=== PATIENT | female | born 1945 | race Caucasian/White ===

== ENCOUNTER → 2020-07-13 | Outpatient (CLI) | payer MEDICARE, SELFPAY | END | disposition home or self-care (01) | PROVIDERS: PCP Family Medicine; Referring Provider Physician Assistant; Visit Provider Physician Assistant | DX: U07.1 COVID-19 (principal) | CPT/HCPCS: 87635; C9803; U0003 ==

== ENCOUNTER 2022-10-17 13:58 | Inpatient (IN) | payer MEDICARE, SELFPAY ==
[2022-10-17] VITALS (10 sets, daily range): BP systolic 116–160; BP diastolic 60–87; PULSE 67–79; RESP 14–18; TEMP 36.6–36.8; O2SAT 95–100; BMI 35.4; BMI 35.9
--- NOTE | 2022-10-17 14:49 | EKG12_ITS ---
Test Reason : SYNCOPE Blood Pressure : / mmHG Vent. Rate : 066 BPM Atrial Rate : 066 BPM P-R Int : 200 ms QRS Dur : 106 ms QT Int : 414 ms P-R-T Axes : 022 -07 015 degrees QTc Int : 434 ms Normal sinus rhythm Nonspecific ST abnormality Abnormal ECG Confirmed by MAKI HESS, KARINA ([id number]), managing editor CAPRICE BARR ([id number]) on 10/20/2022 10:59:35 AM Referred By: CASSANDRA/MAGALY Confirmed By:SAVANNAH GAMBINO MD
--- NOTE | 2022-10-17 14:51 | EX.ED.DYSGE1 ---
HPI History of Present Illness Chief Complaint: Syncope Informant: patient and spouse/S.O. Narrative Narrative: This patient presents after an episode of chest pain posterior shoulder pain and syncope. She does have significant history of of high blood pressure, diabetes and high cholesterol. She has never had any known heart disease or had a stress test or heart cath that she knows of. Her father did have bypass surgery in his mid 50s. She is not a smoker. Patient was feeling in her normal state of health. She was at a restaurant. She started complaining of an achy sensation across her shoulders on both sides. It was not sharp. It did not migrate. She does describe a little discomfort in the sternum at that time also. That was also an ache. It was not tearing ripping or severe but it felt different than pains that she has had before. She does not recall being short of breath or any palpitations. Her noted that she just looked differently. She was awake and alert but she just looked like she was uncomfortable. He got up to have the staff in the restaurant called EMS. When he got back his was leaning forward but had not fallen. Her eyes were open but she was not at all responding to him. This lasted for probably 3 or so minutes. There was some paramedics who happened to be eating at the restaurant who came over and EMS was called. When EMS checked her pulse it evidently was normal but at that point she was awake and alert. She states when she woke up she felt like she just woke up from a nap. She had none of that discomfort in her shoulder or chest. And she feels good now. When she got up to go home, she noticed she had urinated on herself. She went home. She had a normal bowel movement without blood. No abdominal pain. No back pain. But she did have 1 episode of vomiting. This was not associated with further neck pain but did have a little bit of anterior sternal pain. She was not diaphoretic at any time. Her states that her color was a little bit off but she was not pale robles or blue. New Past medical history: High blood pressure, high cholesterol, arthritis, diabetes Medications are lisinopril hydrochlorothiazide, metformin, statin, Tylenol none of these meds are new. No known drug allergies No recent surgeries. No stress test or heart catheterization Lives with non-smoker Review of systems is negative other than in history of present illness. She has no recent fevers chills cough myalgias headaches. No chest pain or palpitations other than as in history of present illness. No shortness of breath or coughing. No abdominal symptoms. No urinary symptoms. No myalgias. No numbness tingling weakness. No headaches. I did review prior records to see if there were any prior labs, EKGs, x-rays CTs available. These were not found. I was able to find a positive COVID test but this was back in July 2020 and I do not think this affects our evaluation today. PFSH PFSH Home Medications acetaminophen 500 mg tablet 1,000 mg PO Q8H ARTHRITIS PAIN 10/17/22 [History Last Taken 10/17/22 05:00] atorvastatin 20 mg tablet 20 mg PO FR CHOLESTEROL 10/17/22 [History Last Taken 10/10/22] diphenhydramine HCl 25 mg tablet (Benadryl Allergy) 25 mg PO QHS PRN ALLERGIES 10/17/22 [History Last Taken 10/15/22] lisinopril 10 mg-hydrochlorothiazide 12.5 mg tablet 1 tab PO QHS BLOOD PRESSURE 10/17/22 [History Last Taken 10/16/22] metformin 500 mg tablet,extended release 24 hr 1,000 mg PO BID BLOOD SUGARS 10/17/22 [History Last Taken 10/16/22] multivit with jkrpzpmx-kikc-QD-lutein 8 mg iron-400 mcg-300 mcg tablet (Centrum Silver Women) 1 tab PO DAILY HEALTH MAINTENANCE 10/17/22 [History Last Taken 10/15/22] omeprazole 20 mg capsule,delayed release 20 mg PO QHS ACID REFLUX 10/17/22 [History Last Taken 10/16/22] Allergy/AdvReac Type Severity Reaction Status Date / Time No Known Allergies Allergy Verified 10/17/22 13:58 Social History Smoking Status: Never smoker EXAM Physical Exam Narrative Exam Narrative: Patient is awake and alert. She is not toxic appearing. She is not pale or diaphoretic. I see no pallor of her conjunctive a. Mucous membranes are moist. Neck is nontender. No stridor is heard. She has no back tenderness or shoulder tenderness. She has some crepitus with motion of her shoulder joints but this is evidently chronic. Peripheral pulses in upper and lower extremities are normal. Her heart is regular with a rate of about 70. I hear no murmur gallop rub or muffled heart tones. Lungs are clear. There is no pain with a deep breath. Her abdomen shows normal bowel sounds soft and nondistended. She had minimal epigastric tenderness but no rebound or guarding. I feel no mass. I hear no bruit. Again lower extremity pulses are normal and there is no mottling. There is no CVA tenderness. No swelling, edema, distended veins or asymmetry of extremities. No mottling. Sensation is intact. Const Vital Signs: 10/17/22 13:59 10/17/22 14:29 10/17/22 14:33 Temperature 97.8 F Temperature Source Temporal Pulse Rate 72 67 Respiratory Rate 18 16 Respiratory Effort Normal Non-Labored Respiratory Pattern Normal Blood Pressure 136/60 H 160/77 H Blood Pressure Mean 85 104 Pulse Ox 100 99 Oxygen Delivery Method Room Air Room Air 10/17/22 14:49 10/17/22 15:00 Temperature Temperature Source Pulse Rate 67 Respiratory Rate 18 Respiratory Effort Respiratory Pattern Blood Pressure Blood Pressure Mean Pulse Ox 98 Oxygen Delivery Method Room Air Room Air MDM MDM MDM Narrative Medical decision making narrative: My Independent interpretation of her single view chest x-ray shows no acute process. I do not see any cardiomegaly infiltrate or pneumothorax. Radiology review and reading is also negative. Blood work showed elevation of her white count which is nonspecific and could be a stress reaction or demargination. She has no fever or symptoms of infections. Hemoglobin is normal. Platelets are normal. Electrolytes did show elevation in the BUN and creatinine but BUN to creatinine ratio is within normal limits. I was able to access the patient's external my chart system to review prior labs. Her creatinine was 0.8 back in May 2021 showing that this may be an acute kidney injury. At this point it is a creatinine elevation as we only have a single prior creatinine level to compare to. Patient's glucose is also elevated 294 today. However she did just finished eating. Her troponin at this time is negative. Patient has a little bit of indigestion feeling in the chest but not having pain now. My concern is that this is a patient with multiple medical problems, blood pressure cholesterol and diabetes who had some chest discomfort posterior neck discomfort and then a syncopal episode. She has never had a stress test. I think bring her in the hospital for further evaluation and testing would be appropriate. When I talk more with the patient, we talked about any difficulties with urination. She states she has none now but about a week ago she had a little bit of pressure and went away with cranberry juice. I will check a urinalysis but this is pending. I have also sent viral studies often and pending. Hospitalist is paged. Lab Data Attestation: I reviewed the patient's lab results. Labs: Laboratory Results - last 24 hr 10/17/22 10/17/22 14:26 14:26 WBC 14.0 H RBC 4.31 Hgb 13.1 Hct 40.0 MCV 92.8 MCH 30.4 MCHC 32.8 RDW Std Deviation 49.1 H RDW Coeff of Carl 14.3 Plt Count 429 MPV 11.3 Immature Gran % (Auto) 0.400 Neut % (Auto) 81.4 H Lymph % (Auto) 11.7 L [place] % (Auto) 5.3 Eos % (Auto) 0.8 Baso % (Auto) 0.4 Absolute Neuts (auto) 11.4 H Absolute Lymphs (auto) 1.63 Nucleated RBC % 0 Sodium 136 Potassium 3.8 Chloride 105 Carbon Dioxide 25.0 Anion Gap 6 BUN 41 H Creatinine 2.12 H Estim Creat Clear Calc 19.68 Est GFR (MDRD) Af Amer 29 L Est GFR (MDRD) Non-Af 24 L BUN/Creatinine Ratio 19.3 Glucose 294 H Calcium 9.9 Troponin I High Sens 19 Radiography Diagnostic Testing: Clinical Impression(s) from Imaging Studies Chest X-Ray 10/17/22 15:06 IMPRESSION: No acute abnormality is seen. Electronically Signed: Enzo Silva MD at 15:20 EST , EKG Initial EKG: Comments: My independent interpretation of EKG done for chest pain and syncope. EKG shows normal sinus rhythm with borderline first-degree AV block. Overall ventricular rate is 66. There is no ventricular ectopy. There is no acute ST elevation or depression consistent with infarct or ischemia. NE interval is borderline at 200 ms. QRS duration and QTc are normal. I looked for and could not find a prior EKG on our medical system. Discharge Plan Dx/Rx/DC Orders Clinical Impression: Chest pain, Syncope, Creatinine elevation Disposition Disposition: Acute Care Hospital [facility]
--- NOTE | 2022-10-17 15:06 | RAD_ITS ---
STUDY: X-RAY CHEST REASON FOR EXAM: Female, 76 years old. Chest pain TECHNIQUE: Single AP portable view of the chest. COMPARISON: None. FINDINGS: EKG electrodes are seen. The lungs are clear and expanded. There is no demonstrated pleural abnormality. Normal size heart. Normal mediastinum and dora. Normal visualized pulmonary arteries. There is atherosclerotic tortuosity of the aortic arch and descending thoracic aorta. There are diffuse degenerative changes of the visualized thoracic spine. There is degenerative osteoarthritis of the bilateral shoulders. There is no demonstrated abnormality of the visualized soft tissue structures of the upper abdomen. RAD/Chest 1 View (Portable) IMPRESSION: No acute abnormality is seen. Electronically Signed: Enzo Silva MD at 15:20 EST ,
[2022-10-17 15:07] LABS: Absolute Lymphocyte Count 1.63 X10^3/uL (0.83-4.51); Absolute Neutrophil Count 11.4 X10^3/uL (2.0-7.7); Basophil# 0.06 X10^3/uL; Basophil% 0.4 % (0-1); Eosinophil# 0.11 X10^3/uL; Eosinophils% 0.8 % (0-5); Hemoglobin 13.1 g/dL (12.0-15.0); Lymphocyte # 1.63 X10^3/ul (0.83-4.51); Lymphocyte % 11.7 % (19-41); Mean Corp Hgb Conc 32.8 g/dL (32-36); Mean Corpuscular Hgb 30.4 pg (27.0-32.0); Mean Corpuscular Volume 92.8 fL (81-99); Mean Platelet Vol. 11.3 fl (6.2-12.0); Monocyte# 0.74 X10^3/uL; Monocyte% 5.3 % (0-10); NRBC Flagged by Analyzer 0 % (0-5); Neutrophil # 11.37 X10^3/uL (2.7-7.7); Neutrophil % 81.4 % (47-70); Platelet Count 429 K/mm3 (150-450); RBC Distribution Width CV 14.3 % (11.6-14.6); RBC Distribution Width SD 49.1 fl (35.1-43.9); Red Blood Count 4.31 M/mm3 (4.2-5.4)
[2022-10-17 15:13] LABS: Anion Gap 6 (5-15); BUN 41 mg/dL (7-18); BUN/Creat Ratio 19.3 RATIO (10-20); Calcium,Total 9.9 mg/dL (8.5-10.1); Chloride 105 mmol/L (98-107); Creatinine, Serum 2.12 mg/dL (0.55-1.02); EST Glomerular Filtration Rate 24 mL/min (>60); Est Glom Filt Rate - Afr Amer 29 mL/min (>60); Estimated Creatinine Clearance 19.68 ml/min; Glucose 294 mg/dL (74-106); Potassium 3.8 mmol/L (3.5-5.1); Sodium Level 136 mmol/L (136-145); Troponin-I HS (w/2H Reflex) 19 pg/mL (3.0-54.0)
[2022-10-17] MEDS: Aspirin 81 MG TAB.CHEW 324 MG PO (15:20)
[2022-10-17] MEDS: 0.9% Normal Saline 1,000 ML 999 ML IV (16:16)
[2022-10-17 16:55] LABS: Reflex Troponin-HS? (from REC) Y
--- NOTE | 2022-10-17 17:20 | HP.PCM.HOS_ITS ---
HPI - General General Date of Admission: 10/17/22 Date of Service: 10/17/22 Chief Complaint: Syncope HPI Narrative VALENTE BOSCH, is a 76 F who presented to the emergency department was prehospital on 10/17/2022 after experiencing a syncopal episode while she was out at lunch. The patient indicated she noticed some deep aching pain across her upper back from shoulder to shoulder and the next thing she remembers is waking up with a bunch of people around her. Her indicated that she went all glassy eyed and did not fall over. She did have a episode of urinary incontinence while she was at the restaurant. The whole event lasted 2 to 3 minutes per her . The patient states when she woke up she felt okay however when she went back home to change close she did have a bowel movement and then episode of nausea afterwards which resulted in vomiting. She indicated she was feeling fine up until the point where she sat down and had the pain across her shoulders at lunch. At the time of my evaluation she indicated she felt almost back to baseline however she reported she was hungry and also felt a bit fatigued. She is never had an event like this previously. She does have a family history of coronary disease in her father and peripheral vascular disease in 1 of 2 sisters. She states her father had his first CABG when he was in his 50s. Vital signs on presentation demonstrated temperature of 97.8, heart rate was 72, blood pressure 136/60, respiratory rate 18 and pulse ox was 100% on room air. Her CBC showed a leukocytosis with a white count of 14 and there was a left shift present with an 81.4% neutrophilia. Patient had no signs of infection. Her chemistry panel showed normal electrolytes however BUN and creatinine were markedly elevated. BUN was 41 and serum creatinine was 2.12. We have no baseline data in our computer system however she was able to show us a creatinine from approximately 18 months ago that was 0.8. She is not had any blood work from that point time until now. Serum glucose was 294 and her initial troponin was 19. Her EKG was unremarkable with normal sinus rhythm and normal intervals without any ST-T wave changes consistent with acute ischemia. Her chest x-ray showed no acute abnormalities. [facility] Medical History (Updated 10/17/22 @ 17:[address] Tomeka Williamson DO) Arthritis Diabetes GERD (gastroesophageal reflux disease) Hyperlipidemia Hypertension Seasonal allergies Home Medications acetaminophen 500 mg tablet 1,000 mg PO Q8H ARTHRITIS PAIN 10/17/22 [History Last Taken 10/17/22 05:00] atorvastatin 20 mg tablet 20 mg PO FR CHOLESTEROL 10/17/22 [History Last Taken 10/10/22] diphenhydramine HCl 25 mg tablet (Benadryl Allergy) 25 mg PO QHS PRN ALLERGIES 10/17/22 [History Last Taken 10/15/22] lisinopril 10 mg-hydrochlorothiazide 12.5 mg tablet 1 tab PO QHS BLOOD PRESSURE 10/17/22 [History Last Taken 10/16/22] metformin 500 mg tablet,extended release 24 hr 1,000 mg PO BID BLOOD SUGARS 10/17/22 [History Last Taken 10/16/22] multivit with czdbhseb-gvmr-WE-lutein 8 mg iron-400 mcg-300 mcg tablet (Centrum Silver Women) 1 tab PO DAILY HEALTH MAINTENANCE 10/17/22 [History Last Taken 10/15/22] omeprazole 20 mg capsule,delayed release 20 mg PO QHS ACID REFLUX 10/17/22 [History Last Taken 10/16/22] Allergy/AdvReac Type Severity Reaction Status Date / Time No Known Allergies Allergy Verified 10/17/22 13:58 Family History (Updated 10/17/22 @ 17:[address] Tomeka Williamson DO) Father Diabetes CAD (coronary artery disease) Sister Diabetes CVA (cerebral vascular accident) Mother Melanoma Other Hypertension Surgical History History of appendectomy Social History (Updated 10/17/22 @ 17:[address] Tomeka Williamson DO) household members: spouse housing: house Smoking Status: Former smoker alcohol intake: current alcohol intake frequency: a few times a week details: Drinks of couple drinks couple times a week substance use type: does not use ROS Constitutional Constitutional: Denies anorexia, change in weight, chills, fatigue, fever(s), malaise, night sweats, weakness or other Eyes Eyes: Denies blurry vision, change in eye color, change in vision, discharge from eye(s), double vision, erythema, eye pain, loss of vision or other ENT HEENT: Denies abnormal hearing, dysphagia, ear pain, epistaxis, headache(s), hearing loss, nasal congestion, nasal discharge, post nasal drip, sinus pressure, sore throat or other Cardiovascular Cardiovascular: Reports syncope and other Details: Upper back pain across from shoulder to shoulder Gastrointestinal Gastrointestinal: Reports dyspepsia, nausea and vomiting; Denies abdominal pain, coffee ground emesis, constipation, diarrhea, hematemesis, hematochezia, loose stools, melena or other Genitourinary Genitourinary: Reports urinary frequency and urinary incontinence; Denies burni ng urination, difficulty urinating, dysuria, hematuria, nocturia, urinary hesitancy, urinary urgency or other Musculoskeletal Musculoskeletal: Reports joint pain and joint stiffness; Denies arthralgias, back pain, joint swelling, myalgias, neck pain or other Neurologic Neurologic: Reports abnormal gait and syncope; Denies abnormal speech, confusion, disequilibrium, dizziness, focal weakness, headache(s), numbness, paresthesias, seizure-like activity, seizures, tingling, tremor(s) or other Psychiatric Psychiatric: Denies anxiety, depression, homicidal ideation, suicidal ideation or other Endocrine Endocrinology: Denies change in body appearance, cold intolerance, excessive sweating, heat intolerance, polydipsia, polyuria or other Hematologic/Lymphatic Hematologic/Lymphatic: Denies anemia, easy bleeding, easy bruising, lymphadenopathy or other Allergic/Immunologic Allergic/Immunologic: Denies rhinitis, hives, eczemia, asthma or other Vital Signs Vital Signs Vital Signs: 10/17/22 13:59 10/17/22 14:29 10/17/22 14:33 Temperature 97.8 F Temperature Source Temporal Pulse Rate 72 67 Respiratory Rate 18 16 Respiratory Effort Normal Non-Labored Respiratory Pattern Normal Blood Pressure 136/60 H 160/77 H Blood Pressure Mean 85 104 Pulse Ox 100 99 Oxygen Delivery Method Room Air Room Air 10/17/22 14:49 10/17/22 15:00 10/17/22 16:02 Temperature 98.3 F Temperature Source Temporal Pulse Rate 67 69 Respiratory Rate 18 14 Respiratory Effort Respiratory Pattern Blood Pressure 116/87 H Blood Pressure Mean 96 Pulse Ox 98 98 Oxygen Delivery Method Room Air Room Air Room Air 10/17/22 17:13 Temperature Temperature Source Pulse Rate 67 Respiratory Rate 16 Respiratory Effort Respiratory Pattern Blood Pressure 116/87 H Blood Pressure Mean 96 Pulse Ox 95 Oxygen Delivery Method Room Air Weight Weight: 96.615 kg Body Mass Index (BMI) 35.4 Physical Exam Const alert, oriented x3, no apparent distress, healthy appearing and well nourished Constitutional Narrative: Obese, older white female, sitting up in bed, and daughter at bedside, patient appears comfortable and nontoxic General Appearance: cooperative HEENT normocephalic, head/scalp atraumatic, hearing grossly normal bilaterally and moist oral mucous membranes HEENT Narrative: Dentition is fair, Mallampati is 2-3, no thrush Eyes PERRL, EOMs intact bilaterally and conjunctivae normal Eyes Narrative: No scleral icterus Neck no lymphadenopathy, supple, no JVD and no carotid bruits Neck Narrative: Trachea midline, no thyroid enlargement Resp normal respiratory effort, no retractions, no use of accessory muscles and clear to auscultation bilaterally Auscultation: Negative for crackles, rhonchi or wheezes Cardio regular rate, regular rhythm, S1 normal heart sound, S2 normal heart sound, no rub, no gallops, no clicks and no JVD; Negative for no murmurs Cardio Narrative: 3 out of 6 systolic murmur loudest at right upper sternal border GI normal to inspection, nondistended, normoactive bowel sounds, soft to palpation and non-tender Extremity no clubbing, cyanosis or edema Extremity Narrative: 2+ pedal pulses Skin no wounds, skin turgor normal, no jaundice, no petechiae and no mottling Skin Narrative: Significant seborrheic keratoses on back Neuro oriented x3, CN's II-XII intact bilaterally, moves all extremities and no focal motor deficits Sensorium / Orientation: awake, alert, oriented to person, oriented to place and oriented to time Speech: speech normal Psych affect normal Psych Narrative: Good eye contact, very pleasant Results Lab / Micro Data Result Diagrams: 10/17/22 14:26 10/17/22 14:26 Labs: Laboratory Results - last 24 hr 10/17/22 14:26: WBC 14.0 H, RBC 4.31, Hgb 13.1, Hct 40.0, MCV 92.8, MCH 30.4, MCHC 32.8, RDW Std Deviation 49.1 H, RDW Coeff of Carl 14.3, Plt Count 429, MPV 11.3, Immature Gran % (Auto) 0.400, Neut % (Auto) 81.4 H, Lymph % (Auto) 11.7 L, [place] % (Auto) 5.3, Eos % (Auto) 0.8, Baso % (Auto) 0.4, Absolute Neuts (auto) 11.4 H, Absolute Lymphs (auto) 1.63, Nucleated RBC % 0 10/17/22 14:26: Sodium 136, Potassium 3.8, Chloride 105, Carbon Dioxide 25.0, Anion Gap 6, BUN 41 H, Creatinine 2.12 H, Estim Creat Clear Calc 19.68, Est GFR (MDRD) Af Amer 29 L, Est GFR (MDRD) Non-Af 24 L, BUN/Creatinine Ratio 19.3, Glucose 294 H, Calcium 9.9, Troponin I High Sens 19 Micro: Microbiology 10/17/22 15:29 Nasal Secretion SARS-CoV-2 & FLU Antigen (Rapid) - Final Radiology Impression Chest X-Ray 10/17/22 15:06 IMPRESSION: No acute abnormality is seen. Electronically Signed: Enzo Silva MD at 15:20 EST , Assessment & Plan Assessment/Plan (1) Chest pain: (2) Syncope: (3) Creatinine elevation: PLAN: Plan Syncopal event -Followed intense pain from shoulder to shoulder and her upper back without chest pain -Check echocardiogram-patient has known baseline cardiac murmur -Check stress test -Cycle cardiac enzymes -Start aspirin -Continue home atorvastatin -Heart rates have been in the 60s therefore will defer metoprolol for now -Check hemoglobin A1c -Check lipid panel -Check EEG is based on history I am unable to definitively rule out the fact that she had a seizure that was nonfocal -N.p.o. after midnight -Carb control/cardiac diet Serum creatinine elevation -Baseline is unknown -Most recent lab demonstrated a serum creatinine of 0.8 however this was 18 months ago -Hold lisinopril/hydrochlorothiazide -We will hydrate -Repeat lab in a.m. and if not improved would encourage further work-up DM-2 -Hold home metformin -Serum glucose on admission was 294 -May be reactive secondary to above event -Check hemoglobin A1c -SSI -Accu-Cheks before meals and at bedtime Hyperlipidemia -Continue home atorvastatin -Lipid panel pending Hypertension -HCTZ/lisinopril on hold at -As needed hydralazine available GERD -Continue PPI Obesity -Recommend weight loss -Complicates treatment, prognosis, outcomes DVT prophylaxis -Heparin 3 times daily CODE STATUS -Full code Charges/Coding Visit Charges Inpatient E&M: 90619 Init Hosp L3
--- NOTE | 2022-10-17 17:42 | ECHOD_ITS ---
Version 2 Reason For Study: Syncope Procedure This was a 2D Doppler, Color Flow transthoracic echocardiogram. Exam performed portable in patient room. Left Ventricle Normal LV size. The estimated ejection fraction is 50-55 %. Normal diastology for age. [place] : Hypokinetic. Right Ventricle Normal RV size. Normal systolic function. Atria Normal left atrium. Normal right atrium. No doppler evidence for ASD. Mitral Valve There is no mitral valve stenosis. Trivial mitral valve insufficiency. Tricuspid Valve There is no tricuspid stenosis. Trivial tricuspid valve insufficiency. Pulmonary artery systolic pressure is 30-35 mmHg. Aortic Valve Trisinus/trileaflet aortic valve. There is no aortic stenosis. No aortic valve insufficiency. Pulmonic Valve There is no pulmonic valvular stenosis. Trivial pulmonic valve insufficiency. Great Vessels Normal aortic root. Pericardium/Pleural No pericardial effusion. MMode/2D Measurements & Calculations LVIDd: 3.5 cm IVSd: 1.2 cm LVOT diam: 2.0 cm LVIDs: 1.8 cm LVPWd: 0.92 cm LVOT area: 3.2 cm2 RVDd: 3.7 cm FS: 50.0 % Ao root diam: 3.4 cm LAV(MOD-bp): 51.4 ml LVAd ap4: 24.3 cm2 LAV(MOD-bp) Indexed: 25.3 ml/m2 LVLd ap4: 7.6 cm LAV(MOD-sp2): 60.1 ml EDV(MOD-sp4): 63.2 ml LAV(MOD-sp4): 39.8 ml EDV(sp4-el): 65.8 ml LVAs ap4: 13.8 cm2 LVLs ap4: 6.5 cm ESV(MOD-sp4): 25.2 ml ESV(sp4-el): 24.6 ml EF(MOD-sp4): 60.1 % EF(sp4-el): 62.7 % LVAd ap2: 23.1 cm2 SV(MOD-sp4): 38.0 ml SV(MOD-sp2): 39.0 ml LVLd ap2: 7.5 cm EDV(MOD-sp2): 59.5 ml EDV(sp2-el): 60.5 ml LVAs ap2: 12.8 cm2 LVLs ap2: 6.4 cm ESV(MOD-sp2): 20.5 ml ESV(sp2-el): 21.7 ml EF(MOD-sp2): 65.5 % SV(sp4-el): 41.3 ml LA dimension(2D): 3.6 cm LA A4 area: 15.9 cm2 RA A4 area: 17.9 cm2 Time Measurements MV dec time: 0.22 sec Doppler Measurements & Calculations MV E max micah: 84.1 cm/sec Lat Peak E' Micah: 8.2 cm/sec Med Peak E' Micah: 6.9 cm/sec MV A max micah: 107.2 cm/sec E/E' lat: 10.3 E/E' med: 12.1 MV E/A: 0.78 Ao V2 max: 199.1 cm/sec LV V1 max: 121.0 cm/sec MV dec slope: 379.9 cm/sec2 Ao max P.9 mmHg LV V1 max P.9 mmHg Ao V2 mean: 136.2 cm/sec LV V1 mean P.9 mmHg Ao mean P.2 mmHg LV V1 mean: 79.8 cm/sec Ao V2 VTI: 44.8 cm LV V1 VTI: 29.9 cm AV (velocity ratio): 0.67 RENÉ(I,D): 2.1 cm2 RENÉ(V,D): 1.9 cm2 SV(LVOT): 95.3 ml PA V2 max: 89.9 cm/sec TR max micah: 256.3 cm/sec TR max P.3 mmHg ECHO/Echo Complete Interpretation Summary The estimated ejection fraction is 50-55 %. Trivial mitral valve insufficiency. [place] : Hypokinetic. Ordering Physician: Tomeka Williamson Referring Physician: Anna Lees Performed By: Elzbieta King RDCS
--- NOTE | 2022-10-17 17:42 | EKG12_ITS ---
Test Reason : AM EKG Blood Pressure : / mmHG Vent. Rate : 059 BPM Atrial Rate : 059 BPM P-R Int : 206 ms QRS Dur : 094 ms QT Int : 410 ms P-R-T Axes : 024 -10 003 degrees QTc Int : 405 ms Sinus bradycardia Inferior infarct , age undetermined Abnormal ECG When compared with ECG of 17-OCT-2022 17:51, MANUAL COMPARISON REQUIRED, DATA IS UNCONFIRMED Confirmed by STEVNESON HESS, SALVADOR ([id number]), newspaper or periodical editor CAPRICE BARR ([id number]) on 10/21/2022 8:40:34 AM Referred By: Confirmed By:SALVADOR GAMINO MD
[2022-10-17] MEDS: Lactated Ringers 1,000 ML 100 ML IV (18:30)
[2022-10-17] MEDS: Acetaminophen 500 MG Tablet 1000 MG PO ×2 (18:32→21:16)
[2022-10-17 18:37] LABS: Mucous, Urine 0 SEEN /hpf (<or=2+); Red Blood Cells-Urine 0 SEEN /hpf (0-5)
[2022-10-17 18:41] LABS: Color, Urine Yellow (Yellow); Glucose, Dipstick 1000 mg/dl (Normal); Ketone-Dipstick Negative (Negative); Leukocyte Esterase-Dipstick 25 /ul (Negative); Nitrite-Dipstick Negative (Negative); Occult Blood-Urine 50 /ul (Negative); Protein-Dipstick 100 mg/dl (Negative); Specific Gravity, Urine 1.015 (1.002-1.030); Urine Bilirubin Dipstick Negative (Negative); Urine Clarity Sl. Cloudy (Clear); Urine Urobilinogen Normal (Normal); Urine pH 6.5 (5.0 - 8.0)
[2022-10-17 18:48] LABS: Bacteria 2+ /hpf (None Seen); Squamous Epithelial Cells - UA 0-5 SEEN /hpf (5-10)
[2022-10-17 18:49] LABS: White Blood Cells 0-5 SEEN /hpf (0-5)
[2022-10-17 18:52] LABS: Troponin-I HS 246 pg/mL (3.0-54.0)
--- NOTE | 2022-10-17 19:01 | PCM.HOSP.N ---
Hospitalist Note Initial troponin was 19 however repeat troponin at 1804 was 246. I will discontinue the stress test and EEG. Okay to get echocardiogram. Start heparin drip and discontinue subcu prophylactic heparin. Increase statin to 80 mg daily and start beta-isiah 25 mg p.o. twice daily. I discussed the case with cardiology and they agreed with the plan and will see the patient in consult tomorrow. As long as she remains stable the probably plan for cath on Thursday which will give us time to improve her renal function if this is acute kidney injury. I did discuss the results with the patient.
[2022-10-17 20:58] LABS: Partial Thromboplast Time 29.9 Seconds (24.1-36.2)
[2022-10-17 21:07] LABS: Troponin-I HS 813 pg/mL (3.0-54.0)
[2022-10-17] MEDS: HEPARIN/D5w 25,000 UNITS 25,000 UNITS/250 ML IV.SOLN. 10 UNITS CONT INF (21:16)
[2022-10-17] MEDS: Pantoprazole Sodium 20 MG Tablet PO (21:16)
[2022-10-17] MEDS: Metoprolol Tartrate 25 MG Tablet PO (21:16)
[2022-10-17] MEDS: Atorvastatin Calcium 80 MG Tablet PO (21:16)
[2022-10-17] MEDS: Heparin Injection (Vial) 5,000 UNIT/ML VIAL 4000 UNIT IV (21:18)
[2022-10-17] MEDS: 0.9% Saline Lock 10 ML Syringe IV (21:25)
[2022-10-17 22:30] LABS: Bedside Glucose 226 mg/dL (74-106)
[2022-10-18] VITALS (9 sets, daily range): BP systolic 124–154; BP diastolic 70–85; PULSE 56–72; RESP 16–18; TEMP 36.2–36.8; O2SAT 94–98
[2022-10-18 03:46] LABS: Partial Thromboplast Time 88.9 Seconds (24.1-36.2)
[2022-10-18] MEDS: Lactated Ringers 1,000 ML 100 ML IV ×2 (04:23→14:44)
[2022-10-18] MEDS: Acetaminophen 500 MG Tablet 1000 MG PO ×3 (04:54→22:14)
[2022-10-18] MEDS: Insulin Lispro 100 UNIT/ML INSULN.PEN SC ×2 (06:24→11:27)
[2022-10-18 06:40] LABS: Bedside Glucose 171 mg/dL (74-106)
[2022-10-18 07:40] LABS: Absolute Lymphocyte Count 2.12 X10^3/uL (0.83-4.51); Absolute Neutrophil Count 5.8 X10^3/uL (2.0-7.7); Basophil# 0.06 X10^3/uL; Basophil% 0.7 % (0-1); Eosinophil# 0.16 X10^3/uL; Eosinophils% 1.8 % (0-5); Hematocrit 36.8 % (37-47); Hemoglobin 12.1 g/dL (12.0-15.0); Lymphocyte # 2.12 X10^3/ul (0.83-4.51); Mean Corp Hgb Conc 32.9 g/dL (32-36); Mean Corpuscular Hgb 30.5 pg (27.0-32.0); Mean Corpuscular Volume 92.7 fL (81-99); Mean Platelet Vol. 11.1 fl (6.2-12.0); Monocyte# 0.65 X10^3/uL; Monocyte% 7.3 % (0-10); NRBC Flagged by Analyzer 0 % (0-5); Neutrophil # 5.83 X10^3/uL (2.7-7.7); Neutrophil % 65.9 % (47-70); Platelet Count 394 K/mm3 (150-450); RBC Distribution Width CV 14.4 % (11.6-14.6); RBC Distribution Width SD 49.1 fl (35.1-43.9); Red Blood Count 3.97 M/mm3 (4.2-5.4); White Blood Count 8.9 K/mm3 (4.4-11.0)
[2022-10-18 07:57] LABS: ALB/GLOB Ratio 0.8 RATIO (0.9-2.4); AST(SGOT) 35 U/L (15-37); Alanine Aminotransfer ALT/SGPT 26 U/L (13-56); Albumin, Serum 2.9 g/dL (3.2-5.0); Alkaline Phosphatase 50 U/L (45-117); Anion Gap 9 (5-15); BUN 34 mg/dL (7-18); BUN/Creat Ratio 21.2 RATIO (10-20); Calcium,Total 9.3 mg/dL (8.5-10.1); Chloride 107 mmol/L (98-107); Cholesterol 174 mg/dL (200); EST Glomerular Filtration Rate 33 mL/min (>60); Est Glom Filt Rate - Afr Amer 40 mL/min (>60); Estimated Creatinine Clearance 26.08 ml/min; Globulin 3.6 g/dL (2.2-4.2); Glucose 151 mg/dL (74-106); High Density Lipoprotein 39 mg/dL; Magnesium 2.2 mg/dL (1.6-2.6); Phosphorus 2.9 mg/dL (2.5-4.9); Potassium 3.8 mmol/L (3.5-5.1); Protein, Total 6.5 g/dL (6.4-8.2); Sodium Level 137 mmol/L (136-145); Thyroid Stim Hormone (TSH) 1.32 uIU/mL (0.358-3.74); Triglycerides 147 mg/dL; Very Low Density Lipoprotein 29 mg/dL (5-40)
--- NOTE | 2022-10-18 08:10 | CPS ---
Spoke with Jesse,charge nurse in regards to EEG. I informed her that the EEG order had been stopped per DR Williamson. Jesse stated she saw that too although it did not seem to get canceled.No EEG was needed, per stop order request and Dr Williamson'S noted that she was cancelling EEG.
[2022-10-18 08:28] LABS: Hemoglobin A1c 7.1 % (3.8-5.6)
--- NOTE | 2022-10-18 08:59 | PCM.PN.HOSP ---
Subjective Subjective No further pain between her shoulders. Objective Data Objective Data Vital Signs: Vital Signs Temp Pulse Resp BP Pulse Ox O2 Del Method 36.2 C L 63 16 154/84 H 94 Room Air 10/18/22 03:02 10/18/22 03:02 10/18/22 03:02 10/18/22 03:02 10/18/22 07:45 10/18/22 08:16 Oxygen Delivery Method Room Air Weight: 97.84 kg Body Mass Index (BMI) 35.9 Intake & Output: Intake and Output for Last 24 Hours 10/16/22 10/17/22 10/18/22 23:59 23:59 23:59 Intake Total 1480 / 1720 1298.83 / 1298.83 Balance 1480 / 1720 1298.83 / 1298.83 Lab / Micro Data Result Diagrams: 10/18/22 05:43 10/18/22 05:43 Labs: Laboratory Results - last 24 hr 10/17/22 14:26: WBC 14.0 H, RBC 4.31, Hgb 13.1, Hct 40.0, MCV 92.8, MCH 30.4, MCHC 32.8, RDW Std Deviation 49.1 H, RDW Coeff of Carl 14.3, Plt Count 429, MPV 11.3, Immature Gran % (Auto) 0.400, Neut % (Auto) 81.4 H, Lymph % (Auto) 11.7 L, [place] % (Auto) 5.3, Eos % (Auto) 0.8, Baso % (Auto) 0.4, Absolute Neuts (auto) 11.4 H, Absolute Lymphs (auto) 1.63, Nucleated RBC % 0 10/17/22 14:26: Sodium 136, Potassium 3.8, Chloride 105, Carbon Dioxide 25.0, Anion Gap 6, BUN 41 H, Creatinine 2.12 H, Estim Creat Clear Calc 19.68, Est GFR (MDRD) Af Amer 29 L, Est GFR (MDRD) Non-Af 24 L, BUN/Creatinine Ratio 19.3, Glucose 294 H, Calcium 9.9, Troponin I High Sens 19 10/17/22 18:04: Troponin I High Sens 246 H* 10/17/22 18:30: Urine Color Yellow, Urine Clarity Sl. Cloudy, Urine pH 6.5, Ur Specific [place] 1.015, Urine Protein 100 H, Urine Glucose (UA) 1000 H, Urine Ketones Negative, Urine Occult Blood 50 H, Urine Nitrite Negative, Urine Bilirubin Negative, Urine Urobilinogen Normal, Ur Leukocyte Esterase 25 H, Urine RBC 0 SEEN, Urine WBC 0-5 SEEN, Ur Squamous Epith Cells 0-5 SEEN, Urine Bacteria 2+, Urine Mucus 0 SEEN 10/17/22 20:09: Troponin I High Sens 813 H* 10/17/22 20:40: APTT 29.9 10/17/22 21:31: POC Glucose 226 H 10/18/22 03:19: APTT 88.9 H 10/18/22 05:43: Hemoglobin A1c 7.1 H 10/18/22 05:43: WBC 8.9, RBC 3.97 L, Hgb 12.1, Hct 36.8 L, MCV 92.7, MCH 30.5, MCHC 32.9, RDW Std Deviation 49.1 H, RDW Coeff of Carl 14.4, Plt Count 394, MPV 11.1, Immature Gran % (Auto) 0.300, Neut % (Auto) 65.9, Lymph % (Auto) 24.0, [place] % (Auto) 7.3, Eos % (Auto) 1.8, Baso % (Auto) 0.7, Absolute Neuts (auto) 5.8, Absolute Lymphs (auto) 2.12, Nucleated RBC % 0 10/18/22 05:43: Sodium 137, Potassium 3.8, Chloride 107, Carbon Dioxide 21.0, Anion Gap 9, BUN 34 H, Creatinine 1.60 H, Estim Creat Clear Calc 26.08, Est GFR (MDRD) Af Amer 40 L, Est GFR (MDRD) Non-Af 33 L, BUN/Creatinine Ratio 21.2 H, Glucose 151 H, Calcium 9.3, Phosphorus 2.9, Magnesium 2.2, Total Bilirubin 0.20, AST 35, ALT 26, Alkaline Phosphatase 50, Total Protein 6.5, Albumin 2.9 L, Globulin 3.6, Albumin/Globulin Ratio 0.8 L, Triglycerides 147, Cholesterol 174, LDL Cholesterol 106, VLDL Cholesterol 29, HDL Cholesterol 39 L, TSH 1.32 10/18/22 06:19: POC Glucose 171 H Micro: Microbiology 10/17/22 15:29 Nasal Secretion SARS-CoV-2 & FLU Antigen (Rapid) - Final Radiography Diagnostic Testing: Radiology Impression Chest X-Ray 10/17/22 15:06 IMPRESSION: No acute abnormality is seen. Electronically Signed: Enzo Silva MD at 15:20 EST , Physical Exam Const alert and no apparent distress Resp normal respiratory effort, no retractions, no use of accessory muscles and clear to auscultation bilaterally Cardio regular rate, regular rhythm, S1 normal heart sound and S2 normal heart sound GI normal to inspection, nondistended, normoactive bowel sounds, soft to palpation and non-tender Extremity normal to inspection Assessment & Plan Assessment/Plan (1) NSTEMI, initial episode of care: PLAN: Troponins went up to 813 On heparin drip Aspirin Metoprolol Atorvastatin Cardiology on consult, tentative plan for left heart catheterization on the th. (2) Syncope: PLAN: Suspect vasovagal Perhaps due to #1 Monitor on telemetry (3) Creatinine elevation: PLAN: No baseline to compare to Creatinine improved with IV fluids Continue to monitor Avoid nephrotoxic agents at this time. PLAN: Plan VTE prophylaxis: Not indicated as patient is already on anticoagulation. Charges/Coding Visit Charges Inpatient E&M: 39197 Subs Hosp L2
[2022-10-18] MEDS: Multivitamins,Ther W-Minerals Tablet 1 TABLET PO (10:05)
[2022-10-18] MEDS: Aspirin E.C. 81 MG Tablet PO (10:05)
[2022-10-18] MEDS: Metoprolol Tartrate 25 MG Tablet PO ×2 (10:05→22:13)
[2022-10-18] MEDS: 0.9% Saline Lock 10 ML Syringe IV ×2 (10:06→22:12)
[2022-10-18 10:57] LABS: Partial Thromboplast Time 56.9 Seconds (24.1-36.2)
[2022-10-18 11:51] LABS: Bedside Glucose 246 mg/dL (74-106)
--- NOTE | 2022-10-18 12:28 | PCM.CONS.C ---
Assessment & Plan Assessment/Plan (1) NSTEMI, initial episode of care: PLAN: Continue aspirin, statin, heparin. Check 2D echo. Possible coronary angiography on Thursday. Patient's creatinine on presentation was 2.1 and has now come down to 1.6. (2) Syncope: PLAN: Continue telemetry. We will check 2D echo. Patient will also likely be getting coronary angiography on Thursday depending on her creatinine trend. If angiography is unremarkable, no arrhythmias detected on telemetry and 2D echo is unremarkable then volume depletion could be considered in the differential diagnosis as well. HPI Consult Data Date of Consult: 10/18/22 HPI Narrative Reason for Consultation: Chest pain, abnormal troponin HPI Narrative: VALENTE BOSCH, is a 76 F who presents with a syncopal episode that was preceded by bilateral shoulder pain. Patient's troponin has trended up and cardiology consult was requested. [facility] Medical History (Updated 10/18/22 @ 09:[address] Santy Amaya, DO) Arthritis Diabetes GERD (gastroesophageal reflux disease) Hyperlipidemia Hypertension Seasonal allergies Home Medications acetaminophen 500 mg tablet 1,000 mg PO Q8H ARTHRITIS PAIN 10/17/22 [History Last Taken 10/17/22 05:00] atorvastatin 20 mg tablet 20 mg PO FR CHOLESTEROL 10/17/22 [History Last Taken 10/10/22] diphenhydramine HCl 25 mg tablet (Benadryl Allergy) 25 mg PO QHS PRN ALLERGIES 10/17/22 [History Last Taken 10/15/22] lisinopril 10 mg-hydrochlorothiazide 12.5 mg tablet 1 tab PO QHS BLOOD PRESSURE 10/17/22 [History Last Taken 10/16/22] metformin 500 mg tablet,extended release 24 hr 1,000 mg PO BID BLOOD SUGARS 10/17/22 [History Last Taken 10/16/22] multivit with mgzqjeqh-weyn-QX-lutein 8 mg iron-400 mcg-300 mcg tablet (Centrum Silver Women) 1 tab PO DAILY HEALTH MAINTENANCE 10/17/22 [History Last Taken 10/15/22] omeprazole 20 mg capsule,delayed release 20 mg PO QHS ACID REFLUX 10/17/22 [History Last Taken 10/16/22] Allergy/AdvReac Type Severity Reaction Status Date / Time No Known Allergies Allergy Verified 10/17/22 13:58 Family History (Updated 10/17/22 @ 17:[address] Tomeka Williamson DO) Father Diabetes CAD (coronary artery disease) Sister Diabetes CVA (cerebral vascular accident) Mother Melanoma Other Hypertension Surgical History History of appendectomy Social History (Updated 10/17/22 @ 17:[address] Tomeka Williamson DO) household members: spouse housing: house Smoking Status: Former smoker alcohol intake: current alcohol intake frequency: a few times a week details: Drinks of couple drinks couple times a week substance use type: does not use Physical Exam Const alert and oriented x3 HEENT normocephalic Eyes no scleral icterus Resp normal respiratory effort Cardio regular rate Extremity no pedal edema Risk Stratification Risk Stratification Applicable: No Charges/Coding Visit Charges Inpatient E&M: 48649 Init Hosp L2 Objective Data Vital Signs: Vital Signs Temp Pulse Resp BP Pulse Ox O2 Del Method 97.6 F L 72 18 135/74 H 96 Room Air 10/18/22 09:00 10/18/22 10:05 10/18/22 09:00 10/18/22 10:05 10/18/22 09:00 10/18/22 09:00 Oxygen Delivery Method Room Air Weight: 215 lb 11.2 oz Body Mass Index (BMI) 35.9 Intake & Output: Intake and Output for Last 24 Hours 10/16/22 10/17/22 10/18/22 23:59 23:59 23:59 Intake Total 1480 / 1720 1538.83 / 1538.83 Balance 1480 / 1720 1538.83 / 1538.83 Lab / Micro Data Result Diagrams: 10/18/22 05:43 10/18/22 05:43 Labs: Laboratory Results - last 24 hr 10/17/22 14:26: WBC 14.0 H, RBC 4.31, Hgb 13.1, Hct 40.0, MCV 92.8, MCH 30.4, MCHC 32.8, RDW Std Deviation 49.1 H, RDW Coeff of Carl 14.3, Plt Count 429, MPV 11.3, Immature Gran % (Auto) 0.400, Neut % (Auto) 81.4 H, Lymph % (Auto) 11.7 L, [place] % (Auto) 5.3, Eos % (Auto) 0.8, Baso % (Auto) 0.4, Absolute Neuts (auto) 11.4 H, Absolute Lymphs (auto) 1.63, Nucleated RBC % 0 10/17/22 14:26: Sodium 136, Potassium 3.8, Chloride 105, Carbon Dioxide 25.0, Anion Gap 6, BUN 41 H, Creatinine 2.12 H, Estim Creat Clear Calc 19.68, Est GFR (MDRD) Af Amer 29 L, Est GFR (MDRD) Non-Af 24 L, BUN/Creatinine Ratio 19.3, Glucose 294 H, Calcium 9.9, Troponin I High Sens 19 10/17/22 18:04: Troponin I High Sens 246 H* 10/17/22 18:30: Urine Color Yellow, Urine Clarity Sl. Cloudy, Urine pH 6.5, Ur Specific [place] 1.015, Urine Protein 100 H, Urine Glucose (UA) 1000 H, Urine Ketones Negative, Urine Occult Blood 50 H, Urine Nitrite Negative, Urine Bilirubin Negative, Urine Urobilinogen Normal, Ur Leukocyte Esterase 25 H, Urine RBC 0 SEEN, Urine WBC 0-5 SEEN, Ur Squamous Epith Cells 0-5 SEEN, Urine Bacteria 2+, Urine Mucus 0 SEEN 10/17/22 20:09: Troponin I High Sens 813 H* 10/17/22 20:40: APTT 29.9 10/17/22 21:31: POC Glucose 226 H 10/18/22 03:19: APTT 88.9 H 10/18/22 05:43: Hemoglobin A1c 7.1 H 10/18/22 05:43: WBC 8.9, RBC 3.97 L, Hgb 12.1, Hct 36.8 L, MCV 92.7, MCH 30.5, MCHC 32.9, RDW Std Deviation 49.1 H, RDW Coeff of Carl 14.4, Plt Count 394, MPV 11.1, Immature Gran % (Auto) 0.300, Neut % (Auto) 65.9, Lymph % (Auto) 24.0, [place] % (Auto) 7.3, Eos % (Auto) 1.8, Baso % (Auto) 0.7, Absolute Neuts (auto) 5.8, Absolute Lymphs (auto) 2.12, Nucleated RBC % 0 10/18/22 05:43: Sodium 137, Potassium 3.8, Chloride 107, Carbon Dioxide 21.0, Anion Gap 9, BUN 34 H, Creatinine 1.60 H, Estim Creat Clear Calc 26.08, Est GFR (MDRD) Af Amer 40 L, Est GFR (MDRD) Non-Af 33 L, BUN/Creatinine Ratio 21.2 H, Glucose 151 H, Calcium 9.3, Phosphorus 2.9, Magnesium 2.2, Total Bilirubin 0.20, AST 35, ALT 26, Alkaline Phosphatase 50, Total Protein 6.5, Albumin 2.9 L, Globulin 3.6, Albumin/Globulin Ratio 0.8 L, Triglycerides 147, Cholesterol 174, LDL Cholesterol 106, VLDL Cholesterol 29, HDL Cholesterol 39 L, TSH 1.32 10/18/22 06:19: POC Glucose 171 H 10/18/22 10:30: APTT 56.9 H 10/18/22 11:26: POC Glucose 246 H Micro: Microbiology 10/17/22 15:29 Nasal Secretion SARS-CoV-2 & FLU Antigen (Rapid) - Final Cardiology Labs/Tests 10/17/22 14:26: WBC 14.0 H, RBC 4.31, Hgb 13.1, Hct 40.0, MCV 92.8, MCH 30.4, MCHC 32.8, Plt Count 429, MPV 11.3, Immature Gran % (Auto) 0.400, Neut % (Auto) 81.4 H, Lymph % (Auto) 11.7 L, [place] % (Auto) 5.3, Eos % (Auto) 0.8, Baso % (Auto) 0.4, Absolute Neuts (auto) 11.4 H, Nucleated RBC % 0 10/17/22 14:26: Sodium 136, Potassium 3.8, Chloride 105, Carbon Dioxide 25.0, Anion Gap 6, BUN 41 H, Creatinine 2.12 H, Est GFR (MDRD) Af Amer 29 L, Est GFR (MDRD) Non-Af 24 L, BUN/Creatinine Ratio 19.3, Glucose 294 H, Calcium 9.9 10/17/22 18:30: Urine Color Yellow, Urine Clarity Sl. Cloudy, Urine pH 6.5, Ur Specific [place] 1.015, Urine Protein 100 H, Urine Glucose (UA) 1000 H, Urine Ketones Negative, Urine Occult Blood 50 H, Urine Nitrite Negative, Urine Bilirubin Negative, Urine Urobilinogen Normal, Ur Leukocyte Esterase 25 H, Urine RBC 0 SEEN, Urine WBC 0-5 SEEN 10/17/22 20:40: APTT 29.9 10/18/22 03:19: APTT 88.9 H 10/18/22 05:43: Hemoglobin A1c 7.1 H 10/18/22 05:43: WBC 8.9, RBC 3.97 L, Hgb 12.1, Hct 36.8 L, MCV 92.7, MCH 30.5, MCHC 32.9, Plt Count 394, MPV 11.1, Immature Gran % (Auto) 0.300, Neut % (Auto) 65.9, Lymph % (Auto) 24.0, [place] % (Auto) 7.3, Eos % (Auto) 1.8, Baso % (Auto) 0.7, Absolute Neuts (auto) 5.8, Nucleated RBC % 0 10/18/22 05:43: Sodium 137, Potassium 3.8, Chloride 107, Carbon Dioxide 21.0, Anion Gap 9, BUN 34 H, Creatinine 1.60 H, Est GFR (MDRD) Af Amer 40 L, Est GFR (MDRD) Non-Af 33 L, BUN/Creatinine Ratio 21.2 H, Glucose 151 H, Calcium 9.3, Phosphorus 2.9, Magnesium 2.2, Total Bilirubin 0.20, Triglycerides 147, Cholesterol 174, LDL Cholesterol 106, VLDL Cholesterol 29, HDL Cholesterol 39 L 10/18/22 10:30: APTT 56.9 H Rhythm: EKG: ECHO: Stress Test: Cardiac Cath: PCI: CT Surgery: Holter monitor: EPS: PPM: CXR: Chest CT Scan: Radiography Diagnostic Testing: Radiology Impression Chest X-Ray 10/17/22 15:06 IMPRESSION: No acute abnormality is seen. Electronically Signed: Enzo Silva MD at 15:20 EST ,
[2022-10-18 17:31] LABS: Bedside Glucose 139 mg/dL (74-106)
[2022-10-18 17:45] LABS: Partial Thromboplast Time 52.7 Seconds (24.1-36.2)
[2022-10-18 21:55] LABS: Bedside Glucose 218 mg/dL (74-106)
[2022-10-18] MEDS: Pantoprazole Sodium 20 MG Tablet PO (22:13)
[2022-10-18] MEDS: HEPARIN/D5w 25,000 UNITS 25,000 UNITS/250 ML IV.SOLN. 10 UNITS CONT INF (22:14)
[2022-10-19] VITALS (10 sets, daily range): BP systolic 127–140; BP diastolic 60–82; PULSE 57–66; RESP 14–18; TEMP 36.5–36.8; O2SAT 96–98
[2022-10-19 00:35] LABS: Partial Thromboplast Time 63.6 Seconds (24.1-36.2)
[2022-10-19] MEDS: Lactated Ringers 1,000 ML 100 ML IV ×3 (00:46→22:36)
[2022-10-19] MEDS: Insulin Lispro 100 UNIT/ML INSULN.PEN SC ×3 (06:28→16:25)
[2022-10-19] MEDS: Acetaminophen 500 MG Tablet 1000 MG PO ×3 (06:29→21:47)
[2022-10-19 06:54] LABS: Absolute Lymphocyte Count 1.97 X10^3/uL (0.83-4.51); Absolute Neutrophil Count 5.5 X10^3/uL (2.0-7.7); Basophil# 0.06 X10^3/uL; Basophil% 0.7 % (0-1); Eosinophil# 0.21 X10^3/uL; Eosinophils% 2.5 % (0-5); Hematocrit 39.7 % (37-47); Hemoglobin 12.5 g/dL (12.0-15.0); Lymphocyte # 1.97 X10^3/ul (0.83-4.51); Lymphocyte % 23.5 % (19-41); Mean Corp Hgb Conc 31.5 g/dL (32-36); Mean Corpuscular Hgb 29.1 pg (27.0-32.0); Mean Corpuscular Volume 92.5 fL (81-99); Mean Platelet Vol. 11.1 fl (6.2-12.0); Monocyte# 0.58 X10^3/uL; Monocyte% 6.9 % (0-10); NRBC Flagged by Analyzer 0 % (0-5); Neutrophil # 5.51 X10^3/uL (2.7-7.7); Neutrophil % 65.9 % (47-70); Platelet Count 392 K/mm3 (150-450); RBC Distribution Width CV 14.3 % (11.6-14.6); RBC Distribution Width SD 48.1 fl (35.1-43.9); Red Blood Count 4.29 M/mm3 (4.2-5.4); White Blood Count 8.4 K/mm3 (4.4-11.0)
[2022-10-19 07:05] LABS: Bedside Glucose 164 mg/dL (74-106)
[2022-10-19 07:08] LABS: Partial Thromboplast Time 70.5 Seconds (24.1-36.2)
[2022-10-19 07:29] LABS: Anion Gap 5 (5-15); BUN 23 mg/dL (7-18); BUN/Creat Ratio 17.2 RATIO (10-20); Calcium,Total 9.7 mg/dL (8.5-10.1); Chloride 108 mmol/L (98-107); Creatinine, Serum 1.34 mg/dL (0.55-1.02); EST Glomerular Filtration Rate 41 mL/min (>60); Est Glom Filt Rate - Afr Amer 49 mL/min (>60); Estimated Creatinine Clearance 31.13 ml/min; Glucose 155 mg/dL (74-106); Potassium 4.1 mmol/L (3.5-5.1); Sodium Level 138 mmol/L (136-145)
[2022-10-19] MEDS: Multivitamins,Ther W-Minerals Tablet 1 TABLET PO (08:29)
[2022-10-19] MEDS: Aspirin E.C. 81 MG Tablet PO (08:29)
--- NOTE | 2022-10-19 09:18 | PCM.PN.HOSP ---
Subjective Subjective Feels well. No chest pain or palpitations. No shoulder pain either Objective Data Objective Data Vital Signs: Vital Signs Temp Pulse Resp BP Pulse Ox O2 Del Method 36.5 C L 59 L 14 127/82 H 98 Room Air 10/19/22 03:29 10/19/22 03:29 10/19/22 03:29 10/19/22 03:29 10/19/22 06:53 10/19/22 06:53 Oxygen Delivery Method Room Air Weight: 97.84 kg Body Mass Index (BMI) 35.9 Intake & Output: Intake and Output for Last 24 Hours 10/17/22 10/18/22 10/19/22 23:59 23:59 23:59 Intake Total 1480 / 1720 3179.20 / 3179.20 1091.5 / 1091.5 Output Total Balance 1480 / 1720 3178.20 / 3178.20 1091.5 / 1091.5 Lab / Micro Data Result Diagrams: 10/19/22 06:24 10/19/22 06:24 Labs: Laboratory Results - last 24 hr 10/18/22 10:30: APTT 56.9 H 10/18/22 11:26: POC Glucose 246 H 10/18/22 17:00: APTT 52.7 H 10/18/22 17:04: POC Glucose 139 H 10/18/22 21:20: POC Glucose 218 H 10/19/22 00:11: APTT 63.6 H 10/19/22 06:24: WBC 8.4, RBC 4.29, Hgb 12.5, Hct 39.7, MCV 92.5, MCH 29.1, MCHC 31.5 L, RDW Std Deviation 48.1 H, RDW Coeff of Carl 14.3, Plt Count 392, MPV 11.1, Immature Gran % (Auto) 0.500, Neut % (Auto) 65.9, Lymph % (Auto) 23.5, [place] % (Auto) 6.9, Eos % (Auto) 2.5, Baso % (Auto) 0.7, Absolute Neuts (auto) 5.5, Absolute Lymphs (auto) 1.97, Nucleated RBC % 0 10/19/22 06:24: Sodium 138, Potassium 4.1, Chloride 108 H, Carbon Dioxide 25.0, Anion Gap 5, BUN 23 H, Creatinine 1.34 H, Estim Creat Clear Calc 31.13, Est GFR (MDRD) Af Amer 49 L, Est GFR (MDRD) Non-Af 41 L, BUN/Creatinine Ratio 17.2, Glucose 155 H, Calcium 9.7 10/19/22 06:24: APTT 70.5 H 10/19/22 06:25: POC Glucose 164 H Micro: Microbiology 10/17/22 15:29 Nasal Secretion SARS-CoV-2 & FLU Antigen (Rapid) - Final Radiography Diagnostic Testing: Radiology Impression Echocardiogram 10/17/22 17:42 Interpretation Summary The estimated ejection fraction is 50-55 %. Trivial mitral valve insufficiency. [place] : Hypokinetic. Ordering Physician: Tomeka Williamson Referring Physician: Anna Lees Performed By: Elzbieta King ALFREDO Physical Exam Const alert and no apparent distress HEENT head/scalp atraumatic and moist oral mucous membranes Resp normal respiratory effort, no retractions and no use of accessory muscles Cardio regular rate, regular rhythm, S1 normal heart sound and S2 normal heart sound GI normal to inspection, nondistended, normoactive bowel sounds Extremity normal to inspection Assessment & Plan Assessment/Plan (1) NSTEMI, initial episode of care: PLAN: Troponins went up to 813 On heparin drip Aspirin Metoprolol Atorvastatin Cardiology on consult, tentative plan for left heart catheterization on the . (2) Syncope: PLAN: Suspect vasovagal Perhaps due to #1 Monitor on telemetry (3) Creatinine elevation: PLAN: No baseline to compare to Creatinine improved with IV fluids Continue to monitor Avoid nephrotoxic agents at this time. PLAN: Plan VTE prophylaxis: Not indicated as patient is already on anticoagulation. Charges/Coding Visit Charges Inpatient E&M: 10286 Subs Hosp L2
[2022-10-19] MEDS: Metoprolol Tartrate 25 MG Tablet PO ×2 (09:48→21:47)
[2022-10-19 11:45] LABS: Bedside Glucose 177 mg/dL (74-106)
[2022-10-19 13:59] LABS: Partial Thromboplast Time 53.1 Seconds (24.1-36.2)
--- NOTE | 2022-10-19 16:46 | PN.CARD_ITS ---
Subjective Subjective No further shoulder pain or syncope. Objective Data Vital Signs: Vital Signs Temp Pulse Resp BP Pulse Ox O2 Del Method 97.8 F 60 18 140/72 H 97 Room Air 10/19/22 13:53 10/19/22 13:53 10/19/22 13:53 10/19/22 13:53 10/19/22 13:53 10/19/22 13:53 Oxygen Delivery Method Room Air Weight: 215 lb 11.2 oz Body Mass Index (BMI) 35.9 Intake & Output: Intake and Output for Last 24 Hours 10/17/22 10/18/22 10/19/22 23:59 23:59 23:59 Intake Total 1480 / 1720 3179.20 / 3179.20 3218.17 / 3218.17 Output Total Balance 1480 / 1720 3178.20 / 3178.20 3218.17 / 3218.17 Lab / Micro Data Result Diagrams: 10/19/22 06:24 10/19/22 06:24 Labs: Laboratory Results - last 24 hr 10/18/22 17:00: APTT 52.7 H 10/18/22 17:04: POC Glucose 139 H 10/18/22 21:20: POC Glucose 218 H 10/19/22 00:11: APTT 63.6 H 10/19/22 06:24: WBC 8.4, RBC 4.29, Hgb 12.5, Hct 39.7, MCV 92.5, MCH 29.1, MCHC 31.5 L, RDW Std Deviation 48.1 H, RDW Coeff of Carl 14.3, Plt Count 392, MPV 11.1, Immature Gran % (Auto) 0.500, Neut % (Auto) 65.9, Lymph % (Auto) 23.5, [place] % (Auto) 6.9, Eos % (Auto) 2.5, Baso % (Auto) 0.7, Absolute Neuts (auto) 5.5, Absolute Lymphs (auto) 1.97, Nucleated RBC % 0 10/19/22 06:24: Sodium 138, Potassium 4.1, Chloride 108 H, Carbon Dioxide 25.0, Anion Gap 5, BUN 23 H, Creatinine 1.34 H, Estim Creat Clear Calc 31.13, Est GFR (MDRD) Af Amer 49 L, Est GFR (MDRD) Non-Af 41 L, BUN/Creatinine Ratio 17.2, Glucose 155 H, Calcium 9.7 10/19/22 06:24: APTT 70.5 H 10/19/22 06:25: POC Glucose 164 H 10/19/22 11:26: POC Glucose 177 H 10/19/22 13:25: APTT 53.1 H Cardiology Labs/Tests 10/18/22 17:00: APTT 52.7 H 10/19/22 00:11: APTT 63.6 H 10/19/22 06:24: WBC 8.4, RBC 4.29, Hgb 12.5, Hct 39.7, MCV 92.5, MCH 29.1, MCHC 31.5 L, Plt Count 392, MPV 11.1, Immature Gran % (Auto) 0.500, Neut % (Auto) 65.9, Lymph % (Auto) 23.5, [place] % (Auto) 6.9, Eos % (Auto) 2.5, Baso % (Auto) 0.7, Absolute Neuts (auto) 5.5, Nucleated RBC % 0 10/19/22 06:24: Sodium 138, Potassium 4.1, Chloride 108 H, Carbon Dioxide 25.0, Anion Gap 5, BUN 23 H, Creatinine 1.34 H, Est GFR (MDRD) Af Amer 49 L, Est GFR (MDRD) Non-Af 41 L, BUN/Creatinine Ratio 17.2, Glucose 155 H, Calcium 9.7 10/19/22 06:24: APTT 70.5 H 10/19/22 13:25: APTT 53.1 H Rhythm: EKG: ECHO: Stress Test: Cardiac Cath: PCI: CT Surgery: Holter monitor: EPS: PPM: CXR: Chest CT Scan: Physical Exam Const alert and oriented x3 HEENT normocephalic Eyes no scleral icterus Resp normal respiratory effort Assessment & Plan Assessment/Plan (1) NSTEMI, initial episode of care: PLAN: Continue present management. Cath tomorrow. (2) Syncope: PLAN: Continue telemetry. We will check 2D echo. Patient will also likely be getting coronary angiography tomorrow depending on her creatinine trend. If angiography is unremarkable, no arrhythmias detected on telemetry and 2D echo is unremarkable then volume depletion could be considered in the differential diagnosis as well. Charges/Coding Visit Charges Inpatient E&M: 83762 Subs Hosp L2
[2022-10-19 20:06] LABS: Bedside Glucose 161 mg/dL (74-106)
[2022-10-19 20:54] LABS: Partial Thromboplast Time 61.8 Seconds (24.1-36.2)
[2022-10-19] MEDS: Pantoprazole Sodium 20 MG Tablet PO (21:47)
[2022-10-19] MEDS: 0.9% Saline Lock 10 ML Syringe IV (21:48)
[2022-10-19] MEDS: HEPARIN/D5w 25,000 UNITS 25,000 UNITS/250 ML IV.SOLN. 10 UNITS CONT INF (22:45)
--- NOTE | 2022-10-19 22:49 | NURSING ---
hep gtt was already running at 10ml/hr, adjusted per dayshift. aptt at goal at this rate, continue hep gtt rate at this time. Keypad pump locked.
[2022-10-20] VITALS (16 sets, daily range): BP systolic 104–159; BP diastolic 60–84; PULSE 46–65; RESP 16–20; TEMP 36.3–36.8; O2SAT 93–100
[2022-10-20 00:35] LABS: Bedside Glucose 192 mg/dL (74-106)
[2022-10-20 02:51] LABS: Hematocrit 41.4 % (37-47); Hemoglobin 12.7 g/dL (12.0-15.0); Mean Corp Hgb Conc 30.7 g/dL (32-36); Mean Corpuscular Hgb 29.5 pg (27.0-32.0); Mean Corpuscular Volume 96.1 fL (81-99); Platelet Count 310 K/mm3 (150-450); RBC Distribution Width CV 14.2 % (11.6-14.6); RBC Distribution Width SD 50.2 fl (35.1-43.9); Red Blood Count 4.31 M/mm3 (4.2-5.4); White Blood Count 8.7 K/mm3 (4.4-11.0)
[2022-10-20 02:58] LABS: Partial Thromboplast Time 69.4 Seconds (24.1-36.2)
[2022-10-20 03:34] LABS: Anion Gap 7 (5-15); BUN 27 mg/dL (7-18); BUN/Creat Ratio 16.9 RATIO (10-20); Calcium,Total 9.3 mg/dL (8.5-10.1); Chloride 107 mmol/L (98-107); EST Glomerular Filtration Rate 33 mL/min (>60); Est Glom Filt Rate - Afr Amer 40 mL/min (>60); Estimated Creatinine Clearance 26.08 ml/min; Glucose 158 mg/dL (74-106); Potassium 4.3 mmol/L (3.5-5.1); Sodium Level 136 mmol/L (136-145)
--- NOTE | 2022-10-20 05:55 | EKG12_ITS ---
Test Reason : POST PCI Blood Pressure : / mmHG Vent. Rate : 057 BPM Atrial Rate : 057 BPM P-R Int : 196 ms QRS Dur : 096 ms QT Int : 440 ms P-R-T Axes : 039 -10 015 degrees QTc Int : 428 ms Sinus bradycardia Inferior-posterior infarct , age undetermined Abnormal ECG When compared with ECG of 20-OCT-2022 05:56, MANUAL COMPARISON REQUIRED, DATA IS UNCONFIRMED Confirmed by STEVENSON HESS, SALVADOR ([id number]), electronic news gathering editor CAPRICE BARR ([id number]) on 10/21/2022 8:40:17 AM Referred By: BAILEY Confirmed By:SALVADOR GAMINO MD
[2022-10-20] MEDS: Acetaminophen 500 MG Tablet 1000 MG PO ×2 (06:36→15:00)
[2022-10-20] MEDS: Aspirin E.C. 81 MG Tablet PO (06:37)
[2022-10-20] MEDS: Metoprolol Tartrate 25 MG Tablet PO ×2 (06:37→21:26)
[2022-10-20 07:15] LABS: Bedside Glucose 186 mg/dL (74-106)
--- NOTE | 2022-10-20 08:05 | PN.CARD_ITS ---
Subjective Subjective The patient was seen and evaluated. Appears to be doing well this morning. Underwent cardiac catheterization. Objective Data Vital Signs: Vital Signs Temp Pulse Resp BP Pulse Ox O2 Del Method 97.8 F 62 18 159/84 H 97 Room Air 10/20/22 06:35 10/20/22 06:37 10/20/22 06:35 10/20/22 06:35 10/20/22 06:35 10/20/22 06:35 Oxygen Delivery Method Room Air Weight: 215 lb 11.2 oz Body Mass Index (BMI) 35.9 Intake & Output: Intake and Output for Last 24 Hours 10/18/22 10/19/22 10/20/22 23:59 23:59 23:59 Intake Total 3179.20 / 3179.20 4356.47 / 4356.47 885.16 / 885.16 Output Total Balance 3178.20 / 3178.20 4356.47 / 4356.47 885.16 / 885.16 Lab / Micro Data Result Diagrams: 10/20/22 02:25 10/20/22 02:25 Labs: Laboratory Results - last 24 hr 10/19/22 11:26: POC Glucose 177 H 10/19/22 13:25: APTT 53.1 H 10/19/22 16:22: POC Glucose 161 H 10/19/22 20:20: APTT 61.8 H 10/19/22 21:53: POC Glucose 192 H 10/20/22 02:25: WBC 8.7, RBC 4.31, Hgb 12.7, Hct 41.4, MCV 96.1, MCH 29.5, MCHC 30.7 L, RDW Std Deviation 50.2 H, RDW Coeff of Carl 14.2, Plt Count 310, MPV 11.0 10/20/22 02:25: Sodium 136, Potassium 4.3, Chloride 107, Carbon Dioxide 22.0, A nion Gap 7, BUN 27 H, Creatinine 1.60 H, Estim Creat Clear Calc 26.08, Est GFR (MDRD) Af Amer 40 L, Est GFR (MDRD) Non-Af 33 L, BUN/Creatinine Ratio 16.9, Glucose 158 H, Calcium 9.3 10/20/22 02:25: APTT 69.4 H 10/20/22 06:31: POC Glucose 186 H Cardiology Labs/Tests 10/19/22 13:25: APTT 53.1 H 10/19/22 20:20: APTT 61.8 H 10/20/22 02:25: WBC 8.7, RBC 4.31, Hgb 12.7, Hct 41.4, MCV 96.1, MCH 29.5, MCHC 30.7 L, Plt Count 310, MPV 11.0 10/20/22 02:25: Sodium 136, Potassium 4.3, Chloride 107, Carbon Dioxide 22.0, Anion Gap 7, BUN 27 H, Creatinine 1.60 H, Est GFR (MDRD) Af Amer 40 L, Est GFR (MDRD) Non-Af 33 L, BUN/Creatinine Ratio 16.9, Glucose 158 H, Calcium 9.3 10/20/22 02:25: APTT 69.4 H Rhythm: EKG: ECHO: Stress Test: Cardiac Cath: PCI: CT Surgery: Holter monitor: EPS: PPM: CXR: Chest CT Scan: Physical Exam Const alert, oriented x3 and no apparent distress General Appearance: cooperative HEENT hearing grossly normal bilaterally Head and Scalp: atraumatic Eyes EOMs intact bilaterally Neck General: normal visual inspection Chest inspection of chest normal and palpation of chest normal Resp normal respiratory effort Auscultation: clear to auscultation bilaterally Cardio regular rate, regular rhythm, S1 normal heart sound and S2 normal heart sound Jugular Venous Distention: JVD GI normal to inspection, nondistended, normoactive bowel sounds Extremity normal capillary refill and no pedal edema Peripheral Pulses: Yes pulses 2+ throughout and femoral pulses present Skin no rashes or lesions noted Neuro oriented x3 and CN's II-XII intact bilaterally Psych Appearance: grossly normal and appropriate Assessment & Plan Assessment/Plan (1) NSTEMI, initial episode of care: PLAN: The patient presented with a syncopal episode and was noted to have an elevated troponin. This resulted in a cardiac catheterization today which demonstrated the following: Normal left main coronary artery. Left anterior descending artery with mild calcification but no high-grade stenosis. Nondominant left circumflex artery with first obtuse marginal branch with 90% stenosis and main circumflex artery with 90% stenosis. Dominant right coronary artery with calcified 70% mid segment stenosis and moderate distal disease. Preserved ejection fraction by echocardiogram. Based on the above angiographic findings would consider PCI. We will discuss with interventional's. (2) Syncope: PLAN: Patient had a syncopal episode which was likely not an arrhythmic. Patient was dehydrated at that time as well. However the coronary lesions would need to be corrected and then patient would be monitored. Would recommend an outpatient 48-hour oral event monitor when discharged. Thank you for allowing me to participate in the care of your patient. Please don't hesitate to call if any issues arise.
--- NOTE | 2022-10-20 08:12 | CL.D_ITS ---
Patient Name: VALENTE BOSCH Study Date: 10/20/2022 Performing: Lico Osuna MD Ht: 65 inches 165.1 cm : 1945 Wt: 215.7 lbs 97.84 kg Age: 76 Gender: female BSA: 2.04 PROCEDURE(S) PERFORMED DC02-([id number])[facility] CLINICAL PROFILE AND INDICATIONS Indications: Suspected CAD Heart Failure: None Stress/Imaging Stress/Image Study Performed: No CAD Presentations: Non-STEMI. Symptom onset Date/Time: 10/18/22 Time Not Available CONCLUSIONS Severe two-vessel disease involving calcified right coronary artery with 70% stenosis in the midsegment and a small circumflex artery system with to 90% stenotic lesions noted. LAD has mild disease and preserved ejection fraction. RECOMMENDATIONS Referred for immediate PCI DESCRIPTION OF PROCEDURE The patient arrived to the procedure lab. The risks and benefits of the procedure as well as a full description of our services here and current unavailability of surgical backup were fully explained to the patient and/or their significant other prior to the catheterization. The Timeout was completed, verifying the correct patient and procedure. The patient's procedural site was prepped and draped in the usual fashion. Local anesthetic was given subcutaneously to right radial region with Lidocaine 2%. Using a modified Seldinger technique, arterial access was obtained via the right radial artery, a 6Fr sheath was inserted. Right Coronary Artery selective angiography was then performed in multiple views using a 5 Fr. 4.0 [place] catheter. Left Coronary Artery selective angiography was performed in multiple views using a 5 Fr. 4.0 [place] catheter. CORONARY ANGIOGRAPHY DOMINANCE: Right Dominant LEFT HEART ASSESSMENT Left Ventricular Ejection Fraction: by Echo 55 % Normal LV wall motion Normal Left Ventricular systolic function LEFT MAIN: Mild calcification, No significant disease noted LEFT ANTERIOR DESCENDING ARTERY: Mild calcification, Mild luminal irregularities less than 30% CIRCUMFLEX ARTERY: Mild calcification PROX CIRC: 90 in a small vessel % Stenosis OM 1: Proximal - 90 % Stenosis RIGHT CORONARY ARTERY: This is a dominant vessel which is calcified with proximal 30% stenosis, mid 70% stenosis and distal 50% stenosis at the takeoff of the posterior descending artery. COMPLICATIONS PROCEDURE MEDICATIONS Fentanyl 50 mcg IV Versed 1 mg IV Versed 1 mg IV Oxygen: 2 L/min via nasal cannula Oxygen: 4 L/min via nasal cannula Brilinta 180 mg PO @ 10/20/2022 08:07:59 Heparin given IA 10/20/2022 07:53:13 Verapamil 2.5mg, Ntg 100mcgs, 3000 units of Heparin given IA 10/20/2022 07:53:13 SUMMARY OF HEMODYNAMIC DATA Time AIR REST ECG 07:28:47 Art 183/79 (118) 07:40:36 AO 148/78 (106) SA 07:54:24 Signed By Lico Osuna MD On 10/20/2022 08:12:32 Lico Osuna MD
--- NOTE | 2022-10-20 09:08 | CL.I_ITS ---
Patient Name: VALENTE BOSCH Study Date: 10/20/2022 Performing: John Machado MD Ht: 65 inches 165.1 cm : 1945 Wt: 215.7 lbs 97.84 kg Age: 76 Gender: female BSA: 2.04 PROCEDURE(S) PERFORMED IC12-([id number])[place] W/WO PTCA, SINGLE CORONARY ARTERY CLINICAL PROFILE AND CO-MORBIDITIES Indications: Suspected CAD Heart Failure: None Stress/Imaging Stress/Image Study Performed: No CAD Presentations: Non-STEMI. Symptom onset Date/Time: 10/18/22 Time Not Available CONCLUSIONS Successful [place] Mid OM1 using Resolute [place] 2.5x18 mm, post-dilated using 2.75 mm balloon RECOMMENDATIONS ASA Indefinitley Plavix for at least 12 months DESCRIPTION OF PROCEDURE The patient arrived to the procedure lab. The risks and benefits of the procedure as well as a full description of our services here and current unavailability of surgical backup were fully explained to the patient and/or their significant other prior to the catheterization. The Timeout was completed, verifying the correct patient and procedure. The patient's procedural site was prepped and draped in the usual fashion. Local anesthetic was given subcutaneously to right radial region with Lidocaine 2% Using a modified Seldinger technique,arterial access was obtained via the right radial artery, a 6Fr sheath was inserted. Right Coronary Artery selective angiography was then performed in multiple views using a 5 Fr. 4.0 [place] catheter. Left Coronary Artery selective angiography was performed in multiple views using a 5 Fr. 4.0 [place] catheter.The images were reviewed and options discussed. A decision was then made to proceed with an Intervention, IVUS or other adjunct procedure. XB 3 Guide catheter was inserted and engaged into the LCA. Runthrough Guide wire was advanced to the 1st OM. Emerge 2.5 x 15 Balloon catheter was inserted. Balloon catheter was advanced across lesion in the first obtuse marginal, mid. Angiogram performed pre balloon dilatation. PTCA balloon inflated at 6 atms for 10 secs. PTCA balloon inflated at 6 atms for 12 secs. PTCA balloon inflated at 8 atms for 15 secs. Angiogram performed post balloon dilatation. Resolute [place] 2.5 x 18 Drug Eluting stent was inserted. Drug Eluting stent was advanced across the lesion in the first obtuse marginal, mid. NC 2.75 x 15 Balloon catheter was inserted. Balloon catheter was advanced across lesion in the first obtuse marginal, mid. Angiogram performed post stent deployment. Angiogram performed post balloon dilatation. The arterial sheath was pulled and a TR Band was applied for hemostasis INTERVENTION INFORMATION LESION SITE: 1st OM (Mid) Lesion Complexity: Non-High/Non-C, culprit lesion: Yes Pre Stenosis: 90 % Pre intervention SUZANNE flow: 3 PROCEDURE: Drug Eluting Stent with pre and post dilatation Post Stenosis: 0 % Post intervention SUZANNE flow: 3 Lesion Devices: Terumo .014 180cm Runthrough Extra Floppy straight Cordis 6 Fr XB3.0 100cm Guide Catheter Gage Sci EMERGE MR 2.50x15 BALLOON Medtronic Resolute [place] RX [place] 2.5x18 Gage Sci NC EMERGE MR 2.75x15 BALLOON COMPLICATIONS No Complications PROCEDURE MEDICATIONS Fentanyl 50 mcg IV Versed 1 mg IV Versed 1 mg IV Fentanyl 50 mcg IV Oxygen: 2 L/min via nasal cannula Oxygen: 4 L/min via nasal cannula Brilinta 180 mg PO @ 10/20/2022 08:07:59 Heparin given IA 10/20/2022 07:53:13 Heparin 7000 unit(s) IV 10/20/2022 08:21:57 Nitro 150 mcg IC 10/20/2022 08:35:57 Verapamil 2.5mg, Ntg 100mcgs, 3000 units of Heparin given IA 10/20/2022 07:53:13 SUMMARY OF HEMODYNAMIC DATA Time AIR REST ECG 07:28:47 Art 183/79 (118) 07:40:36 AO 148/78 (106) SA 07:54:24 09:04:45 Signed By John Machado MD On 10/20/2022 09:08:11 John Machado MD
[2022-10-20] MEDS: 0.9% Normal Saline 1,000 ML 150 ML IV (09:18)
[2022-10-20] MEDS: 0.9% Normal Saline 500 ML IV.SOLN. IV (09:42)
[2022-10-20] MEDS: Ondansetron 4 MG/2 ML Vial IV (09:47)
[2022-10-20] MEDS: Atropine Sulfate 1 MG/10 ML Syringe 0.5 MG IV (09:47)
--- NOTE | 2022-10-20 09:54 | CASEMGMT ---
Tertiary facilities in-network with patient's insurance: [facility], [facility], [facility], [facility], , [facility]
--- NOTE | 2022-10-20 10:00 | EKG12_ITS ---
Test Reason : Blood Pressure : / mmHG Vent. Rate : 071 BPM Atrial Rate : 071 BPM P-R Int : 202 ms QRS Dur : 106 ms QT Int : 408 ms P-R-T Axes : 032 000 025 degrees QTc Int : 443 ms Sinus rhythm with occasional Premature ventricular complexes Inferior-posterior infarct , age undetermined Abnormal ECG When compared with ECG of 17-OCT-2022 14:32, MANUAL COMPARISON REQUIRED, DATA IS UNCONFIRMED Confirmed by STEVENSON HESS, SALVADOR ([id number]), editor department CAPRICE BARR ([id number]) on 10/21/2022 8:42:28 AM Referred By: BHAVESH Confirmed By:SALVADOR GAMINO MD
[2022-10-20] MEDS: Multivitamins,Ther W-Minerals Tablet 1 TABLET PO (10:19)
[2022-10-20 10:55] LABS: Partial Thromboplast Time 247.8 Seconds (24.1-36.2)
--- NOTE | 2022-10-20 11:55 | CASEMGMT ---
RN CM Face to Face with patient for initial transition planning/care coordination assessment. RN CM introduced self and role at [facility]. Patient lying in bed, alert and oriented. Patient willing to participate in assessment and is able to answer all questions appropriately. Care providers, pharmacy, and demographics verified. Patient wishes to discharge home, denies need for home health at this time. Patient states she has no further needs or concerns at this time. CM to follow for discharge planning needs that may arise. PCP: Yoana Specialists: елена Blanc Pharmacy: [facility] Insurance: [employer] [facility] Prescription Benefit: yes Living Will/HPOA: none LNOK: daugther, grandson Living Arrangements: Patient lives with daughter and grandson in a 2 story home. Patient states she is independent and able to ambulate the stairs. Transportation: self, family DME/HHC: Patient states she has raised toilet, cane, rollator, and grab bars at home. No previous HHC or SNF. Disposition Plan: Patient to discharge home with family support and follow-up plans in place. Yeni GRAYSON, RN, CM
[2022-10-20] MEDS: Insulin Lispro 100 UNIT/ML INSULN.PEN SC ×2 (12:19→16:38)
[2022-10-20 12:50] LABS: Bedside Glucose 191 mg/dL (74-106)
--- NOTE | 2022-10-20 13:34 | CRPHASE1 ---
Patient Communication Former Patient:: Phase I Guide to Cardiac Rehab Given to Patient:: Yes Cardiac Rehab Facility Choice List Given to Patient:: Yes Supervisor Offset Plate Preparation:: Dr. Machado Cardiac Rehabilitation Info Cardiac Rehabilitation Program Information: Cardiac Rehab The cardiac rehab team at [facility] consists of highly skilled exercise physiologists, nurses, respiratory therapists and physicians working together with you. Our purpose is to help you have a full recovery and achieve the goals you set for yourself. Over the years many of our patients have returned to activities they assumed they would never do again! We can help restore your confidence and motivation to make lifestyle changes that can have a significant impact on your health and quality of life! We can help answer questions and concerns you may have about exercise, lifestyle, medications, diet, stress and anxiety which are common following a hospitalization. WE monitor ECG and vital signs during exercise and discuss your progress with you and report to your physician(s). Cardiac Rehab is proven to help reduce readmissions, improve functional capacity and lower recurrence of problems with your heart. Our Cardiac Rehab program is Certified by the [place] [employer]-Vascular [employer] Pulmonary [employer] (AACVPR) and Accredited by the [employer] through our [facility]. You can contact us at . We invite you to call us with your questions or to get started in our program. If you have other questions or concerns be sure to ask your physician/provider during your follow-up visit. WE look forward to seeing you!
--- NOTE | 2022-10-20 13:36 | CRPH1.INSTRU ---
General Education CAD and cardiac anatomy and function:: Patient communicates acknowledgment Explanation of diagnoses and procedures:: Patient communicates acknowledgment Sign/Symptoms of [place]:: Patient communicates acknowledgment Antiplatelet therapy: Patient communicates acknowledgment Smoking Patient Nicotine/Smoking Risk Factors Are:: Cigarettes Recommendations Include:: Previous smoker; encourage continued cessation Nicotine/Smoking Response Code:: Patient communicates acknowledgment Dyslipidemia Patient Dyslipidemia Risk Factors Are:: Total Cholesterol, Triglycerides, HDL, LDL Recommendations Include:: Lipid profile not available, Therapeutic Lifestyle Change dietary guidelines Dyslipidemia Response Code:: Patient communicates acknowledgment Overweight/Obesity Patient Overweight/Obesity Risk Factors Are:: Obesity - > or = 30 Recommendations Include:: Weight loss of 5-10%, Reduced calorie diet, Exercise 5-7 times/week Overweight/Obesity:: Patient communicates acknowledgment Hypertension Recommendations Include:: Maintain BP <130/85 Hypertension:: Patient communicates acknowledgment Heart Disease Recommendations Include:: Educated family members of their risk Heart Disease Response Code:: Patient communicates acknowledgment Diabetes Patient Diabetes Risk Factors Are:: Elevated blood sugars Recommendations Include:: Maintain fasting blood sugars 70-110 md/dL, Maintain HgbA1c of 6% or less, Monitor blood sugar as prescribed, Diabetic dietary guidelines, Decrease/maintain body weight Diabetes:: Patient communicates acknowledgment Metabolic Syndrome Patient Metabolic Syndrome Risk Factors Are [3 of 5]:: Fasting blood sugar > 100 mg/dL, Waist circumference > 35 [female] or 40 [male], High triglyceride >150, Hypertension, Low HDL <40 [male] or < 50 [female] Recommendations Include:: Patient is diabetic Metabolic Syndrome Response Code:: Patient communicates acknowledgment Sedentary Patient Sedentary Risk Factors Are:: Lack of regular exercise Recommendations Include:: Aerobic exercise 5-7 times/week for 20-30 minutes continuously, Benefits of regular exercise, Discussed home walking program, Monitored Outpatient Cardiac Rehab Sedentary Response Code:: Patient communicates acknowledgment Stress Recommendations Include:: Identification of stressors, and assessment of coping skills, Stress management techniques Stress Response Code:: Patient communicates acknowledgment
[2022-10-20] MEDS: Clopidogrel Bisulfate 300 MG Tablet PO (16:39)
[2022-10-20 17:00] LABS: Bedside Glucose 162 mg/dL (74-106)
--- NOTE | 2022-10-20 17:25 | PCM.PN.HOSP ---
Subjective Subjective Slightly short of breath but feeling better, no cp Objective Data Objective Data Vital Signs: Vital Signs Temp Pulse Resp BP Pulse Ox O2 Del Method 97.4 F L 58 L 20 H 124/83 H 97 Room Air 10/20/22 16:19 10/20/22 16:19 10/20/22 16:19 10/20/22 16:19 10/20/22 16:19 10/20/22 16:19 Oxygen Delivery Method Room Air Weight: 97.84 kg Body Mass Index (BMI) 35.9 Intake & Output: Intake and Output for Last 24 Hours 10/18/22 10/19/22 10/20/22 23:59 23:59 23:59 Intake Total 3179.20 / 3179.20 4356.47 / 4356.47 1885.16 / 1885.16 Output Total Balance 3178.20 / 3178.20 4356.47 / 4356.47 1885.16 / 1885.16 Lab / Micro Data Result Diagrams: 10/20/22 02:25 10/20/22 02:25 Labs: Laboratory Results - last 24 hr 10/19/22 16:22: POC Glucose 161 H 10/19/22 20:20: APTT 61.8 H 10/19/22 21:53: POC Glucose 192 H 10/20/22 02:25: WBC 8.7, RBC 4.31, Hgb 12.7, Hct 41.4, MCV 96.1, MCH 29.5, MCHC 30.7 L, RDW Std Deviation 50.2 H, RDW Coeff of Carl 14.2, Plt Count 310, MPV 11.0 10/20/22 02:25: Sodium 136, Potassium 4.3, Chloride 107, Carbon Dioxide 22.0, Anion Gap 7, BUN 27 H, Creatinine 1.60 H, Estim Creat Clear Calc 26.08, Est GFR (MDRD) Af Amer 40 L, Est GFR (MDRD) Non-Af 33 L, BUN/Creatinine Ratio 16.9, Glucose 158 H, Calcium 9.3 10/20/22 02:25: APTT 69.4 H 10/20/22 06:31: POC Glucose 186 H 10/20/22 10:04: APTT 247.8 H* 10/20/22 12:17: POC Glucose 191 H 10/20/22 16:36: POC Glucose 162 H Micro: Microbiology 10/17/22 15:29 Nasal Secretion SARS-CoV-2 & FLU Antigen (Rapid) - Final Physical Exam Const alert and no apparent distress Constitutional Narrative: Oriented HEENT normocephalic and head/scalp atraumatic Eyes Eyes Narrative: EOM grossly intact, anicteric Neck supple Resp normal respiratory effort and clear to auscultation bilaterally Cardio regular rate and regular rhythm GI soft to palpation, non-tender and non-distended Extremity Extremity Narrative: No edema appreciated Neuro moves all extremities Neuro Narrative: No overt focal deficits appreciated Psych Psych Narrative: Cooperative Assessment & Plan Assessment/Plan (1) NSTEMI, initial episode of care: (2) Syncope: PLAN: Plan #NSTEMI/coronary artery disease Cath 10/20/2022 with 2 stenotic lesions that required stenting No chest pain at this time Aspirin, statin, Plavix, metoprolol Will need to follow with cardiology and cardiac rehab upon discharge EF preserved, apex was hypokinetic #syncopal episode On to only Has not had further episodes Needs outpatient 48-hour monitor on discharge #Type 2 diabetes mellitus Sliding scale insulin and Accu-Cheks #ANA CRISTINA versus CKD Unclear baseline, 2.12 on admission and is down trended to 1.60 Has received significant amount of fluids and is plateaued #Hyperlipidemia -Continue home atorvastatin -Lipid panel pending #Hypertension -HCTZ/lisinopril on hold at -As needed hydralazine available #GERD -Continue PPI #Obesity -Recommend weight loss -Complicates treatment, prognosis, outcomes #DVT prophylaxis SCDs Charges/Coding Visit Charges Inpatient E&M: 81465 Subs Hosp L2
[2022-10-20] MEDS: Pantoprazole Sodium 20 MG Tablet PO (21:26)
[2022-10-21 00:50] LABS: Bedside Glucose 141 mg/dL (74-106)
[2022-10-21 03:30] VITALS: BP 149/68; PULSE 67; RESP 17; TEMP 36.8; O2SAT 96
[2022-10-21 05:54] LABS: Absolute Lymphocyte Count 1.66 X10^3/uL (0.83-4.51); Absolute Neutrophil Count 6.4 X10^3/uL (2.0-7.7); Basophil# 0.05 X10^3/uL; Basophil% 0.6 % (0-1); Eosinophil# 0.17 X10^3/uL; Eosinophils% 1.9 % (0-5); Hematocrit 40.7 % (37-47); Hemoglobin 12.2 g/dL (12.0-15.0); Lymphocyte # 1.66 X10^3/ul (0.83-4.51); Lymphocyte % 18.6 % (19-41); Mean Corpuscular Hgb 29.5 pg (27.0-32.0); Mean Corpuscular Volume 98.5 fL (81-99); Mean Platelet Vol. 10.6 fl (6.2-12.0); Monocyte# 0.64 X10^3/uL; Monocyte% 7.2 % (0-10); NRBC Flagged by Analyzer 0 % (0-5); Neutrophil # 6.37 X10^3/uL (2.7-7.7); Neutrophil % 71.4 % (47-70); Platelet Count 338 K/mm3 (150-450); RBC Distribution Width CV 14.6 % (11.6-14.6); RBC Distribution Width SD 52.9 fl (35.1-43.9); Red Blood Count 4.13 M/mm3 (4.2-5.4); White Blood Count 8.9 K/mm3 (4.4-11.0)
[2022-10-21] MEDS: Insulin Lispro 100 UNIT/ML INSULN.PEN SC ×2 (06:22→10:56)
[2022-10-21 06:26] LABS: ALB/GLOB Ratio 0.8 RATIO (0.9-2.4); AST(SGOT) 29 U/L (15-37); Alanine Aminotransfer ALT/SGPT 30 U/L (13-56); Albumin, Serum 3.1 g/dL (3.2-5.0); Alkaline Phosphatase 51 U/L (45-117); Anion Gap 4 (5-15); BUN 27 mg/dL (7-18); BUN/Creat Ratio 14.4 RATIO (10-20); Calcium,Total 9.6 mg/dL (8.5-10.1); Chloride 112 mmol/L (98-107); Creatinine, Serum 1.88 mg/dL (0.55-1.02); EST Glomerular Filtration Rate 27 mL/min (>60); Est Glom Filt Rate - Afr Amer 33 mL/min (>60); Estimated Creatinine Clearance 22.19 ml/min; Globulin 4.1 g/dL (2.2-4.2); Glucose 159 mg/dL (74-106); Potassium 4.4 mmol/L (3.5-5.1); Protein, Total 7.2 g/dL (6.4-8.2); Sodium Level 138 mmol/L (136-145)
[2022-10-21 06:56] LABS: Bedside Glucose 163 mg/dL (74-106)
[2022-10-21 07:33] VITALS: O2SAT 94
--- NOTE | 2022-10-21 07:39 | PN.CARD_ITS ---
Subjective Subjective The patient was seen and evaluated. Appears to be doing quite well at this time. No complaints Objective Data Vital Signs: Vital Signs Temp Pulse Resp BP Pulse Ox O2 Del Method 98.2 F 67 17 149/68 H 96 Room Air 10/21/22 03:30 10/21/22 03:30 10/21/22 03:30 10/21/22 03:30 10/21/22 03:30 10/21/22 03:30 Oxygen Delivery Method Room Air Weight: 215 lb 11.2 oz Body Mass Index (BMI) 35.9 Intake & Output: Intake and Output for Last 24 Hours 10/19/22 10/20/22 10/21/22 23:59 23:59 23:59 Intake Total 4356.47 / 4356.47 1885.16 / 1885.16 Balance 4356.47 / 4356.47 1885.16 / 1885.16 Lab / Micro Data Result Diagrams: 10/21/22 05:44 10/21/22 05:44 Labs: Laboratory Results - last 24 hr 10/20/22 10:04: APTT 247.8 H* 10/20/22 12:17: POC Glucose 191 H 10/20/22 16:36: POC Glucose 162 H 10/20/22 21:34: POC Glucose 141 H 10/21/22 05:44: WBC 8.9, RBC 4.13 L, Hgb 12.2, Hct 40.7, MCV 98.5, MCH 29.5, MCHC 30.0 L, RDW Std Deviation 52.9 H, RDW Coeff of Carl 14.6, Plt Count 338, MPV 10.6, Immature Gran % (Auto) 0.300, Neut % (Auto) 71.4 H, Lymph % (Auto) 18.6 L, [place] % (Auto) 7.2, Eos % (Auto) 1.9, Baso % (Auto) 0.6, Absolute Neuts (auto) 6.4, Absolute Lymphs (auto) 1.66, Nucleated RBC % 0 10/21/22 05:44: Sodium 138, Potassium 4.4, Chloride 112 H, Carbon Dioxide 22.0, Anion Gap 4 L, BUN 27 H, Creatinine 1.88 H, Estim Creat Clear Calc 22.19, Est GFR (MDRD) Af Amer 33 L, Est GFR (MDRD) Non-Af 27 L, BUN/Creatinine Ratio 14.4, Glucose 159 H, Calcium 9.6, Total Bilirubin 0.30, AST 29, ALT 30, Alkaline Phosphatase 51, Total Protein 7.2, Albumin 3.1 L, Globulin 4.1, Albumin/Globulin Ratio 0.8 L 10/21/22 06:22: POC Glucose 163 H Cardiology Labs/Tests 10/20/22 10:04: APTT 247.8 H* 10/21/22 05:44: WBC 8.9, RBC 4.13 L, Hgb 12.2, Hct 40.7, MCV 98.5, MCH 29.5, MCHC 30.0 L, Plt Count 338, MPV 10.6, Immature Gran % (Auto) 0.300, Neut % (Auto) 71.4 H, Lymph % (Auto) 18.6 L, [place] % (Auto) 7.2, Eos % (Auto) 1.9, Baso % (Auto) 0.6, Absolute Neuts (auto) 6.4, Nucleated RBC % 0 10/21/22 05:44: Sodium 138, Potassium 4.4, Chloride 112 H, Carbon Dioxide 22.0, Anion Gap 4 L, BUN 27 H, Creatinine 1.88 H, Est GFR (MDRD) Af Amer 33 L, Est GFR (MDRD) Non-Af 27 L, BUN/Creatinine Ratio 14.4, Glucose 159 H, Calcium 9.6, Total Bilirubin 0.30 Rhythm: EKG: ECHO: Stress Test: Cardiac Cath: PCI: CT Surgery: Holter monitor: EPS: PPM: CXR: Chest CT Scan: Physical Exam Const alert, oriented x3 and no apparent distress General Appearance: cooperative HEENT hearing grossly normal bilaterally Head and Scalp: atraumatic Eyes EOMs intact bilaterally Neck General: normal visual inspection Chest inspection of chest normal and palpation of chest normal Resp normal respiratory effort Auscultation: clear to auscultation bilaterally Cardio regular rate, regular rhythm, S1 normal heart sound and S2 normal heart sound Jugular Venous Distention: JVD GI normal to inspection, nondistended, normoactive bowel sounds Extremity normal capillary refill and no pedal edema Peripheral Pulses: Yes pulses 2+ throughout and femoral pulses present Skin no rashes or lesions noted Neuro oriented x3 and CN's II-XII intact bilaterally Psych Appearance: grossly normal and appropriate Assessment & Plan Assessment/Plan (1) NSTEMI, initial episode of care: PLAN: The patient presented with a syncopal episode and was noted to have an elevated troponin. This resulted in a cardiac catheterization which demonstrated the following: Normal left main coronary artery. Left anterior descending artery with mild calcification but no high-grade stenosis. Nondominant left circumflex artery with first obtuse marginal branch with 90% stenosis and main circumflex artery with 90% stenosis. Dominant right coronary artery with calcified 70% mid segment stenosis and moderate distal disease. Preserved ejection fraction by echocardiogram. The patient underwent PCI of the high-grade obtuse marginal vessel. She appears to have done well. The moderate right coronary artery lesion would be observed medically. (2) Syncope: PLAN: Patient had a syncopal episode which was likely not an arrhythmic. Patiagnes t was dehydrated at that time as well. . Would recommend an outpatient 48-hour oral event monitor when discharged. Recommend follow-up in my office in 2 to 4 weeks with midlevel. Thank you for allowing me to participate in the care of your patient. Please don't hesitate to call if any issues arise.
[2022-10-21 08:58] VITALS: BP 142/70; PULSE 68; RESP 16; TEMP 36.8; O2SAT 96
[2022-10-21] MEDS: Multivitamins,Ther W-Minerals Tablet 1 TABLET PO (09:08)
[2022-10-21] MEDS: Aspirin E.C. 81 MG Tablet PO (09:08)
[2022-10-21 09:11] VITALS: BP 142/70; PULSE 68
[2022-10-21] MEDS: Metoprolol Tartrate 25 MG Tablet PO (09:11)
[2022-10-21] MEDS: Clopidogrel Bisulfate 75 MG Tablet PO (09:12)
[2022-10-21] MEDS: amLODIPine 5 MG Tablet PO (09:12)
--- NOTE | 2022-10-21 10:00 | EKG12_ITS ---
Test Reason : AM EKG Blood Pressure : / mmHG Vent. Rate : 069 BPM Atrial Rate : 069 BPM P-R Int : 216 ms QRS Dur : 108 ms QT Int : 398 ms P-R-T Axes : 032 -06 019 degrees QTc Int : 426 ms Sinus rhythm with 1st degree A-V block Inferior-posterior infarct , age undetermined , cannot be excluded Abnormal ECG Confirmed by ALON HESS, SARMAD ([id number]), purchase request editor CAPRICE BARR ([id number]) on 10/22/2022 10:50:11 AM Referred By: Confirmed By:SARMAD CHI MD
[2022-10-21 11:21] LABS: Bedside Glucose 218 mg/dL (74-106)
--- NOTE | 2022-10-21 13:32 | PCM.DC ---
Discharge Instructions Diet Discharge Diet: - (Cardiac diet, diabetic diet) Activity Discharge Activity: Return to Normal Activity Follow Up Care Test Results: Test results from this visit will be discussed in further detail at your follow-up appointment, if applicable. Discharge Plan Admission Admit Date/Time: 10/18/22 15:56 Attending Provider: Saundra Palacio Primary Care Provider: Anna Lees Consulting Providers: Ophelia Calles ; Tomeka Williamson ; Santy Amaya Instructions Patient Instructions: DASH Plan Eat Heart Healthy Food, CAD, Diabetes Glossary, Diabetes Carbs Fats Protein Additional Instructions / Restrictions: *Please take this with you to your next doctors appointment* ?You will be set up with a 48-hour heart monitor prior to discharge ?Please follow-up with the cardiology office in 2 weeks, call upon discharge to schedule your hospital follow-up appointment ?You have had several medication changes, you will now be taking 80 mg of atorvastatin which will replace the 20 mg prescription. Additionally you will be discharged with a prescription for amlodipine 5 mg, aspirin 81 mg, Plavix 75 mg, as well as metoprolol 25 mg twice daily. You will stop taking lisinopril?hydrochlorothiazide. You can continue your home metformin ?Due to medication interaction your omeprazole will be changed to pantoprazole, pantoprazole will be sent to your pharmacy on file, please discontinue your omeprazole ?Recommend getting blood work (BMP) in 3 to 5 days through your primary care physician's office to monitor your creatinine (kidney function). Please call their office upon discharge to schedule a hospital follow-up appointment and to obtain order for lab work -Please call your primary care provider's office upon discharge to schedule a hospital follow up within 1 week. -For any concerning signs or symptoms please call 911 or proceed to the nearest emergency department Discharge Orders/Prescriptions Prescriptions: New atorvastatin 80 mg Tablet 80 mg PO QHS 30 Days Qty: 30 0RF amlodipine 5 mg Tablet 5 mg PO DAILY 30 Days Qty: 30 0RF aspirin 81 mg Tablet,Delayed Release (Dr/Ec) 81 mg PO BREAKFAST 30 Days Qty: 30 0RF clopidogrel 75 mg Tablet 75 mg PO DAILY 30 Days Qty: 30 0RF metoprolol tartrate 25 mg Tablet 25 mg PO BID 30 Days Qty: 60 0RF pantoprazole 20 mg Tablet,Delayed Release (Dr/Ec) 20 mg PO QHS 30 Days Qty: 30 0RF Continued acetaminophen 500 mg Tablet 1,000 mg PO Q8H diphenhydramine HCl [Benadryl Allergy] 25 mg Tablet 25 mg PO QHS PRN (Reason: ALLERGIES) metformin 500 mg tablet extended release 24 hr 1,000 mg PO BID Centrum Silver Women 8 mg iron-400 mcg-300 mcg Tablet 1 tab PO DAILY Discontinued atorvastatin 20 mg tablet 20 mg PO FR omeprazole 20 mg Capsule,Delayed Release(Dr/Ec) 20 mg PO QHS lisinopril-hydrochlorothiazide 10-12.5 mg tablet 1 tab PO QHS Other Ambulatory Orders: Cardiac Holter Monitor, 48 Hrs (Routine) Timeframe: 2 Days Facility: [facility] - Location: Cardiovascular Services Ordered By: Dr. Saundra Palacio Referrals / Follow Up: Anna Lees MD [Primary Care Provider] - Within 1 Week EnrriqueLico junior MD [Med Staff - Active Staff] - Within 2 Weeks (Please follow-up with the cardiology office in 2 weeks, call upon discharge to schedule your hospital follow-up appointment) Disposition Disposition (needs filled in before D/C Order can be placed): Home, Self Care
--- NOTE | 2022-10-21 13:48 | PCM.DC.SUM ---
Providers Date of Admission: 10/18/22 Date of Discharge: 10/21/22 Primary Care Physician: Dr. Anna Lees MD Consultations 10/17/22 18:54 Consult: Cardiology Routine Consulting Provider: Ophelia Calles Reason for Consult: NSTEMI EMERGENT Consult: No MD Notified: Yes Date Notified: 10/17/22 Time Notified: 18:57 Method of Notification: Verbal Reason For Visit: SYNCOPE Diagnosis Discharge Diagnosis (1) NSTEMI, initial episode of care: Status: Acute Code(s): I21.4 - Non-ST elevation (NSTEMI) myocardial infarction (2) Syncope: Status: Acute Code(s): R55 - Syncope and collapse Plan #NSTEMI/coronary artery disease #syncopal episode #Type 2 diabetes mellitus #ANA CRISTINA versus CKD #Hyperlipidemia #Hypertension #GERD #Obesity Medications at Discharge Home Medications acetaminophen 500 mg tablet 1,000 mg PO Q8H ARTHRITIS PAIN 10/17/22 diphenhydramine HCl 25 mg tablet (Benadryl Allergy) 25 mg PO QHS PRN ALLERGIES 10/17/22 metformin 500 mg tablet,extended release 24 hr 1,000 mg PO BID BLOOD SUGARS 10/17/22 multivit with yiieycgk-jaob-JD-lutein 8 mg iron-400 mcg-300 mcg tablet (Centrum Silver Women) 1 tab PO DAILY HEALTH MAINTENANCE 10/17/22 amlodipine 5 mg tablet 5 mg PO DAILY 30 days #30 tabs 10/21/22 aspirin 81 mg tablet,delayed release 81 mg PO BREAKFAST 30 days #30 tabs 10/21/22 atorvastatin 80 mg tablet 80 mg PO QHS 30 days #30 tabs 10/21/22 clopidogrel 75 mg tablet 75 mg PO DAILY 30 days #30 tabs 10/21/22 metoprolol tartrate 25 mg tablet 25 mg PO BID 30 days #60 tabs 10/21/22 pantoprazole 20 mg tablet,delayed release 20 mg PO QHS 30 days #30 tabs 10/21/22 Hospital Course Procedures - (Cardiac catheterization, echocardiogram) Summary of Care Provided Minutes Spent on Discharge: 30 Hospital Course: 76-year-old female with a history of hypertension, diabetes, GERD presented 10/17/2022 after experiencing a syncopal episode while she was out at lunch. She had some pain across her shoulders and then remembered waking up with a bunch people around her. Whole event lasted 2 to 3 minutes per her . When she woke up she felt okay but then had some nausea. She was feeling fatigued as well and was brought to the emergency department. Did have significant family history of cardiovascular disease, admitted for syncope work-up. Cardiology consulted and performed angiography with PCI . It was felt that episode of loss of consciousness may have been vasovagal versus orthostatic/dehydration, will DC with event monitor however. Her cardiac cath demonstrated the following: which demonstrated the following: Normal left main coronary artery. Left anterior descending artery with mild calcification but no high-grade stenosis. Nondominant left circumflex artery with first obtuse marginal branch with 90% stenosis and main circumflex artery with 90% stenosis. Dominant right coronary artery with calcified 70% mid segment stenosis and moderate distal disease. Preserved ejection fraction by echocardiogram. She had PCI of the high-grade obtuse marginal vessel in the right coronary artery lesion observed medically. On day of discharge she denied any chest pain or shortness of breath, was feeling very well overall. Instructions provided as follows: *Please take this with you to your next doctors appointment* ?You will be set up with a 48-hour heart monitor prior to discharge ?Please follow-up with the cardiology office in 2 weeks, call upon discharge to schedule your hospital follow-up appointment ?You have had several medication changes, you will now be taking 80 mg of atorvastatin which will replace the 20 mg prescription.? Additionally you will be discharged with a prescription for amlodipine 5 mg, aspirin 81 mg, Plavix 75 mg, as well as metoprolol 25 mg twice daily.? You will stop taking lisinopril?hydrochlorothiazide.? You can continue your home metformin ?Due to medication interaction your omeprazole will be changed to pantoprazole, pantoprazole will be sent to your pharmacy on file, please discontinue your omeprazole ?Recommend getting blood work (BMP) in 3 to 5 days through your primary care physician's office to monitor your creatinine (kidney function).? Please call their office upon discharge to schedule a hospital follow-up appointment and to obtain order for lab work -Please call your primary care provider's office upon discharge to schedule a hospital follow up within 1 week. -For any concerning signs or symptoms please call 911 or proceed to the nearest emergency department Physical Exam Const alert and no apparent distress Constitutional Narrative: Oriented HEENT normocephalic and head/scalp atraumatic Eyes Eyes Narrative: EOM grossly intact, anicteric Neck supple Resp normal respiratory effort and clear to auscultation bilaterally Cardio regular rate and regular rhythm GI soft to palpation, non-tender and non-distended Extremity Extremity Narrative: No edema appreciated Neuro moves all extremities Neuro Narrative: No overt focal deficits appreciated Psych Psych Narrative: Cooperative Weight / BMI Weight Weight: 97.84 kg Body Mass Index (BMI) 35.9 ABG / Lab / Microbiology Data Result Diagrams: 10/21/22 05:44 10/21/22 05:44 Laboratory: Laboratory Results - last 24 hr 10/20/22 16:36: POC Glucose 162 H 10/20/22 21:34: POC Glucose 141 H 10/21/22 05:44: WBC 8.9, RBC 4.13 L, Hgb 12.2, Hct 40.7, MCV 98.5, MCH 29.5, MCHC 30.0 L, RDW Std Deviation 52.9 H, RDW Coeff of Carl 14.6, Plt Count 338, MPV 10.6, Immature Gran % (Auto) 0.300, Neut % (Auto) 71.4 H, Lymph % (Auto) 18.6 L, [place] % (Auto) 7.2, Eos % (Auto) 1.9, Baso % (Auto) 0.6, Absolute Neuts (auto) 6.4, Absolute Lymphs (auto) 1.66, Nucleated RBC % 0 10/21/22 05:44: Sodium 138, Potassium 4.4, Chloride 112 H, Carbon Dioxide 22.0, Anion Gap 4 L, BUN 27 H, Creatinine 1.88 H, Estim Creat Clear Calc 22.19, Est GFR (MDRD) Af Amer 33 L, Est GFR (MDRD) Non-Af 27 L, BUN/Creatinine Ratio 14.4, Glucose 159 H, Calcium 9.6, Total Bilirubin 0.30, AST 29, ALT 30, Alkaline Phosphatase 51, Total Protein 7.2, Albumin 3.1 L, Globulin 4.1, Albumin/Globulin Ratio 0.8 L 10/21/22 06:22: POC Glucose 163 H 10/21/22 10:55: POC Glucose 218 H Microbiology: Microbiology 10/17/22 15:29 Nasal Secretion SARS-CoV-2 & FLU Antigen (Rapid) - Final D/C Instructions Discharge Diet: - (Cardiac diet, diabetic diet) Meaningful Use Info Meaningful Use Diagnoses (Choose all that apply): None applicable Discharge Plan Admission Admit Date/Time: 10/18/22 15:56 Primary Reason for Your Visit: Episode of loss of conciousness Attending Provider: Saundra Palacio Primary Care Provider: Anna Lees Consulting Providers: Ophelia Calles ; Tomeka Williamson ; Santy Amaya Instructions Patient Instructions: DASH Plan Eat Heart Healthy Food, CAD, Diabetes Glossary, Diabetes Carbs Fats Protein Additional Instructions / Restrictions: *Please take this with you to your next doctors appointment* ?You will be set up with a 48-hour heart monitor prior to discharge ?Please follow-up with the cardiology office in 2 weeks, call upon discharge to schedule your hospital follow-up appointment ?You have had several medication changes, you will now be taking 80 mg of atorvastatin which will replace the 20 mg prescription. Additionally you will be discharged with a prescription for amlodipine 5 mg, aspirin 81 mg, Plavix 75 mg, as well as metoprolol 25 mg twice daily. You will stop taking lisinopril?hydrochlorothiazide. You can continue your home metformin ?Due to medication interaction your omeprazole will be changed to pantoprazole, pantoprazole will be sent to your pharmacy on file, please discontinue your omeprazole ?Recommend getting blood work (BMP) in 3 to 5 days through your primary care physician's office to monitor your creatinine (kidney function). Please call their office upon discharge to schedule a hospital follow-up appointment and to obtain order for lab work -Please call your primary care provider's office upon discharge to schedule a hospital follow up within 1 week. -For any concerning signs or symptoms please call 911 or proceed to the nearest emergency department Discharge Orders/Prescriptions Prescriptions: New atorvastatin 80 mg Tablet 80 mg PO QHS 30 Days Qty: 30 0RF amlodipine 5 mg Tablet 5 mg PO DAILY 30 Days Qty: 30 0RF aspirin 81 mg Tablet,Delayed Release (Dr/Ec) 81 mg PO BREAKFAST 30 Days Qty: 30 0RF clopidogrel 75 mg Tablet 75 mg PO DAILY 30 Days Qty: 30 0RF metoprolol tartrate 25 mg Tablet 25 mg PO BID 30 Days Qty: 60 0RF pantoprazole 20 mg Tablet,Delayed Release (Dr/Ec) 20 mg PO QHS 30 Days Qty: 30 0RF Continued acetaminophen 500 mg Tablet 1,000 mg PO Q8H diphenhydramine HCl [Benadryl Allergy] 25 mg Tablet 25 mg PO QHS PRN (Reason: ALLERGIES) metformin 500 mg tablet extended release 24 hr 1,000 mg PO BID Centrum Silver Women 8 mg iron-400 mcg-300 mcg Tablet 1 tab PO DAILY Discontinued atorvastatin 20 mg tablet 20 mg PO FR omeprazole 20 mg Capsule,Delayed Release(Dr/Ec) 20 mg PO QHS lisinopril-hydrochlorothiazide 10-12.5 mg tablet 1 tab PO QHS Other Ambulatory Orders: Cardiac Holter Monitor, 48 Hrs (Routine) Timeframe: 2 Days Facility: [facility] - Location: Cardiovascular Services Ordered By: Dr. Saundra Palacio Referrals / Follow Up: Anna Lees MD [Primary Care Provider] - Within 1 Week EnrriqueLico junior MD [Med Staff - Active Staff] - Within 2 Weeks (Please follow-up with the cardiology office in 2 weeks, call upon discharge to schedule your hospital follow-up appointment) Disposition Disposition (needs filled in before D/C Order can be placed): Home, Self Care Charges/Coding Visit Charges Inpatient E&M: 95767 Disch Hosp
[2022-10-21 14:51] VITALS: BP 145/79; PULSE 67; RESP 16; TEMP 36.5; O2SAT 93
== END 2022-10-21 15:19 | disposition home or self-care (01) | DRG 247 ==
LOC: ED 16:20 → PCU 16:23
PROVIDERS: Admitting Provider Internal Medicine; Emergency Provider Emergency Medicine; PCP Internal Medicine; Visit Provider Internal Medicine
DX: I21.4 Non-ST elevation (NSTEMI) myocardial infarction (principal); E11.65 Type 2 diabetes mellitus with hyperglycemia; I10 Essential (primary) hypertension; K21.9 Gastro-esophageal reflux disease without esophagitis; E78.00 Pure hypercholesterolemia, unspecified; I25.10 Atherosclerotic heart disease of native coronary artery without angina pectoris; E86.0 Dehydration; R55 Syncope and collapse; R79.89 Other specified abnormal findings of blood chemistry; E66.9 Obesity, unspecified; Z68.35 Body mass index [BMI] 35.0-35.9, adult; Z79.02 Long term (current) use of antithrombotics/antiplatelets; Z79.82 Long term (current) use of aspirin; Z79.84 Long term (current) use of oral hypoglycemic drugs; Z79.899 Other long term (current) drug therapy; Z86.16 Personal history of COVID-19; Z87.891 Personal history of nicotine dependence; Z82.49 Family history of ischemic heart disease and other diseases of the circulatory system
CPT/HCPCS: 36415; 71045; 80048; 80053; 80061; 81001; 82962; 83036; 83735; 84100; 84443; 84484; 85025; 85027; 85730; 87428; 92928; 93005; 93306; 93454; 99152; 99153; 99252; 99285; J7030; J7040; J7120; Q9957; A4216; C1725; C1769; C1874; C1887; C1894; C9600; G0463; J2405; Q9967

== ENCOUNTER → 2022-10-31 | Outpatient (CLI) | payer MEDICARE, SELFPAY | END | disposition home or self-care (01) | LOC: PSN 11:41 | PROVIDERS: PCP Internal Medicine; Visit Provider Internal Medicine | DX: R55 Syncope and collapse (principal) | CPT/HCPCS: 93225; 93226 ==

== ENCOUNTER → 2025-03-02 | Outpatient (CLI) | payer MEDICARE, SELFPAY ==
[2025-03-02 14:12] LABS: AST(SGOT) 28 U/L (<=31); Alanine Aminotransfer ALT/SGPT 15 U/L (<=34); Alkaline Phosphatase 67 U/L (35-104); Bilirubin, Direct 0.17 mg/dL (0.00-0.30); Globulin 3.1 g/dL (2.2-4.2); Protein, Total 7.2 g/dL (5.9-8.4); Total Bilirubin 0.46 mg/dL (0.00-1.30)
[2025-03-02 14:32] LABS: Cholesterol 253 mg/dL (<=200); High Density Lipoprotein 41 mg/dL; Low Density Lipoprotein Calc. 176 mg/dL; Triglycerides 184 mg/dL; Very Low Density Lipoprotein 37 mg/dL (5-40); cholesterol:hdl ratio screen 6.22
== END | disposition home or self-care (01) ==
PROVIDERS: PCP Nurse Practitioner; Referring Provider Physician Assistant Medical; Visit Provider Physician Assistant Medical
DX: E78.5 Hyperlipidemia, unspecified (principal)
CPT/HCPCS: 36415; 80061; 80076

== ENCOUNTER 2025-03-27 14:00 | Outpatient (CLI) | payer MEDICARE, SELFPAY ==
--- NOTE | 2025-03-29 21:39 | PAT.ANESEVAL ---
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 When Was Last Pacemaker Check QUESTION #4 FULL TEXT: You/Your Family Experience fever (hyperthermia) with Anesthesia Last Oral Intake Last Oral intake: Last Oral Intake NPO since Meds taken in AM with sips of water? 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 Has anyone observed you stop No 03/29/25 08:45 breathing during sleep? STOP Results Negative 03/29/25 08:45 QUESTION #5 FULL TEXT : Do you snore loudly (louder than talking or can be heard through closed doors)? 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 Specify any problems Hx of Preganancy in last 3 No 03/29/25 08:45 Months Nurse Filling Out Transfusion VCHRISTIN 03/29/25 08:45 & Questions: Date: 03/29/25 03/29/25 08:45 Time: 08:50 03/29/25 08:45 Patient unable to answer at this time (ie. 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/waitress Hx Now Gestational Age (in weeks): EDC: Hx Hx Para Hx Section SAB PFSH Medical History (Updated 03/29/25 @ 08:45 by Gris Elias) Wears glasses Alcohol use Post-menopausal Ambulates with cane History of renal disease High cholesterol DVT (deep venous thrombosis) Back pain Former smoker Leg cramps History of edema History of normal Holter exam History of echocardiogram Cardiology follow-up encounter History of heart attack History of irregular heartbeat Atherosclerosis of coronary artery of [place] heart without angina pectoris NSTEMI, initial episode of care Seasonal allergies Hyperlipidemia Hypertension Diabetes Arthritis GERD (gastroesophageal reflux disease) Creatinine elevation Syncope Home Medications ?Medication ?Instructions ?Recorded ?Last Taken ?Type acetaminophen 500 mg tablet 1,000 mg PO BID ARTHRITIS PAIN 10/17/22 10/17/22 05:00 History diphenhydramine HCl 25 mg tablet 25 mg PO QHS PRN ALLERGIES 10/17/22 10/15/22 History (Benadryl Allergy) pantoprazole 20 mg tablet,delayed 20 mg PO QHS 30 days #30 tabs 10/21/22 Unknown Rx release glimepiride 1 mg tablet 1 mg PO BID 11/10/22 Unknown History amlodipine 2.5 mg tablet 2.5 mg PO DAILY #90 tabs 12/06/24 Unknown Rx aspirin 81 mg tablet,delayed 81 mg PO QDAY 03/02/25 Unknown History release (Adult Aspirin Regimen) carvedilol 12.5 mg tablet 12.5 mg PO BID #180 tabs 03/02/25 Unknown Rx rosuvastatin 20 mg tablet 20 mg PO QDAY #90 tabs 03/03/25 Unknown Rx tramadol 50 mg tablet 25 - 50 mg PO TID PRN PRN pain 03/29/25 Unknown History Allergy/AdvReac Type Severity Reaction Status Date / Time No Known Allergies Allergy Verified 03/29/25 08:29 Family History Father Diabetes CAD (coronary artery disease) Sister Diabetes CVA (cerebral vascular accident) Mother Melanoma Other Hypertension Surgical History (Updated 03/29/25 @ 08:45 by Gris Elias) History of cardiac catheterization Hx of tonsillectomy History of coronary artery stent placement (~10/20/22) History of appendectomy Social History (System 03/28/25 @ 13:17 by Yuliana Woods) household members: spouse housing: house Smoking Status: Former smoker alcohol intake: current alcohol intake frequency: a few times a week details: Drinks of couple drinks couple times a week substance use type: does not use Audit: Pertinent Findings Pertinent Findings EKG Perinent findings: October 21, 2022. Sinus rhythm with first-degree AV block. Inferior posterior infarct, age undetermined. Echo (EF%) pertinent findings: October 18, 2022. EF is 50 to 55%. PASP is 30 to 35 mmHg. No aortic stenosis. Heart catheterization pertinent findings: October 20, 2022. EF is 55%. Severe two-vessel disease involving right coronary artery with 70% stenosis in the mid segment and a small circumflex artery system with 2 areas of 90% stenosis. LAD has mild disease. Intervention included drug-eluting stent with pre and post dilation with stenosis from 90% down to 0% in the mid OM1. Consult pertinent findings: March 02, 2025. Del PRABHAKAR. 1. Atherosclerosis of the coronary arteries of the [place] heart without angina?acute-status post [place] to the mid OM1. She has not had any angina. Unable to exercise secondary to spinal stenosis. It has been over a year since her stent she may stop her Plavix and remain on aspirin. No stress test needed prior to her surgery. 2. Hypertension?chronic-blood pressure not ideal, we will increase Coreg to 12.5 mg a day. Continue Norvasc. 3. Cardiac murmur?acute-check echo. Additional pertinent findings: Holter monitor October 31, 2022. Sinus rhythm. No atrial fibrillation noted. No ventricular runs. No symptoms recorded in diary. Recommendation Anesthesia Recommendation Anesthesia recommendation: F/U recommended (Cardiology recommended echocardiogram. This does need to be done prior to surgery?)
[2025-03-31 12:40] LABS: Absolute Neutrophil Count 5.1 X10^3/uL (2.0-7.7); Basophil# 0.04 X10^3/uL; Basophil% 0.5 % (0-1); Eosinophil# 0.17 X10^3/uL; Eosinophils% 2.3 % (0-5); Hematocrit 41.7 % (37-47); Hemoglobin 13.6 g/dL (12.0-15.0); Lymphocyte % 22.5 % (19-41); Mean Corp Hgb Conc 32.6 g/dL (32-36); Mean Corpuscular Hgb 30.3 pg (27.0-32.0); Mean Corpuscular Volume 92.9 fL (81-99); Mean Platelet Vol. 11.3 fl (6.2-12.0); Monocyte# 0.54 X10^3/uL; Monocyte% 7.2 % (0-10); NRBC Flagged by Analyzer 0 % (0-5); Neutrophil # 5.08 X10^3/uL (2.7-7.7); Neutrophil % 67.2 % (47-70); Platelet Count 319 K/mm3 (150-450); RBC Distribution Width CV 13.8 % (11.6-14.6); Red Blood Count 4.49 M/mm3 (4.2-5.4); White Blood Count 7.6 K/mm3 (4.4-11.0)
[2025-03-31 12:49] LABS: Anion Gap 11 (5-15); BUN 19 mg/dL (4-19); BUN/Creat Ratio 17.6 RATIO (10-20); Calcium,Total 9.7 mg/dL (7.6-11.0); Carbon Dioxide 23.9 mmol/L (21.0-32.0); Chloride 106 mmol/L (98-108); Creatinine, Serum 1.09 mg/dL (0.70-1.20); EST Glomerular Filtration Rate 51 (>60); Glucose 127 mg/dL (70-99); Potassium 4.2 mmol/L (3.3-5.1); Sodium Level 142 mmol/L (133-145)
[2025-03-31 13:29] LABS: Magnesium 2.1 mg/dL (1.5-2.2)
[2025-03-31 14:13] LABS: Hemoglobin A1c 6.8 % (<=5.6)
--- NOTE | 2025-04-10 22:30 | HP.PCM_ITS ---
History and Physical History and Physical? Patient Name: Arabella Romeo : 1945From:? BOLA QUEEN PA-C? DATE OF PRE-OPERATIVE EXAM: 04/10/2025 DATE OF SURGERY:? 04/17/2025 SCHEDULED PROCEDURE:? Direct anterior right total hip arthroplasty HISTORY OF PRESENT ILLNESS: Preoperative history and physical exam was performed on April 10, 2025.? This is a 79-year-old female who is been having ongoing pain in the hip for over 2 years.? She has severe right hip pain that has affected her mobility and activities.? Pain is been constant, dull, aching, sharp, and stabbing.? Pain is increased with sitting, walking and getting in and out of the car.? She has been using a cane for over a year and a half.? Patient has difficulty with showering and shopping.? She has had 2 previous hip injections by Dr. Bassett with the last injection in December 2024.? They only provided several days of relief.? She has also had back injections for spinal stenosis which did not alleviate the groin pain.? She has been on tramadol from pain management.? Her walking has been limited due to the pain.? Patient feels she has seen a significant decline in her overall health and quality of life.? Patient is tried other oral medications including Tylenol and ibuprofen.? She should not be taking any nonsteroidal anti-inflammatories due to her chronic kidney disease.? She denies past history of surgery on the right hip.? After failing conservative measures and discussing all treatment options was Dr. Panda Blanc, the patient does wish to proceed with a direct anterior right total hip arthroplasty.? Patient has obtain surgical clearance from the primary care provider Jeanette Mitchell CNP and cardiology with Mili Mathis PA-C.? However patient is currently being treated for a yeast infection.? It's affecting her vaginal area and throughout her skin folds of the pannus.? She has been treated with nystatin and fluconazole.? It has been improving.? She has medical history pertinent for previous heart attack in 2022, hypertension, type 2 diabetes mellitus with last A1c 6.8, chronic kidney disease stage III, past history of superficial venous thrombosis in the , coronary artery disease, and hypercholesterolemia.? She denies past history of DVT or pulmonary embolism.? No recent chest pain, shortness of breath, fevers chills. REVIEW OF SYSTEMS: Review Of Systems: Constitutional: Denies change in appetite, fever and weight change. Cardiovasular: Reports CAD and heart murmur, but denies chest pain and irregular heartbeat. Respiratory: Denies cough, pneumonia, shortness of breath, tuberculosis and wheezing. Gastrointestinal: Reports heartburn, but denies constipation, diarrhea, nausea, rectal itching, bloody stools and vomiting. Musculoskeletal: Reports gait disturbance, leg swelling, pain, trouble walking and weakness. Skin: Denies Raynaud's, history of shingles and tattoo. Neurological: Denies ambulatory dysfunction, dizziness, numbness/tingling and tremor. Psychiatric: Denies anxiety, insomnia and stress. Hematologic/Lymphatic: Denies anemia, bleeding/bruising tendency and past transfusion. Reviewed and updated. PAST MEDICAL HISTORY: Advance Care Plan: No Advance Directives Effective Date: 07/25/2022 Past Medical History: Medical Problems: Acid Reflux, Arthritis, Diabetes, High Blood Pressure Heart Attack - (2022) Kidney Disease/Renal Failure - stage 3B Covid-19 Vaccine yeast infection - current per patient? Superficial vein thrombosis - around ? heart murmur Hernia - current? Coronary Artery Disease (CAD), Hypercholesterolemia, hyperlipidemia Accidents: None Surgical Hx: Appendectomy - 1957 Heart Stent - (2022) total of 1 heart stent? Tonsillectomy - 1953 Anesthesia Complications: None Assistive Devices: Cane, Glasses Reviewed and updated. SOCIAL HISTORY: Social History: Marital: .Occupation: Retired.Work Status: Retired.Hand Dominance: Right- handed. Personal Habits:? Cigarette Use: Former.Smokeless Tobacco: Never Used Smokeless Tobacco.E-Cigarette Use: Never used.Alcohol: Occasionally.Drug Use: Denies Use.Enjoy Exercising: Exercises 1-3 x/month. Reviewed and updated. VITALS: Ht: 64.5 Wt: 223lb Wt k.153 BMI: 37.7 BP: 128/82 Pulse: 64 Resp: 18 T: 98.0 T: 36.7C Pain Level: 10/10 O2SatR: 96 ALLERGIES: No Known Drug Allergy? MEDICATIONS: Atorvastatin Calcium 20 mg 1 by mouth every day, Glimepiride 1 mg take 1 tablet by mouth twice daily with meals, Tramadol HCL 50 mg take 1/2 (one-half) to 1 tablet by mouth three times daily as needed for pain, Pantoprazole Sodium 20 mg take 1 tablet by mouth once daily, Amlodipine Besylate 2.5 mg take 1 tablet by mouth once daily, Carvedilol 6.25 mg twice a day, Tylenol Extra Strength 500 mg 2 by mouth every 8 hours, Vitamin D3 1.25 MG (87611 Ut) daily, Aspirin 81 81 mg 1 po qdaily, Nystatin [id number] Unit/GM apply powder topically to affected area 4 times daily, Fluconazole 150 mg take 1 tablet by mouth now, repeat in 3 days if needed. PRE-OP EXAM:? General appearance:NORMAL? ? ? Other: Eyes: Conjunctivae and lids: NORMAL? Pupils: ERR Ears, Nose, Mouth, and Throat: NORMAL? Other: Inspection of lips, teeth and gums: NORMAL? ?Other: Neck: Examination of neck: no masses noted. Respiratory: Assessment of respiratory effort: NORMAL? ?Other: ?Auscultation of lungs: clear to auscultation no wheezes, rhonchi or rales. Cardiovascular:? Auscultation of heart: regular rate and rhythm, positive systolic murmur Exam of carotid arteries: NORMAL? ?Other: PHYSICAL EXAMINATION: On exam patient does walk with an antalgic gait.? She is currently using a cane.? Right hip has tenderness to palpation over the lateral aspect of the greater trochanteric region.? Hip flexion with obligatory external rotation with flexion to 65, internal rotation 10 and external rotation 15.? 3/5 hip strength.? Sensation intact to light touch. Within the skin folds bilaterally involving the skin pannus there is red dry scaly patches diffusely without drainage.? This does extend into the vaginal area. IMAGING STUDIES: Previous x-rays of the right hip reveal joint space narrowing with subchondral sclerosis, osteophyte formation consistent with severe stage IV [id number] erosive osteoarthritis.? There is cyst collapse and erosion of the femoral head resulting in shortening of the right hip in comparison to the left based on the lesser trochanters. IMPRESSION: 1.? Severe right hip osteoarthritis 2.? Active yeast infection:? Improving 3.? Hypertension 4.? Type 2 diabetes mellitus with A1c 6.8 5.? Coronary artery disease with previous heart attack 6.? Hypercholesterolemia 7.? Chronic kidney disease stage III 8.? Gastroesophageal reflux disease 9.? Past history is superficial venous thrombosis: 10.? Obesity with BMI 37.7 PLAN: Dr. Panda Blanc did discuss and review with the patient all treatment options including surgical versus nonsurgical options.? I will continue plan established by Dr. Panda Blanc.? Patient does wish to proceed with the above-stated procedure.? Potential risks, benefits, and complications of the procedure were discussed in detail including but not limited to , infection, nerve and blood vessel damage, persistent pain, numbness, tingling, paresthesias, blood clot, pulmonary embolism, and requirement for possible further surgery.? The patient expressed full understanding and has no further questions for the doctor.? Patient does agree to proceed with the above-stated procedure and has signed the surgery consent form. POST-OP MEDICATION PLAN: Pain Medications: Postoperative pain regimen will be initiated by Dr. Panda Blanc in the hospital.? Patient is currently using tramadol from Dr. Bassett with pain management.? If postoperative pain medication other than tramadol is used she has been instructed not to combine these medications.? We will manage narcotics for the first 6 weeks postoperatively.? We are unable to use nonsteroidal anti-inflammatories due to the chronic kidney disease.? She will bring her walker to the hospital for postoperative use.? Patient is aware that if the yeast infection does not continue to improve this may postpone her surgery.? We will plan her for the last surgery on April 17, [address] Panda Blanc will reevaluate the hip region.? She is to continue course of treatment from the primary care provider for the yeast infection. DVT Prophylaxis Plan:? Aspirin 81 mg twice daily for 4 weeks postoperatively.? Denies past history of DVT or pulmonary embolism.? She was instructed to use the CHRISTIANO hose for 2 weeks postoperatively. This dictation was created using voice recognition software. Phonetic and/or grammatical errors may exist. ___? I have re-examined the patient.? There are no clinical changes since date of exam. ___? See progress notes for changes. ___? Dictated on admission Date: ? ? ?Time: Signature:
--- NOTE | 2025-04-11 18:23 | PAT.ANE_ITS ---
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 When Was Last Pacemaker Check QUESTION #4 FULL TEXT: You/Your Family Experience fever (hyperthermia) with Anesthesia Last Oral Intake Last Oral intake: Last Oral Intake NPO since Meds taken in AM with sips of water? 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 Has anyone observed you stop No 03/29/25 08:45 breathing during sleep? STOP Results Negative 03/29/25 08:45 QUESTION #5 FULL TEXT : Do you snore loudly (louder than talking or can be heard through closed doors)? 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 Specify any problems Hx of Preganancy in last 3 No 03/29/25 08:45 Months Nurse Filling Out Transfusion VCHRISTIN 03/29/25 08:45 & Questions: Date: 03/29/25 03/29/25 08:45 Time: 08:50 03/29/25 08:45 Patient unable to answer at this time (ie. 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: /Reproductive Hx- m1 armor crewman Hx Now Gestational Age (in weeks): EDC: Hx Hx Para Hx Section SAB PFSH Medical History (Updated 03/29/25 @ 08:45 by Gris Elias) Wears glasses Alcohol use Post-menopausal Ambulates with cane History of renal disease High cholesterol DVT (deep venous thrombosis) Back pain Former smoker Leg cramps History of edema History of normal Holter exam History of echocardiogram Cardiology follow-up encounter History of heart attack History of irregular heartbeat Atherosclerosis of coronary artery of [place] heart without angina pectoris NSTEMI, initial episode of care Seasonal allergies Hyperlipidemia Hypertension Diabetes Arthritis GERD (gastroesophageal reflux disease) Creatinine elevation Syncope Home Medications ?Medication ?Instructions ?Recorded ?Last Taken ?Type acetaminophen 500 mg tablet 1,000 mg PO BID ARTHRITIS PAIN 10/17/22 10/17/22 05:00 History diphenhydramine HCl 25 mg tablet 25 mg PO QHS PRN ALEKSANDER RGIES 10/17/22 10/15/22 History (Benadryl Allergy) pantoprazole 20 mg tablet,delayed 20 mg PO QHS 30 days #30 tabs 10/21/22 Unknown Rx release glimepiride 1 mg tablet 1 mg PO BID 11/10/22 Unknown History amlodipine 2.5 mg tablet 2.5 mg PO DAILY #90 tabs Unknown Rx aspirin 81 mg tablet,delayed 81 mg PO QDAY 03/02/25 Un known History release (Adult Aspirin Regimen) carvedilol 12.5 mg tablet 12.5 mg PO BID #180 tabs Unknown Rx rosuvastatin 20 mg tablet 20 mg PO QDAY #90 tabs 03/03 Unknown Rx tramadol 50 mg tablet 25 - 50 mg PO TID PRN PRN pa in 03/29/25 Unknown History Allergy/AdvReac Type Severity Reaction Status Date / Time No Known Allergies Allergy Verified 03/29/25 08:29 Family History Father Diabetes CAD (coronary artery disease) Sister Diabetes CVA (cerebral vascular accident) Mother Melanoma Other Hypertension Surgical History (Updated 03/29/25 @ 08:45 by Gris Elias) History of cardiac catheterization Hx of tonsillectomy History of coronary artery stent placement (~10/20/22) History of appendectomy Social History (System 03/28/25 @ 13:17 by Yuliana Woods) household members: spouse housing: house Smoking Status: Former smoker alcohol intake: current alcohol intake frequency: a few times a week details: Drinks of couple drinks couple times a week substance use type: does not use Audit: Pertinent Findings HISTORY of Pertinent Findings History of Pertinent Findings: EKG Pertinent Findings EKG Perinent findings October 21, 2022. Sinus 03/29/25 21:50 rhythm with first-degree AV block. Inferior posterior infarct, age undetermined. Echo Pertinent Findings Echo (EF%) pertinent findings October 18, 2022. EF is 50 03/29/25 21:50 to 55%. PASP is 30 to 35 mmHg. No aortic stenosis. Heart Catheterization Pertinent Findings Heart catheterization October 20, 2022. EF is 55%. 03/29/25 21:50 pertinent findings Severe two-vessel disease involving right coronary artery with 70% stenosis in the mid segment and a small circumflex artery system with 2 areas of 90% stenosis . LAD has mild disease. Intervention included drug- eluting stent with pre and post dilation with stenosis from 90% down to 0% in the mid OM1. Consult Pertinent Findings Consult pertinent findings March 02, 2025. Del LOPEZ- 03/29/25 21:53 C. 1. Atherosclerosis of the coronary arteries of the [place] heart without angina? acute-status post [place] to the mid OM1. She has not had any angina. Unable to exercise secondary to spinal stenosis. It has been over a year since her stent she may stop her Plavix and remain on aspirin. No stress test needed prior to her surgery. 2. Hypertension?chronic- blood pressure not ideal, we will increase Coreg to 12.5 mg a day. Continue Norvasc . 3. Cardiac murmur?acute- check echo. Additional Pertinent Findings Additional pertinent findings Holter monitor October 3103/29/25 21:50 2022. Sinus rhythm. No atrial fibrillation noted. No ventricular runs. No symptoms recorded in diary. Pertinent Findings Echo (EF%) pertinent findings: Echo 04/11/2025: Interpretation Summary Normal LV size. Left ventricular systolic function is normal. The left ventricular ejection fraction is 65 %. Stage 1 diastolic dysfunction. There is moderate mitral annular calcification. TAPSE: 2.5 cm Recommendation Anesthesia Recommendation Anesthesia recommendation: OPTIMIZED for anesthesia
== END 2025-03-27 19:00 | disposition home or self-care (01) ==
LOC: SDC 08-23 16:10
PROVIDERS: Anesthesiology; PCP Nurse Practitioner; Referring Provider Specialist; Visit Provider Specialist
DX: Z01.818 Encounter for other preprocedural examination (principal)
CPT/HCPCS: 36415; 80048; 82040; 83036; 83735; 85025; 87081

== ENCOUNTER → 2025-04-11 | Outpatient (CLI) | payer MEDICARE, SELFPAY ==
--- NOTE | 2025-04-11 06:53 | ECHOD_ITS ---
Reason For Study Reason For Study: MURMUR Procedure This was a 2D Doppler, Color Flow transthoracic echocardiogram. Exam performed in department. Left Ventricle Normal LV size. Left ventricular systolic function is normal. The left ventricular ejection fraction is 65 %. Stage 1 diastolic dysfunction. No regional wall motion abnormalities noted. Right Ventricle Normal RV size. Normal systolic function. Atria Normal left atrium. Normal right atrium. Mitral Valve There is moderate mitral annular calcification. Mild (1+) eccentric mitral valve insufficiency. Tricuspid Valve Normal tricuspid valve. Mild (1+) tricuspid valve insufficiency. Pulmonary artery systolic pressure is 38 mmHg. Aortic Valve Trisinus/trileaflet aortic valve. Pulmonic Valve Normal pulmonic valve. Great Vessels Normal aortic root. The pulmonary artery is normal size. Inferior vena cava collapse with respiration. Pericardium/Pleural No pericardial effusion. MMode/2D Measurements & Calculations LVIDd: 4.8 cm IVSd: 0.81 cm LVOT diam: 2.1 cm LVIDs: 3.2 cm LVPWd: 0.87 cm LVOT area: 3.5 cm2 RVDd: 3.7 cm FS: 31.8 % Ao root diam: 3.2 cm LAV(MOD-bp): 79.4 ml LVAd ap4: 28.1 cm2 LAV(MOD-bp) Indexed: 38.4 ml/m2 LVLd ap4: 7.8 cm LAV(MOD-sp2): 66.5 ml EDV(MOD-sp4): 85.0 ml LAV(MOD-sp4): 82.5 ml EDV(sp4-el): 85.7 ml LVAs ap4: 13.5 cm2 LVLs ap4: 6.6 cm ESV(MOD-sp4): 23.3 ml ESV(sp4-el): 23.4 ml EF(MOD-sp4): 72.5 % EF(sp4-el): 72.7 % LVAd ap2: 22.3 cm2 SV(MOD-sp4): 61.6 ml SV(MOD-sp2): 39.7 ml LVLd ap2: 7.6 cm SI(MOD-sp4): 29.8 ml/m2 SI(MOD-sp2): 19.2 ml/m2 EDV(MOD-sp2): 55.1 ml EDV(sp2-el): 55.3 ml LVAs ap2: 11.0 cm2 LVLs ap2: 6.4 cm ESV(MOD-sp2): 15.4 ml ESV(sp2-el): 15.9 ml EF(MOD-sp2): 72.1 % SV(sp4-el): 62.3 ml LA dimension(2D): 4.3 cm LA A4 area: 24.7 cm2 TAPSE: 2.5 cm Time Measurements MV dec time: 0.24 sec Doppler Measurements & Calculations MV E max micah: 77.8 cm/sec Lat Peak E' Micah: 6.5 cm/sec Med Peak E' Micah: 6.5 cm/sec MV A max micah: 113.6 cm/sec E/E' lat: 12.0 E/E' med: 12.0 MV E/A: 0.68 MV V2 max: 132.0 cm/sec MV P1/2t max micah: 86.1 cm/sec Ao V2 max: 213.1 cm/sec MV max P.0 mmHg MV P1/2t: 75.1 msec Ao max P.2 mmHg MV V2 mean: 54.8 cm/sec MV dec slope: 335.5 cm/sec2 Ao V2 mean: 147.8 cm/sec MV mean P.6 mmHg Ao mean P.0 mmHg MV V2 VTI: 30.9 cm MVA(P1/2t): 2.9 cm2 Ao V2 VTI: 53.7 cm MVA(VTI): 4.2 cm2 AV (velocity ratio): 0.69 RENÉ(I,D): 2.4 cm2 RENÉ(V,D): 2.1 cm2 LV V1 max: 130.4 cm/sec SV(LVOT): 130.8 ml PA V2 max: 77.9 cm/sec LV V1 max P.8 mmHg PA V2 mean: 48.3 cm/sec LV V1 mean P.7 mmHg LV V1 mean: 90.0 cm/sec LV V1 VTI: 37.3 cm TR max micah: 288.3 cm/sec TR max P.2 mmHg ECHO/Echo Complete Interpretation Summary Normal LV size. Left ventricular systolic function is normal. The left ventricular ejection fraction is 65 %. Stage 1 diastolic dysfunction. There is moderate mitral annular calcification. Ordering Physician: Mili Mathis Referring Physician: Jeanette Mitchell Performed By: Lolita Buitrago, AMMON, RVT
--- OUTSIDE RECORDS SUMMARY | 2025-04-11 06:55 | XMS RPT_ITS | CCD ---
Author Organization [facility] Care Team Providers Care Senior Major Gifts Officer Name Role Phone Mega Aquino MD Primary Care Provider Dr. Zafar Echeverria Emergency Provider Dr. Mega Aquino Primary Care Provider Dr. Tomeka Williamson Admit Provider Dr. Tomeka Williamson Attending Provider Dr. Tomeka Williamson Other Provider Dr. Ophelia Calles Other Provider Dr. Santy Amaya Attending Provider Dr. Santy Amaya Other Provider Dr. Ophelia Calles Attending Provider Dr. Saundra Palacio Other Provider Dr. Lico Osuna Attending Provider Dr. Saundra Palacio Attending Provider Mega Aquino MD Primary Care Provider Dr. Mega Aquino Referring Provider Francheska MANAGER EMPLOYMENT, MANAGER EMPLOYMENT-C Janusz Luna Attending Provider Mega Aquino MD Primary Care Provider Mega Aquino MD Primary Care Provider Castro LOAIZA MD, Didier Benjamin Primary Care Provider Ruthie vailable Analilia Villareal PA-C Unavailable Older PRINCIPAL HARDWARE ARCHITECT.SPARKLE, Jeanette Unavailable Rosalina Bean PA-C Unavailable Panda Blanc Attending Unavailable Dr. Mega Aquino MD Referring Provider Mili De Leon Attending Provider OLDER MANAGER EMPLOYMENT-C, JEANETTE Primary Care Provider Mili De Leon Referring Provider OLDER, JEANETTE Referring Unavailable GANTA, MEGA Primary Care Unavailable ROSALINA BEAN Attending Unavailable GANTA, MEGA Primary Care Unavailable OLDER, JEANETTE Attending Unavailable GANTA, MEGA Primary Care Unavailable OLDER, JEANETTE Attending Unavailable GANTA, MEGA Primary Care Unavailable GANTA, MEGA Referring Unavailable GANTA, MEGA Primary Care Unavailable Ganta, Mega Primary Care Unavailable Nando PETERSON, Floresita Attending Unavailable Ganta, Mega Primary Care Unavailable Nando PETERSON, Floresita Attending Unavailable Mili De Leon Attending Unavail able Ganta, Mega Referring Unavailable OLDER, JEANETTE Primary Care Unavailable Panda Blanc Referring Unavailable OLDER, JEANETTE Primary Care Unavailable Mili De Leon Attending Unavail able Mili De Leon Referring Unavail able OLDER, JEANETTE Primary Care Unavailable Mili De Leon Attending Unavail able Mili De Leon Referring Unavail able OLDER, JEANETTE Primary Care Unavailable Medications Current Medications Medication Drug Class(es) Dates Sig (Normalized) Sig (Original) acetaminophen 500 mg oral tablet (4 sources) Start: 10-17-2022 take 2 tablets by mouth every eight hours Acetaminophen 500 mg Tablet Active 1000 mg PO Q8H October 17, 2022 1:00am Start: 10-17-2022 take 1000 mg by mout h every eight hours Acetaminophen Active 1000 MG PO Q8H October 17, 2022 12:00am amLODIPine 2.5 mg oral tablet (17 sources) Dihydropyridine Calcium Channel Kira Start: 03-10-2025 take 1 tablet by mouth once daily amLODIPine (NORVASC) 2.5 mg tablet Take 1 tablet by mouth once daily. 03/10/2025 Active Start: 12-16-2023 End: 12-06-2024 take 1 tablet by mouth once daily Amlodipine 2.5 mg tablet Active 2.5 mg PO DAILY December 06, 2024 11:03am Start: 12-25-2022 End: 12-16-2023 take 2.5 mg by mouth once daily Amlodipine 5 mg tablet Discontinued 2.5 mg PO DAILY December 25, 2022 4:24pm December 16, 2023 4:43pm Start: 10-21-2022 End: 07-22-2023 take 1 tablet by mouth once daily Amlodipine 5 mg tablet Discontinued 5 mg PO DAILY November 10, 2022 11:50am December 25, 2022 4:24pm Comment on above: Take 5 mg by mouth o nce daily. amoxicillin 875 mg / clavulanate 125 mg oral tablet (4 sources) Penicillin-class Antibacterial Start: End: take 1 tablet by mouth twice daily amoxicillin-clavul anate potassium (AUGMENTIN) 875-125 mg per tablet Indications: Acute non-recurrent frontal sinusitis Take 1 tablet by mouth two times a day for 5 days. 10 tablet 12/13/2024 12/18/2024 Active Start: 06-30-2024 End: 07-10-2024 take 1 tablet by mouth twice daily amoxicillin-clavulanate potassium (AUGMENTIN) 875-125 mg per tablet Indications: Acute cough , Wheezing , Acute non-recurrent sinusitis, unspecified location Take 1 tablet by mouth two times a day for 10 days. 20 tablet 06/30/2024 07/10/2024 Active aspirin 81 mg delayed release oral tablet (20 sources) Platelet Aggregation Inhibitor, Nonsteroidal Anti-inflammatory Drug Start: 10-21-2022 End: 03-02-2025 take 1 tablet by mouth once daily Aspirin (Adult Aspirin Regimen) 81 mg tablet,delayed release (DR/EC) Active 81 mg PO daily March 02, 2025 12:00am Comment on above: Take 81 mg by mouth once daily. carvedilol 12.5 mg oral tablet (20 sources) alpha-Adrenergic Kira, beta-Adrenergic Kira Start: 03-02-2025 take 1 tablet by mouth twice daily at mealtime Carvedilol 12.5 mg tablet Active 12.5 mg PO TWICE A DAY 180 March 02, 2025 11:41am must administer with a meal/food Start: 07-02-2023 take 2 tablets by [facility] twice daily at mealtime carvedilol (COREG) 6.25 mg tablet Take 12.5 mg by mouth two times a day with meals. 07/02/2023 Active Start: 12-25-2022 End: 03-02-2025 carvedilol (COREG) 6.25 mg t ablet 07/02/2023 Active diphenhydrAMINE hydrochloride 25 mg oral tablet (4 sources) Histamine-1 Receptor Antagonist Start: 10-17-2022 take 1 tablet by mouth at bedtime as needed Diphenhydramine Hcl (Benadryl Allergy) 25 mg Tablet Active 25 mg PO AT BEDTIME as needed for ALLERGIES October 17, 2022 1:00am fluticasone propionate 0.05 mg/actuat metered dose nasal spray (10 sources) Corticosteroid Start: 06-30-2024 take 2 spray(s) by mouth once daily fluticasone (FLONASE) 50 mcg/actuation nasal spray Use 2 Sprays in each nostril once daily. Rinse mouth after use. 1 Each 1 06/30/2024 Active glimepiride 1 mg oral tablet (20 sources) Sulfonylurea Start: 03-11-2023 End: 06-30-2024 take 1 tablet by mouth twice daily at mealtime glimepiride (AMARYL) 1 mg tablet Take 1 tablet by mouth two times a day with meals. 180 tablet 3 06/30/2024 Active Start: 11-28-2022 End: 03-06-2023 take 1 tablet by mouth twice daily at mealtime glimepiride (AMARYL) 1 mg tablet Take 1 tablet by mouth twice daily with meals. 180 tablet 1 11/28/2022 03/06/2023 Discontinued Start: 10-29-2022 End: 11-28-2022 take 1 tablet by mouth once daily Glimepiride 1 mg tablet Active 1 mg PO DAILY November 10, 2022 1:00am Comment on above: Take 1 tablet by vikram th daily with breakfast. Take 1 tablet by vikram th twice daily with meals. Take 1 tablet by vikram th two times a day with meals. Ytrhgsmc-Aww-Kzcd-Fa- Lutein (Centrum Silver Women) 8 mg iron-400 mcg-300 mcg Tablet (3 sources) Start: take 1 tablet by mouth once daily Tehznwkt-Ejf-Rtat-Fa- Lutein (Centrum Silver Women) 8 mg iron-400 mcg-300 mcg Tablet Active 1 TABLET PO DAILY October 17, 2022 12:00am Datrmgdg-Gtq-Arhx-Fa- Vit K-Lut (Centrum Silver Women) 8 mg iron-400 mcg-300 mcg Tablet (1 source) Start: Dsgvhhta-Uyg-Scfq-Fa- Vit K-Lut (Centrum Silver Women) 8 mg iron-400 mcg-300 mcg Tablet Active 1 {tbl} PO DAILY October 17, 2022 1:00am nitrofurantoin, macrocrystals 25 mg / nitrofurantoin, monohydrate 75 mg oral capsule (1 source) Nitrofuran Antibacterial Start: End: take 1 capsule by mouth twice daily at mealtime nitrofurantoin monohydrate and macrocrystal (MACROBID) 100 mg capsule Take 1 capsule by mouth two times a day with meals for 5 days. 10 capsule 07/04/2024 07/09/2024 Active nystatin 100 unt/mg topical powder (2 sources) Polyene Antifungal Start: nystatin (MYCOSTATIN) powder Apply 1 application to affected area four times daily. 30 g 1 04/03/2025 Active pantoprazole 20 mg delayed release oral tablet (20 sources) Proton Pump Inhibitor Start: End: take 1 tablet by mouth once daily pantoprazole DR (PROTONIX) 20 mg tablet Take 1 tablet by mouth once daily. 90 tablet 3 03/23/2025 Active Comment on above: Take 20 mg by mouth once daily. Take 1 tablet by vikram th once daily. Take 1 tablet by vikram th once daily rosuvastatin calcium 20 mg oral tablet (3 sources) HMG-CoA Reductase Inhibitor Start: take 1 tablet by mouth once daily rosuvastatin (CRESTOR) 20 mg tablet Take 1 tablet by mouth once daily. 03/03/2025 Active traMADol hydrochloride 50 mg oral tablet (1 source) Opioid Agonist Start: End: take 1 tablet by mouth twice daily as needed for pain traMADol (ULTRAM) 50 mg tablet Indications: Spinal stenosis, lumbar region, without neurogenic claudication , Osteoarthrosis, unspecified whether generalized or localized, unspecified site Take 1 tablet by mouth two times a day as needed for pain for up to 7 days. 14 tablet 0 07/22/2023 07/29/2023 Active Comment on above: Take 1 tablet by vikram two times a day as needed for pain for up to 7 days. Completed/Discontinued Medications Medication Drug Class(es) Dates Sig (Normalized) Sig (Original) atorvastatin 80 mg oral tablet (20 sources) HMG-CoA Reductase Inhibitor Start: 10-21-2022 End: 04-03-2025 take 1 tablet by mouth once daily atorvastatin (LIPITOR) 80 mg tablet Indications: Hyperlipidemia with target LDL less than 100 Take 1 tablet by mouth once daily. 90 tablet 3 02/01/2024 04/03/2025 Discontinued Start: 07-30-2022 End: 07-22-2023 Atorvastatin 20 mg tablet Di scontinued 20 mg PO FR October 17, 2022 1:00am October 21, 2022 2:38pm Start: 07-31-2020 End: 07-28-2022 atorvastatin (LIPITOR) 20 mg tablet Indications: Hyperlipidemia with target LDL less than 100 20mg /day for as many doses /wk as is tolerated. For cholesterol. Take 3 times/week and as tolerated 12 tablet 11 07/31/2020 07/28/2022 Discontinued Comment on above: 20mg /day for as man y doses /wk as is tolerated. For cholesterol. Take 3 times/week and as tolerated clopidogrel 75 mg oral tablet (20 sources) P2Y12 Platelet Inhibitor Start: 10-21-19 End: 04-03-20 take 1 tablet by mouth once daily clopidogrel (PLAVIX) 75 mg tablet Take 75 mg by mouth once daily. 10/21/2022 04/03/2025 Discontinued Comment on above: Take 75 mg by mouth once daily. ergocalciferol 1.25 mg oral capsule (15 sources) Provitamin D2 Compound Start: 04-23-20 End: 11-28-19 take 1 capsule by mouth every week ergocalciferol 50,000 unit capsule (VITAMIN D2, DRISDOL) Take 1 capsule by mouth one time a week. 4 capsule 3 04/23/2022 11/28/2022 Discontinued (Discontinued by Patient) Start: 06-12-2021 End: 04-22-2022 take 1 capsule by mouth two times weekly, then take 1 capsule by mouth two times weekly, then take 1 capsule by mouth every week ergocalciferol 50,000 unit capsule (VITAMIN D2, DRISDOL) Take 1 capsule by mouth two times a week. TO BE TAKEN ORALLY DIRECTED. Take 1 tablet by mouth twice weekly [id number], then decrease to 1 tablet weekly. 8 capsule 5 06/12/2021 04/22/2022 Discontinued Comment on above: Take 1 capsule by mo uth two times a week. TO BE TAKEN ORALLY DIRECTED. Take 1 tablet by mouth twice weekly [id number], then decrease to 1 tablet weekly. Take 1 capsule by mo [facility] one time a week. fluconazole 150 mg oral tabl et (1 source) Azole Antifungal Start: 04-03-2025 End: 04-03-2025 fluconazole (DIFLUCAN) 150 mg tablet Take 1 tablet by mouth one time only for 1 dose. Repeat in 3 days as needed. 2 tablet 04/03/2025 04/03/2025 hydroCHLOROthiazide 12.5 mg / lisinopril 10 mg oral tablet (18 sources) Thiazide Diuretic, Angiotensin Converting Enzyme Inhibitor Start: 10-17-2022 End: 10-21-2022 Lisinopril-Hydrochloro thiazide 10-12.5 mg tablet Discontinued 1 {tbl} PO AT BEDTIME October 17, 2022 1:00am October 21, 2022 2:38pm Start: 10-17-2022 End: 10-21-2022 take 1 tablet by mouth at bedtime Lisinopril-Hydrochlorothiazide Discontin ued 1 TABLET PO AT BEDTIME October 17, 2022 12:00am October 21, 2022 1:38pm Start: 07-30-2022 End: 10-29-2022 take 10-12.5 mg by mouth once in the morning lisinopril-hydroCHLOROthiazide (PRINZIDE,ZESTORETIC) 10-12.5 mg per tablet Take 1 tablet by mouth every morning. 30 tablet 1 08/29/2022 10/29/2022 Discontinued (Discontinued by Patient) Start: 07-31-2020 End: 07-28-2022 take 10-12.5 mg by mouth once in the morning lisinopril-hydroCHLOROthiazide (PRINZIDE,ZESTORETIC) 10-12.5 mg per tablet Take 1 tablet by mouth every morning. 90 tablet 3 07/29/2021 07/28/2022 Discontinued Comment on above: Take 1 tablet by vikram th every morning. meloxicam 15 mg oral tablet (13 sources) Nonsteroidal Anti-inflammatory Drug Start: 05-27-20 End: 10-29-19 take 1 tablet by mouth once daily at mealtime meloxicam (MOBIC) 15 mg tablet Take 1 tablet by mouth once daily. With food. 30 tablet 11 05/27/2019 10/29/2022 Discontinued (Discontinued by Patient) Comment on above: Take 1 tablet by vikram th once daily. With food. 24 hr metFORMIN hydrochloride 500 mg extended release oral tablet (20 sources) Biguanide Start: 11-28-19 End: 04-03-20 take 1 tablet by mouth once daily at breakfast metFORMIN ER (GLUCOPHAGE XR) 500 mg 24 hr tablet Take 1 tablet by mouth daily with breakfast. 11/28/2022 04/03/2025 Discontinued Start: 10-29-2022 End: 11-28-2022 take 1 tablet by mouth twice daily Metformin 500 mg tablet extended release 24 hr Active 500 mg PO TWICE A DAY November 10, 2022 11:05am Start: 10-17-2022 End: 11-10-2022 Metformin 500 mg tablet exte nded release 24 hr Discontinued 1000 mg PO TWICE A DAY October 17, 2022 1:00am November 10, 2022 11:05am Start: 06-12-2021 End: 11-10-2022 take 1000 mg by mouth twice daily Metformin Discontinued 1000 MG PO TWICE A DAY October 17, 2022 12:00am November 10, 2022 10:05am Start: 07-31-2020 End: 06-12-2021 take 1 tablet by mouth twice daily at mealtime metFORMIN (GLUCOPHAGE) 500 mg tablet Indications: Controlled type 2 diabetes mellitus without complication, with long-term current use of insulin (HCC) TAKE ONE TABLET BY MOUTH TWICE DAILY WITH MEALS 360 tablet 3 07/31/2020 06/12/2021 Discontinued Comment on above: Take 2 tablets by mo uth twice daily as needed. Take 1 tablet by vikram th twice daily. Take 1 tablet by vikram th daily with breakfast. metoprolol tartrate 25 mg oral tablet (12 sources) beta-Adrenergic Kira Start: 3 End: 3 take 1 tablet by mouth twice daily Metoprolol Tartrate 25 mg tablet Discontinued 25 mg PO TWICE A DAY 180 November 10, 2022 11:51am December 25, 2022 4:23pm Comment on above: Take 25 mg by mouth twice daily. omeprazole 20 mg delayed release oral capsule (20 sources) Proton Pump Inhibitor Start: 3 End: 3 take 1 capsule by mouth at bedtime Omeprazole 20 mg Capsule,Delayed Release(Dr/Ec) Discontinued 20 mg PO AT BEDTIME October 17, 2022 1:00am October 21, 2022 2:46pm Start: 06-12-2005 End: 03-10-2024 take 1 tablet by mouth once daily PRILOSEC OTC 20 MG ORAL TBEC Indications: Esophageal reflux Take one(1) tablet daily. 0 06/12/2005 03/10/2024 Discontinued Comment on above: Take one(1) tablet d aily. Problems Active Problems Problem Classification Problem Date Documented Date Episodic/Chronic Abdominal hernia (2 sources) Umbilical hernia; Translations: [Umbilical hernia without obstruction or gangrene] Onset: 04-03-2025 04-03-2025 Episodic Acute myocardial infarction (5 sources) Myocardial infarction; Translations: [Non-ST elevation (NSTEMI) myocardial infarction] Chronic Chronic kidney disease (5 sources) Chronic kidney disease stage 3B ; Translations: [Stage 3b chronic kidney disease (HCC)] Chronic Coronary atherosclerosis and other heart disease (9 sources) Coronary atherosclerosis; Translations: [Atherosclerotic heart disease of [place] coronary artery without angina pectoris] Onset: 03-02-2025 Chronic Comment on above: [place] to Mid OM1 023; Diabetes mellitus with complications (20 sources) Type 2 diabetes mellitus; Translations: [Type 2 diabetes mellitus with diabetic chronic kidney disease] Onset: 08-19-2018 02-02-2024 Chronic Diabetes mellitus without complication (20 sources) Type 2 diabetes mellitus without complication; Translations: [Type 2 diabetes mellitus without complications] Onset: 08-19-2018 05-24-2021 Chronic Disorders of lipid metabolism (20 sources) Hyperlipidemia; Translations: [Hyperlipidemia, unspecified] Onset: 06-12-2005 Resolved: 08-31-2013 08-29-2015 Chronic Esophageal disorders (20 sources) Gastroesophageal reflux disease; Translations: [Gastro-esophageal reflux disease without esophagitis] Onset: 06-12-2005 06-12-2005 Chronic Essential hypertension (20 sources) Benign essential hypertension; Translations: [Essential (primary) hypertension] Onset: 06-12-2005 06-12-2005 Chronic Fluid and electrolyte disorders (1 source) Hyperkalemia; Translations: [Hyperkalemia] 02-03-2024 Episodic Genitourinary symptoms and ill-defined conditions (1 source) Urge incontinence of urine; Translations: [Urge incontinence] 06-30-2024 Chronic Genitourinary symptoms and ill-defined conditions (3 sources) Abnormal urine; Translations: [Unspecified abnormal findings in urine] Onset: 04-03-2025 06-30-2024 Episodic Heart valve disorders (20 sources) Ejection murmur; Translations: [Cardiac murmur, unspecified] Onset: 08-25-2016 08-25-2016 Episodic Immunizations and screening for infectious disease (3 sources) Needs influenza immunization; Translations: [Encounter for immunization] Onset: 04-03-2025 07-22-2023 Episodic Nonspecific chest pain (7 sources) Chest pain; Translations: [Chest pain, unspecified] Episodic Nutritional deficiencies (2 sources) Vitamin D deficiency; Translations: [Vitamin D deficiency, unspecified] Chronic Osteoarthritis (20 sources) Osteoarthritis; Translations: [Unspecified osteoarthritis, unspecified site] Onset: 06-12-2005 06-12-2005 Chronic Other diseases of kidney and ureters (2 sources) Abnormal renal function; Translations: [Disorder of kidney and ureter, unspecified] Episodic Other inflammatory condition of skin (1 source) Intertrigo; Translations: [Erythema intertrigo] 04-03-2025 Episodic Other inflammatory condition of skin (1 source) Erythema intertrigo; Translations: [Intertrigo] Onset: 04-03-2025 Episodic Other lower respiratory disease (1 source) Cough; Translations: [Acute cough] 06-30-2024 Episodic Other lower respiratory disease (2 sources) Wheezing; Translations: [Wheezing] 06-30-2024 Episodic Other lower respiratory disease (1 source) Cough; Translations: [Acute cough] 06-30-2024 Episodic Other non-traumatic joint disorders (1 source) Pain in right hip joint; Translations: [Pain in right hip] 02-01-2024 Episodic Other non-traumatic joint disorders (1 source) Bilateral chronic pain of upper limbs; Translations: [Pain in right shoulder] 02-01-2024 Episodic Other non-traumatic joint disorders (1 source) Joint pain; Translations: [Pain in unspecified joint] 06-07-2021 Episodic Other nutritional; endocrine; and metabolic disorders (20 sources) Morbid obesity; Translations: [Morbid (severe) obesity due to excess calories] Onset: 08-09-2012 08-09-2012 Chronic Other nutritional; endocrine; and metabolic disorders (1 source) Hypercalcemia; Translations: [Hypercalcemia] 02-03-2024 Chronic Other screening for suspected conditions (not mental disorders or infectious disease) (7 sources) Creatinine level - finding; Translations: [Other specified abnormal findings of blood chemistry] Episodic Other upper respiratory infections (2 sources) Acute sinusitis; Translations: [Acute sinusitis, unspecified] 06-30-2024 Episodic Residual codes; unclassified (1 source) History of clinical finding in subject; Translations: [Personal history of other medical treatment] Episodic Residual codes; unclassified (1 source) Edema of foot; Translations: [Localized edema] 04-23-2023 Episodic Residual codes; unclassified (1 source) Bilateral lower limb edema; Translations: [Localized edema] 02-02-2024 Episodic Spondylosis; intervertebral disc disorders; other back problems (20 sources) Cervical arthritis; Translations: [Spondylosis without myelopathy or radiculopathy, cervical region] Onset: 09-01-2014 09-01-2014 Chronic Syncope (6 sources) Syncope; Translations: [Syncope and collapse] Episodic Unclassified (1 source) Acute cough; Translations: [Acute cough] Onset: 06-30-2024 Past or Other Problems Problem Classification Problem Date Documented Da te Episodic/Chronic Other connective tissue disease (20 sources) Bilateral rotator cuff syndrome; Translations: [Unspecified rotator cuff tear or rupture of right shoulder, not specified as traumatic] Onset: 08-29-2015 08-29-2015 Episodic Other connective tissue disease (16 sources) Soft tissue lesion of shoulder region; Translations: [Bursopathy, unspecified] Onset: 08-10-2008 Resolved: 02-26-2015 02-26-2015 Episodic Other connective tissue disease (16 sources) Plantar fasciitis; Translations: [Plantar fascial fibromatosis] Onset: 07-16-2009 Resolved: 02-26-2015 02-26-2015 Episodic Other lower respiratory disease (1 source) Wheezing; Translations: [Wheezing] Onset: 06-30-2024 Episodic Residual codes; unclassified (20 sources) Other specified health status; Translations: [Other drug allergy] Onset: 07-04-2017 07-04-2017 Episodic Spondylosis; intervertebral disc disorders; other back problems (20 sources) Spinal stenosis in cervical region; Translations: [Spinal stenosis, cervical region] Onset: 08-15-2011 08-15-2011 Episodic Results Test Name Value Interpretation Reference Range Facility [facility] 04-04-2025 [facility] Telephone (INTMWS) ARABELLA BOSCH ([id number]) 1945 F Date Time Provider Department 04/04/25 MEGA AQUINO INTWS During your visit today, we recorded the following information about you: Mela Hawley LPN 04/04/2025 9:23 AM Signed Electronic PA rec'd and completed for nystatin. This was approved. Prior authorization approved Payer: [facility] [phone] Note from payer: JOHN Case: [id number], Status: Approved, Coverage Starts on: 10/12/2024 12:00:00 AM, Coverage Ends on: 10/11/2025 12:00:00 AM. Questions? Contact . Approval Details Authorization number: 0 Authorized from October 12, 2024 to October 11, 2025 Electronic appeal: Not supported View History Notes Time User Attachment Attachment received from payer. 04/04/2025 9:13 AM Cchs, Rx Priorauth In Document Medication Being Authorized nystatin (MYCOSTATIN) powder Apply 1 application to affected area four times daily. Dispense: 30 g Refills: 1 Start: 04/03/2025 Class: Normal This order has been released to its destination. To be filled at: [facility] [address] [place] [address] [address] [facility] [phone] [id number] Pharmacy notified. Allergies As of Date: 04/04/2025 (No Known Allergies) Date Reviewed: 04/03/2025 Reviewed by: Jeanette Mitchell APRN.BASEBALL INSPECTOR - Fully Assessed Reason for Visit: Insurance Authorization [[id number]] Prescriptions as of 04/04/2025 - rosuvastatin (CRESTOR) 20 mg tablet Take 1 tablet by mouth once daily. - amLODIPine (NORVASC) 2.5 mg tablet Take 1 tablet by mouth once daily. - nystatin (MYCOSTATIN) powder Apply 1 application to affected area four times daily. - pantoprazole DR (PROTONIX) 20 mg tablet Take 1 tablet by mouth once daily. - glimepiride (AMARYL) 1 mg tablet Take 1 tablet by mouth two times a day with meals. - fluticasone (FLONASE) 50 mcg/actuation nasal spray Use 2 Sprays in each nostril once daily. Rinse mouth after use. - carvedilol (COREG) 6.25 mg tablet Take 12.5 mg by mouth two times a day with meals. - aspirin, enteric coated (ASPIRIN, ENTERIC COATED) 81 mg EC tablet Take 81 mg by mouth once daily. - blood sugar diagnostic(ONE TOUCH ULTRA TEST STRIPS) test daily Problem List As Of Date 04/04/2025 Noted Resolved BENIGN HYPERTENSION [I10] 06/12/2005 ESOPHAGEAL REFLUX [K21.9] 06/12/2005 Other and unspecified hyperlipidemia [E78.5] 06/12/2005 08/31/2013 OSTEOARTHROS NOS-UNSPEC [M19.90] 06/12/2005 ROTATOR CUFF SYND NOS [M71.9, M67.919] 08/10/2008 02/26/2015 Plantar fasciitis [M72.2] 07/16/2009 02/26/2015 Spinal stenosis in cervical region [M48.02] 08/15/2011 Spinal stenosis, lumbar region, without neuroge*08/15/2011 Morbid obesity [E66.01] 08/09/2012 Hyperlipidemia with target LDL less than 100 [E*08/31/2013 Cervical arthritis [M47.812] 09/01/2014 Rotator cuff syndrome of both shoulders [M75.10*08/29/2015 Systolic ejection murmur [R01.1] 08/25/2016 Statin intolerance [Z78.9] 07/04/2017 Type 2 diabetes mellitus with chronic kidney di*08/19/2018 Arthritis of knee [M17.10] 08/19/2018 Arthritis of carpometacarpal (CMC) joint of lef*05/27/2019 Encounter Status:Closed by MELA HAWLEY on 04/04/25 Normal [facility] CNOVon 04-03-2025 CNOV Office Visit (INTMWS ) DANITZAARABELLA J ([id number]) 1945 F Date Time Provider Department 04/03/25 2:00 PM JEANETTE MITCHELL INTSULY During your visit today, we recorded the following information about you: Pulse Respiration Blood pressure Weight 62/minute 16/minute 134/78 102.1 kg Jeanette Mitchell APRN.CNP 04/03/2025 3:56 PM Signed CC: Patient presents with: Pre-Op Exam: Pre -Op R hip replacement HPI Arabella Bosch is a 79 year old female who presents today for preop exam. Recording using [email or web address] software for draft documentation of the visit was discussed with the patient/authorized collections representative; all questions welcomed and answered. Patient/authorized collections representative agreed to proceed Pre-Operative Evaluation: - Scheduled for right total hip arthroplasty on April 17, to be performed [facility]. - Underwent pre-operative blood work and cardiology evaluation, including an EKG; no issues or concerns noted. - Cleared for surgery by cardiology; echocardiogram scheduled for Thursday. CKD: - Chronic kidney disease with stable GFR in the 50s; previously in the 40s. - Advised to stay hydrated and avoid NSAIDs. DM: - Hemoglobin A1c: 6.8. - Takes glimepiride 1 tablet BID. - Monitors blood glucose at home, though not on a regular schedule. - Rare episodes of hypoglycemia, approximately once every 4-5 months, typically occurring a few hours after lunch. - Denies increased thirst, hunger, or numbness. HTN/HLD: - Takes amlodipine 2.5 mg and Coreg 12.5 mg BID. - Recently increased Coreg dosage to ensure optimal blood pressure control for surgery. - Monitors blood pressure at home once a day; readings in the 130s/78-82 mmHg. - Takes rosuvastatin. - Recent LDL levels were high, prompting a switch from atorvastatin to rosuvastatin as ordered by cardiology. - Denies abnormal chest pain, dyspnea, edema, or palpitations. - Denies severe persistent headaches. Nocturia: - Arabella reports nocturia, waking 3-4 times per night to urinate. Has had this for a long time without change. - Denies dysuria, dark or foul-smelling urine, abdominal pain, fever, or chills. - Questions if tramadol, taken once daily for pain, could be contributing to nocturia. Is hoping to stop daily tramadol after surgery recovery. GERD: - Takes pantoprazole; denies dysphagia, abdominal pain, nausea, or emesis. Rash: - Intermittent bright red rash with occasional bumps, pruritus, and burning sensation. - Localized to the right side, under the breast, abdominal fold, and groin. - Only present in abdominal fold and groin at this time Umbilical Hernia: - Soft and reducible umbilical hernia; denies pain. - Believes constipation may have contributed to the hernia's development. - denies abdominal pain, nausea, vomiting, or constipation at this time METS: Walk indoors, such as around the house (1.75 METs): YES Do light work around the house, such as dusting or washing dishes (2.70 METs): YES Take care of self; that is eating, dressing, bathing, using the toilet (2.75 METs): YES Walk a block or two on level ground (2.75 METs): YES Do moderate work around the house such as vacuuming, sweeping floors, or carrying in groceries (3.50 METs): YES Do yardwork, such as raking leaves, weeding,or pushing a power mower (4.50 METs): Does not perform due to hip and back issues, so unknown Climb a flight of stairs or walk up a hill (5.50 METs): YES Participate in moderate recreational activities, such as golf, bowling, dancing, doubles tennis, or throwing a baseball or football (6.00 METs): NO Participate in strenuous sport, such as swimming, singles tennis, football, basketball, or skiing (7.50 METs): NO Do heavy work around the house, such as scrubbing floors, lifting or moving heavy furniture (8.00 METs): NO Run a short distance (8.00 METs): NO Total: 5.50 Patient denies any chest pain or undue shortness of breath with the above physical activity. 1. Diabetes: Oral 2. Hypertension requiring medication: Yes 3. Congestive Heart Failure: No 4. Current Smoker within 1 Year: No 5. History of COPD: No 6. History of TR[place]: No 7. Dialysis: No REVIEW OF SYSTEMS General: no fevers, no chills, no night sweats, no recurrent infections, no change in appetite, no change in energy, and no significant changes in weight HEENT: no frequent or significant headaches, no changes in hearing, no visual changes, no nose bleeds, no sinus or nasal problems Neck: no lumps, no pain , and no swelling Respiratory: no cough, no wheezing, no shortness of breath, no hemoptysis Cardiovascular: no chest pain, no chest pressure, no palpitations, and no swelling GI: No nausea, vomiting, or diarrhea : No history of dysuria, frequency or incontinence Neurologic: No headache, weakness, numbness, dizziness, memory loss, syncope. PAST M (more content not included)... Normal [facility] Albumin, Serumon 03-31-2025 Albumin [Mass/Vol] 4.0 g/dL Normal 3.4-4.8 [facility] Comment on above: Performed By: #### L 100.0100, M100.651, L501.1800, L500.2500, L501.9985 #### [facility] [address], [address] Basic Metabolic Profile (BMP )on 03-31-2025 BUN/CRE 17.6 RATIO Normal - [facility] Comment on above: Performed By: #### L 100.0100, M100.651, L501.1800, L500.2500, L501.9985 #### [facility] [address] [place], [address] Calcium [Mass/Vol] 9.7 mg/dL Normal 7.6-11.0 [facility] Comment on above: Performed By: #### L 100.0100, M100.651, L501.1800, L500.2500, L501.9985 #### [facility] [address] [place], [address] Chloride [Moles/Vol] 106 mmol/L Normal 98-108 [facility] Comment on above: Performed By: #### L 100.0100, M100.651, L501.1800, L500.2500, L501.9985 #### [facility] [address] [place], [address] CO2 [Moles/Vol] 23.9 mmol/L Normal 21.0-32.0 [facility] Comment on above: Performed By: #### L 100.0100, M100.651, L501.1800, L500.2500, L501.9985 #### [facility] [address] [place], [address] Creatinine [Mass/Vol] 1.09 mg/dL Normal 0.70-1.20 [facility] Comment on above: Performed By: #### L 100.0100, M100.651, L501.1800, L500.2500, L501.9985 #### [facility] [address] [place], [address] GAP 11 Normal 5-15 [facility] Comment on above: Performed By: #### L 100.0100, M100.651, L501.1800, L500.2500, L501.9985 #### [facility] [address] [place], [address] GFR/1.73 sq M.predicted among non-blacks MDRD (S/P/Bld) [Vol rate/Area] 51 mL/min/{1.73_m2} Low >60 [facility] Comment on above: Result Comment: mL/m in/1.73m2 CKD-EPI Creatinine Equation (2020) Performed By: #### L 100.0100, M100.651, L501.1800, L500.2500, L501.9985 #### [facility] [address] [place], [address] Glucose [Mass/Vol] 127 mg/dL High 70-99 [facility] Comment on above: Performed By: #### L 100.0100, M100.651, L501.1800, L500.2500, L501.9985 #### [facility] [address] [place], [address] Potassium [Moles/Vol] 4.2 mmol/L Normal 3.3-5.1 [facility] Comment on above: Performed By: #### L 100.0100, M100.651, L501.1800, L500.2500, L501.9985 #### [facility] [address] [place], [address] Sodium [Moles/Vol] 142 mmol/L Normal 133-145 [facility] Comment on above: Performed By: #### L 100.0100, M100.651, L501.1800, L500.2500, L501.9985 #### [facility] [address] [place], [address] Urea nitrogen [Mass/Vol] 19 mg/dL Normal 4-19 [facility] Comment on above: Performed By: #### L 100.0100, M100.651, L501.1800, L500.2500, L501.9985 #### [facility] [address] [place], [address] CBC W/Diff, Automatedon 06-2 0-2025 Absolute Lymph 1.70 X10 3/uL Normal 0.83-4.51 [facility] Comment on above: Performed By: #### L 100.0100, M100.651, L501.1800, L500.2500, L501.9985 #### [facility] [address] [place], [address] Absolute Neut 5.1 X10 3/uL Normal 2.0-7.7 [facility] Comment on above: Performed By: #### L 100.0100, M100.651, L501.1800, L500.2500, L501.9985 #### [facility] [address] [place], [address] Basophils/100 WBC (Bld) 0.5 % Normal 0-1 [facility] Comment on above: Performed By: #### L 100.0100, M100.651, L501.1800, L500.2500, L501.9985 #### [facility] [address] [place], [address] Eosinophils/100 WBC (Bld) 2.3 % Normal 0-5 [facility] Comment on above: Performed By: #### L 100.0100, M100.651, L501.1800, L500.2500, L501.9985 #### [facility] [address] [place], [address] Erythrocyte distribution width (RBC) [Ratio] 13.8 % Normal 11.6-14.6 [facility] Comment on above: Performed By: #### L 100.0100, M100.651, L501.1800, L500.2500, L501.9985 #### [facility] [address] [place], [address] Hematocrit (Bld) [Volume fraction] 41.7 % Normal 37-47 [facility] Comment on above: Performed By: #### L 100.0100, M100.651, L501.1800, L500.2500, L501.9985 #### [facility] [address] [place], [address] Hemoglobin (Bld) [Mass/Vol] 13.6 g/dL Normal 12.0-15.0 [facility] Comment on above: Performed By: #### L 100.0100, M100.651, L501.1800, L500.2500, L501.9985 #### [facility] [address] [place], [address] IG% 0.300 Normal 0.0-0.9 [facility] Comment on above: Result Comment: IG% - Immature Granulocytes (promyelocytes, myelocytes and metamyelocytes) > 1% indicates that a LEFT SHIFT is Present. Performed By: #### L 100.0100, M100.651, L501.1800, L500.2500, L501.9985 #### [facility] [address] [place], [address] Lymphocytes/100 WBC (Bld) 22.5 % Normal 19-41 [facility] Comment on above: Performed By: #### L 100.0100, M100.651, L501.1800, L500.2500, L501.9985 #### [facility] [address] [place], [address] MCH (RBC) [Entitic mass] 30.3 pg Normal 27.0-32.0 [facility] Comment on above: Performed By: #### L 100.0100, M100.651, L501.1800, L500.2500, L501.9985 #### [facility] [address] [place], [address] MCHC (RBC) [Mass/Vol] 32.6 g/dL Normal 32-36 [facility] Comment on above: Performed By: #### L 100.0100, M100.651, L501.1800, L500.2500, L501.9985 #### [facility] [address] [place], [address] MCV (RBC) [Entitic vol] 92.9 fL Normal 81-99 [facility] Comment on above: Performed By: #### L 100.0100, M100.651, L501.1800, L500.2500, L501.9985 #### [facility] [address] [place], [address] Monocytes/100 WBC (Bld) 7.2 % Normal 0-10 [facility] Comment on above: Performed By: #### L 100.0100, M100.651, L501.1800, L500.2500, L501.9985 #### [facility] [address] [place], [address] Neutrophils/100 WBC (Bld) 67.2 % Normal 47-70 [facility] Comment on above: Performed By: #### L 100.0100, M100.651, L501.1800, L500.2500, L501.9985 #### [facility] [address] [place], [address] Nucleated RBC (Bld) [#/Vol] 0 10*3/uL Normal 0-5 [facility] Comment on above: Performed By: #### L 100.0100, M100.651, L501.1800, L500.2500, L501.9985 #### [facility] [address] [place], [address] Platelet mean volume (Bld) [Entitic vol] 11.3 fL Normal 6.2-12.0 [facility] Comment on above: Performed By: #### L 100.0100, M100.651, L501.1800, L500.2500, L501.9985 #### [facility] [address] [place], [address] Platelets (Bld) [#/Vol] 319 10*3/uL Normal 150-450 [facility] Comment on above: Performed By: #### L 100.0100, M100.651, L501.1800, L500.2500, L501.9985 #### [facility] [address] [place], [address] RBC (Bld) [#/Vol] 4.49 10*6/uL Normal 4.2-5.4 [facility] Comment on above: Performed By: #### L 100.0100, M100.651, L501.1800, L500.2500, L501.9985 #### [facility] [address] [place], [address] RDW SD 47.0 fl High 35.1-43.9 [facility] Comment on above: Performed By: #### L 100.0100, M100.651, L501.1800, L500.2500, L501.9985 #### [facility] [address] [place], [address] WBC (Bld) [#/Vol] 7.6 10*3/uL Normal 4.4-11.0 [facility] Comment on above: Performed By: #### L 100.0100, M100.651, L501.1800, L500.2500, L501.9985 #### [facility] [address] [place], [address] Hemoglobin A1con 03-31-2025 HbA1c (Bld) [Mass fraction] 6.8 % High <=5.6 [facility] Comment on above: Result Comment: Norm al < 5.7 % Prediabetic 5.7 - 6.4 % Diabetic >or= 6.5 % Please note range changes. Performed By: #### L 100.0100, M100.651, L501.1800, L500.2500, L501.9985 #### [facility] [address] [place], [address] MRSA/SAID NASAL SCREENon MRSA+SAID SCRN Reason for Exam: Surgery MRSA MRSA Negative S. AUREUS S. aureus Negative Normal [facility] Comment on above: Performed By: #### L 100.0100, M100.651, L501.1800, L500.2500, L501.9985 #### [facility] [address] [place], [address] Magnesiumon 03-31-2025 Magnesium [Mass/Vol] 2.1 mg/dL Normal 1.5-2.2 [facility] Comment on above: Performed By: #### L 501.5200 #### [facility] [address] [place], [address] MR/PAT.ANEon 03-29-2025 MR/PAT.[facility] Medical Records Department [address] [place] [address] PAT - Anesthesia 03/29/259 MR#: [id number] Acct: [id number] Name: ARABELLA BOSCH DANDRE Rep #: [id number] : 1945 79 From: Anurag Yancey MD PCP: Status:PRE [facility] Y Race: C Location: [facility] Pre-Assessment Diagnosis/Proposed Procedure Planned Operative Procedure(s): (R) Total Hip Anterior Approach 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 - financial analysis consultant: 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 - financial analysis consultant Hx Hospitalization No 03/29/25 08:45 Any Problems With Anesthesia No 03/29/25 08:45 Cholinesterase deficiency No 03/29/25 08:45 You/Your Family Experience No 03/29/25 08:45 fever (hyperthermia) with Relationship Recent Exposure to Contagious Disease Does patient have nerve No 03/29/25 08:45 stimulator Patient instructed to have device shut off --Does patient have Pacemaker or ICD? When Was Last Pacemaker Check QUESTION #4 FULL TEXT: You/Your Family Experience fever (hyperthermia) with Anesthesia Last Oral Intake Last Oral intake: Last Oral Intake NPO since Meds taken in AM with sips of water? Meds patient instructed to take am of surgery PONV PONV - financial analysis consultant: PONV - financial analysis consultant Female Yes 03/29/25 08:45 HX of Motion Sickness No 03/29/25 08:45 HX of N/V After Surgery No 03/29/25 08:45 Non-Smoker Yes 03/29/25 08:45 Duration of Surgery greater Yes 03/29/25 08:45 than 60 minutes Number of Risk Factors 3 03/29/25 08:45 PONV Score Moderate Risk 03/29/25 08:45 Height Weight Height Weight: Anesthesia: Height Weight Height 5 ft 5 in 03/02/25 06:51 Respiratory Assessment Respiratory Assessment - financial analysis consultant: Respiratory Tract Infection Hx - financial analysis consultant Hx Respiratory Tract Infection No 03/29/25 08:45 STOP Sleep Apnea STOP Sleep Apnea - financial analysis consultant: STOP Sleep Apnea - financial analysis consultant Hx Hypertension Yes: MED INCREASE RECENTLY 03/29/25 08:45 Hx Sleep Apnea No 03/29/25 08:45 CPAP BIPAP Do you snore loudly (louder No 03/29/25 08:45 than talking or can be heard Do you often feel tired/ No 03/29/25 08:45 fatigued/ sleepy during daytime? Has anyone observed you stop No 03/29/25 08:45 breathing during sleep? STOP Results Negative 03/29/25 08:45 QUESTION #5 FULL TEXT : Do you snore loudly (louder than talking or can be heard through closed doors)? Tobacco Use History Tobacco Use History - financial analysis consultant: Tobacco Use History - financial analysis consultant Tobacco Use Smoking Status Former smoker 03/29/25 08:45 Hx Tobacco Use No 03/29/25 08:45 Years Smoking Packs Smoked per Day Smoking Cessation Date was No - quit smoking greater 03/29/25 08:45 within the last 15 years than 15 years ago Hx Smoking Cessation Date Hx Smoking Cessation Counseling Hematologic Medial History Hematologic Hx - financial analysis consultant: Hematologic Medical Hx - communication signals intelligence Hx of Blood Transfusion No 03/29/25 08:45 Hx of Transfusion in last 3 No 03/29/25 08:45 Months Date of Last Transfusion (if within last 3 months) Ever experience any problems No 03/29/25 08:45 with transfusion(s)? Specify any problems Hx of Preganancy in last 3 No 03/29/25 08:45 Months Nurse Filling Out Transfusion REBECA 03/29/25 08:45 Questions: Date: 03/29/25 03/29/25 08:45 Time: 08:50 03/29/25 08:45 Patient unable to answer at this time (ie. confused, unrespo /Reproductio n History /Reproductiv e History - financial analysis consultant: /Reproductiv e Hx- financial analysis consultant Hx Now Gestational Age (in weeks): EDC: Hx Hx Para Hx Section SAB PENDING SALE TO [facility] Medical History (Updated 03/29/25 @ 08:45 by Gris Elias) Wears glasses Alcohol use Post-menopausal Ambulates with cane History of renal disease High cholesterol DVT (deep venous thrombosis) Back pain Former smoker Leg cramps History of edema History of normal Holter exam History of echocardiogram Cardiology follow-up encounter History of heart attack History of irregular heartbeat Atherosclerosis of coronary artery of [place] heart without angina pectoris NSTEMI, initial episode of care Seasonal allergies Hyperlipidemia Hypertension Diabetes Arthritis GERD (gastroesophageal reflux disease) Creatinine elevation Syncope Home Medications ???Medication ???Instructions ???Recorded ???Last Taken ???Type acetaminophen 500 mg tablet 1,000 mg PO BID ARTHRITIS PAIN 04/0310/17/22 05:00 History diphenhydramine HCl 25 mg tablet 25 mg PO QHS PRN ALLERGIES 3 10/15/22 History (Benadryl Deandre (more content not included)... [facility] 03-28-2025 [facility] Telephone (JENNIFER) ARABELLA BOSCH ([id number]) 1945 F Date Time Provider Department 03/28/25 MEGA AQUINO During your visit today, we recorded the following information about you: Denise Johnson LPN 03/28/2025 3:50 PM Signed Lakshmi with [facility] calls to report pt needs some labs done for pre-op. Pt told Lakshmi that she was already getting some labs done her at the clinic on Thursday and wants to get all done at the same time. Lakshmi is asking if provider can add: Albumin Cbc MRSA, MSSA Call Lakshmi if there is a problem. Add these lab orders to pt's lab appt for Thursday. REAGAN Ernandez Krystle, RN 03/29/2025 9:39 AM Signed Nicolette with [facility] calls to report that patient is actually scheduled with [facility] PAT nurse to have pre-op testing completed on Thursday and will have labs completed there. Requesting orders for Jeanette to also be faxed so patient doesn't have to have lab work completed twice. Verified with patient. Faxed orders to [facility] PAT nurse: Lynda at [phone]. Cancelled appointment with [facility] on Thursday03/31/2025 for lab work. Jason Lowry RN Allergies As of Date: 03/28/2025 (No Known Allergies) Date Reviewed: 12/13/2024 Reviewed by: Radha Hadley MA - Fully Assessed Reason for Visit: Lab Orders [1858] Prescriptions as of 03/29/2025 - pantoprazole DR (PROTONIX) 20 mg tablet Take 1 tablet by mouth once daily. - glimepiride (AMARYL) 1 mg tablet Take 1 tablet by mouth two times a day with meals. - fluticasone (FLONASE) 50 mcg/actuation nasal spray Use 2 Sprays in each nostril once daily. Rinse mouth after use. - atorvastatin (LIPITOR) 80 mg tablet Take 1 tablet by mouth once daily. - carvedilol (COREG) 6.25 mg tablet - metFORMIN ER (GLUCOPHAGE XR) 500 mg 24 hr tablet Take 1 tablet by mouth daily with breakfast. - clopidogrel (PLAVIX) 75 mg tablet Take 75 mg by mouth once daily. - aspirin, enteric coated (ASPIRIN, ENTERIC COATED) 81 mg EC tablet Take 81 mg by mouth once daily. - blood sugar diagnostic(ONE TOUCH ULTRA TEST STRIPS) test daily Problem List As Of Date 03/28/2025 Noted Resolved BENIGN HYPERTENSION [I10] 06/12/2005 ESOPHAGEAL REFLUX [K21.9] 06/12/2005 Other and unspecified hyperlipidemia [E78.5] 06/12/2005 08/31/2013 OSTEOARTHROS NOS-UNSPEC [M19.90] 06/12/2005 ROTATOR CUFF SYND NOS [M71.9, M67.919] 08/10/2008 02/26/2015 Plantar fasciitis [M72.2] 07/16/2009 02/26/2015 Spinal stenosis in cervical region [M48.02] 08/15/2011 Spinal stenosis, lumbar region, without neuroge*08/15/2011 Morbid obesity [E66.01] 08/09/2012 Hyperlipidemia with target LDL less than 100 [E*08/31/2013 Cervical arthritis [M47.812] 09/01/2014 Rotator cuff syndrome of both shoulders [M75.10*08/29/2015 Systolic ejection murmur [R01.1] 08/25/2016 Statin intolerance [Z78.9] 07/04/2017 Type 2 diabetes mellitus with chronic kidney di*08/19/2018 Arthritis of knee [M17.10] 08/19/2018 Arthritis of carpometacarpal (CMC) joint of lef*05/27/2019 Encounter Status:Closed by JASON LOWRY on 03/29/25 [facility] Bilirubin directOrdered By: Mili Mathis on 03-02-2025 Bilirubin.direct [Mass/Vol] 0.17 mg/dL 0.00-0.30 [facility] Bilirubin, totalOrdered By: Mili Mathis on 03-02-2025 Bilirubin [Mass/Vol] 0.46 mg/dL 0.00-1.30 [facility] Calculated very low density lipoprotein (VLDL) cholesterol measurementOrdered By: Mili Mathis on 03-02-2025 Calculated very low density lipoprotein (VLDL) cholesterol measurement 37 mg/dL 5-40 [facility] Cardiology Visit Reporton Cardiology Visit Report [facility] [address] [place], [place] [address]. [address] [place] [address] OFFICE VISIT Date of Service: 03/02/25 MR#: [id number] Acct: [id number] Name: ARABELLA BOSCH Rep #: [id number] : 1945 Provider: JOHN Guthrie Age/Sex: 79/F Location: [facility] Status: Signed HPI HPI History of Present Illness Details: Patient was evaluated at [facility] in October 2022 for non-ST elevated myocardial infarction and syncope. She underwent a heart catheterization that showed normal left main coronary artery, LAD with mild calcification but no high-grade stenosis, nondominant LCx and first obtuse marginal branch with 90% stenosis and main circumflex with 90% stenosis, dominant RCA with calcified 70% mid segment stenosis and moderate distal disease. She underwent PCI to the high-grade obtuse marginal vessel. The moderate RCA disease was left for medical therapy. Her syncopal episode was thought to be dehydrated related. She completed a 48-hour Holter monitor upon discharge that showed sinus rhythm with an average heart rate of 66 bpm and longest R to R interval of 1.6 seconds. She was last in the office in 2022. She is scheduled for a right hip replacement in April of [address] Blanc. From a cardiac standpoint, patient is doing well. She does not have any chest discomfort/heaviness/ tightness. She does not have any worsening symptoms of shortness of breath. She does not have any orthopnea. She denies PND. She does not have any symptoms of congestive heart failure. She does not have any palpitations that she is aware of. She does not have any lightheadedness or dizziness. She does not have any near-syncope or syncope. She does not have any lower extremity edema. She does not have any symptoms of claudication. EKG today demonstrates SR with old anterior infarct with a HR of 61. Intake Vital Signs 06/10/23 14:23 03/02/25 06:51 Height 5 ft 5 in 5 ft 5 in Weight: 225 lb BMI 37.4 BP 153/84 H Blood Pressure Location Lt brachial Position Sitting Respiration 18 Pulse 59 L Pulse Source Monitor Pulse Oximetry (%) 92 Intake Visit Reasons: 1 Y FU/NEEDS EKG [employer] Required: No Is patient in pain?: No Allergies No Known Allergies Allergy (Verified 03/02/25 11:18) Medications ???Medication ???Instructions ???Recorded ???Confirmed ???Type acetaminophen 500 mg tablet 1,000 mg PO Q8H ARTHRITIS PAIN 04/0303/02/25 History diphenhydramine HCl 25 mg tablet 25 mg PO QHS PRN ALLERGIES 3 03/02/25 History (Benadryl Allergy) [id number] 8 mg-folic 400 1 tab PO DAILY HEALTH MAINTENANCE 10/17/22 03/02/25 History mcg-K 50 mcg-lutein 300 mcg tablet (Centrum Silver Women) pantoprazole 20 mg tablet,delayed 20 mg PO QHS 30 days #30 tabs 08/0303/02/25 Rx release glimepiride 1 mg tablet 1 mg PO DAILY 11/10/22 03/02/25 Hi story metformin 500 mg tablet,extended 500 mg PO BID BLOOD SUGARS 3 03/02/25 History release 24 hr amlodipine 2.5 mg tablet 2.5 mg PO DAILY #90 tabs 12/06/24 03/02/25 Rx aspirin 81 mg tablet,delayed 81 mg PO QDAY 03/02/25 03/02/25 Hi story release (Adult Aspirin Regimen) carvedilol 12.5 mg tablet 12.5 mg PO BID #180 tabs 03/02/25 03/02/25 Rx rosuvastatin 20 mg tablet 20 mg PO QDAY #90 tabs 03/03/25 R x Ejection fraction %: 55 Have you fallen in the past year?: No PFSH Medical History Arthritis Atherosclerosis of coronary artery of [place] heart without angina pectoris Creatinine elevation Diabetes GERD (gastroesophageal reflux disease) Hyperlipidemia Hypertension NSTEMI, initial episode of care Seasonal allergies Syncope Surgical History History of appendectomy History of coronary artery stent placement ( 10/20/22) Family History Father Diabetes CAD (coronary artery disease) Sister Diabetes CVA (cerebral vascular accident) Mother Melanoma Other Hypertension Social History household members: spouse housing: house Smoking Status: Former smoker alcohol intake: current alcohol intake frequency: a few times a week details: Drinks of couple drinks couple times a week substance use type: does not use ROS Const Const: Negative for fatigue, weakness, headache(s) or frequent falls Eyes Eyes: Negative for blurry vision ENT ENT: Negative for headache(s), dizziness or Nosebleed/epistaxis Cardio Chest Pain: No Palpitations: No Edema: None Muscle aches with walking: None Resp Respiratory: Negative for SOB with activity, SOB at rest or SOB or (more content not included)... Normal [facility] LDL calc ser/plasOrdered By: Mili Mathis on 03-02-2025 Cholesterol in LDL [Mass/Vol] 176 mg/dL [facility] Comment on above: Midappeilm=458-818 m g/dL & Higher Hsiu=462 mg/dL or greater Laboratory - Chemistry and C hemistry - challengeOrdered By: Mili Mathis on 03-02-2025 AST [Catalytic activity/Vol] 28 U/L <32 [facility] Lipid Profileon 03-02-2025 CHOL:HDL 6.22 Normal [facility] Comment on above: Performed By: #### L 500.3400, L500.4100 #### [facility] [address] [place], [place], [id number] (229) Cholesterol [Mass/Vol] 253 mg/dL High <=200 [facility] Comment on above: Result Comment: Chol esterol level, Desirable <200 mg/dL Borderline high cholesterol 200-239 mg/dL High cholesterol >=240 mg/dL Recommendations of the NCEP Adult Treatment Panel for the following risk-cutoff thresholds for the [place] population. Performed By: #### L 500.3400, L500.4100 #### [facility] [address] [place], [address] Cholesterol in HDL [Mass/Vol] 41 mg/dL Normal [facility] Comment on above: Result Comment: Susie onal Cholesterol Education Program (NCEP) guidelines: <40 mg/dL: Low HDL-cholesterol (major risk factor for CHD) >= 60 mg/dL: High HDL-cholesterol (negative risk factor for CHD) HDL-cholesterol is affected by a number of factors, e.g. smoking, exercise, hormones, sex and age. Performed By: #### L 500.3400, L500.4100 #### [facility] [address] [place], [address] Cholesterol in LDL [Mass/Vol] 176 mg/dL Normal [facility] Comment on above: Result Comment: Bord ncfcdw=981-648 mg/dL Higher Edim=176 mg/dL or greater Performed By: #### L 500.3400, L500.4100 #### [facility] [address] [place], [address] Cholesterol in VLDL [Mass/Vol] 37 mg/dL Normal 5-40 [facility] Comment on above: Performed By: #### L 500.3400, L500.4100 #### [facility] [address] [place], [address] Triglyceride [Mass/Vol] 184 mg/dL Normal [facility] Comment on above: Result Comment: The drugs N-Acetylcysteine and Metamizole may falsely depress this assay. Normal range: <150 mg/dL Borderline High: 150-199 mg/dL High: 200-499 mg/dL Very High: >500 mg/dL Performed By: #### L 500.3400, L500.4100 #### [facility] [address] [place], [address] Liver Profileon 03-02-2025 Albumin [Mass/Vol] 4.0 g/dL Normal 3.4-4.8 [facility] Comment on above: Performed By: #### L 500.3400, L500.4100 #### [facility] [address] [place], [address] ALK PHOS 67 U/L Normal 35-104 [facility] Comment on above: Performed By: #### L 500.3400, L500.4100 #### [facility] [address] [place], [address] ALT [Catalytic activity/Vol] 15 U/L Normal <=34 [facility] Comment on above: Performed By: #### L 500.3400, L500.4100 #### [facility] [address] [place], [address] AST [Catalytic activity/Vol] 28 U/L Normal <=31 [facility] Comment on above: Performed By: #### L 500.3400, L500.4100 #### [facility] [address] [place], [address] Bilirubin [Mass/Vol] 0.46 mg/dL Normal 0.00-1.30 [facility] Comment on above: Performed By: #### L 500.3400, L500.4100 #### [facility] [address] [place], [address] Bilirubin.direct [Mass/Vol] 0.17 mg/dL Normal 0.00-0.30 [facility] Comment on above: Performed By: #### L 500.3400, L500.4100 #### [facility] [address] [place], [address] Globulin (S) [Mass/Vol] 3.1 g/dL Normal 2.2-4.2 [facility] Comment on above: Performed By: #### L 500.3400, L500.4100 #### [facility] [address] [place], [address] T PROT 7.2 g/dL Normal 5.9-8.4 [facility] Comment on above: Performed By: #### L 500.3400, L500.4100 #### [facility] [address] [place], [address] Screening total cholesterol/ high density lipoprotein (HDL) cholesterol ratioOrdered By: Mili Mathis on 03-02-2025 Cholesterol.total/Choles terol in HDL [Mass ratio] 6.22 {ratio} [facility] Serum globulin measurementOr dered By: Mili Mathis on 03-02-2025 Globulin (S) [Mass/Vol] 3.1 g/dL 2.2-4.2 [facility] Serum or plasma alanine mckay otransferase (ALT) measurementOrdered By: Mili Mathis on 03-02-2025 ALT [Catalytic activity/Vol] 15 U/L <35 [facility] Serum or plasma albumin torsten urement (mass/volume)Ordered By: Mili Mathis on 03-02-2025 Albumin [Mass/Vol] 4.0 g/dL 3.4-4.8 [facility] Serum or plasma alkaline maría sphatase measurementOrdered By: Mili Mathis on 03-02-2025 ALP [Catalytic activity/Vol] 67 U/L 35-104 [facility] Serum or plasma cholesterol in HDL measurement (mass/volume)Ordered By: Mili Mathis on 03-02-2025 Cholesterol in HDL [Mass/Vol] 41 mg/dL >40 [facility] Comment on above: National Cholesterol Education Program (NCEP) guidelines:<40 mg/dL: Low HDL-cholesterol (major risk factor for CHD)>= 60 mg/dL: High HDL-cholesterol (negative risk factor for CHD)HDL-cholesterol is affected by a number of factors, e.g. smoking, exercise, hormones, sex and age. Serum or plasma cholesterol measurement (mass/volume)Ordered By: Mili Mathis on 03-02-2025 Cholesterol [Mass/Vol] 253 mg/dL High <201 [facility] Comment on above: Cholesterol level, D esirable <200 mg/dLBorderline high cholesterol 200-239 mg/dLHigh cholesterol >=240 mg/dLRecommendations of the NCEP Adult Treatment Panel for the following risk-cutoff thresholds for the [place] population. Total proteinOrdered By: Margaret Mathis on 03-02-2025 Protein [Mass/Vol] 7.2 g/dL 5.9-8.4 [facility] Triglycerides measurementOrd ered By: Mili Mathis on 03-02-2025 Triglyceride [Mass/Vol] 184 mg/dL <199 [facility] Comment on above: The drugs N-Acetylcy steine and Metamizole may falsely depress this assay. Normal range: <150 mg/dLBorderline High: 150-199 mg/dLHigh: 200-499 mg/dLVery High: >500 mg/dL CNOVon 12-13-2024 CNOV Office Visit (FAMPWS ) ARABELLA BOSCH ([id number]) 1945 F Date Time Provider Department 12/13/24 2:00 PM ROSALINA BEAN [facility] During your visit today, we recorded the following information about you: Temperature Pulse Respiration Blood pressure 97.8 degrees 86/minute 20/minute 138/79 Weight 100.9 kg Rosalina Bean PA-C 12/14/2024 8:52 AM Signed 12/13/2024 Patient presents with: flu like symtoms: X1.5 week with sinus drainage/pressure x5 days AND sinus LAGU[place]S xtoday SUBJECTIVE: This is a 79 year old that is here today for Complaint(s) of sinus pressure and congestion x 1.5 weeks. Intermittent sinus pain, more today. Purulent drainage per patient. Has a cough associated. Overall thinks she is improving slightly, but then still having sinus pain today and sinus LAGUNAS. Denies fever/chills, chest pain, wheezing, SOB, vomiting, diarrhea, worst LAGUNAS of life. Has tried OTC cold/flu medications with mild relief. Tried sudafed which was helpful. PAST MEDICAL HISTORY Diagnosis Date Benign hypertensive heart disease without heart failure 04/12/03 Cervical arthritis 09/01/2014 Esophageal reflux 08/14 Hyperlipidemia LDL goal < 100 08/31/2013 Morbid obesity (HCC) 08/09/2012 Other and unspecified hyperlipidemia 05/15/04 Phlebitis and thrombophlebitis of unspecified site Type II or unspecified type diabetes mellitus without mention of complication, not stated as uncontrolled 05/15/04 ALLERGIES Patient has no known allergies. MEDICATIONS Current Outpatient Medications Medication Sig glimepiride (AMARYL) 1 mg tablet Take 1 tablet by mouth two times a day with meals. fluticasone (FLONASE) 50 mcg/actuation nasal spray Use 2 Sprays in each nostril once daily. Rinse mouth after use. pantoprazole DR (PROTONIX) 20 mg tablet Take 1 tablet by mouth once daily. atorvastatin (LIPITOR) 80 mg tablet Take 1 tablet by mouth once daily. carvedilol (COREG) 6.25 mg tablet metFORMIN ER (GLUCOPHAGE XR) 500 mg 24 hr tablet Take 1 tablet by mouth daily with breakfast. clopidogrel (PLAVIX) 75 mg tablet Take 75 mg by mouth once daily. aspirin, enteric coated (ASPIRIN, ENTERIC COATED) 81 mg EC tablet Take 81 mg by mouth once daily. blood sugar diagnostic(ONE TOUCH ULTRA TEST STRIPS) test daily No current facility-administered medications for this visit. SOCIAL HISTORY Social History Tobacco Use Smoking status: Former Smokeless tobacco: Never Tobacco comments: quit smoking 1983 Substance Use Topics Alcohol use: Yes Drug use: No REVIEW OF SYSTEMS See HPI OBJECTIVE: BP 138/79 Pulse 86 Temp 36.6 ?C (97.8 ?F) (Oral) Resp 20 Wt 100.9 kg (222 lb 6.4 oz) SpO2 95% BMI 35.90 kg/m? APPEARANCE Well appearing, alert, in no acute distress, well-hydrated, well nourished. EYES PERRLA, conjunctiva and sclera normal. EARS External ears normal, canals clear. TMs normal BRENDA NOSE/SINUS Nares normal. Septum midline. Mucosa erythematous, No drainage or sinus tenderness. THROAT normal, no erythema NECK Supple, no adenopathy; HEART RRR with normal S1 and S2, LUNG clear to auscultation, No wheezing, rhonchi, rales. ASSESSMENT/PLAN: 1. Acute non-recurrent frontal sinusitis - ICD9: 461.1, ICD10: J01.10 - Will begin treatment with as per antibiotic as written if not improving in 3-4 days, sooner if worsening, see orders - The patient should also be given OTC cough and cold meds as needed, warm salt water gargles, throat lozenges and/or OTC throat spray as needed, and nasal saline gtts and suction prn for the first 5-7 days of treatment. - Supportive care with plenty of fluids, rest, and analgesia prn. - Follow up in 5-7 days if symptoms persist or worsen. - AMOXICILLIN 875 MG-POTASSIUM CLAVULANATE 125 MG TABLET The patient indicates understanding of these issues and agrees with the plan. Reviewed red flags and when to seek care sooner. Rosalina Bean PA-C Allergies As of Date: 12/13/2024 (No Known Allergies) Date Reviewed: 12/13/2024 Reviewed by: Radha Hadley MA - Fully Assessed Reason for Visit: flu like symtoms [Other] Cmt: X1.5 week with sinus drainage/pressure x5 days AND sinus LAGUNAS xtoday Primary Visit Diagnosis:Acute non-recurrent frontal sinusitis [J01.10] Order(s):amoxicillin- clavulanate potassium (AUGMENTIN) 875-125 mg per tabletTake 1 tablet by mouth two times a day for 5 days.Disp: 10 tabletRfl: 0 Prescriptions as of 12/14/2024 - amoxicillin-clavulana te potassium (AUGMENTIN) 875-125 mg per tablet Take 1 tablet by mouth two times a day for 5 days. - glimepiride (AMARYL) 1 mg tablet Take 1 tablet by mouth two times a day with meals. - fluticasone (FLONASE) 50 mcg/actuation nasal spray Use 2 Sprays in each nostril once daily. Rinse mouth after use. - pantoprazole DR (PROTONIX) 20 mg tablet Take 1 tablet by mouth once daily. - atorvastatin (LIPITOR) 80 mg table (more content not included)... Normal [facility] ARAB[facility] ([id number]) 1945 F Date Time Provider Department 07/04/24 JEANETTE MITCHELL During your visit today, we recorded the following information about you: Jeanette Mitchell APRN.SPARKLE 07/04/2024 9:34 AM Signed Urinary tract infection is resistant to the pcn based antibiotic she is taking for a sinus infection. I am adding an additional antibitotic. How is she feeling? Thank you Jeanette Mitchell APRN.Cara Capone MA 07/04/2024 10:07 AM Signed Patient notified. Allergies As of Date: 07/04/2024 (No Known Allergies) Date Reviewed: 06/30/2024 Reviewed by: Cara Gordon MA - Fully Assessed Reason for Visit: Results [95] Order(s):nitrofuranto in monohydrate and macrocrystal (MACROBID) 100 mg capsuleTake 1 capsule by mouth two times a day with meals for 5 days.Disp: 10 capsuleRfl: 0 Prescriptions as of 07/04/2024 - nitrofurantoin monohydrate and macrocrystal (MACROBID) 100 mg capsule Take 1 capsule by mouth two times a day with meals for 5 days. - glimepiride (AMARYL) 1 mg tablet Take 1 tablet by mouth two times a day with meals. - amoxicillin-clavulana te potassium (AUGMENTIN) 875-125 mg per tablet Take 1 tablet by mouth two times a day for 10 days. - fluticasone (FLONASE) 50 mcg/actuation nasal spray Use 2 Sprays in each nostril once daily. Rinse mouth after use. - pantoprazole DR (PROTONIX) 20 mg tablet Take 1 tablet by mouth once daily. - atorvastatin (LIPITOR) 80 mg tablet Take 1 tablet by mouth once daily. - carvedilol (COREG) 6.25 mg tablet - metFORMIN ER (GLUCOPHAGE XR) 500 mg 24 hr tablet Take 1 tablet by mouth daily with breakfast. - clopidogrel (PLAVIX) 75 mg tablet Take 75 mg by mouth once daily. - aspirin, enteric coated (ASPIRIN, ENTERIC COATED) 81 mg EC tablet Take 81 mg by mouth once daily. - blood sugar diagnostic(ONE TOUCH ULTRA TEST STRIPS) test daily Problem List As Of Date 07/04/2024 Noted Resolved BENIGN HYPERTENSION [I10] 06/12/2005 ESOPHAGEAL REFLUX [K21.9] 06/12/2005 Other and unspecified hyperlipidemia [E78.5] 06/12/2005 08/31/2013 OSTEOARTHROS NOS-UNSPEC [M19.90] 06/12/2005 ROTATOR CUFF SYND NOS [M71.9, M67.919] 08/10/2008 02/26/2015 Plantar fasciitis [M72.2] 07/16/2009 02/26/2015 Spinal stenosis in cervical region [M48.02] 08/15/2011 Spinal stenosis, lumbar region, without neuroge*08/15/2011 Morbid obesity [E66.01] 08/09/2012 Hyperlipidemia with target LDL less than 100 [E*08/31/2013 Cervical arthritis [M47.812] 09/01/2014 Rotator cuff syndrome of both shoulders [M75.10*08/29/2015 Systolic ejection murmur [R01.1] 08/25/2016 Statin intolerance [Z78.9] 07/04/2017 Type 2 diabetes mellitus with chronic kidney di*08/19/2018 Arthritis of knee [M17.10] 08/19/2018 Arthritis of carpometacarpal (CMC) joint of lef*05/27/2019 Prescriptions ordered this encounter Disp Refills Start End NITROFURANTOIN MONOHYDRATE AND MACROCR* 10 c* 0 07/04/2024 07/09/2024 Route: ORAL Sig: Take 1 capsule by mouth two times a day with meals for 5 days. Encounter Status:Closed by CARA GORDON on 07/04/24 [facility] Bacteria Ur Culton 4 Bacteria identified Cx Nom (U) CULTURE, URINE: Mixed microbiota, including predominantly: ORGANISM ID: 1 >=100,000 CFU/ml Escherichia coli Morphology 1 ORGANISM ID: 2 >=100,000 CFU/ml Escherichia coli Morphology 2 ORGANISM ID: 1 (ESCHERICHIA COLI) ------ ANTIBIOTIC INTERPRETATION MARGARET STATUS REFERENCE RANGE ------ Ampicillin R >=32 F Susceptible <=8 , Intermediate >8 , Resistant >16 Cefazolin S <=4 F Susceptible 0-16 , Intermediate <0 or >16 , Resistant >16 For uncomplicated urinary tract infections, cefazolin results can be used to predict susceptibility or resistance to cephalexin. Ceftriaxone S <=1 F Susceptible <=1 , Intermediate >1 , Resistant >=4 Cefepime S <=1 F Susceptible <=2 , Susceptible-Dose Dependent >2 , Resistant >=16 Ertapenem S <=0.5 F Susceptible <=0.5 , Intermediate >.5 , Resistant >1 Meropenem S <=0.25 F Susceptible <=1 , Intermediate >1 , Resistant >2 Ampicillin/Sulbact R >=32 F Susceptible <=8 , Intermediate >8 , Resistant >16 Piperacillin/Tazobac S <=4 F Susceptible <16 , Susceptible-Dose Dependent >=16 , Resistant >=32 Gentamicin S <=1 F Susceptible <=2 , Intermediate >2 , Resistant >=8 Tobramycin S <=1 F Susceptible <4 , Intermediate >=4 , Resistant >=8 Trimeth sulfameth R >=320 F Susceptible <=40 , Resistant >40 Ciprofloxacin S <=0.25 F Susceptible <0.5 , Intermediate >=.5 , Resistant >=1 Nitrofurantoin S <=16 F Susceptible <=32 , Intermediate >32 , Resistant >64 ORGANISM ID: 2 (ESCHERICHIA COLI) ------ ANTIBIOTIC INTERPRETATION MARGARET STATUS REFERENCE RANGE ------ Ampicillin R >=32 F Susceptible <=8 , Intermediate >8 , Resistant >16 Cefazolin S 16 F Susceptible 0-16 , Intermediate <0 or >16 , Resistant >16 For uncomplicated urinary tract infections, cefazolin results can be used to predict susceptibility or resistance to cephalexin. Ceftriaxone S <=1 F Susceptible <=1 , Intermediate >1 , Resistant >=4 Cefepime S <=1 F Susceptible <=2 , Susceptible-Dose Dependent >2 , Resistant >=16 Ertapenem S <=0.5 F Susceptible <=0.5 , Intermediate >.5 , Resistant >1 Meropenem S <=0.25 F Susceptible <=1 , Intermediate >1 , Resistant >2 Ampicillin/Sulbact R >=32 F Susceptible <=8 , Intermediate >8 , Resistant >16 Piperacillin/Tazobac S <=4 F Susceptible <16 , Susceptible-Dose Dependent >=16 , Resistant >=32 Gentamicin S <=1 F Susceptible <=2 , Intermediate >2 , Resistant >=8 Tobramycin S <=1 F Susceptible <4 , Intermediate >=4 , Resistant >=8 Trimeth sulfameth R >=320 F Susceptible <=40 , Resistant >40 Ciprofloxacin S <=0.25 F Susceptible <0.5 , Intermediate >=.5 , Resistant >=1 Nitrofurantoin S <=16 F Susceptible <=32 , Intermediate >32 , Resistant >64 Abnormal [facility] Comment on above: Performed By: #### 6 30-4 ####[facility] [id number] [address] [place] 06-30-2024 CNOV Office Visit (INTMWS ) ARABELLA BOSCH ([id number]) 1945 F Date Time Provider Department 06/30/24 2:20 PM OLDER, JEANETTE ROBERTS During your visit today, we recorded the following information about you: Pulse Respiration Blood pressure Weight 64/minute 16/minute 130/80 108 kg Older, REHAN Reid 06/30/2024 3:08 PM Signed CC: Patient presents with: Recheck: Follow up HPI Arabella Bosch is a 78 year old female who presents today for routine follow up but has a few concerns. DIABETES MELLITUS: Ms. Bosch denies excessive thirst or increased frequency of urination, chest pain or dyspnea , numbness, tingling or pain in extremities, new or unusual visual symptoms, low sugar/hypoglycemic reactions, weight loss/gain, lightheadedness/dizzi ness, and bowel changes/loose stools. Follows a diabetic diet most of the time. She is compliant with medication(s) and is tolerating med(s) without any side effects. She reports checking her glucose on a once a day schedule with sugars in the fasting 100s-120s range. Patient's last HgA1C was Hemoglobin A1C (%) Date Value 06/24/2024 6.5 01/29/2024 6.9 05/25/2019 6.5 08/17/2018 8.5 Hemoglobin A1C (POCT) (%) Date Value 06/12/2021 7.1 ) Last Ophthalmology exam was over a year ago and needs to schedule routine exam. HTN w/ CKD: Ms. Bosch indicates that she is feeling well and denies any symptoms referable to elevated blood pressure. Specifically denies headache, chest pain, palpitations, dyspnea, and peripheral edema. Patient denies any side effects of her medication(s) and is compliant with their regimen. She does not check BP's generally. Arabella denies regular aerobic exercise. She watches her diet for sodium, low fat and low cholesterol most of the time. Follows with [facility]. Last 3 Encounter BP Readings: Date: BP: 06/30/2024 130/80 02/01/2024 125/77[BP Bob[ 07/22/2023 138/80 Is feeling ill. 2 weeks ago started with sinus drainage and dry cough with scratchy throat. Symptoms resolved except cough has become deeper, more often, and producing white sputum. Also with sinus drainage (unknown in color), sinus pressure, or slight wheezing. Denies ear pain, fever, chills, headaches, shortness of breath, chest pain, edema, fatigue, and palpitations. Also with small amount of urinary leakage a few months ago. Happens with cough and wheezing but mostly with urgency. Denies abdominal pain, blood in urine, or pain with urination. REVIEW OF SYSTEMS See HPI PAST MEDICAL HISTORY Diagnosis Date Benign hypertensive heart disease without heart failure 04/12/03 Cervical arthritis 09/01/2014 Esophageal reflux 08/14 Hyperlipidemia LDL goal < 100 08/31/2013 Morbid obesity (HCC) 08/09/2012 Other and unspecified hyperlipidemia 05/15/04 Phlebitis and thrombophlebitis of unspecified site Type II or unspecified type diabetes mellitus without mention of complication, not stated as uncontrolled 05/15/04 PAST SURGICAL HISTORY Procedure Laterality Date ADENOIDECTOMY PRIMARY Adenoidectomy APPENDECTOMY TONSILLECTOMY PRIMARY/SECONDARY Tonsillectomy ALLERGIES Patient has no known allergies. MEDICATIONS pantoprazole DR (PROTONIX) 20 mg tablet Take 1 tablet by mouth once daily. atorvastatin (LIPITOR) 80 mg tablet Take 1 tablet by mouth once daily. glimepiride (AMARYL) 1 mg tablet Take 1 tablet by mouth two times a day with meals. carvedilol (COREG) 6.25 mg tablet metFORMIN ER (GLUCOPHAGE XR) 500 mg 24 hr tablet Take 1 tablet by mouth daily with breakfast. clopidogrel (PLAVIX) 75 mg tablet Take 75 mg by mouth once daily. aspirin, enteric coated (ASPIRIN, ENTERIC COATED) 81 mg EC tablet Take 81 mg by mouth once daily. blood sugar diagnostic(ONE TOUCH ULTRA TEST STRIPS) test daily FAMILY HISTORY Problem Relation Age of Onset Cancer Mother Heart Father Thyroid Sister Stroke Maternal Grandmother Blood Disease Maternal Grandfather Cerebral Embolism Paternal Grandmother Social History Tobacco Use Smoking status: Former Smokeless tobacco: Never Tobacco comments: quit smoking 1982 Substance Use Topics Alcohol use: Yes Drug use: No PHYSICAL EXAM BP 130/80 Pulse 64 Resp 16 Wt 108 kg (238 lb) SpO2 97% BMI 38.41 kg/m? General Appearance: well appearing, in no acute distress, alert Skin: Skin color, texture, turgor normal for age; Eyes: conjunctiva pink and moist, no icterus, sclera white, non-injected Ears: external ears normal to inspection and palpation, canals clear, Left tympanic membrane normal. , Right tympanic membrane normal Nose/sinus: Nares normal. Septum midline. Mucosa normal. No drainage., No sinus tenderness Neck: Thyroid normal size and symmetric without palpable nodules, Neck supple, No adenopathy Oropharynx: tongue midline and normal, soft palate, uvula, and tonsils normal, palpation of salivary gl (more content not included)... Normal [facility] UA DIP, URINE (POC)on 2023 BILIRUBIN UA (POCT) Negative Negative [facility] CLARITY UA (POCT) Cloudy [facility] COLOR UA (POCT) Yellow [facility] GLUCOSE UA (POCT) Negative Negative mg/dL [facility] Hemoglobin Ql (U) Trace-lysed Abnormal Negative [facility] Interpretation and review of laboratory results Abnormal [facility] KETONE UA (POCT) Negative Negative mg/dL [facility] LEUKOCYTES UA (POCT) Small Abnormal Negative [facility] NITRITE UA (POCT) Positive Abnormal Negative [facility] PH UA (POCT) 5.5 4.5 - 8.0 [facility] Protein Ql (U) 100 mg/dL Abnormal Negative [facility] SPECIFIC GRAVITY UA (POCT) >=1.030 1.005 - 1.030 [facility] UROBILINOGEN UA (POCT) 0.2 Zandra l E.U./dL [facility] Location:[address], [place], [place], [address] [place] [address] POINT OF CARE [facility] Urinalysis complete panel (U )on 06-30-2024 BACTERIA UL >9821 High Negative [facility] Comment on above: Order Comment: Speci men Type: URINE SPECIMENOrdering Facility: [facility] Address: [address] [place] [address] Performed By: #### 2 4356-8 ####[facility] LABCLIA [id number] [place] [address] [place] Bilirubin Ql (U) Negative Normal Negative [facility] Comment on above: Order Comment: Speci men Type: URINE SPECIMENOrdering Facility: [facility] Address: [address] [place] [address] Performed By: #### 2 4356-8 ####[facility] LABCLIA [id number] [place] [address] [place] Clarity (Unsp spec) Cloudy Abnormal Clear [facility] Comment on above: Order Comment: Speci men Type: URINE SPECIMENOrdering Facility: [facility] Address: [address] [place] [address] Performed By: #### 2 4356-8 ####[facility] LABCLIA [id number] [place] [address] [place] Color (U) Dark Yellow Abnormal Yellow [facility] Comment on above: Order Comment: Speci men Type: URINE SPECIMENOrdering Facility: [facility] Address: [address] [place] [address] Performed By: #### 2 4356-8 ####[facility] LABCLIA [id number] [place] [address] [place] Epithelial cells LM.HPF (Urine sed) [#/Area] Many Normal [facility] Comment on above: Order Comment: Speci men Type: URINE SPECIMENOrdering Facility: [facility] Address: [address] [place] [address] Performed By: #### 2 4356-8 ####[facility] LABCLIA [id number] [place] [address] [place] Glucose Test strip (U) [Mass/Vol] Negative Normal Negative [facility] Comment on above: Order Comment: Speci men Type: URINE SPECIMENOrdering Facility: [facility] Address: [address] [place] [address] Performed By: #### 2 4356-8 ####[facility] LABCLIA [id number] [place] [address] [place] Hemoglobin Ql (U) Trace Abnormal Negative [facility] Comment on above: Order Comment: Speci men Type: URINE SPECIMENOrdering Facility: [facility] Address: [address] [place] [address] Performed By: #### 2 4356-8 ####[facility] LABCLIA [id number] [place] [address] [place] Hyaline casts (Urine sed) [#/Area] 4-10 /LPF Abnormal 0 /LPF [facility] Comment on above: Order Comment: Speci men Type: URINE SPECIMENOrdering Facility: [facility] Address: [address] [place] [address] Performed By: #### 2 4356-8 ####[facility] LABCLIA [id number] [place] [address] [place] Ketones Ql (U) Negative Normal Negative [facility] Comment on above: Order Comment: Speci men Type: URINE SPECIMENOrdering Facility: [facility] Address: [address] [place] [address] Performed By: #### 2 4356-8 ####[facility] LABCLIA [id number] [place] [address] [place] Leukocyte esterase Test strip Ql (U) 2+ Abnormal Negative [facility] Comment on above: Order Comment: Speci men Type: URINE SPECIMENOrdering Facility: [facility] Address: [address] [place] [address] Performed By: #### 2 4356-8 ####[facility] LABCLIA [id number] [place] [address] [place] Nitrite Ql (U) Positive Abnormal Negative [facility] Comment on above: Order Comment: Speci men Type: URINE SPECIMENOrdering Facility: [facility] Address: [address] [place] [address] Performed By: #### 2 4356-8 ####[facility] LABCLIA [id number] [place] [address] [place] pH (U) 5.5 [pH] Normal <8.5 [facility] Comment on above: Order Comment: Speci men Type: URINE SPECIMENOrdering Facility: [facility] Address: [address] [place] [address] Performed By: #### 2 4356-8 ####[facility] LABCLIA [id number] [place] [address] [place] Protein (U) [Mass/Vol] 2+ Abnormal Negative [facility] Comment on above: Order Comment: Speci men Type: URINE SPECIMENOrdering Facility: [facility] Address: [address] [place] [address] Performed By: #### 2 4356-8 ####[facility] LABIA [id number] [place] [address] [place] RBC LM.HPF (Urine sed) [#/Area] 0-2 /HPF Normal 0-2 /HPF [facility] Comment on above: Order Comment: Speci men Type: URINE SPECIMENOrdering Facility: [facility] Address: [address] [place] [address] Performed By: #### 2 4356-8 ####[facility] LABIA [id number] [place] [address] [place] Specific gravity (U) [Rel density] 1.027 Normal 1.005-1.030 [facility] Comment on above: Order Comment: Speci men Type: URINE SPECIMENOrdering Facility: [facility] Address: [address] [place] [address] Performed By: #### 2 4356-8 ####[facility] LABIA [id number] [place] [address] [place] Urobilinogen Ql (U) 1.0 EU/dL Normal 0.2-1.0 EU/dL [facility] Comment on above: Order Comment: Speci men Type: URINE SPECIMENOrdering Facility: [facility] Address: [address] [place] [id number] Performed By: #### 2 4356-8 ####[facility] [id number] [place] [address] [place] WBC LM.HPF (Urine sed) [#/Area] /[HPF] Abnormal 0-5 /HPF [facility] Comment on above: Order Comment: Speci men Type: URINE SPECIMENOrdering Facility: [facility] Address: [address] [place] [address] Performed By: #### 2 4356-8 ####[facility] [id number] [place] [address] [place] XR CHEST 2V FRONTAL/LATon XR CHEST 2V FRONTAL/LAT * * *Final Repor t* * * DATE OF EXAM: Jun 30 2024 3:29PM WOX 5291 - XR CHEST 2V FRONTAL/LAT / PROCEDURE REASON: multiple diagnoses * * * * Physician Interpretation * * * * EXAMINATION: CHEST RADIOGRAPH (2 VIEW FRONTAL and LATERAL) CLINICAL HISTORY: Acute cough Wheezing MQ: XC2_6 EXAM DATE/TIME: 06/30/2024 3:29 PM COMPARISON: No relevant prior studies available. RESULT: Lines, tubes, and devices: None. Lungs and pleura: No consolidation. No lung mass. No pleural effusion. No pneumothorax. Cardiomediastinal silhouette: Normal cardiomediastinal silhouette. There are coronary artery calcifications. A Bochdalek hernia is visualized. Bones and soft tissues: The spine shows degenerative changes. IMPRESSION: No acute radiographic abnormality. Architecture Consultant: PSCB Transcribe Date/Time: Jun 30 2024 3:36P Dictated by : MORENA MICHAUD MD This examination was interpreted and the report reviewed and electronically signed by: MORENA MICHAUD MD on Jun 30 2024 3:36PM EST [id number] N Normal [facility] XR Chest PA and Lateralon IMPRESSION: No acute radiographic abnormality. Architecture Consultant: PSCB Transcribe Date/Time: Jun 30 2024 3:36P Dictated by : MORENA MICHAUD MD This examination was interpreted and the report reviewed and electronically signed by: MORENA MICHAUD MD on Jun 30 2024 3:36PM [facility] DIVISION OF RADIOLOGY * * *Final Report* * * DATE OF EXAM: Jun 30 2024 3:29PM WOX 5291 - XR CHEST 2V FRONTAL/LAT / PROCEDURE REASON: multiple diagnoses * * * * Physician Interpretation * * * * EXAMINATION: CHEST RADIOGRAPH (2 VIEW FRONTAL & LATERAL) CLINICAL HISTORY: Acute cough Wheezing MQ: XC2_6 EXAM DATE/TIME: 06/30/2024 3:29 PM COMPARISON: No relevant prior studies available. RESULT: Lines, tubes, and devices: None. Lungs and pleura: No consolidation. No lung mass. No pleural effusion. No pneumothorax. Cardiomediastinal silhouette: Normal cardiomediastinal silhouette. There are coronary artery calcifications. A Bochdalek hernia is visualized. Bones and soft tissues: The spine shows degenerative changes. DIVISION OF RADIOLOGY Provider, [facility] - 06/30/2024 * * *Final Report* * * DATE OF EXAM: Jun 30 2024 3:29PM WOX 5291 - XR CHEST 2V FRONTAL/LAT / PROCEDURE REASON: multiple diagnoses * * * * Physician Interpretation * * * * EXAMINATION: CHEST RADIOGRAPH (2 VIEW FRONTAL & LATERAL) CLINICAL HISTORY: Acute cough Wheezing MQ: XC2_6 EXAM DATE/TIME: 06/30/2024 3:29 PM COMPARISON: No relevant prior studies available. RESULT: Lines, tubes, and devices: None. Lungs and pleura: No consolidation. No lung mass. No pleural effusion. No pneumothorax. Cardiomediastinal silhouette: Normal cardiomediastinal silhouette. There are coronary artery calcifications. A Bochdalek hernia is visualized. Bones and soft tissues: The spine shows degenerative changes. IMPRESSION IMPRESSION: No acute radiographic abnormality. Architecture Consultant: WALLACE Transcribe Date/Time: Jun 30 2024 3:36P Dictated by : MORENA MICHAUD MD This examination was interpreted and the report reviewed and electronically signed by: MORENA MICHAUD MD on Jun 30 2024 3:36PM [facility] Radiology Study observation (narrative) [facility] XR Chest PA and LateralOrder ed By: [facility] Provider on 06-30-2024 [facility] ALBUMIN/CREATININE RATIO, UR INEon 06-24-2024 Albumin DL <= 20 mg/L (U) [Mass/Vol] 28.6 mg/L Normal [facility] Comment on above: Order Comment: Speci men Type: URINE SPECIMENOrdering Facility: [facility] Address: [address] [place] [address] Performed By: #### U ACR ####[facility] LABCLIA [id number] [place] [address] [place] Albumin/Creatinine (U) [Mass ratio] 20 mg/g Normal <30 [facility] Comment on above: Order Comment: Speci men Type: URINE SPECIMENOrdering Facility: [facility] Address: [address] [place] [address] Result Comment: Adul t Male and Female Nephrotic Criteria: <30 mg/g is considered normal to mildly increased 30-300 mg/g is considered moderately increased >300 mg/g is considered severely increased KDIGO. (2013). KDIGO 2012 Clinical Practice Guideline for the Evaluation and Management of Chronic Kidney Disease. Official Journal of the International Society of Nephrology, 3(1), 1-150. Performed By: #### U ACR ####[facility] LABCLIA [id number] [place] [id number] [place] Creatinine (U) [Mass/Vol] 142.5 mg/dL Normal 20.0-300.0 [facility] Comment on above: Order Comment: Speci men Type: URINE SPECIMENOrdering Facility: [facility] Address: [address] [place] [address] Performed By: #### U ACR ####[facility] LABCLIA [id number] [place] [id number] [place] CBC panel Auto (Bld)on 06-24 Erythrocyte distribution width (RBC) [Ratio] 13.6 % Normal 11.5-15.0 [facility] Comment on above: Order Comment: Speci men Type: BLOOD SPECIMENOrdering Facility: [facility] Address: [address] [place] [address] Performed By: #### 5 8410-2 ####[facility] LABIA [id number] [place] [address] [place] Hematocrit (Bld) [Volume fraction] 43.0 % Normal 36.0-46.0 [facility] Comment on above: Order Comment: Speci men Type: BLOOD SPECIMENOrdering Facility: [facility] Address: [address] [place] [address] Performed By: #### 5 8410-2 ####[facility] LABIA [id number] [place] [address] [place] Hemoglobin (Bld) [Mass/Vol] 13.7 g/dL Normal 11.5-15.5 [facility] Comment on above: Order Comment: Speci men Type: BLOOD SPECIMENOrdering Facility: [facility] Address: [address] [place] [address] Performed By: #### 5 8410-2 ####[facility] LABIA [id number] [place] [address] [place] MCH (RBC) [Entitic mass] 30.4 pg Normal 26.0-34.0 [facility] Comment on above: Order Comment: Speci men Type: BLOOD SPECIMENOrdering Facility: [facility] Address: [address] [place] [address] Performed By: #### 5 8410-2 ####[facility] LABIA [id number] [place] [address] [place] MCHC (RBC) [Mass/Vol] 31.9 g/dL Normal 30.5-36.0 [facility] Comment on above: Order Comment: Speci men Type: BLOOD SPECIMENOrdering Facility: [facility] Address: [address] [place] [address] Performed By: #### 5 8410-2 ####[facility] LABCLIA [id number] [place] [address] [place] MCV (RBC) [Entitic vol] 95.3 fL Normal 80.0-100.0 [facility] Comment on above: Order Comment: Speci men Type: BLOOD SPECIMENOrdering Facility: [facility] Address: [address] [place] [address] Performed By: #### 5 8410-2 ####[facility] LABIA [id number] [place] [address] [place] Nucleated RBC (Bld) [#/Vol] 10*3/uL Normal <0.01 [facility] Comment on above: Order Comment: Speci men Type: BLOOD SPECIMENOrdering Facility: [facility] Address: [address] [place] [address] Performed By: #### 5 8410-2 ####[facility] LABIA [id number] [place] [address] [place] Platelet mean volume (Bld) [Entitic vol] 11.0 fL Normal 9.0-12.7 [facility] Comment on above: Order Comment: Speci men Type: BLOOD SPECIMENOrdering Facility: [facility] Address: [address] [place] [address] Performed By: #### 5 8410-2 ####[facility] LABIA [id number] [place] [address] [place] Platelets (Bld) [#/Vol] 343 10*3/uL Normal 150-400 [facility] Comment on above: Order Comment: Speci men Type: BLOOD SPECIMENOrdering Facility: [facility] Address: [address] [place] [address] Performed By: #### 5 8410-2 ####[facility] LABIA [id number] [place] [address] [place] RBC (Bld) [#/Vol] 4.51 10*6/uL Normal 3.90-5.20 [facility] Comment on above: Order Comment: Rickeyi men Type: BLOOD SPECIMENOrdering Facility: [facility] Address: [address] [place] [address] Performed By: #### 5 8410-2 ####[facility] LABCLIA [id number] [place] [address] [place] WBC (Bld) [#/Vol] 8.23 10*3/uL Normal 3.70-11.00 [facility] Comment on above: Order Comment: Rickeyi men Type: BLOOD SPECIMENOrdering Facility: [facility] Address: [address] [place] [address] Performed By: #### 5 8410-2 ####[facility] LABIA [id number] [place] [address] [place] HbA1c (Bld)on 06-24-2024 Average glucose Estimated from glycated hemoglobin (Bld) [Mass/Vol] 140 mg/dL Normal [facility] Comment on above: Order Comment: Priya gardner Type: BLOOD SPECIMENOrdering Facility: [facility] Address: [address] [place] [address] Result Comment: eAG: (Estimated average glucose) is a calculated value from HgbA1c and is collections representative of the average blood glucose level in the last 2-3 month period. Performed By: #### 5 5454-3 ####[facility] LABIA [id number] [place] [address] [place] HbA1c (Bld) [Mass fraction] 6.5 % High 4.3-5.6 [facility] Comment on above: Order Comment: Priya gardner Type: BLOOD SPECIMENOrdering Facility: [facility] Address: [address] [place] [address] Result Comment: Amer [place] Diabetes Association guidelines indicate that patients with HgbA1c in the range 5.7-6.4% are at increased risk for development of diabetes, and intervention by lifestyle modification may be beneficial. HgbA1c greater or equal to 6.5% is considered diagnostic of diabetes. Performed By: #### 5 5454-3 ####[facility] LABCLIA [id number] [place] [id number] [place] Comprehensive metabolic 2000 panelon 02-02-2024 Albumin [Mass/Vol] 4.2 g/dL 3.9 - 4.9 g/dL [facility] ALP [Catalytic activity/Vol] 68 U/L 34 - 123 U/L [facility] ALT [Catalytic activity/Vol] 17 U/L 7 - 38 U/L [facility] Anion gap [Moles/Vol] 11 mmol/L 9 - 18 mmol/L [facility] AST [Catalytic activity/Vol] 21 U/L 13 - 35 U/L [facility] Bilirubin [Mass/Vol] 0.3 mg/dL 0.2 - 1 .3 mg/dL [facility] Calcium [Mass/Vol] 10.4 mg/dL High 8.5 - 10. 2 mg/dL [facility] Chloride [Moles/Vol] 105 mmol/L 97 - 10 5 mmol/L [facility] CO2 [Moles/Vol] 25 mmol/L 22 - 30 mmol/L [facility] Creatinine [Mass/Vol] 1.25 mg/dL High 0.58 - 0.96 mg/dL [facility] GFR/1.73 sq M.predicted among non-blacks MDRD (S/P/Bld) [Vol rate/Area] 44 mL/min/{1.73_m2} Low - PINF [facility] Comment on above: Estimated Glomerular Filtration Rate (eGFR) is calculated using the 2020 CKD-EPI creatinine equation. This equation utilizes serum creatinine, sex, and age as parameters. The creatinine assay has traceable calibration to isotope dilution-mass spectrometry. Refer to KDIGO guidelines for clinical interpretation. In patients with unstable renal function, e.g. those with acute kidney injury, the eGFR may not accurately reflect actual GFR. Glucose [Mass/Vol] 129 mg/dL High 74 - 99 mg/dL [facility] Comment on above: The [place] Diabete s Association (ADA) provides guidance for cutoff values for fasting glucose and random glucose. The ADA defines fasting as no caloric intake for at least 8 hours. Fasting plasma glucose results between 100 to 125 mg/dL indicate increased risk for diabetes (prediabetes). Fasting plasma glucose results greater than or equal to 126 mg/dL meet the criteria for diagnosis of diabetes. In the absence of unequivocal hyperglycemia, results should be confirmed by repeat testing. In a patient with classic symptoms of hyperglycemia or hyperglycemic crisis, random plasma glucose results greater than or equal to 200 mg/dL meet the criteria for diagnosis of diabetes. Reference: Standards of Medical Care in Diabetes 2016, [place] Diabetes Association. Diabetes Care. 2016.39(Suppl 1). Interpretation and review of laboratory results Abnormal [facility] Potassium [Moles/Vol] 5.2 mmol/L High 3.7 - 5.1 mmol/L [facility] Protein [Mass/Vol] 7.5 g/dL 6.3 - 8.0 g/dL [facility] Sodium [Moles/Vol] 141 mmol/L 136 - 144 mmol/L [facility] Urea nitrogen [Mass/Vol] 28 mg/dL High 7 - 21 mg/d L [facility] CBC panel Auto (Bld)on 04-22 Erythrocyte distribution width (RBC) [Ratio] 14.0 % 11.5 - 15.0 % [facility] Hematocrit (Bld) [Volume fraction] 40.6 % 36.0 - 46.0 % [facility] Hemoglobin (Bld) [Mass/Vol] 12.7 g/dL 11.5 - 15.5 g/dL [facility] MCH (RBC) [Entitic mass] 29.2 pg 26. 0 - 34.0 pg [facility] MCHC (RBC) [Mass/Vol] 31.3 g/dL 30.5 - 36.0 g/dL [facility] MCV (RBC) [Entitic vol] 93.3 fL 80.0 - 100.0 fL [facility] Nucleated RBC (Bld) [#/Vol] <0.01 k/uL [facility] Platelet mean volume (Bld) [Entitic vol] 11.0 fL 9.0 - 12.7 fL [facility] Platelets (Bld) [#/Vol] 309 10*3/uL 150 - 400 k/uL [facility] RBC (Bld) [#/Vol] 4.35 10*6/uL 3.90 - 5.2 0 m/uL [facility] WBC (Bld) [#/Vol] 8.47 10*3/uL 3.70 - 11. 00 k/uL [facility] Absolute lymphocyte countOrd ered By: Dr. Palacio on 10-21-2022 Lymphocytes Auto (Unsp spec) [#/Vol] 1.66 10*3/uL 0.83-4.51 [facility] Basophil percentageOrdered B y: Dr. Palacio on 10-21-2022 Basophils/100 WBC (Bld) 0.6 % 0-1 [facility] Eosinophils/100 WBC (Bld) 1.9 % 0-5 [facility] Neutrophils (Bld) [#/Vol] 6.4 10*3/uL 2.0-7.7 [facility] Neutrophils/100 WBC (Bld) 71.4 % 47-70 [facility] WBC (Bld) [#/Vol] 8.9 10*3/uL 4.4-11.0 [facility] Basophil percentageOrdered B y: Dr. Machado on 10-21-2022 Bilirubin [Mass/Vol] 0.30 mg/dL 0.20-1.00 [facility] Comment on above: For patients on eltr ombopag therapy, use of Dimension [place] TBIL is not recommended. Chloride [Moles/Vol] 112 mmol/L 98-107 [facility] Glucose [Mass/Vol] 159 mg/dL 74-106 [facility] Comment on above: Fasting Glucose resu lt greater than or equal to 126 mg/dL suggests DIABETES MELLITUS per A.D.A. criteria. Potassium [Moles/Vol] 4.4 mmol/L 3.5-5.1 [facility] Protein [Mass/Vol] 7.2 g/dL 6.4-8.2 [facility] Sodium [Moles/Vol] 138 mmol/L 136-145 [facility] Blood erythrocytes count (nu mber/volume)Ordered By: Dr. Palacio on 10-21-2022 RBC (Bld) [#/Vol] 4.13 10*6/uL 4.2-5.4 [facility] Blood hemoglobin measurement (mass/volume)Ordered By: Dr. Palacio on 10-21-2022 Hemoglobin (Bld) [Mass/Vol] 12.2 g/dL 12.0-15.0 [facility] Blood lymphocytes/100 leukoc ytesOrdered By: Dr. Palacio on 10-21-2022 Lymphocytes/100 WBC (Bld) 18.6 % 19-41 [facility] Blood monocytes/100 leukocyt esOrdered By: Dr. Palacio on 10-21-2022 Monocytes/100 WBC (Bld) 7.2 % 0-10 [facility] Blood platelet mean volumeOr dered By: Dr. Palacio on 10-21-2022 Platelet mean volume (Bld) [Entitic vol] 10.6 fL 6.2-12.0 [facility] Determination of erythrocyte mean corpuscular volume (MCV)Ordered By: Dr. Palacio on 10-21-2022 MCV (RBC) [Entitic vol] 98.5 fL 81-99 [facility] Glucose Glucometer (BldC) [M ass/Vol]Ordered By: Dr. Palacio on 10-21-2022 Glucose [Mass/Vol] 218 mg/dL 74-106 [facility] Comment on above: MANAGEMENT OF PATIEN T CARE PER NURSING PROTOCOL Hematocrit Auto (Bld) [Volum e fraction]Ordered By: Dr. Palacio on 10-21-2022 Hematocrit (Bld) [Volume fraction] 40.7 % 37-47 [facility] Laboratory - Chemistry and C hemistry - challengeOrdered By: Dr. Machado on 10-21-2022 ALP [Catalytic activity/Vol] 51 U/L 45-117 [facility] ALT [Catalytic activity/Vol] 30 U/L 13-56 [facility] CO2 [Moles/Vol] 22.0 mmol/L 21.0-32.0 [facility] Globulin (S) [Mass/Vol] 4.1 g/dL 2.2-4.2 [facility] Urea nitrogen/Creatinine [Mass ratio] 14.4 mg/mg 10-20 [facility] - Hematology and Cell countsOrdered By: Dr. Palacio on 10-21-2022 Erythrocyte distribution width (RBC) [Entitic vol] 52.9 fL 35.1-43.9 [facility] Erythrocyte distribution width (RBC) [Ratio] 14.6 % 11.6-14.6 [facility] Immature granulocytes/100 WBC (Bld) 0.300 % 0.0-0.9 [facility] Comment on above: IG% - Immature Granu locytes (promyelocytes, myelocytes and metamyelocytes) > 1% indicates that a LEFT SHIFT is Present. MCH (RBC) [Entitic mass] 29.5 pg 27.0-32.0 [facility] Nucleated RBC/100 WBC (Bld) [Ratio] 0 % 0-5 [facility] MCHC Auto (RBC) [Mass/Vol]Or dered By: Dr. Palacio on 10-21-2022 MCHC (RBC) [Mass/Vol] 30.0 g/dL 32-36 [facility] No Panel InformationOrdered By: Dr. Machado on 10-21-2022 Estimated Creatinine Clearance Calc 22.19 ml/min [facility] Estimated GFR (MDRD) Amer 33 mL/min >60 [facility] Comment on above: GFR Calc Estimated GFR (MDRD) Non-Af Amer 27 mL/min >60 [facility] Comment on above: Non- GFR Calc Platelets bldOrdered By: Dr. Palacio on 10-21-2022 Platelets (Bld) [#/Vol] 338 10*3/uL 150-450 [facility] Serum or plasma albumin torsten urement (mass/volume)Ordered By: Dr. Machado on 10-21-2022 Albumin [Mass/Vol] 3.1 g/dL 3.2-5.0 [facility] Serum or plasma albumin/glob ulin mass ratioOrdered By: Dr. Machado on 10-21-2022 Albumin/Globulin [Mass ratio] 0.8 {ratio} 0.9-2.4 [facility] Serum or plasma calcium torsten urement (mass/volume)Ordered By: Dr. Machado on 10-21-2022 Calcium [Mass/Vol] 9.6 mg/dL 8.5-10.1 [facility] Serum or plasma creatinine m easurement (mass/volume)Ordered By: Dr. Machado on 10-21-2022 Creatinine [Mass/Vol] 1.88 mg/dL 0.55-1.02 [facility] Comment on above: The validity of the calculated GFR & GFRAA in patients over 70 years has not been determined. Clinical correlation is essential. Serum or plasma urea nitroge n measurement (mass/volume)Ordered By: Dr. Machado on 10-21-2022 Urea nitrogen [Mass/Vol] 27 mg/dL 7-18 [facility] Thin prep Papanicolaou smear with manual screeningOrdered By: Dr. Machado on 10-21-2022 Thin prep Papanicolaou smear with manual screening 29 U/L 15-37 [facility] Thin prep Papanicolaou smear with manual screening 4 5-15 [facility] Laboratory - CoagulationOrde red By: Dr. Williamson on 10-20-2022 aPTT Coag (Bld) [Time] 247.8 s 24.1-36.2 [facility] Comment on above: CRITICAL VALUE VERIF IED. CALLED TO HANSEL BERUMEN ([facility])10/20/22 1052 Nick Larkin.RESULTS READ BACK BY SAME. Basophil percentageOrdered B y: Dr. Williamson on 10-18-2022 Basophil percentage 2.9 mg/dL 2.5-4.9 [facility] Cholesterol [Mass/Vol] 174 mg/dL <200 [facility] Comment on above: <200 mg/dL Desirable 200-240 mg/dL Borderline >240 mg/dL High Risk Triglyceride [Mass/Vol] 147 mg/dL <199 [facility] Comment on above: The drugs N-Acetylcy steine and Metamizole may falsely depress this assay.Serum Triglycerides Reference Interval Normal <150 mg/dL Borderline high 150 - 199 mg/dL High 200 - 499 mg/dL Very High > or = 500 mg/dL Laboratory - Chemistry and C hemistry - challengeOrdered By: Dr. Williamson on 10-18-2022 Magnesium [Mass/Vol] 2.2 mg/dL 1.6-2.6 [facility] No Panel InformationOrdered By: Dr. Williamson on 10-18-2022 Thyroid Stimulating Hormone (TSH) 1.32 uIU/mL 0.358-3.74 [facility] Serum or plasma cholesterol in HDL measurement (mass/volume)Ordered By: Dr. Williamson on 10-18-2022 Cholesterol in HDL [Mass/Vol] 39 mg/dL >40 [facility] Comment on above: The drugs N-Acetylcy steine and Metamizole may falsely depress this assay. Reference Range HDL <40 mg/dL Low HDL Cholesterol HDL >or= 60 mg/dL High HDL Cholesterol Serum or plasma cholesterol in VLDL measurement (mass/volume)Ordered By: Dr. Williamson on 10-18-2022 Cholesterol in VLDL [Mass/Vol] 29 mg/dL 5-40 [facility] Serum or plasma low density lipoprotein (LDL) cholesterol measurement (mass/volume)Ordered By: Dr. Williamson on 10-18-2022 Cholesterol in LDL [Mass/Vol] 106 mg/dL 0-130 [facility] Whole blood hemoglobin A1c/t otal hemoglobin ratio (mass fraction)Ordered By: Dr. Williamson on 10-18-2022 HbA1c (Bld) [Mass fraction] 7.1 % 3.8-5.6 [facility] Comment on above: Normal < 5.7 % Predi abetic 5.7 - 6.4 % Diabetic >or= 6.5 % Please note range changes. Absolute lymphocyte counton 10-17-2022 Lymphocytes Auto (Unsp spec) [#/Vol] 1.63 10*3/uL 0.83-4.51 [facility] Work Phone: Basophil percentageOrdered B y: Dr. Echeverria on 10-17-2022 Basophil percentage 0-5 SEEN /hpf 0-5 [facility] Basophil percentageon 2022 Basophils/100 WBC (Bld) 0.4 % 0-1 [facility] Work Phone: Chloride [Moles/Vol] 105 mmol/L 98-107 [facility]: Eosinophils/100 WBC (Bld) 0.8 % 0-5 [facility] Work Phone: Glucose [Mass/Vol] 294 mg/dL 74-106 [facility] Work Phone: Comment on above: Glucose result great er than or equal to 200 mg/dLsuggests DIABETES MELLITUS per A.D.A. criteria. Neutrophils (Bld) [#/Vol] 11.4 10*3/uL 2.0-7.7 [facility] Work Phone: Neutrophils/100 WBC (Bld) 81.4 % 47-70 [facility] Work Phone: Potassium [Moles/Vol] 3.8 mmol/L 3.5-5.1 [facility] Work Phone: Sodium [Moles/Vol] 136 mmol/L 136-145 [facility]: WBC (Bld) [#/Vol] 14.0 10*3/uL 4.4-11.0 [facility] Work [facility]: Bilirubin Test strip Ql (U)O rdered By: Dr. Echeverria on 10-17-2022 Bilirubin Ql (U) Negative Negative [facility] Blood erythrocytes count (nu mber/volume)on 10-17-2022 RBC (Bld) [#/Vol] 4.31 10*6/uL 4.2-5.4 [facility] Work Phone: Blood hemoglobin measurement (mass/volume)on 10-17-2022 Hemoglobin (Bld) [Mass/Vol] 13.1 g/dL 12.0-15.0 [facility] Work Phone: Blood lymphocytes/100 leukoc yteson 10-17-2022 Lymphocytes/100 WBC (Bld) 11.7 % 19-41 [facility] Work Phone: Blood monocytes/100 leukocyt eson 10-17-2022 Monocytes/100 WBC (Bld) 5.3 % 0-10 [facility] Work Phone: Blood platelet mean volumeon 10-17-2022 Platelet mean volume (Bld) [Entitic vol] 11.3 fL 6.2-12.0 [facility] Work Phone: Determination of erythrocyte mean corpuscular volume (MCV)on 10-17-2022 MCV (RBC) [Entitic vol] 92.8 fL 81-99 [facility] Work Phone: Hematocrit Auto (Bld) [Volum e fraction]on 10-17-2022 Hematocrit (Bld) [Volume fraction] 40.0 % 37-47 [facility] Work Phone: Influenza virus A and B and SARS-CoV-2 (COVID-19) Ag panel - Upper respiratory specimOrdered By: Dr. Echeverria on 10-17-2022 SARS-CoV-2 (COVID-19) RNA SLY+probe Ql (Resp) [facility] Ketones Test strip Ql (U)Ord ered By: Dr. Echeverria on 10-17-2022 Ketones Ql (U) Negative Negative [facility] Laboratory - Chemistry and C hemistry - challengeon 10-17-2022 CO2 [Moles/Vol] 25.0 mmol/L 21.0-32.0 [facility] Work Phone: [phone] Urea nitrogen/Creatinine [Mass ratio] 19.3 mg/mg 10-20 [facility] Work Phone: [phone] Laboratory - Hematology and Cell countson 10-17-2022 Erythrocyte distribution width (RBC) [Entitic vol] 49.1 fL 35.1-43.9 [facility] Work Phone: [phone] Erythrocyte distribution width (RBC) [Ratio] 14.3 % 11.6-14.6 [facility] Work Phone: [phone] Immature granulocytes/100 WBC (Bld) 0.400 % 0.0-0.9 [facility] Work Phone: [phone] Comment on above: IG% - Immature Granu locytes (promyelocytes, myelocytes and metamyelocytes) > 1% indicates that a LEFT SHIFT is Present. MCH (RBC) [Entitic mass] 30.4 pg 27.0-32.0 [facility] Work Phone: Nucleated RBC/100 WBC (Bld) [Ratio] 0 % 0-5 [facility] Work Phone: [phone] MCHC Auto (RBC) [Mass/Vol]on 10-17-2022 MCHC (RBC) [Mass/Vol] 32.8 g/dL 32-36 [facility] Work Phone: [phone] Mucus LM Ql (Urine sed)Order ed By: Dr. Echeverria on 10-17-2022 Mucus Ql (Urine sed) 0 SEEN /hpf [facility] Nitrite Test strip Ql (U)Ord ered By: Dr. Echeverria on 10-17-2022 Nitrite Ql (U) Negative Negative [facility] No Panel InformationOrdered By: Dr. Williamson on 10-17-2022 Troponin I High Sensitivity 813 pg/mL 3.0-54.0 [facility] Comment on above: Critical Result(s) C alled at: 21:14:47 10/17/2022 by: Mary WALLIS. Results read back by same. Please Note: New Test Units and Gender Specific Reference Ranges. For more information see Policy Stat Procedure [place] High Sensitivity Troponin (TNIH) and attachments. No Panel Informationon 10-17 Estimated Creatinine Clearance Calc 19.68 ml/min [facility] Work Phone: Estimated GFR (MDRD) Amer 29 mL/min >60 [facility] Work Phone: Comment on above: GFR Calc Estimated GFR (MDRD) Non-Af Amer 24 mL/min >60 [facility] Work Phone: Comment on above: Non- GFR Calc Troponin I High Sensitivity 19 pg/mL 3.0-54.0 [facility] Work Phone: Comment on above: Please Note: New Rupal t Units and Gender Specific Reference Ranges. For more information see Policy Stat Procedure [place] High Sensitivity Troponin (TNIH) and attachments. Platelets bldon 10-17-2022 Platelets (Bld) [#/Vol] 429 10*3/uL 150-450 [facility] Work Phone: Protein Test strip Ql (U)Ord ered By: Dr. Echeverria on 10-17-2022 Protein Ql (U) 100 mg/dl Negative [facility] Serum or plasma calcium torsten urement (mass/volume)on 10-17-2022 Calcium [Mass/Vol] 9.9 mg/dL 8.5-10.1 [facility] Work Phone: Serum or plasma creatinine m easurement (mass/volume)on 10-17-2022 Creatinine [Mass/Vol] 2.12 mg/dL 0.55-1.02 [facility] Work Phone: Comment on above: The validity of the calculated GFR & GFRAA in patients over 70 years has not been determined. Clinical correlation is essential. Serum or plasma urea nitroge n measurement (mass/volume)on 10-17-2022 Urea nitrogen [Mass/Vol] 41 mg/dL 7-18 [facility] Work Phone: Squamous epithelial cells de tection in urine sediment by light microscopyOrdered By: Dr. Echeverria on 10-17-2022 Epithelial cells.squamous LM Ql (Urine sed) 0-5 SEEN /hpf 5-10 [facility] Thin prep Papanicolaou smear with manual screeningon 10-17-2022 Thin prep Papanicolaou smear with manual screening 6 5-15 [facility] Work Phone: Urine blood detectionOrdered By: Dr. Echeverria on 10-17-2022 RBC Ql (U) 50 /ul Negative [facility] RBC Ql (U) 0 SEEN /hpf 0-5 [facility] Urine clarityOrdered By: Dr. Echeverria on 10-17-2022 Clarity (U) Sl. Cloudy Clear [facility] Urine color determinationOrd ered By: Dr. Echeverria on 10-17-2022 Color (U) Yellow Yellow [facility] Urine glucose detectionOrder ed By: Dr. Echeverria on 10-17-2022 Glucose Ql (U) 1000 mg/dl Normal [facility] Urine leukocyte esterase det ection by dipstickOrdered By: Dr. Echeverria on 10-17-2022 Leukocyte esterase Test strip Ql (U) 25 /ul Negative [facility] Urine pHOrdered By: Dr. Yecenia bliss on 10-17-2022 pH (U) 6.5 [pH] 5.0 - 8.0 [facility] Urine sediment bacteria coun t by microscopy (number/high power field)Ordered By: Dr. Echeverria on 10-17-2022 Bacteria LM.HPF (Urine sed) [#/Area] 2 /[HPF] None Seen [facility] Urine specific gravity measu rementOrdered By: Dr. Echeverria on 10-17-2022 Specific gravity (U) [Rel density] 1.015 1.002-1.030 [facility] Urobilinogen Auto test strip Ql (U)Ordered By: Dr. Echeverria on 10-17-2022 Urobilinogen Ql (U) Normal mg/dl Normal [facility] No Panel Informationon 06-07 IMPRESSION: No acute osseous abnormality identified. No evidence of inflammatory arthropathy. Architecture Consultant: WALLACE Transcribe Date/Time: Jun 07 2021 1:08P Dictated by : PIOTR CANTOR MD This examination was interpreted and the report reviewed and electronically signed by: PIOTR CANTOR MD on Jun 07 2021 1:10PM [facility] DIVISION OF RADIOLOGY Radiology Study observation (narrative) [facility] No Panel InformationOrdered By: [facility] Provider on 06-07-2021 [facility] XR Hand - right PA and Later al and Obliqueon 06-07-2021 * * *Final Report* * * DATE OF EXAM: Jun 07 2021 1:03PM WOX 5346 - XR HAND 3V PA/LAT/OBL RT / PROCEDURE REASON: multiple diagnoses * * * * Physician Interpretation * * * * Right wrist and hand radiographs HISTORY: 75 years old Clinical information: Arthritis Arthralgia, unspecified joint pain in base of right thumb for several months and all anterior side of right wrist since last Jun. no inj TECHNIQUE: Images: XR WRIST 3V PA/LAT/OBL RT, XR HAND 3V PA/LAT/OBL RT Comparison: None. Right hand RESULT: Mild radial displacement of the distal phalanx of the index finger. No acute fracture or dislocation. No erosions are seen. No chondrocalcinosis. No soft tissue abnormality identified. Right wrist RESULT: Osteophyte formation subjacent to the first CMC joint. Prominent vascular channel in the scaphoid. No acute fracture or dislocation. No soft tissue abnormality identified. DIVISION OF RADIOLOGY Provider, [facility] - 06/07/2021 * * *Final Report* * * DATE OF EXAM: Jun 07 2021 1:03PM WOX 5346 - XR HAND 3V PA/LAT/OBL RT / PROCEDURE REASON: multiple diagnoses * * * * Physician Interpretation * * * * Right wrist and hand radiographs HISTORY: 75 years old Clinical information: Arthritis Arthralgia, unspecified joint pain in base of right thumb for several months and all anterior side of right wrist since last Sept. no inj TECHNIQUE: Images: XR WRIST 3V PA/LAT/OBL RT, XR HAND 3V PA/LAT/OBL RT Comparison: None. Right hand RESULT: Mild radial displacement of the distal phalanx of the index finger. No acute fracture or dislocation. No erosions are seen. No chondrocalcinosis. No soft tissue abnormality identified. Right wrist RESULT: Osteophyte formation subjacent to the first CMC joint. Prominent vascular channel in the scaphoid. No acute fracture or dislocation. No soft tissue abnormality identified. IMPRESSION IMPRESSION: No acute osseous abnormality identified. No evidence of inflammatory arthropathy. Architecture Consultant: [employer] Transcribe Date/Time: Jun 07 2021 1:08P Dictated by : PIOTR CANTOR MD This examination was interpreted and the report reviewed and electronically signed by: PIOTR CANTOR MD on Jun 07 2021 1:10PM [facility] XR Wrist - right PA and Late ral and Obliqueon 06-07-2021 * * *Final Report* * * DATE OF EXAM: Jun 07 2021 1:03PM WOX 5271 - XR WRIST 3V PA/LAT/OBL RT / PROCEDURE REASON: multiple diagnoses * * * * Physician Interpretation * * * * Right wrist and hand radiographs HISTORY: 75 years old Clinical information: Arthritis Arthralgia, unspecified joint pain in base of right thumb for several months and all anterior side of right wrist since last Sept. no inj TECHNIQUE: Images: XR WRIST 3V PA/LAT/OBL RT, XR HAND 3V PA/LAT/OBL RT Comparison: None. Right hand RESULT: Mild radial displacement of the distal phalanx of the index finger. No acute fracture or dislocation. No erosions are seen. No chondrocalcinosis. No soft tissue abnormality identified. Right wrist RESULT: Osteophyte formation subjacent to the first CMC joint. Prominent vascular channel in the scaphoid. No acute fracture or dislocation. No soft tissue abnormality identified. DIVISION OF RADIOLOGY [facility] * * *Final Report* * * DATE OF EXAM: Jun 07 2021 1:03PM WOX 5271 - XR WRIST 3V PA/LAT/OBL RT / PROCEDURE REASON: multiple diagnoses * * * * Physician Interpretation * * * * Right wrist and hand radiographs HISTORY: 75 years old Clinical information: Arthritis Arthralgia, unspecified joint pain in base of right thumb for several months and all anterior side of right wrist since last Sept. no inj TECHNIQUE: Images: XR WRIST 3V PA/LAT/OBL RT, XR HAND 3V PA/LAT/OBL RT Comparison: None. Right hand RESULT: Mild radial displacement of the distal phalanx of the index finger. No acute fracture or dislocation. No erosions are seen. No chondrocalcinosis. No soft tissue abnormality identified. Right wrist RESULT: Osteophyte formation subjacent to the first CMC joint. Prominent vascular channel in the scaphoid. No acute fracture or dislocation. No soft tissue abnormality identified. IMPRESSION IMPRESSION: No acute osseous abnormality identified. No evidence of inflammatory arthropathy. Architecture Consultant: [employer]ACE Transcribe Date/Time: Jun 07 2021 1:08P Dictated by : PIOTR CANTOR MD This examination was interpreted and the report reviewed and electronically signed by: PIOTR CANTOR MD on Jun 07 2021 1:10PM [facility] Influenza virus A and B and SARS-CoV-2 (COVID-19) Ag panel - Upper respiratory specim SARS-CoV-2 (COVID-19) RNA SLY+probe Ql (Resp) [facility] Work Phone: Vital Signs Date Time Vital Sign Value Performing Clinician Facility 04-03-2025 14:07-0400 Body mass index (BMI) [Ratio] 36.32 kg/m2 PRINCIPAL HARDWARE ARCHITECT.BASEBALL INSPECTOR Work Phone: [facility] 04-03-2025 14:07-0400 Body weight 102.06 kg JanN.BASEBALL INSPECTOR Work Phone: [facility] 04-03-2025 14:07-0400 Diastolic blood pressure 78 mm[Hg] PRINCIPAL HARDWARE ARCHITECT.BASEBALL INSPECTOR Work Phone: [facility] 04-03-2025 14:07-0400 Heart rate 62 /min PRINCIPAL HARDWARE ARCHITECT.BASEBALL INSPECTOR Work Phone: [facility] 04-03-2025 14:07-0400 Respiratory rate 16 /min Jeanette Older PRINCIPAL HARDWARE ARCHITECT.BASEBALL INSPECTOR Work Phone: [facility] 04-03-2025 14:07-0400 SaO2% (BldA) [Mass fraction] 97 % Jeanette Older PRINCIPAL HARDWARE ARCHITECT.BASEBALL INSPECTOR Work Phone: [facility] 04-03-2025 14:07-0400 Systolic blood pressure 134 mm[Hg] Jeanette Older PRINCIPAL HARDWARE ARCHITECT.BASEBALL INSPECTOR Work Phone: [facility] 03-02-2025 06:51-0400 Body height 165.[address] Mega Aquino MD Work Phone: [facility] 03-02-2025 06:51-0400 Body mass index (BMI) [Ratio] 37.4 kg/m2 Dr. Mega Aquino MD Work Phone: [phone] [place] [address] 03-02-2025 06:51-0400 Body weight 102.[address] Mega Aquino MD Work Phone: [facility] 03-02-2025 06:51-0400 Diastolic blood pressure 84 mm[Hg] Dr. Mega Aquino MD Work Phone: [phone] [place] [address] 03-02-2025 06:51-0400 Heart rate 59 /min Dr. Mega Aquino MD Work Phone: [facility] 03-02-2025 06:51-0400 Respiratory rate 18 /min Dr. Mega Aquino MD Work Phone: [facility] 03-02-2025 06:51-0400 SaO2% (BldA) [Mass fraction] 92 % Dr. Mega Aquino MD Work Phone: [facility] 03-02-2025 06:51-0400 Systolic blood pressure 153 mm[Hg] Dr. Mega Aquino MD Work Phone: [facility] 12-13-2024 14:10-0500 Body mass index (BMI) [Ratio] 35.9 kg/m2 Rosalina Bena PA-C Work Phone: [facility] 12-13-2024 14:10-0500 Body temperature 97.81 [degF] Rosalina Bogner PA-C Work Phone: [facility] 12-13-2024 14:10-0500 Body weight 100.88 kg Rosalina Bogner PA-C Work Phone: [facility] 12-13-2024 14:10-0500 Diastolic blood pressure 79 mm[Hg] Rosalina Bogner PA-C Work Phone: [facility] 12-13-2024 14:10-0500 Heart rate 86 /min Rosalina Bogner PA-C Work Phone: [facility] 12-13-2024 14:10-0500 Respiratory rate 20 /min Rosalina Bogner PA-C Work Phone: [facility] 12-13-2024 14:10-0500 SaO2% (BldA) [Mass fraction] 95 % Rosalina Bogner PA-C Work Phone: [facility] 12-13-2024 14:10-0500 Systolic blood pressure 138 mm[Hg] Rosalina Bogner PA-C Work Phone: [facility] 06-30-2024 14:23-0400 Body mass index (BMI) [Ratio] 38.41 kg/m2 Jeanette Older PRINCIPAL HARDWARE ARCHITECT.BASEBALL INSPECTOR Work Phone: [facility] 06-30-2024 14:23-0400 Body weight 107.96 kg Jeanette Older PRINCIPAL HARDWARE ARCHITECT.BASEBALL INSPECTOR Work Phone: [facility] 06-30-2024 14:23-0400 Diastolic blood pressure 80 mm[Hg] Jeanette Older PRINCIPAL HARDWARE ARCHITECT.BASEBALL INSPECTOR Work Phone: [facility] 06-30-2024 14:23-0400 Heart rate 64 /min Jeanette Older PRINCIPAL HARDWARE ARCHITECT.BASEBALL INSPECTOR Work Phone: [facility] 06-30-2024 14:23-0400 Respiratory rate 16 /min Jeanette Older PRINCIPAL HARDWARE ARCHITECT.BASEBALL INSPECTOR Work Phone: [facility] 06-30-2024 14:23-0400 SaO2% (BldA) [Mass fraction] 97 % Jeanette Older PRINCIPAL HARDWARE ARCHITECT.BASEBALL INSPECTOR Work Phone: [facility] 06-30-2024 14:23-0400 Systolic blood pressure 130 mm[Hg] Jeanette Older PRINCIPAL HARDWARE ARCHITECT.BASEBALL INSPECTOR Work Phone: [facility] 02-01-2024 15:52-0400 Diastolic blood pressure 77 mm[Hg] Jeanette Older PRINCIPAL HARDWARE ARCHITECT.BASEBALL INSPECTOR Work Phone: [facility] Comment on above: BP Bob 02-01-2024 15:52-0400 Systolic blood pressure 125 mm[Hg] Jeanette Older PRINCIPAL HARDWARE ARCHITECT.BASEBALL INSPECTOR Work Phone: [facility] Comment on above: BP Bob 02-01-2024 14:45-0400 Body mass index (BMI) [Ratio] 39.06 kg/m2 Jeanette Older PRINCIPAL HARDWARE ARCHITECT.BASEBALL INSPECTOR Work Phone: [facility] 02-01-2024 14:45-0400 Body weight 109.77 kg Jeanette Older PRINCIPAL HARDWARE ARCHITECT.BASEBALL INSPECTOR Work Phone: [facility] 02-01-2024 14:45-0400 Heart rate 72 /min Jeanette Older PRINCIPAL HARDWARE ARCHITECT.BASEBALL INSPECTOR Work Phone: [facility] 02-01-2024 14:45-0400 Respiratory rate 16 /min Jeanette Older PRINCIPAL HARDWARE ARCHITECT.BASEBALL INSPECTOR Work Phone: [facility] 02-01-2024 14:45-0400 SaO2% (BldA) [Mass fraction] 98 % Jeanette Older PRINCIPAL HARDWARE ARCHITECT.BASEBALL INSPECTOR Work Phone: [facility] 07-22-2023 13:58-0400 Body weight 105.23 kg Jeanette Older PRINCIPAL HARDWARE ARCHITECT.BASEBALL INSPECTOR Work Phone: [facility] 07-22-2023 13:58-0400 Diastolic blood pressure 80 mm[Hg] Jeanette Older PRINCIPAL HARDWARE ARCHITECT.BASEBALL INSPECTOR Work Phone: [facility] 07-22-2023 13:58-0400 Heart rate 68 /min Jeanette Older PRINCIPAL HARDWARE ARCHITECT.BASEBALL INSPECTOR Work Phone: [facility] 07-22-2023 13:58-0400 Respiratory rate 16 /min Jeanette Older PRINCIPAL HARDWARE ARCHITECT.BASEBALL INSPECTOR Work Phone: [facility] 07-22-2023 13:58-0400 SaO2% (BldA) [Mass fraction] 99 % Jeanette Older PRINCIPAL HARDWARE ARCHITECT.BASEBALL INSPECTOR Work Phone: [facility] 07-22-2023 13:58-0400 Systolic blood pressure 138 mm[Hg] Jeanette Older PRINCIPAL HARDWARE ARCHITECT.BASEBALL INSPECTOR Work Phone: [facility] 04-22-2023 14:34-0400 Body weight 100.7 kg Jeanette Older PRINCIPAL HARDWARE ARCHITECT.BASEBALL INSPECTOR Work Phone: [facility] 04-22-2023 14:34-0400 Diastolic blood pressure 78 mm[Hg] Jeanette Older PRINCIPAL HARDWARE ARCHITECT.BASEBALL INSPECTOR Work Phone: [facility] 04-22-2023 14:34-0400 Heart rate 64 /min Jeanette Older PRINCIPAL HARDWARE ARCHITECT.BASEBALL INSPECTOR Work Phone: [facility] 04-22-2023 14:34-0400 Respiratory rate 16 /min Jeanette Older PRINCIPAL HARDWARE ARCHITECT.BASEBALL INSPECTOR Work Phone: [facility] 04-22-2023 14:34-0400 Systolic blood pressure 128 mm[Hg] Jeanette Older PRINCIPAL HARDWARE ARCHITECT.BASEBALL INSPECTOR Work Phone: [facility] 11-28-2022 10:24-0500 Body weight 96.62 kg Jeanette Older PRINCIPAL HARDWARE ARCHITECT.BASEBALL INSPECTOR Work Phone: [facility] 11-28-2022 10:24-0500 Diastolic blood pressure 74 mm[Hg] Jeanette Older PRINCIPAL HARDWARE ARCHITECT.BASEBALL INSPECTOR Work Phone: [facility] 11-28-2022 10:24-0500 Heart rate 60 /min Jeanette Older PRINCIPAL HARDWARE ARCHITECT.BASEBALL INSPECTOR Work Phone: [facility] 11-28-2022 10:24-0500 Respiratory rate 16 /min Jeanette Older PRINCIPAL HARDWARE ARCHITECT.BASEBALL INSPECTOR Work Phone: [facility] 11-28-2022 10:24-0500 Systolic blood pressure 124 mm[Hg] Jeanette Older PRINCIPAL HARDWARE ARCHITECT.BASEBALL INSPECTOR Work Phone: [facility] 11-10-2022 10:00-0500 Body height 165.[address] Zafar Echeverria Work Phone: [facility] 11-10-2022 10:00-0500 Body mass index (BMI) [Ratio] 36.2 kg/m2 Dr. Zafar Echeverria Work Phone: [facility] [facility] 11-[facility]-2022 10:00-0500 Body weight 98.[address] Zafar Echeverria Work Phone: [facility] 11-10-2022 10:00-0500 Diastolic blood pressure 85 mm[Hg] Dr. Zafar Echeverria Work Phone: [facility] 11-10-2022 10:00-0500 Heart rate 92 /min Dr. Zafar Echeverria Work Phone: [facility] 11-10-2022 10:00-0500 Respiratory rate 20 /min Dr. Zafar Echeverria Work Phone: [facility] 11-10-2022 10:00-0500 SaO2% (BldA) [Mass fraction] 94 % Dr. Zafar Echeverria Work Phone: [facility] 11-10-2022 10:00-0500 Systolic blood pressure 142 mm[Hg] Dr. Zafar Echeverria Work Phone: [facility] 10-29-2022 14:46-0500 Body temperature 97.7 [degF] Jeanette Older PRINCIPAL HARDWARE ARCHITECT.BASEBALL INSPECTOR Work Phone: [facility] 10-29-2022 14:46-0500 Body weight 97.07 kg Jeanette Older PRINCIPAL HARDWARE ARCHITECT.BASEBALL INSPECTOR Work Phone: [facility] 10-29-2022 14:46-0500 Diastolic blood pressure 66 mm[Hg] Jeanette Older PRINCIPAL HARDWARE ARCHITECT.BASEBALL INSPECTOR Work Phone: [facility] 10-29-2022 14:46-0500 Heart rate 64 /min Jeanette Older PRINCIPAL HARDWARE ARCHITECT.BASEBALL INSPECTOR Work Phone: [facility] 10-29-2022 14:46-0500 Respiratory rate 16 /min Jeanette Older PRINCIPAL HARDWARE ARCHITECT.BASEBALL INSPECTOR Work Phone: [facility] 10-29-2022 14:46-0500 SaO2% (BldA) [Mass fraction] 95 % Jeanette Older PRINCIPAL HARDWARE ARCHITECT.BASEBALL INSPECTOR Work Phone: [facility] 10-29-2022 14:46-0500 Systolic blood pressure 112 mm[Hg] Jeanette Older PRINCIPAL HARDWARE ARCHITECT.BASEBALL INSPECTOR Work Phone: [facility] 10-21-2022 14:51-0500 Body temperature 97.7 [degF] Dr. Zafar Echeverria Work Phone: [facility] 10-21-2022 14:51-0500 Diastolic blood pressure 79 mm[Hg] Dr. Zafar Echeverria Work Phone: [facility] 10-21-2022 14:51-0500 Heart rate 67 /min Dr. Zafar Echeverria Work Phone: [facility] 10-21-2022 14:51-0500 Respiratory rate 16 /min Dr. Zafar Echeverria Work Phone: [facility] 10-21-2022 14:51-0500 SaO2% (BldA) [Mass fraction] 93 % Dr. Zafar Echeverria Work Phone: [facility] 10-21-2022 14:51-0500 Systolic blood pressure 145 mm[Hg] Dr. Zafar Echeverria Work Phone: [facility] 10-17-2022 17:43-0500 Body height 165.[address] Zafar Echeverria Work Phone: [facility] Work Phone: 10-17-2022 17:43-0500 Body mass index (BMI) [Ratio] 35.9 kg/m2 Dr. Zafar Echeverria Work Phone: [facility] 10-17-2022 17:43-0500 Body weight 97.[address] Zafar Echeverria Work Phone: [facility] 10-17-2022 17:13-0500 Diastolic blood pressure 87 mm[Hg] [facility] Work Phone: 10-17-2022 17:13-0500 Heart rate 67 /min [facility] Work Phone: 10-17-2022 17:13-0500 Respiratory rate 16 /min [facility] Work Phone: 10-17-2022 17:13-0500 SaO2% (BldA) [Mass fraction] 95 % [facility] Work Phone: 10-17-2022 17:13-0500 Systolic blood pressure 116 mm[Hg] [facility] Work Phone: 10-17-2022 16:02-0500 Body temperature 98.3 [degF] [facility] Work Phone: 10-17-2022 13:59-0500 Body height 165.1 cm [facility] Work Phone: 10-17-2022 13:59-0500 Body mass index (BMI) [Ratio] 35.4 kg/m2 [facility] Work Phone: 10-17-2022 13:59-0500 Body weight 96.61 kg [facility] Work Phone: Encounters Encounter Date Encounter Type Care Provider Facility Start: 04-17-2025 ambulatory Panda Blanc Facility: [facility] Start: 04-11-2025 ambulatory Mili LOPEZ Facility:[facility] Start: 04-07-2025 Encounter for other preprocedural examination Panda Blanc [facility] Start: 04-04-2025 End: 04-04-2025 Telephone encounter Mega Aquino MD Work Phone: [facility] [place] Comment on above: Insurance Authorizat ion Start: 04-03-2025 End: 04-03-2025 Office outpatient visit 25 minutes Jeanette Mitchell APRN.CNP Work Phone: [facility] [place] Comment on above: Preop exam for inter nal medicine (Primary Dx); Essential hypertension, benign; Type 2 diabetes mellitus with chronic kidney disease, without long-term current use of insulin, unspecified CKD stage (HCC); Hyperlipidemia with target LDL less than 100; Gastroesophageal reflux disease, unspecified whether esophagitis present; Intertrigo; Umbilical hernia without obstruction and without gangrene; Stage 3b chronic kidney disease (HCC); Encounter for immunization; Nocturia Start: 04-03-2025 End: 04-03-2025 Patient encounter status Jeanette Mitchell APRN.BASEBALL INSPECTOR Work Phone: [facility] Start: 04-03-2025 End: 04-03-2025 ambulatory JEANETTE MITCHELL Facility:[facility] Start: 04-03-2025 Encounter for other preprocedural examination JEANETTE MITCHELL [facility] Start: 03-28-2025 End: 03-29-2025 Telephone encounter Mega Aquino MD Work Phone: [facility] [place] Comment on above: Lab Orders Start: 03-22-2025 End: 03-23-2025 Refill Jeanette Mitchell APRN.BASEBALL INSPECTOR Work Phone: [facility] [place] Comment on above: Refill Request Start: 03-21-2025 End: 03-24-2025 ambulatory Mega Aquino MD Work Phone: Internal Medicine [place] [phone] Start: 03-02-2025 End: 03-02-2025 Patient encounter procedure Mili LOPEZ -[place] [facility] Work Phone: Start: 03-02-2025 End: 03-02-[address] Mega Aquino MD Work Phone: [facility] Work Phone: Start: 03-02-2025 End: 03-02-2025 ambulatory Mili LOPEZ Facility:[facility] Start: 12-13-2024 End: 12-13-2024 ambulatory ROSALINA BEAN Facility:[facility] Start: 12-13-2024 End: 12-13-2024 Office outpatient visit 25 minutes Rosalina Bean PA-C Work Phone: [facility] [place] Comment on above: Acute non-recurrent frontal sinusitis (Primary Dx) Start: 12-12-2024 End: 12-12-2024 ambulatory Mega Aquino MD Work Phone: [facility] [place] Comment on above: Sinus Problem Start: 07-04-2024 End: 07-04-2024 Telephone encounter Jeanette Mitchell APRN.CNP Work Phone: [facility] [place] Comment on above: Results Start: 06-30-2024 End: 06-30-2024 Subsequent hospital visit by physician Xr [facility] [place] Work Phone: Radiology Comment on above: Acute cough [R05.1] Start: 06-30-2024 End: 06-30-2024 ambulatory JEANETTE MITCHELL Facility:[facility] Start: 06-30-2024 End: 06-30-2024 Patient encounter procedure Jeanette Mitchell APRN.CNP Work Phone: [facility] [place] Comment on above: Acute cough (Primary Dx); Wheezing; Acute non-recurrent sinusitis, unspecified location; Urge incontinence; Type 2 diabetes mellitus with chronic kidney disease, without long-term current use of insulin, unspecified CKD stage (HCC); Essential hypertension, benign; Stage 3b chronic kidney disease (HCC); Abnormal urine Start: 06-24-2024 End: 06-24-2024 [facility] Facility:[facility] Start: 06-14-2024 End: 06-17-2024 ambulatory Mega Aquino MD Work Phone: [facility] [place] Start: 06-02-2024 [facility] Start: 05-02-2024 [facility] Start: 03-09-2024 Get Medical Advice Jeanette maria APRN.CNP Work Phone: [facility] [place] Comment on above: RX refill Start: 02-21-2024 Refill Rosalina ramirez PA-C Work Phone: [facility] [place] Comment on above: Refill Request Start: 02-03-2024 Telephone encounter Jeanette Mitchell APRN.CNP Work Phone: [facility] [place] Comment on above: Results Start: 02-01-2024 End: 02-01-2024 Patient encounter procedure Jeanette Mitchell APRN.SPARKLE Work Phone: [facility] [place] Comment on above: Controlled type 2 di abetes mellitus without complication, without long-term current use of insulin (HCC) (Primary Dx); Essential hypertension, benign; 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, unspecified vessel or lesion type; Stage 3b chronic kidney disease (HCC); Hyperlipidemia with target LDL less than 100; Right hip pain; Chronic pain of both shoulders; Cervical arthritis; Spinal stenosis in cervical region; Spinal stenosis, lumbar region, without neurogenic claudication; Edema of both lower extremities; Type 2 diabetes mellitus with chronic kidney disease, without long-term current use of insulin, unspecified CKD stage (HCC) Start: 01-19-2024 ambulatory Mega Walsh Work Phone: Internal [facility] Start: 11-13-2023 Refill Jeanette Mitchell APRN .BASEBALL INSPECTOR Work Phone: [facility] [place] Comment on above: Refill Request Start: 07-22-2023 End: 07-22-2023 Patient encounter procedure Jeanette Mitchell APRN.BASEBALL INSPECTOR Work Phone: [facility] [place] Comment on above: Controlled type 2 di abetes mellitus without complication, without long-term current use of insulin (HCC) (Primary Dx); 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, unspecified vessel or lesion type; Essential hypertension, benign; Stage 3b chronic kidney disease (HCC); Spinal stenosis, lumbar region, without neurogenic claudication; Osteoarthrosis, unspecified whether generalized or localized, unspecified site; Need for influenza vaccination Start: 05-25-2023 Refill Jeanette Mitchell APRN, .CNP Work Phone: [facility] [place] Comment on above: Refill Request Start: 04-22-2023 End: 04-22-2023 Patient encounter procedure Jeanette Mitchell APRN.SPARKLE Work Phone: [facility] [place] Comment on above: Controlled type 2 di abetes mellitus without complication, without long-term current use of insulin (HCC) (Primary Dx); Pedal edema; Function kidney decreased; Cervical arthritis; Spinal stenosis, lumbar region, without neurogenic claudication Start: 03-06-2023 Refill Jeanette Mitchell APRN .BASEBALL INSPECTOR Work Phone: [facility] [place] Comment on above: Refill Request Start: 11-28-2022 End: 11-28-2022 Patient encounter procedure Jeanette Mitchell APRN.BASEBALL INSPECTOR Work Phone: [facility] [place] Comment on above: Controlled type 2 di abetes mellitus without complication, without long-term current use of insulin (HCC) (Primary Dx); Stage 3b chronic kidney disease (HCC); Spinal stenosis, lumbar region, without neurogenic claudication; Vitamin D deficiency; Colon cancer screening Start: 11-22-2022 ambulatory Jeanette Mitchell APRN .BASEBALL INSPECTOR Work Phone: [facility] [place] Comment on above: Lab work for 11/28 vi sit Start: 11-10-2022 End: 11-10-[address] Zafar Echeverria Work Phone: [facility] Start: 10-31-2022 End: 10-31-[address] Zafar Echeverria Work Phone: [facility] Work Phone: Start: 10-31-2022 End: 10-31-[address] Zafar Echeverria Work Phone: [facility]-Pulmonary Services/Neurology Start: 10-29-2022 End: 10-29-2022 Patient encounter procedure Jeanette Mitchell APRN.BASEBALL INSPECTOR Work Phone: 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 Ean Reddy Work Phone: [facility] Inpatient Phys[facility] Start: 10-21-2022 Non-patient / Non-visit Dr. Ean Reddy Work Phone: [facility] Start: 10-20-2022 Non-patient / Non-visit Dr. Ean Reddy Work Phone: [facility]patient [facility] Start: 10-20-2022 Non-patient / Non-visit Dr. Ean Reddy Work Phone: [phone] [place] [address] Start: 10-19-2022 Non-patient / Non-visit Dr. Ean Reddy Work Phone: [facility] Start: 10-19-2022 Non-patient / Non-visit Dr. Ean Reddy Work Phone: [facility] Start: 10-18-2022 End: 10-21-2022 Evaluation and management of inpatient Dr. Zafar Echeverria Work Phone: [facility] Start: 10-18-2022 Non-patient / Non-visit Dr. Ean Reddy Work Phone: [facility] Start: 10-18-2022 Non-patient / Non-visit Dr. Ean Reddy Work Phone: [facility] Start: 10-17-2022 Non-patient / Non-visit Dr. Ean Reddy Work Phone: [facility] Start: 10-17-2022 Evaluation and manag ement of inpatient [facility] Start: 10-17-2022 observation encounter [facility] Work Phone: Start: 10-14-2022 ambulatory Mega Walsh Work Phone: [facility] [place] Start: 08-28-2022 Refill Jeanette Mitchell PRINCIPAL HARDWARE ARCHITECT .SPARKLE Work Phone: [facility] [place] Comment on above: Refill Request Start: 07-28-2022 Refill Dorota Mitchell PRINCIPAL HARDWARE ARCHITECT .SPARKLE Work Phone: [facility] [place] Comment on above: Refill Request Start: 07-03-2022 ambulatory Nilda Ying MA [facility] Comment on above: Population Health Na vigation Outreach (HCC Low) Start: 06-11-2022 ambulatory No Pcp (Historical) [facility] Start: 05-03-2022 ambulatory Mega Walsh Work Phone: [facility] [place] Comment on above: Back pain Start: 04-22-2022 Refill Mega Walsh Work Phone: [facility] [place] Comment on above: Refill Request Start: 03-25-2022 ambulatory Amara Flores MA [facility] Comment on above: Population Health Na vigation Outreach (DM Management) Start: 06-07-2021 End: 06-07-2021 Subsequent hospital visit by physician Laura [facility] [place] Work Phone: Radiology Comment on above: Arthritis [M19.90] Procedures Date Procedure Procedure Detail Performing Clinician Start: 06-30-2024 Radiologic exam ches t 2 views Jeanette Mitchell PRINCIPAL HARDWARE ARCHITECT.SPARKLE Work Phone: Start: 06-30-2024 Urnls dip stick/tabl et rgnt auto w/o microscopy Jeanette Mitchell PRINCIPAL HARDWARE ARCHITECT.BASEBALL INSPECTOR Work Phone: Start: 07-22-2023 INFLUENZA VACCINE, P RSV FREE, AGE 65+ YR, HIGH DOSE, QUADRIVALENT (FLUZONE HIGH-DOSE) Jeanette Older PRINCIPAL HARDWARE ARCHITECT.BASEBALL INSPECTOR Work Phone: Start: 10-17-2022 Plain chest X-ray Start: 10-12-2022 History of placement of stent for coronary artery disease History of coronary artery stent placement Dr. Zfaar Echeverria Work Phone: Comment on above: AMERICA Mid OM1 Resolute Mauro 2.5x18mm Start: 06-07-2021 Radex hand minimum 3 views Mega Aquino MD Work Phone: Start: 05-21-2021 Adult depression screening assessment Amara Flores MA SARS-CoV-2 & FLU Ant igen (Rapid) SARS-CoV-2 & FLU Ant igen (Rapid) Dr. Zafar Echeverria Work Phone: Plan of Treatment Date Care Activity Detail Author Start: 07-03-2025 End: 07-03-2025 Patient encounter procedure 07/03/2025 1:00 PM EDT Office Visit [facility] [place] [address] [place], [place] [phone] Older, RAJANI Reid.BASEBALL INSPECTOR [address], [place] [phone] 3 month follow up [facility] [place] Comment on above: 3 month follow up Start: 06-30-2025 Annual PCP Team Chronic Disease Visit Annual PCP Team Chronic Disease Visit [facility] Start: 06-30-2025 Covid-19 Vaccine ( season) Covid-19 Vaccine ( season) [facility] Comment on above: Postponed from 06/12/2024 (Declined at t his time) Start: 06-30-2025 Covid-19 Vaccine ( season) Covid-19 Vaccine ( season) [facility] Comment on above: Postponed from 06/12/2024 (Declined at t his time) Start: 06-24-2025 Complete blood count Hemoglobin/Hematocrit [facility] Start: 06-24-2025 Hepatitis B screening Urine Albumin:Creatinine Ratio [facility] Start: 06-12-2025 Influenza vaccination Influenza Vaccine (Season Ended) [facility] Start: 04-30-2025 Shingrix Vaccine (2 of 2) Shingrix Vaccine (2 of 2) [facility] Start: 04-10-2025 Influenza vaccination Influenza Vaccine (#1) [facility] Comment on above: Postponed from 06/12/2024 (Declined at t his time) Start: 04-03-2025 End: 04-03-2025 Patient encounter procedure 04/03/2025 2:00 PM EDT Office Visit Internal [facility] [place] [address] [place] [id number] Stephen, TESFAYE ReidN.BASEBALL INSPECTOR [address] [place] [address] Pre op clearance. Right Total Hip. 04/17/25. [facility] [place] Comment on above: Pre op clearance. Right Total Hip. 5. [facility] Start: 03-21-2025 End: 06-20-2025 Basic metabolic 2000 panel - Serum or Plasma BASIC METABOLIC PANEL Lab Routine Type 2 diabetes mellitus with chronic kidney disease, without long-term current use of insulin, unspecified CKD stage (HCC) Expected: 03/21/2025, Expires: 06/20/2025 [facility] Work Phone: Comment on above: Expected: 03/21/2025, Expires: Start: 03-21-2025 End: 06-20-2025 Hemoglobin A1c in Blood HEMOGLOBIN A1C Lab Routine Type 2 diabetes mellitus with chronic kidney disease, without long-term current use of insulin, unspecified CKD stage (HCC) Expected: 03/21/2025, Expires: 06/20/2025 [facility] Comment on above: Expected: 03/21/2025, Expires: Start: 03-21-2025 End: 06-20-2025 Lipid 1996 panel - Serum or Plasma LIPID PANEL, FASTING Lab Routine Hyperlipidemia with target LDL less than 100 Expected: 03/21/2025, Expires: 06/20/2025 [facility] Comment on above: Expected: 03/21/2025, Expires: Start: 03-02-2025 Evaluation of diagnostic study results [facility] Start: 02-18-2025 Creatinine measurement Serum Creatinine [facility] Start: 01-31-2025 Annual PCP Team Chronic Disease Visit Annual PCP Team Chronic Disease Visit [facility] Start: 01-31-2025 BP Controlled (<130/80) BP Controlled (<130/80) [facility] Start: 01-31-2025 Creatinine measurement Serum Creatinine [facility] Start: 01-31-2025 Diabetic foot examination Diabetic Foot Exam [facility] Start: 01-31-2025 RSV Vaccine (1 - 1-dose 60+ series) RSV Vaccine (1 - 1-dose 60+ series) [facility] Comment on above: Postponed from 2003 (Declined at t his time) Start: 01-31-2025 RSV Vaccine (1 - 1-dose 75+ series) RSV Vaccine (1 - 1-dose 75+ series) [facility] Comment on above: Postponed from 2018 (Declined at t his time) Start: 01-31-2025 Shingrix Vaccine (1 of 2) Shingrix Vaccine (1 of 2) [facility] Comment on above: Postponed from 1993 (Declined at t his time) Start: 01-31-2025 Urine microalbumin profile DTaP,Tdap,Td Vaccine (2 - Td or Tdap) [facility] Comment on above: Postponed from 08/10/2018 (Declined at t his time) Start: 01-28-2025 Hepatitis B surface antibody level LDL Cholesterol [facility] Start: 12-22-2024 Hemoglobin A1c measurement HbA1C [facility] maryann Start: 12-13-2024 End: 12-13-2024 Patient encounter procedure 12/13/2024 2:00 PM EST Office Visit [facility] [place] [address], [place] [phone] Rosalina Bean PA-C [address] [place], [place] [address] Sinus Congestion. See triage 12/13/2023 Family [facility] Comment on above: Sinus Congestion. See triage 12/13/2023 Start: 10-12-2024 Advance Directive Discussion Advance Directive Discussion [facility] Start: 10-12-2024 Medicare Advantage Annual Wellness Visit Medicare [facility] Annual Wellness Visit [facility] Start: 08-21-2024 Complete blood count Hemoglobin/Hematocrit [facility] Start: 08-21-2024 Creatinine measurement Serum Creatinine [facility] Start: 07-30-2024 Hemoglobin A1c measurement [facility] Start: 07-22-2024 Annual PCP Team Chronic Disease Visit Annual PCP Team Chronic Disease Visit [facility] Start: 07-22-2024 Covid-19 Vaccine () Covid-19 Vaccine () [facility] Comment on above: Postponed from 06/12/2023 (Declined at t his time) Start: 07-22-2024 Hepatitis B Vaccine (1 of 3 - Risk 3-dose series) Hepatitis B Vaccine (1 of 3 - Risk 3-dose series) [facility] Comment on above: Postponed from 2003 (Declined at t his time) Start: 06-30-2024 End: 06-30-2024 Patient encounter procedure 06/30/2024 2:20 PM EDT Office Visit [facility] [place] [address] [facility] [place] [id number] Jeanette Mitchell APRN.BASEBALL INSPECTOR [address] [facility] [place] [id number] OAB, A1C, kidney function, cholesterol [facility] [place] Comment on above: OAB, A1C, kidney function, cholesterol Start: 06-24-2024 End: 06-24-2024 ambulatory 06/24/2024 10:15 AM EDT Results Only [facility] [address] [facility] [place] [address] [facility] Start: 06-14-2024 End: 09-13-2024 CBC panel - Blood by Automated count COMPLETE BLOOD COUNT Lab Routine Type 2 diabetes mellitus with chronic kidney disease, without long-term current use of insulin, unspecified CKD stage (HCC) Expected: 06/14/2024, Expires: 09/13/2024 [facility] Comment on above: Expected: 06/14/2024, Expires: Start: 06-14-2024 End: 09-13-2024 Hemoglobin A1c in Blood HEMOGLOBIN A1C Lab Routine Type 2 diabetes mellitus with chronic kidney disease, without long-term current use of insulin, unspecified CKD stage (HCC) Expected: 06/14/2024, Expires: 09/13/2024 [facility] Comment on above: Expected: 06/14/2024, Expires: Start: 06-14-2024 End: 09-13-2024 Microalbumin/Creatinine [Mass Ratio] in Urine ALBUMIN/CREATININE RATIO, URINE Lab Routine Type 2 diabetes mellitus with chronic kidney disease, without long-term current use of insulin, unspecified CKD stage (HCC) Expected: 06/14/2024, Expires: 09/13/2024 [facility] Work Phone: Comment on above: Expected: 06/14/2024, Expires: Start: 06-12-2024 Covid-19 Vaccine () Covid-19 Vaccine () [facility] Start: 06-12-2024 Influenza vaccination Influenza Vaccine (#1) [facility] Start: 05-02-2024 End: 05-02-2024 Patient encounter procedure 05/02/2024 3:00 PM EDT Office Visit [facility] [place] [address] [facility] [place] [phone] Jeanette Mitchell APRN.BASEBALL INSPECTOR [address] [facility] [place] [phone] 3 month follow up [facility] [place] Comment on above: 3 month follow up Start: 04-22-2024 ANNUAL PCP TEAM CHRONIC DISEASE VISIT ANNUAL PCP TEAM CHRONIC DISEASE VISIT [facility] Start: 04-22-2024 BP CONTROLLED (<130/80) BP CONTROLLED (<130/80) [facility] Start: 04-22-2024 Hemoglobin/Hematocrit Hemoglobin/Hematocrit [facility] Start: 04-22-2024 Hepatitis B screening URINE ALBUMIN:CREATININE RATIO [facility] Start: 04-22-2024 Serum Creatinine Serum Creatinine [facility] Start: 02-19-2024 Hemoglobin A1c measurement HbA1C [facility] Start: 02-19-2024 End: 02-19-2024 ambulatory 02/19/2024 10:00 AM EDT Results Only [facility] [address] [facility] [place] [id number] [facility] Start: 02-17-2024 End: 05-18-2024 Basic metabolic 2000 panel - Serum or Plasma BASIC METABOLIC PANEL Lab Routine Hyperkalemia Hypercalcemia Expected: 02/17/2024 (Approximate), Expires: 05/18/2024 [facility] Work Phone: Comment on above: Expected: 02/17/2024 (Approximate), Expi res: 05/18/2024 Start: 02-15-2024 End: 02-15-2024 ambulatory 02/15/2024 9:30 AM EDT OT/PT/Speech Visit [facility] [address] [place], [place] [id number] Bear Finch, PT [address] [place] [address] Right hip pain [M25.551] [facility] Comment on above: Right hip pain [M25.551] Start: 01-19-2024 End: 04-19-2024 Hemoglobin A1c in Blood HGB A1C Lab Routine Controlled type 2 diabetes mellitus without complication, without long-term current use of insulin (HCC) Expected: 01/19/2024, Expires: 04/19/2024 [facility] Work Phone: Comment on above: Expected: 01/19/2024, Expires: 4 Start: 01-19-2024 End: 04-19-2024 Lipid 1996 panel - Serum or Plasma LIPID PANEL BASIC Lab Routine Hyperlipidemia with target LDL less than 100 Expected: 01/19/2024, Expires: 04/19/2024 [facility] Work Phone: Comment on above: Expected: 01/19/2024, Expires: 4 Start: 11-28-2023 3 comp foot exam completed DIABETIC FOOT EXAM [facility] maryann Start: 11-28-2023 ANNUAL PCP TEAM CHRONIC DISEASE VISIT ANNUAL PCP TEAM CHRONIC DISEASE VISIT [facility] Start: 11-28-2023 BP CONTROLLED (<130/80) BP CONTROLLED (<130/80) [facility] Start: 11-28-2023 COVID-19 VACCINE (4 - Booster for Moderna series) COVID-19 VACCINE (4 - Booster for Moderna series) [facility] Comment on above: Postponed from 11/07/2021 (Declined at t his time) Start: 11-28-2023 COVID-19 VACCINE (4 - Moderna series) COVID-19 VACCINE (4 - Moderna series) [facility] Comment on above: Postponed from 11/07/2021 (Declined at t his time) Start: 11-28-2023 Diabetic foot examination Diabetic Foot Exam [facility] Start: 11-28-2023 SHINGRIX VACCINE (1 of 2) SHINGRIX VACCINE (1 of 2) [facility] Comment on above: Postponed from 1993 (Declined at t his time) Start: 11-28-2023 Urine microalbumin profile [facility] maryann Comment on above: Postponed from 08/10/2018 (Declined at t his time) Start: 11-27-2023 Hepatitis B surface antibody level LDL CHOLESTEROL [facility] Start: 10-29-2023 ANNUAL PCP TEAM CHRONIC DISEASE VISIT ANNUAL PCP TEAM CHRONIC DISEASE VISIT [facility] Start: 10-29-2023 BP CONTROLLED (<130/80) BP CONTROLLED (<130/80) [facility] Start: 10-23-2023 Hemoglobin A1c/Hemoglobin.total in Blood HBA1C [facility] Start: 10-12-2023 Advance Directive Discussion Advance Directive Discussion [facility] Start: 10-12-2023 Behavioral Health Screening Behavioral Health Screening [facility] Start: 10-12-2023 Depression Assessment Depression Assessment [facility] Start: 07-22-2023 End: 09-21-2023 Basic metabolic 2000 panel - Serum or Plasma BASIC METABOLIC PNL Lab Routine Essential hypertension, benign Controlled type 2 diabetes mellitus without complication, without long-term current use of insulin (HCC) Stage 3b chronic kidney disease (HCC) 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, unspecified vessel or lesion type Expected: 07/22/2023, Expires: 09/21/2023 [facility] Work Phone: Comment on above: Expected: 07/22/2023, Expires: Start: 07-22-2023 End: 09-21-2023 CBC panel - Blood by Automated count CBC Lab Routine Essential hypertension, benign Controlled type 2 diabetes mellitus without complication, without long-term current use of insulin (HCC) Stage 3b chronic kidney disease (HCC) Expected: 07/22/2023, Expires: 09/21/2023 [facility] Work Phone: Comment on above: Expected: 07/22/2023, Expires: 3 Start: 07-22-2023 End: 09-21-2023 Hemoglobin A1c in Blood HGB A1C Lab Routine Controlled type 2 diabetes mellitus without complication, without long-term current use of insulin (HCC) Expected: 07/22/2023, Expires: 09/21/2023 [facility] Work Phone: Comment on above: Expected: 07/22/2023, Expires: 3 Start: 06-12-2023 Influenza vaccination INFLUENZA (#1) [facility] Start: 04-26-2023 Hemoglobin A1c/Hemoglobin.total in Blood HBA1C [facility] Start: 04-22-2023 End: 06-22-2023 Basic metabolic 2000 panel - Serum or Plasma [facility] Work Phone: Comment on above: Expected: 04/22/2023, Expires: 3 Start: 11-28-2022 End: 01-28-2023 ALBUMIN/CREAT RATIO RND UR ALBUMIN/CREAT RATIO RND UR Lab Routine Controlled type 2 diabetes mellitus without complication, without long-term current use of insulin (HCC) Expected: 11/28/2022, Expires: 01/28/2023 [facility] Work Phone: Comment on above: Expected: 11/28/2022, Expires: 3 Start: 11-24-2022 End: 01-24-2023 25-hydroxyvitamin D3 [Mass/volume] in Serum or Plasma VITAMIN D 25 HYDROXY Lab Routine Vitamin D deficiency Expected: 11/24/2022, Expires: 01/24/2023 [facility] Work Phone: Comment on above: Expected: 11/24/2022, Expires: 3 Start: 11-24-2022 End: 01-24-2023 Comprehensive metabolic 2000 panel - Serum or Plasma COMP METABOLIC PANEL Lab Routine Essential hypertension, benign Hyperlipidemia with target LDL less than 100 Expected: 11/24/2022, Expires: 01/24/2023 [facility] Work Phone: Comment on above: Expected: 11/24/2022, Expires: 3 Start: 11-24-2022 End: 01-24-2023 Lipid 1996 panel - Serum or Plasma LIPID PANEL BASIC Lab Routine Hyperlipidemia with target LDL less than 100 Expected: 11/24/2022, Expires: 01/24/2023 [facility] Work Phone: Comment on above: Expected: 11/24/2022, Expires: 3 Start: 11-12-2022 End: 01-12-2023 Basic metabolic 2000 panel - Serum or Plasma BASIC METABOLIC PNL Lab Routine Essential hypertension, benign Function kidney decreased Expected: 11/12/2022 (Approximate), Expires: 01/12/2023 [facility] Work Phone: Comment on above: Expected: 11/12/2022 (Approximate), Expi res: 01/12/2023 Start: 11-12-2022 End: 01-12-2023 CBC W Auto Differential panel - Blood CBC + DIFF Lab Routine Essential hypertension, benign Function kidney decreased Expected: 11/12/2022 (Approximate), Expires: 01/12/2023 [facility] Work Phone: Comment on above: Expected: 11/12/2022 (Approximate), Expi res: 01/12/2023 Start: 10-21-2022 Patient discharge [facility] Start: 10-20-2022 [facility] Start: 10-20-2022 Patient referral [facility] Work Phone: Start: 10-20-2022 Ambulation without limitation [facility] Start: 10-20-2022 Cardiac monitoring [facility] Start: 10-20-2022 Cardiac rehabilitation - phase 1 [facility] Start: 10-20-2022 Cardiac rehabilitation - phase 2 [facility] Start: 10-20-2022 Notification of physician [facility] Start: 10-20-2022 Patient discharge [facility] Start: 10-20-2022 Provision of activity privileges [facility] Start: 10-20-2022 Taking patient vital signs [facility] Start: 10-20-2022 Vital signs measurements [facility] Start: 10-20-2022 End: 10-20-2022 [facility] Start: 10-20-2022 Catheterization of vein [facility] Start: 10-20-2022 Medication not administered [facility] Start: 10-20-2022 Notification of physician [facility] Start: 10-20-2022 [facility] Start: 10-18-2022 Admission procedure [facility] Start: 10-18-2022 Application of intermittent pneumatic compression device [facility] Start: 10-17-2022 Referral to retail leader [facility] Start: 10-17-2022 Assessment of risk of venous thromboembolism [facility] Start: 10-17-2022 Care regimes management [facility] Start: 10-17-2022 Insertion of catheter into peripheral vein [facility] Start: 10-17-2022 Measuring intake and output [facility] Start: 10-17-2022 Oxygen therapy [facility] Start: 10-17-2022 Providing care according to standard [facility] Start: 10-17-2022 Provision of activity privileges [facility] Start: 10-17-2022 Referral to service [facility] Start: 10-17-2022 Tobacco use cessation education [facility] Start: 10-17-2022 [facility] Start: 10-17-2022 Electroencephalogram [facility] Work Phone: Start: 10-17-2022 Troponin I measurement [facility] Work Phone: Start: 10-17-2022 Following clinical pathway protocol [facility] Start: 10-17-2022 Admission procedure [facility] Start: 10-17-2022 [facility] Work Phone: Start: 10-14-2022 End: 12-14-2022 Basic metabolic 2000 panel - Serum or Plasma BASIC METABOLIC PNL Lab Routine Controlled type 2 diabetes mellitus without complication, without long-term current use of insulin (HCC) Expected: 10/14/2022, Expires: 12/14/2022 [facility] Work Phone: Comment on above: Expected: 10/14/2022, Expires: 3 Start: 10-14-2022 End: 12-14-2022 Hemoglobin A1c in Blood HGB A1C Lab Routine Controlled type 2 diabetes mellitus without complication, without long-term current use of insulin (HCC) Expected: 10/14/2022, Expires: 12/14/2022 [facility] Work Phone: Comment on above: Expected: 10/14/2022, Expires: 3 Start: 10-14-2022 End: 12-14-2022 SCHEDULE LAB TESTING SCHEDULE LAB TESTING Lab Routine Expected: 10/14/2022, Expires: 12/14/2022 [facility] Work Phone: Comment on above: Expected: 10/14/2022, Expires: 3 Start: 10-12-2022 ADVANCE DIRECTIVE DISCUSSION ADVANCE DIRECTIVE DISCUSSION [facility] Start: 10-12-2022 DEPRESSION ASSESSMENT DEPRESSION ASSESSMENT [facility] Start: 06-12-2022 ANNUAL PCP TEAM CHRONIC DISEASE VISIT ANNUAL PCP TEAM CHRONIC DISEASE VISIT [facility] Start: 06-12-2022 Influenza vaccination INFLUENZA (#1) [facility] Start: 05-21-2022 Adult depression screening assessment DEPRESSION SCREENING [facility] Start: 12-10-2021 Hemoglobin A1c/Hemoglobin.total in Blood HBA1C [facility] Start: 11-07-2021 COVID-19 VACCINE (4 - Booster for Moderna series) COVID-19 VACCINE (4 - Booster for Moderna series) [facility] Start: 10-12-2021 ADVANCE DIRECTIVE DISCUSSION ADVANCE DIRECTIVE DISCUSSION [facility] Start: 10-12-2021 DEPRESSION ASSESSMENT DEPRESSION ASSESSMENT [facility] Start: 04-28-2021 COVID-19 VACCINE (3 - Booster for Moderna series) COVID-19 VACCINE (3 - Booster for Moderna series) [facility] Start: 01-24-2021 COVID-19 VACCINE (3 - Booster for Moderna series) COVID-19 VACCINE (3 - Booster for Moderna series) [facility] Start: 05-27-2020 3 comp foot exam completed DIABETIC FOOT [facility]AM [facility] maryann Start: 05-25-2020 Hepatitis B surface antibody level LDL CHOLESTEROL [facility] Start: 08-17-2019 Hepatitis B screening URINE ALBUMIN:CREATININE RATIO [facility] Start: 08-10-2019 Glaucoma screening Dilated Retinal Exam [facility] Start: 08-10-2019 Hepatitis C antibody, confirmatory test DILATED RETINAL EXAM [facility] Start: 2018 RSV Vaccine (1 - 1-dose 75+ series) RSV Vaccine (1 - 1-dose 75+ series) [facility] Start: 08-10-2018 Urine microalbumin profile [facility] Start: 09-02-2014 FECAL OCCULT BLOOD FECAL OCCULT BLOOD [facility] Start: 09-02-2014 Screening for malignant neoplasm of colon Fecal Occult Blood [facility] Start: 2003 RSV Vaccine (1 - 1-dose 60+ series) RSV Vaccine (1 - 1-dose 60+ series) [facility] Start: 1993 SHINGRIX VACCINE (1 of 2) SHINGRIX VACCINE (1 of 2) [facility] Start: 1961 Anxiety Screening Anxiety Screening [facility] Start: 1961 BP CONTROLLED (<130/80) BP CONTROLLED (<130/80) [facility] Start: 1961 Depression Screening Depression Screening [facility] Start: 1961 HEPATITIS C SCREENING HEPATITIS C SCREENING [facility] Ambulatory ECG [facility] Work Phone: Bacteria identified in Urine by Culture URINE CULTURE Microbiology Routine Urge incontinence Abnormal urine 06/30/2024 3:10 PM EDT [facility] Bilirubin measurement, urine [facility] Work Phone: [facility] tere[facility] Colon cancer screening Ordered: 11/28/2022 [facility] Work Phone: Comment on above: Ordered: 11/28/2022 Hemoglobin [Presence ] in Urine [facility] Work Phone: Hemoglobin A1c/Hemoglobin.total in Blood [facility] Work Phone: Measurement of keton es in urine using dipstick [facility] Work Phone: Microscopic urinalysis [facility] Work Phone: Patient Education DASH Plan Eat Heart Healthy Food CAD Diabetes Glossary Diabetes Carbs Fats Protein [facility] Work Phone: Patient referral [facility] Work Phone: pH of Urine [facility] Work Phone: Specific gravity of Urine [facility] Work Phone: Troponin I measurement [facility] Work Phone: Urinalysis complete panel - Urine URINALYSIS, WITH MICROSCOPIC Lab Routine Urge incontinence Abnormal urine 06/30/2024 3:10 PM EDT [facility] Work Phone: Urinalysis, blood, qualitative [facility] Work Phone: Urine dipstick for glucose [facility] Work Phone: Urine dipstick for l eukocyte esterase [facility] Work Phone: Urine dipstick for nitrite [facility] Work Phone: Urine dipstick for protein [facility] Work Phone: Urine examination [facility] Work Phone: Urine microscopy: ep ithelial cells [facility] Work Phone: Urine Microscopy: white cells [facility] Work Phone: Urobilinogen [Presen ce] in Urine [facility] Work Phone: [facility] Immunizations Immunization Date Immunization Notes Care Provider Helen mabry 03-05-2025 zoster vaccine recombinant Jeanette Mitchell PRINCIPAL HARDWARE ARCHITECT.BASEBALL INSPECTOR Work Phone: [facility] 07-22-2023 influenza (HD-IIV4) vaccine, age 65+ yr, high dose, quadrivalent, PF (FLUZONE HIGH-DOSE) Jeanette Mitchell PRINCIPAL HARDWARE ARCHITECT.BASEBALL INSPECTOR Work Phone: [facility] 07-22-2023 influenza virus vacc ine, unspecified formulation Mega Aquino MD Work Phone: [facility] 08-01-2022 influenza, high dose seasonal, preservative-free Jeanette Stephen PRINCIPAL HARDWARE ARCHITECT.BASEBALL INSPECTOR Work Phone: [facility] 08-01-2021 influenza, high-dose , quadrivalent vaccine (FLUZONE HIGH DOSE QUADRIVALENT) Amara Flores [facility] 08-19-2018 influenza, high dose seasonal, preservative-free Amaraelizabeth Flores [facility] 07-01-2017 influenza, high dose seasonal, preservative-free Amara Flores [facility] 07-01-2017 pneumococcal polysaccharide vaccine, 23 valent Amara Flores [facility] 08-25-2016 influenza, high dose seasonal, preservative-free Amara Flores [facility] 08-29-2015 influenza, high dose seasonal, preservative-free Amara Flores [facility] 08-29-2015 pneumococcal conjuga te vaccine, 13 valent Amara Flores [facility] 09-01-2014 influenza, high dose seasonal, preservative-free Amara Flores [facility] 08-26-2013 influenza virus vacc ine, unspecified formulation Amaraelizabeth Flores [facility] 08-08-2011 influenza virus vacc ine, unspecified formulation Amaraelizabeth Flores [facility] 08-15-2010 influenza virus vacc ine, unspecified formulation Amaraelizabeth Flores [facility] 07-16-2009 influenza virus vacc ine, unspecified formulation [facility] 08-10-2008 influenza virus vacc ine, unspecified formulation Amaraelizabeth Flores [facility] Work Phone: 08-10-2008 pneumococcal polysaccharide vaccine, 23 valent Amaraelizabeth Flores [facility] Work Phone: 08-10-2008 tetanus toxoid, redu connie diphtheria toxoid, and acellular pertussis vaccine, adsorbed [facility]: Payers Date Payer Category Payer Self-pay [id number] 2021 Medicare HUMANA MEDICARE HU[employer]NA MEDICARE PPO [id number] 2021-Present [phone] [place] [address] PPO [id number] 2021 Medicare (Managed Care) POLLY PLUMMER [id number] 2021 Medicare [id number] 2019 Medicare [id number] Unknown [employer] [id number] Unknown [id number] Unknown [id number] Unknown [id number] Unknown [id number] Unknown [id number] Unknown [id number] Unknown [id number] Unknown [id number] Social History Date Type Detail Facility Start: 05-11-2018 End: 12-13-2024 Tobacco smoking status NHIS Ex-smoker [facility] Start: 06-12-2021 End: 04-03-2025 Alcohol intake Current drinker of alcohol (finding) [facility] Start: 06-12-2021 End: 04-22-2023 Alcohol intake [facility] Start: 05-22-2021 End: 10-28-2022 History SDOH Alcohol Frequency 4 [facility] Start: 05-22-2021 End: 10-28-2022 History SDOH Alcohol Std Drinks 1 [facility] Start: 05-22-2021 End: 10-28-2022 History SDOH Social Connections Phone 5 [facility] Start: 05-22-2021 End: 10-28-2022 History SDOH Social Connections Get Together 98 [facility] Start: 05-22-2021 End: 10-28-2022 History SDOH Social Connections Quaker 2 [facility] Start: 05-22-2021 End: 10-28-2022 History SDOH Social Connections Meetings 3 [facility] Start: 05-22-2021 History SDOH Physica l Activity DPW 0 [facility] Start: 05-21-2021 Education 12 [facility] Start: 1945 Sex Assigned At Not on file C [facility] History of tobacco use Current smoker [facility] Work Phone: Start: 05-11-2018 End: 12-13-2024 Tobacco use and exposure Smokeless tobacco non-user [facility] Work Phone: Start: 10-17-2022 End: 11-10-2022 Tobacco smoking status INIS Unknown if ever smoked [facility] Start: 1945 Sex Assigned At Female W [facility] Start: 10-28-2022 End: 04-22-2023 Social connection and isolation panel [facility] How often do you att end worship or latter day services? Patient refused [facility] Do you belong to any clubs or organizations such as worship groups, unions, fraternal or athletic groups, or school groups? Yes [facility] Are you now , , , , never or living with a partner? [facility] How often to you hav e a drink containing alcohol? 2-4 times a month [facility] How many standard dr inks containing alcohol do you have on a typical day? 1 or 2 [facility] How often do you hav e 6 or more drinks on 1 occasion? Never [facility] Do you feel stress - tense, restless, nervous, or anxious, or unable to sleep at night because your mind is troubled all the time - these days [OSQ] Only a little [facility] (I/We) worried wheth er (my/our) food would run out before (I/we) got money to buy more. DK or Refused [facility] In the past 12 month s, was there a time when you were not able to pay the mortgage or rent on time? No [facility] Are you now , , , , never or living with a partner? [facility] How often to you hav e a drink containing alcohol? 2-3 time sa week [facility] How hard is it for y ou to pay for the very basics like food, housing, medical care, and heating Not very hard [facility] (I/We) worried wheth er (my/our) food would run out before (I/we) got money to buy more. Never true [facility] Start: 04-24-2021 End: 05-24-2021 Exposure to SARS-CoV-2 (event) Not sure [facility] Start: 12-13-2024 Tobacco Comment quit smoking 1982 [facility] Medical Equipment Procedure Code Equipment Code Equipment Origin al Text Equipment Identifier Dates test daily [id number] Start: 11-07-2009 Comment on above: test daily Drug-eluting coronary artery stent, gkh-okscmmfftmior-h olymer-coated [id number] FDA Start: 10-20-2022 Goals Date Patient Goal Desired Activity /State Functional Status Date Assessment Result Facility 10-21-2022 Functional status Up ad durga [facility] Work Phone: 02-26-2015 Are you deaf, or do you have serious difficulty hearing No 02/26/2015 2:07 PM EDT Abbey Cárdenas MA No [facility] 02-26-2015 Are you blind, or do you have serious difficulty seeing, even when wearing glasses No 02/26/2015 2:07 PM EDT Abbey Cárdenas MA No [facility] 02-26-2015 Do you have serious difficulty walking or climbing stairs Yes 02/26/2015 2:07 PM EDT Abbey Cárdenas MA Yes [facility] 02-26-2015 Do you have difficul ty dressing or bathing No 02/26/2015 2:07 PM EDT Abbey Cárdenas MA No [facility] 02-26-2015 Because of a physica l, mental, or emotional condition, do you have difficulty doing errands alone such as visiting a physician's office or shopping No 02/26/2015 2:07 PM EDT Abbey Cárdenas MA No [facility] Mental Status Date Assessment Result Facility 10-21-2022 Cognitive function Voice/Name [facility] Work Phone: 10-17-2022 Cognitive function Level Of Cons ciousness Awake;Alert;Appropriate;Fol lows Commands [facility] Work Phone: 02-26-2015 Because of a physica l, mental, or emotional condition, do you have serious difficulty concentrating, remembering, or making decisions No 02/26/2015 2:07 PM EDT Abbey Cárdenas MA No [facility] Clinical Notes 07-16-2009 to 04-04-2025 Telephone Encounter - Mela Hawley LPN - 04/04/2025 9:21 AM EDTTelephone Encounter - Mela Hawley LPN - 04/04/2025 9:21 AM EDTPatient Jeanette Villagomez APRN.BASEBALL INSPECTOR - 04/03/2025 2:14 PM EDT Note Date & Type Note Facility 04-04-2025 Miscellaneous Notes Images from the original note were not included. Electronic PA rec'd and completed for nystatin. This was approved. Prior authorization approved Payer: [employer] [phone] Note from payer: JOHN Case: [id number], Status: Approved, Coverage Starts on: 10/12/2024 12:00:00 AM, Coverage Ends on: 10/11/2025 12:00:00 AM. Questions? Contact . Approval Details Authorization number: 0 Authorized from October 12, 2024 to October 11, 2025 Electronic appeal: Not supported View History Notes Time User Attachment Attachment received from payer. 04/04/2025 9:13 AM [facility], Rx Priorauth In Document Medication Being Authorized nystatin (MYCOSTATIN) powder Apply 1 application to affected area four times daily. Dispense: 30 g Refills: 1 Start: 04/03/2025 Class: Normal This order has been released to its destination. To be filled at: [facility] [address] [place], [place] [id number] [place] [address] Pharmacy notified. documented in this encounter [facility] 04-04-2025 Telephone encounter Note Images from the original note were not included. Electronic JOHN rec'd and completed for nystatin. This was approved. Prior authorization approved Payer: [facility] [phone] Note from payer: JOHN Case: [id number], Status: Approved, Coverage Starts on: 10/12/2024 12:00:00 AM, Coverage Ends on: 10/11/2025 12:00:00 AM. Questions? Contact . Approval Details Authorization number: [id number] Authorized from October 12, 2024 to October 11, 2025 Electronic appeal: Not supported View History Notes Time User Attachment Attachment received from payer. 04/04/2025 9:13 AM [facility], Rx Priorauth In Document Medication Being Authorized nystatin (MYCOSTATIN) powder Apply 1 application to affected area four times daily. Dispense: 30 g Refills: 1 Start: 04/03/2025 Class: Normal This order has been released to its destination. To be filled at: [facility] [address] [place] [id number] [id number] [facility] [phone] [id number] Pharmacy notified. [facility] 04-03-2025 Instructions Jeanette Mitchell APRN.CNP - 04/03/2025 2:38 PM EDT - Your total right hip replacement is scheduled for April [address] Harden using the anterior approach. - Attend the echocardiogram on Thursday as scheduled to complete your pre-operative clearance as ordered by cardiology - Stay well hydrated and avoid ibuprofen, naproxen (Aleve), and other NSAIDs; use Tylenol if you need a pain reliever before surgery to protect your kidneys. - Continue glymepiride 1 tablet twice daily for blood sugar control. - Continue carvedilol (Coreg) 12.5 mg twice daily and amlodipine 2.5 mg at night for blood pressure. - Continue your daily baby aspirin and rosuvastatin as prescribed. - For the rash under your breast and abdominal folds: take one dose of oral Diflucan today or tomorrow, then repeat one dose 3 days later; after surgery, if the rash recurs, apply the antifungal powder to clean, dry skin folds up to 4 times daily. - To manage your umbilical hernia: drink plenty of water and use a stool softener to keep bowel movements soft and regular (at least every other day); schedule a general surgery appointment to evaluate the hernia; if it becomes hard, painful, cannot be pushed back in, or if you cannot pass gas or have a bowel movement, go to the emergency department. - If you choose to get RSV or tetanus vaccines after surgery, receive them at your pharmacy (Medicare covers vaccines administered there). documented in this encounter [facility] 04-03-2025 Note HNO ID: [id number] Author: JEANETTE MITCHELL APRN.CNP Service: ? Author Type: Nurse Practitioner Type: Progress Notes Filed: 04/03/2025 15:56 Note Text: CC: Patient presents with: Pre-Op Exam: Pre -Op R hip replacement HPI Arabella Bosch is a 79 year old female who presents today for preop exam. Recording using [email or web address] software for draft documentation of the visit was discussed with the patient/authorized collections representative; all questions welcomed and answered. Patient/authorized collections representative agreed to proceed Pre-Operative Evaluation: - Scheduled for right total hip arthroplasty on April 17, to be performed by Dr. Blanc, [facility]. - Underwent pre-operative blood work and cardiology evaluation, including an EKG; no issues or concerns noted. - Cleared for surgery by cardiology; echocardiogram scheduled for Thursday. CKD: - Chronic kidney disease with stable GFR in the 50s; previously in the 40s. - Advised to stay hydrated and avoid NSAIDs. DM: - Hemoglobin A1c: 6.8. - Takes glimepiride 1 tablet BID. - Monitors blood glucose at home, though not on a regular schedule. - Rare episodes of hypoglycemia, approximately once every 4-5 months, typically occurring a few hours after lunch. - Denies increased thirst, hunger, or numbness. HTN/HLD: - Takes amlodipine 2.5 mg and Coreg 12.5 mg BID. - Recently increased Coreg dosage to ensure optimal blood pressure control for surgery. - Monitors blood pressure at home once a day; readings in the 130s/78-82 mmHg. - Takes rosuvastatin. - Recent LDL levels were high, prompting a switch from atorvastatin to rosuvastatin as ordered by cardiology. - Denies abnormal chest pain, dyspnea, edema, or palpitations. - Denies severe persistent headaches. Nocturia: - Arabella reports nocturia, waking 3-4 times per night to urinate. Has had this for a long time without change. - Denies dysuria, dark or foul-smelling urine, abdominal pain, fever, or chills. - Questions if tramadol, taken once daily for pain, could be contributing to nocturia. Is hoping to stop daily tramadol after surgery recovery. GERD: - Takes pantoprazole; denies dysphagia, abdominal pain, nausea, or emesis. Rash: - Intermittent bright red rash with occasional bumps, pruritus, and burning sensation. - Localized to the right side, under the breast, abdominal fold, and groin. - Only present in abdominal fold and groin at this time Umbilical Hernia: - Soft and reducible umbilical hernia; denies pain. - Believes constipation may have contributed to the hernia's development. - denies abdominal pain, nausea, vomiting, or constipation at this time METS: Walk indoors, such as around the house (1.75 METs): YES Do light work around the house, such as dusting or washing dishes (2.70 METs): YES Take care of self; that is eating, dressing, bathing, using the toilet (2.75 METs): YES Walk a block or two on level ground (2.75 METs): YES Do moderate work around the house such as vacuuming, sweeping floors, or carrying in groceries (3.50 METs): YES Do yardwork, such as raking leaves, weeding,or pushing a power mower (4.50 METs): Does not perform due to hip and back issues, so unknown Climb a flight of stairs or walk up a hill (5.50 METs): YES Participate in moderate recreational activities, such as golf, bowling, dancing, doubles tennis, or throwing a baseball or football (6.00 METs): NO Participate in strenuous sport, such as swimming, singles tennis, football, basketball, or skiing (7.50 METs): NO Do heavy work around the house, such as scrubbing floors, lifting or moving heavy furniture (8.00 METs): NO Run a short distance (8.00 METs): NO Total: 5.50 Patient denies any chest pain or undue shortness of breath with the above physical activity. 1. Diabetes: Oral 2. Hypertension requiring medication: Yes 3. Congestive Heart Failure: No 4. Current Smoker within 1 Year: No 5. History of COPD: No 6. History of TRINIDAD: No 7. Dialysis: No REVIEW OF SYSTEMS General: no fevers, no chills, no night sweats, no recurrent infections, no change in appetite, no change in energy, and no significant changes in weight HEENT: no frequent or significant headaches, no changes in hearing, no visual changes, no nose bleeds, no sinus or nasal problems Neck: no lumps, no pain , and no swelling Respiratory: no cough, no wheezing, no shortness of breath, no hemoptysis Cardiovascular: no chest pain, no chest pressure, no palpitations, and no swelling GI: No nausea, vomiting, or diarrhea : No history of dysuria, frequency or incontinence Neurologic: No headache, weakness, numbness, dizziness, memory loss, syncope. PAST MEDICAL HISTORY Diagnosis Date Benign hypertensive heart disease without heart failure 04/12/03 Cervical arthritis 09/01/2014 Esophageal reflux 08/14 Hyperlipidemia LDL goal < 100 08/31/2013 Morbid obesity (HCC) 08/09/2012 Other and unspecified h (more content not included)... [facility] 04-03-2025 History of Present illness Narrative CC: Patient presents with: Pre-Op Exam: Pre -Op R hip replacement HPI Arabella Bosch is a 79 year old female who presents today for preop exam. Recording using [email or web address] software for draft documentation of the visit was discussed with the patient/authorized collections representative; all questions welcomed and answered. Patient/authorized collections representative agreed to proceed Pre-Operative Evaluation: - Scheduled for right total hip arthroplasty on April 17, to be performed by Dr. Blanc, [facility]. - Underwent pre-operative blood work and cardiology evaluation, including an EKG; no issues or concerns noted. - Cleared for surgery by cardiology; echocardiogram scheduled for Thursday. CKD: - Chronic kidney disease with stable GFR in the 50s; previously in the 40s. - Advised to stay hydrated and avoid NSAIDs. DM: - Hemoglobin A1c: 6.8. - Takes glimepiride 1 tablet BID. - Monitors blood glucose at home, though not on a regular schedule. - Rare episodes of hypoglycemia, approximately once every 4-5 months, typically occurring a few hours after lunch. - Denies increased thirst, hunger, or numbness. HTN/HLD: - Takes amlodipine 2.5 mg and Coreg 12.5 mg BID. - Recently increased Coreg dosage to ensure optimal blood pressure control for surgery. - Monitors blood pressure at home once a day; readings in the 130s/78-82 mmHg. - Takes rosuvastatin. - Recent LDL levels were high, prompting a switch from atorvastatin to rosuvastatin as ordered by cardiology. - Denies abnormal chest pain, dyspnea, edema, or palpitations. - Denies severe persistent headaches. Nocturia: - Arabella reports nocturia, waking 3-4 times per night to urinate. Has had this for a long time without change. - Denies dysuria, dark or foul-smelling urine, abdominal pain, fever, or chills. - Questions if tramadol, taken once daily for pain, could be contributing to nocturia. Is hoping to stop daily tramadol after surgery recovery. GERD: - Takes pantoprazole; denies dysphagia, abdominal pain, nausea, or emesis. Rash: - Intermittent bright red rash with occasional bumps, pruritus, and burning sensation. - Localized to the right side, under the breast, abdominal fold, and groin. - Only present in abdominal fold and groin at this time Umbilical Hernia: - Soft and reducible umbilical hernia; denies pain. - Believes constipation may have contributed to the hernia's development. - denies abdominal pain, nausea, vomiting, or constipation at this time METS: Walk indoors, such as around the house (1.75 METs): YES Do light work around the house, such as dusting or washing dishes (2.70 METs): YES Take care of self; that is eating, dressing, bathing, using the toilet (2.75 METs): YES Walk a block or two on level ground (2.75 METs): YES Do moderate work around the house such as vacuuming, sweeping floors, or carrying in groceries (3.50 METs): YES Do yardwork, such as raking leaves, weeding,or pushing a power mower (4.50 METs): Does not perform due to hip and back issues, so unknown Climb a flight of stairs or walk up a hill (5.50 METs): YES Participate in moderate recreational activities, such as golf, bowling, dancing, doubles tennis, or throwing a baseball or football (6.00 METs): NO Participate in strenuous sport, such as swimming, singles tennis, football, basketball, or skiing (7.50 METs): NO Do heavy work around the house, such as scrubbing floors, lifting or moving heavy furniture (8.00 METs): NO Run a short distance (8.00 METs): NO Total: 5.50 Patient denies any chest pain or undue shortness of breath with the above physical activity. 1. Diabetes: Oral 2. Hypertension requiring medication: Yes 3. Congestive Heart Failure: No 4. Current Smoker within 1 Year: No 5. History of COPD: No 6. History of TRINIDAD: No 7. Dialysis: No REVIEW OF SYSTEMS General: no fevers, no chills, no night sweats, no recurrent infections, no change in appetite, no change in energy, and no significant changes in weight HEENT: no frequent or significant headaches, no changes in hearing, no visual changes, no nose bleeds, no sinus or nasal problems Neck: no lumps, no pain , and no swelling Respiratory: no cough, no wheezing, no shortness of breath, no hemoptysis Cardiovascular: no chest pain, no chest pressure, no palpitations, and no swelling GI: No nausea, vomiting, or diarrhea : No history of dysuria, frequency or incontinence Neurologic: No headache, weakness, numbness, dizziness, memory loss, syncope. PAST MEDICAL HISTORY Diagnosis Date Benign hypertensive heart disease without heart failure 04/12/03 Cervical arthritis 09/01/2014 Esophageal reflux 08/14 Hyperlipidemia LDL goal < 100 08/31/2013 Morbid obesity (HCC) 08/09/2012 Other and unspecified hyperlipidemia 05/15/04 Phlebitis and thrombophlebitis of unspecified site Type II or unspecified type diabetes mellitus without mention of complication, not stated as uncontrolled 05/15/04 PAST SURGICAL HISTORY Procedure Laterality Date ADENOIDECTOMY PRIMARY <AGE 10 Adenoidectomy APPENDECTOMY TONSILLECTOMY PRIMARY/SECONDARY <AGE 10 Tonsillectomy ALLERGIES Patient has no known allergies. MEDICATIONS rosuvastatin (CRESTOR) 20 mg tablet Take 1 tablet by mouth once daily. amLODIPine (NORVASC) 2.5 mg tablet Take 1 tablet by mouth once daily. nystatin (MYCOSTATIN) powder Apply 1 application to affected area four times daily. fluconazole (DIFLUCAN) 150 mg tablet Take 1 tablet by mouth one time only for 1 dose. Repeat in 3 days as needed. pantoprazole DR (PROTONIX) 20 mg tablet Take 1 tablet by mouth once daily. glimepiride (AMARYL) 1 mg tablet Take 1 tablet by mouth two times a day with meals. fluticasone (FLONASE) 50 mcg/actuation nasal spray Use 2 Sprays in each nostril once daily. Rinse mouth after use. carvedilol (COREG) 6.25 mg tablet Take 12.5 mg by mouth two times a day with meals. aspirin, enteric coated (ASPIRIN, ENTERIC COATED) 81 mg EC tablet Take 81 mg by mouth once daily. blood sugar diagnostic(ONE TOUCH ULTRA TEST STRIPS) test daily FAMILY HISTORY Problem Relation Age of Onset Cancer Mother Heart Father Thyroid Sister Stroke Maternal Grandmother Blood Disease Maternal Grandfather Cerebral Embolism Paternal Grandmother Social History Tobacco Use Smoking status: Former Smokeless tobacco: Never Tobacco comments: quit smoking 1983 Vaping Use Vaping status: Never Used Substance Use Topics Alcohol use: Yes Alcohol/week: 1.0 standard drink of alcohol Types: 1 Standard drinks or equivalent per week Drug use: No PHYSICAL EXAM BP 134/78 Pulse 62 Resp 16 Wt 102.1 kg (225 lb) SpO2 97% BMI 36.32 kg/m General Appearance: well appearing, in no acute distress, alert Neck: Thyroid normal size and symmetric without palpable nodules, Neck supple, No adenopathy Oropharynx: soft palate, uvula, and tonsils normal, palpation of salivary glands negative Lungs: Lungs clear to auscultation. No wheezing, rhonchi, rales. Heart: RRR with murmur, gallop, or rubs. No ectopy Abdomen: soft, nondistended, nontender, no hepatosplenomegaly - Soft reducible moderate sized umbilical hernia Extremities: No deformities, edema, skin discoloration, clubbing or cyanosis. Good capillary refill. Skin: erythema rash with satellite lesions to right side of abdominal fold and groin. No open areas noted. Diagnoses/Plan 1. Pre-operative evaluation Hgba1c, CBC, CMP already completed. EKG completed and reviewed by cardiology There is no known pertinent medical condition which may affect thiago-operative course [place] risk: Patient is scheduled for a low/intermediate-risk procedure. Risk of 0.1% calculated using the NSQIP surgical risk calculator The patient is optimized for surgery Assessment/Plan 1. Preop exam for internal medicine (Z01.818) - Scheduled for total right hip arthroplasty on April 17, to be performed by Dr. Harden via anterior approach. - Reviewed recent lab work: CBC within normal limits, HbA1c at 6.8%, cholesterol levels with elevated LDL, liver enzymes normal. - Cylinder Machine Operator cleared patient for surgery; EKG without concerns per cardiology. Echocardiogram scheduled for Thursday. - Advised patient to discuss preoperative anxiolytic options with surgical team. 2. Essential hypertension, benign (I10) - Blood pressure well-controlled on amlodipine 2.5 mg daily and carvedilol 12.5 mg BID. - Discontinued clopidogrel; currently taking low-dose aspirin. - Patient monitors blood pressure at home, readings consistently in the 130s/78-82 mmHg. - starting regular physical activity, healthy well portioned, low fat, low salt diet will help to further improve this 3. Type 2 diabetes mellitus with chronic kidney disease, without long-term current use of insulin, unspecified CKD stage (HCC) (E11.22) - HbA1c at 6.8%, indicating good glycemic control. - Managed with glimepiride 1 tablet BID. - Occasional episodes of hypoglycemia noted, likely due to low carbohydrate intake and not occurring often. If this increases, can consider switching to an extended release - Advised to monitor blood glucose levels more regularly. 4. Hyperlipidemia with target LDL less than 100 (E78.5) - LDL cholesterol elevated; switched from atorvastatin to rosuvastatin by cardiology - Continue current statin therapy. - starting regular physical activity, healthy well portioned, low fat, low salt diet will help to further improve this 5. Gastroesophageal reflux disease, unspecified whether esophagitis present (K21.9) - Controlled with pantoprazole; no dysphagia, abdominal pain, nausea, or vomiting reported. - Continue current medication regimen. 6. Intertrigo (L30.4) - Present in inframammary, abdominal, and groin folds; erythematous with occasional pruritus and burning. - Prescribed fluconazole to be taken today or tomorrow and repeated in 3 days. - Advised use of nystatin powder QID as needed, ensuring area is clean and dry before application. - Educated on keeping skin folds dry using soft towels or pillowcases. 7. Umbilical hernia without obstruction and without gangrene (K42.9) - Reducible and non-tender on examination. - Advised to maintain regular bowel movements to prevent exacerbation. - Referral to general surgery for evaluation post-operatively. - Instructed to seek emergency care if hernia becomes irreducible or painful. 8. Stage 3b chronic kidney disease (HCC) (N18.32) - Stable with eGFR in the 50s. - Advised to maintain adequate hydration and avoid NSAIDs. - Tylenol is safe for use. 9. Encounter for immunization (Z23) - Discussed RSV and tetanus vaccines; advised to obtain post-operatively at pharmacy for Medicare coverage. 10. Nocturia (R35.1) - Frequent nocturnal urination (3-4 times per night) with significant volume. - No dysuria, hematuria, or foul-smelling urine reported. - Monitor post-operatively to assess if symptoms improve after discontinuation of tramadol. Prescription instructions reviewed with patient as applicable. Potential red flag symptoms discussed with the patient. Reviewed appropriate action plan to take if red flag symptoms occur. Patient agreeable to treatment plan. Jeanette Mitchell APRN.CNP documented in this encounter [facility] 03-29-2025 Telephone encounter Note Nicolette with [facility] calls to report that patient is actually scheduled with [facility] PAT nurse to have pre-op testing completed on Thursday and will have labs completed there. Requesting orders for Jeanette to also be faxed so patient doesn't have to have lab work completed twice. Verified with patient. Faxed orders to [facility] PAT nurse: Lynda at [phone]. Cancelled appointment with [facility] on Thursday03/31/2025 for lab work. Jason Lowry RN [facility] 03-29-2025 Miscellaneous Notes Nicolette with [facility] calls to report that patient is actually scheduled with [facility] PAT nurse to have pre-op testing completed on Thursday and will have labs completed there. Requesting orders for Jeanette to also be faxed so patient doesn't have to have lab work completed twice. Verified with patient. Faxed orders to [facility] PAT nurse: Lynda at [phone]. Cancelled appointment with [facility] on Thursday03/31/2025 for lab work. Jason Lowry RN Lakshmi with [facility] calls to report pt needs some labs done for pre-op. Pt told Lakshmi that she was already getting some labs done her at the clinic on Thursday and wants to get all done at the same time. Lakshmi is asking if provider can add: Albumin Cbc MRSA, MSSA Call Lakshmi if there is a problem. Add these lab orders to pt's lab appt for Thursday. Denise Johnson LPN documented in this encounter [facility] 03-28-2025 Telephone encounter Note Lakshmi with [facility] calls to report pt needs some labs done for pre-op. Pt told Lakshmi that she was already getting some labs done her at the clinic on Thursday and wants to get all done at the same time. Lakshmi is asking if provider can add: Albumin Cbc MRSA, MSSA Call Lakshmi if there is a problem. Add these lab orders to pt's lab appt for Thursday. Denise Johnson LPN [facility] 03-22-2025 Telephone encounter Note Patient has been identified by name and date of : Yes Patient phones for refill(s): Requested Prescriptions Pending Prescriptions Disp Refills pantoprazole DR (PROTONIX) 20 mg tablet 90 tablet 3 Sig: Take 1 tablet by mouth once daily. Date of last office visit in primary care: 06/30/2024 Date of next office visit in primary care: 04/03/2025 Please advise. Thank you. Dominique Mckay LPN. [facility] 03-22-2025 Miscellaneous Notes Patient has been identified by name and date of : Yes Patient phones for refill(s): Requested Prescriptions Pending Prescriptions Disp Refills pantoprazole DR (PROTONIX) 20 mg tablet 90 tablet 3 Sig: Take 1 tablet by mouth once daily. Date of last office visit in primary care: 06/30/2024 Date of next office visit in primary care: 04/03/2025 Please advise. Thank you. Dominique Mckay LPN. documented in this encounter [facility] 03-21-2025 Note Patient Outreach (IN [facility]MMN) ARABELLA BOSCH ([id number]) 1945 F Date Time Provider Department 03/21/25 MEGA AQUINO During your visit today, we recorded the following information about you: Allergies As of Date: 03/21/2025 (No Known Allergies) Date Reviewed: 12/13/2024 Reviewed by: Radha Hadley MA - Fully Assessed Visit Diagnoses:Type 2 diabetes mellitus with chronic kidney disease, without long-term current use of insulin, unspecified CKD stage (HCC) [E11.22] Hyperlipidemia with target LDL less than 100 [E78.5] Order(s):BASIC METABOLIC PANEL [SQBMP] Order #: [id number] FUTURE HEMOGLOBIN A1C [WWACJ1E] Order #: [id number] FUTURE LIPID PANEL, FASTING [SQLIPB] Order #: [id number] FUTURE Prescriptions as of 03/24/2025 - pantoprazole DR (PROTONIX) 20 mg tablet Take 1 tablet by mouth once daily. - glimepiride (AMARYL) 1 mg tablet Take 1 tablet by mouth two times a day with meals. - fluticasone (FLONASE) 50 mcg/actuation nasal spray Use 2 Sprays in each nostril once daily. Rinse mouth after use. - atorvastatin (LIPITOR) 80 mg tablet Take 1 tablet by mouth once daily. - carvedilol (COREG) 6.25 mg tablet - metFORMIN ER (GLUCOPHAGE XR) 500 mg 24 hr tablet Take 1 tablet by mouth daily with breakfast. - clopidogrel (PLAVIX) 75 mg tablet Take 75 mg by mouth once daily. - aspirin, enteric coated (ASPIRIN, ENTERIC COATED) 81 mg EC tablet Take 81 mg by mouth once daily. - blood sugar diagnostic(ONE TOUCH ULTRA TEST STRIPS) test daily Problem List As Of Date 03/21/2025 Noted Resolved BENIGN HYPERTENSION [I10] 06/12/2005 ESOPHAGEAL REFLUX [K21.9] 06/12/2005 Other and unspecified hyperlipidemia [E78.5] 06/12/2005 08/31/2013 OSTEOARTHROS NOS-UNSPEC [M19.90] 06/12/2005 ROTATOR CUFF SYND NOS [M71.9, M67.919] 08/10/2008 02/26/2015 Plantar fasciitis [M72.2] 07/16/2009 02/26/2015 Spinal stenosis in cervical region [M48.02] 08/15/2011 Spinal stenosis, lumbar region, without neuroge*08/15/2011 Morbid obesity [E66.01] 08/09/2012 Hyperlipidemia with target LDL less than 100 [E*08/31/2013 Cervical arthritis [M47.812] 09/01/2014 Rotator cuff syndrome of both shoulders [M75.10*08/29/2015 Systolic ejection murmur [R01.1] 08/25/2016 Statin intolerance [Z78.9] 07/04/2017 Type 2 diabetes mellitus with chronic kidney di*08/19/2018 Arthritis of knee [M17.10] 08/19/2018 Arthritis of carpometacarpal (CMC) joint of lef*05/27/2019 Encounter Status:Closed by EPIC, PRODUSER on 03/24/25 [facility] 03-02-2025 Evaluation note Diagnosis Onset Date Resolution Atherosclerosis of coronary artery of [place] heart without angina pectoris acute March 02, 2025 11:10am Cardiac murmur acute March 02, 2025 11:10am Hyperlipidemia acute March 02, 2025 11:10am Hypertension chronic March 02 11:10am [facility] Work Phone: [phone] NoteHNO ID: [id number] Author: ROSALINA BEAN PA-C Service: ? Author Type: Physician Side Trimmer Type: Progress Notes Filed: 12/14/2024 08:52 Note Text: 12/13/2024 Patient presents with: flu like symtoms: X1.5 week with sinus drainage/pressure x5 days AND sinus LAGUNAS xtoday SUBJECTIVE: This is a 79 year old that is here today for Complaint(s) of sinus pressure and congestion x 1.5 weeks. Intermittent sinus pain, more today. Purulent drainage per patient. Has a cough associated. Overall thinks she is improving slightly, but then still having sinus pain today and sinus LAGUNAS. Denies fever/chills, chest pain, wheezing, SOB, vomiting, diarrhea, worst LAGUNAS of life. Has tried OTC cold/flu medications with mild relief. Tried sudafed which was helpful. PAST MEDICAL HISTORY Diagnosis Date Benign hypertensive heart disease without heart failure 04/12/03 Cervical arthritis 09/01/2014 Esophageal reflux 08/14 Hyperlipidemia LDL goal < 100 08/31/2013 Morbid obesity (HCC) 08/09/2012 Other and unspecified hyperlipidemia 05/15/04 Phlebitis and thrombophlebitis of unspecified site Type II or unspecified type diabetes mellitus without mention of complication, not stated as uncontrolled 05/15/04 ALLERGIES Patient has no known allergies. MEDICATIONS Current Outpatient Medications Medication Sig glimepiride (AMARYL) 1 mg tablet Take 1 tablet by mouth two times a day with meals. fluticasone (FLONASE) 50 mcg/actuation nasal spray Use 2 Sprays in each nostril once daily. Rinse mouth after use. pantoprazole DR (PROTONIX) 20 mg tablet Take 1 tablet by mouth once daily. atorvastatin (LIPITOR) 80 mg tablet Take 1 tablet by mouth once daily. carvedilol (COREG) 6.25 mg tablet metFORMIN ER (GLUCOPHAGE XR) 500 mg 24 hr tablet Take 1 tablet by mouth daily with breakfast. clopidogrel (PLAVIX) 75 mg tablet Take 75 mg by mouth once daily. aspirin, enteric coated (ASPIRIN, ENTERIC COATED) 81 mg EC tablet Take 81 mg by mouth once daily. blood sugar diagnostic(ONE TOUCH ULTRA TEST STRIPS) test daily No current facility-administered medications for this visit. SOCIAL HISTORY Social History Tobacco Use Smoking status: Former Smokeless tobacco: Never Tobacco comments: quit smoking 1982 Substance Use Topics Alcohol use: Yes Drug use: No REVIEW OF SYSTEMS See HPI OBJECTIVE: BP 138/79 Pulse 86 Temp 36.6 ?C (97.8 ?F) (Oral) Resp 20 Wt 100.9 kg (222 lb 6.4 oz) SpO2 95% BMI 35.90 kg/m? APPEARANCE Well appearing, alert, in no acute distress, well-hydrated, well nourished. EYES PERRLA, conjunctiva and sclera normal. EARS External ears normal, canals clear. TMs normal BRENDA NOSE/SINUS Nares normal. Septum midline. Mucosa erythematous, No drainage or sinus tenderness. THROAT normal, no erythema NECK Supple, no adenopathy; HEART RRR with normal S1 and S2, LUNG clear to auscultation, No wheezing, rhonchi, rales. ASSESSMENT/PLAN: 1. Acute non-recurrent frontal sinusitis - ICD9: 461.1, ICD10: J01.10 - Will begin treatment with as per antibiotic as written if not improving in 3-4 days, sooner if worsening, see orders - The patient should also be given OTC cough and cold meds as needed, warm salt water gargles, throat lozenges and/or OTC throat spray as needed, and nasal saline gtts and suction prn for the first 5-7 days of treatment. - Supportive care with plenty of fluids, rest, and analgesia prn. - Follow up in 5-7 days if symptoms persist or worsen. - AMOXICILLIN 875 MG-POTASSIUM CLAVULANATE 125 MG TABLET The patient indicates understanding of these issues and agrees with the plan. Reviewed red flags and when to seek care sooner. JOHN [facility]03-04-2025 History of Present illness Narrative* Rosalina Bean PA-C - 12/13/2024 2:14 PM EST 12/13/2024 Patient presents with: flu like symtoms: X1.5 week with sinus drainage/pressure x5 days & sinus LAGUNAS xtoday SUBJECTIVE: This is a 79 year old that is here today for Complaint(s) of sinus pressure and congestion x 1.5 weeks. Intermittent sinus pain, more today. Purulent drainage per patient. Has a cough associated. Overall thinks she is improving slightly, but then still having sinus pain today and sinus LAGUNAS. Denies fever/chills, chest pain, wheezing, SOB, vomiting, diarrhea, worst LAGUNAS of life. Has tried OTC cold/flu medications with mild relief. Tried sudafed which was helpful. PAST MEDICAL HISTORY Diagnosis Date Benign hypertensive heart disease without heart failure 04/12/03 Cervical arthritis 09/01/2014 Esophageal reflux 08/14 Hyperlipidemia LDL goal < 100 08/31/2013 Morbid obesity (HCC) 08/09/2012 Other and unspecified hyperlipidemia 05/15/04 Phlebitis and thrombophlebitis of unspecified site Type II or unspecified type diabetes mellitus without mention of complication, not stated as uncontrolled 05/15/04 ALLERGIES Patient has no known allergies. MEDICATIONS Current Outpatient Medications Medication Sig glimepiride (AMARYL) 1 mg tablet Take 1 tablet by mouth two times a day with meals. fluticasone (FLONASE) 50 mcg/actuation nasal spray Use 2 Sprays in each nostril once daily. Rinse mouth after use. pantoprazole DR (PROTONIX) 20 mg tablet Take 1 tablet by mouth once daily. atorvastatin (LIPITOR) 80 mg tablet Take 1 tablet by mouth once daily. carvedilol (COREG) 6.25 mg tablet metFORMIN ER (GLUCOPHAGE XR) 500 mg 24 hr tablet Take 1 tablet by mouth daily with breakfast. clopidogrel (PLAVIX) 75 mg tablet Take 75 mg by mouth once daily. aspirin, enteric coated (ASPIRIN, ENTERIC COATED) 81 mg EC tablet Take 81 mg by mouth once daily. blood sugar diagnostic(ONE TOUCH ULTRA TEST STRIPS) test daily No current facility-administered medications for this visit. SOCIAL HISTORY Social History Tobacco Use Smoking status: Former Smokeless tobacco: Never Tobacco comments: quit smoking 1982 Substance Use Topics Alcohol use: Yes Drug use: No REVIEW OF SYSTEMS See HPI OBJECTIVE: BP 138/79 Pulse 86 Temp 36.6 C (97.8 F) (Oral) Resp 20 Wt 100.9 kg (222 lb 6.4 oz) SpO2 95% BMI 35.90 kg/m APPEARANCE Well appearing, alert, in no acute distress, well-hydrated, well nourished. EYES PERRLA, conjunctiva and sclera normal. EARS External ears normal, canals clear. TMs normal BRENDA NOSE/SINUS Nares normal. Septum midline. Mucosa erythematous, No drainage or sinus tenderness. THROAT normal, no erythema NECK Supple, no adenopathy; HEART RRR with normal S1 and S2, LUNG clear to auscultation, No wheezing, rhonchi, rales. ASSESSMENT/PLAN: 1. Acute non-recurrent frontal sinusitis - ICD9: 461.1, ICD10: J01.10 - Will begin treatment with as per antibiotic as written if not improving in 3-4 days, sooner if worsening, see orders - The patient should also be given OTC cough and cold meds as needed, warm salt water gargles, throat lozenges and/or OTC throat spray as needed, and nasal saline gtts and suction prn for the first 5-7 days of treatment. - Supportive care with plenty of fluids, rest, and analgesia prn. - Follow up in 5-7 days if symptoms persist or worsen. - AMOXICILLIN 875 MG-POTASSIUM CLAVULANATE 125 MG TABLET The patient indicates understanding of these issues and agrees with the plan. Reviewed red flags and when to seek care sooner. Rosalina Bean PA-C documented in [facility] encounterMag[facility] Telephone encounter Note * Telephone Encounter - Jason Lowry RN - 12/12/2024 11:33 AM EST Patient calls for sinus pressure and drainage times a little over a week and a half. Nurse triage completed. Protocol recommends see provider within 3 days. Appt completed. Protocol recommends see provider within 3 days. Appt scheduled. Care advice reviewed with verbalized understanding. Reason for Disposition [1] Sinus congestion (pressure, fullness) AND [2] present > 10 days Answer Assessment - Initial Assessment Questions 1. LOCATION: Bilateral sinus pressure 2. ONSET: Over a week and a half ago 3. SEVERITY: - MODERATE (4-7): Interferes with normal activities (e.g., work or school) or awakens from sleep. 4. RECURRENT SYMPTOM: Yes has been on antibiotics previously 5. NASAL CONGESTION: Nasal congestion but using nasal spray and able to breathe. 6. NASAL DISCHARGE: Yes, clear to green. 7. FEVER: Patient doesn't think so 8. OTHER SYMPTOMS: Cough, sore throat previously. No earache or difficulty breathing. Protocols used: Sinus Pain or [id number] [facility]03-03-[facility]25 Miscellaneous Notes* Telephone Encounter - Jason Lowry RN - 12/12/2024 11:33 AM EST Patient calls for sinus pressure and drainage times a little over a week and a half. Nurse triage completed. Protocol recommends see provider within 3 days. Appt completed. Protocol recommends see provider within 3 days. Appt scheduled. Care advice reviewed with verbalized understanding. Reason for Disposition [1] Sinus congestion (pressure, fullness) AND [2] present > 10 days Answer Assessment - Initial Assessment Questions 1. LOCATION: Bilateral sinus pressure 2. ONSET: Over a week and a half ago 3. SEVERITY: - MODERATE (4-7): Interferes with normal activities (e.g., work or school) or awakens from sleep. 4. RECURRENT SYMPTOM: Yes has been on antibiotics previously 5. NASAL CONGESTION: Nasal congestion but using nasal spray and able to breathe. 6. NASAL DISCHARGE: Yes, clear to green. 7. FEVER: Patient doesn't think so 8. OTHER SYMPTOMS: Cough, sore throat previously. No earache or difficulty breathing. Protocols used: Sinus Pain or [id number] documented in this encounterMag[facility]09-23-2024 Telephone encounter Note * Telephone Encounter - Cara Gordon MA - 07/04/2024 10:07 AM EDT Patient notified. [facility]09-[facility] Miscellaneous Notes* Telephone Encounter - Cara Gordon MA - 07/04/2024 10:07 AM EDT Patient notified. * Telephone Encounter - Jeanette Mitchell APRN.PSARKLE - 07/04/2024 9:32 AM EDT Urinary tract infection is resistant to the pcn based antibiotic she is taking for a sinus infection. I am adding an additional antibitotic. How is she feeling? Thank you Jeanette Mitchell APRN.CNP documented in this encounterMagruder [facility]09-23-2024 Telephone encounter Note * Telephone Encounter - Jeanette Mitchell APRN.CNP - 07/04/2024 9:32 AM EDT Urinary tract infection is resistant to the pcn based antibiotic she is taking for a sinus infection. I am adding an additional antibitotic. How is she feeling? Thank you Jeanette Mitchell APRN.CNP [facility]09-19-2024 History of Present illness Narrative* Mickey Olmedo RT(R) - 06/30/2024 3:20 PM EDT Radiology Service Progress Note PATIENT NAME: Arabella Bosch DATE OF SERVICE: June 30, 2024 TIME: 3:14 PM PATIENT IDENTITY VERIFICATION COMPLETED USING TWO (2) IDENTIFIERS: Name and Date of confirmedby patient verbally. FALL SCREENING: Has the patient had 2 falls in the last year or 1 fall with injury or currently using an Ambulatory Assistive Device (Walker, Cane, Wheelchair, Crutches, etc.)? Yes, Patient High Riskfor Falls What interventions were put in place to prevent falls during this visit? Offered Assistance with Transfers/Clothing, Instructed Patient to Remain Seated (Not on Exam Table) Until Exam, and Increased Observations by Caregivers PATIENT GENDER DATA: Female. status: : No status: NO. PATIENT RELEVANT IMPLANT DATA REVIEWED: Yes PATIENT PRESENTS WITH AN IMPLANTABLE OR ATTACHED INSIDE SALES TERRITORY MANAGER: No RADIOLOGY DEPARTMENT: General X-ray: Exam(s) Completed: Chest X-Ray PERIPHERAL IV DATA: Not applicable SIGNED BY: RT Dante(R) June 30, 2024 3:14 PM documented in this encounterMagruder [facility] Hospital09-19-2024 NoteHNO ID: [id number] Author: MICKEY OLMEDO RT(R) Service: ? Author Type: Mathematics Academic Chair Type: Progress Notes Filed: 06/30/2024 15:29 Note Text: Radiology Service Progress Note PATIENT NAME: Arabella Bosch DATE OF SERVICE: June 30, 2024 TIME: 3:14 PM PATIENT IDENTITY VERIFICATION COMPLETED USING TWO (2) IDENTIFIERS: Name and Date of confirmed by patient verbally. FALL SCREENING: Has the patient had 2 falls in the last year or 1 fall with injury or currently using an Ambulatory Assistive Device (Walker, Cane, Wheelchair, Crutches, etc.)? Yes, Patient High Risk for Falls What interventions were put in place to prevent falls during this visit? Offered Assistance with Transfers/Clothing, Instructed Patient to Remain Seated (Not on Exam Table) Until Exam, and Increased Observations by Caregivers PATIENT GENDER DATA: Female. status: : No status: NO. PATIENT RELEVANT IMPLANT DATA REVIEWED: Yes PATIENT PRESENTS WITH AN IMPLANTABLE OR ATTACHED INSIDE SALES TERRITORY MANAGER: No RADIOLOGY DEPARTMENT: General X-ray: Exam(s) Completed: Chest X-Ray PERIPHERAL IV DATA: Not applicable SIGNED BY: RT Dante(R) June 30, 2024 3:14 [facility]09-19-2024 NoteHNO ID: [id number] Author: JEANETTE MITCHELL APRN.BASEBALL INSPECTOR Service: ? Author Type: Nurse Practitioner Type: Progress Notes Filed: 06/30/2024 15:08 Note Text: CC: Patient presents with: Recheck: Follow up HPI Arabella Bosch is a 78 year old female who presents today for routine follow up but has a few concerns. DIABETES MELLITUS: Ms. Bosch denies excessive thirst or increased frequency of urination, chest pain or dyspnea , numbness, tingling or pain in extremities, new or unusual visual symptoms, low sugar/hypoglycemic reactions, weight loss/gain, lightheadedness/dizziness, and bowel changes/loose stools. Follows a diabetic diet most of the time. She is compliant with medication(s) and is tolerating med(s) without any side effects. She reports checking her glucose on a once a day schedule with sugars in the fasting 100s-120s range. Patient's last HgA1C was Hemoglobin A1C (%) Date Value 06/24/2024 6.5 01/29/2024 6.9 05/25/2019 6.5 08/17/2018 8.5 Hemoglobin A1C (POCT) (%) Date Value 06/12/2021 7.1 ) Last Ophthalmology exam was over a year ago and needs to schedule routine exam. HTN w/ CKD: Ms. Bosch indicates that she is feeling well and denies any symptoms referable to elevated blood pressure. Specifically denies headache, chest pain, palpitations, dyspnea, and peripheral edema. Patient denies any side effects of her medication(s) and is compliant with their regimen. She does not check BP's generally. Arabella denies regular aerobic exercise. She watches her diet for sodium, low fat and low cholesterol most of the time. Follows with [facility]. Last 3 Encounter BP Readings: Date: BP: 06/30/2024 130/80 02/01/2024 125/77[BP Bob[ 07/22/2023 138/80 Is feeling ill. 2 weeks ago started with sinus drainage and dry cough with scratchy throat. Symptoms resolved except cough has become deeper, more often, and producing white sputum. Also with sinus drainage (unknown in color), sinus pressure, or slight wheezing. Denies ear pain, fever, chills, headaches, shortness of breath, chest pain, edema, fatigue, and palpitations. Also with small amount of urinary leakage a few months ago. Happens with cough and wheezing but mostly with urgency. Denies abdominal pain, blood in urine, or pain with urination. REVIEW OF SYSTEMS See HPI PAST MEDICAL HISTORY Diagnosis Date Benign hypertensive heart disease without heart failure 04/12/03 Cervical arthritis 09/01/2014 Esophageal reflux 08/14 Hyperlipidemia LDL goal < 100 08/31/2013 Morbid obesity (HCC) 08/09/2012 Other and unspecified hyperlipidemia 05/15/04 Phlebitis and thrombophlebitis of unspecified site Type II or unspecified type diabetes mellitus without mention of complication, not stated as uncontrolled 05/15/04 PAST SURGICAL HISTORY Procedure Laterality Date ADENOIDECTOMY PRIMARY Adenoidectomy APPENDECTOMY TONSILLECTOMY PRIMARY/SECONDARY Tonsillectomy ALLERGIES Patient has no known allergies. MEDICATIONS pantoprazole DR (PROTONIX) 20 mg tablet Take 1 tablet by mouth once daily. atorvastatin (LIPITOR) 80 mg tablet Take 1 tablet by mouth once daily. glimepiride (AMARYL) 1 mg tablet Take 1 tablet by mouth two times a day with meals. carvedilol (COREG) 6.25 mg tablet metFORMIN ER (GLUCOPHAGE XR) 500 mg 24 hr tablet Take 1 tablet by mouth daily with breakfast. clopidogrel (PLAVIX) 75 mg tablet Take 75 mg by mouth once daily. aspirin, enteric coated (ASPIRIN, ENTERIC COATED) 81 mg EC tablet Take 81 mg by mouth once daily. blood sugar diagnostic(ONE TOUCH ULTRA TEST STRIPS) test daily FAMILY HISTORY Problem Relation Age of Onset Cancer Mother Heart Father Thyroid Sister Stroke Maternal Grandmother Blood Disease Maternal Grandfather Cerebral Embolism Paternal Grandmother Social History Tobacco Use Smoking status: Former Smokeless tobacco: Never Tobacco comments: quit smoking 1982 Substance Use Topics Alcohol use: Yes Drug use: No PHYSICAL EXAM BP 130/80 Pulse 64 Resp 16 Wt 108 kg (238 lb) SpO2 97% BMI 38.41 kg/m? General Appearance: well appearing, in no acute distress, alert Skin: Skin color, texture, turgor normal for age; Eyes: conjunctiva pink and moist, no icterus, sclera white, non-injected Ears: external ears normal to inspection and palpation, canals clear, Left tympanic membrane normal. , Right tympanic membrane normal Nose/sinus: Nares normal. Septum midline. Mucosa normal. No drainage., No sinus tenderness Neck: Thyroid normal size and symmetric without palpable nodules, Neck supple, No adenopathy Oropharynx: tongue midline and normal, soft palate, uvula, and tonsils normal, palpation of salivary glands negative Lymph nodes: No cervical lymphadenopathy and No supraclavicular lymphadenopathy Lungs: Lungs clear to auscultation. No wheezing, rhonchi, rales. Heart: RRR without murmur, gallop, or rubs. No ectopy Abdomen: Abdomen soft, non-tender. (more content not included)...[facility]09-19-2024 History of Present illness Narrative* Jeanette Mitchell APRN.BASEBALL INSPECTOR - 06/30/2024 2:33 PM EDT CC: Patient presents with: Recheck: Follow up HPI Arabella Bosch is a 78 year old female who presents today for routine follow up but has a few concerns. DIABETES MELLITUS: Ms. Bosch denies excessive thirst or increased frequency of urination, chest pain or dyspnea , numbness, tingling or pain in extremities, new or unusual visual symptoms, low sugar/hypoglycemic reactions, weight loss/gain, lightheadedness/dizziness, and bowel changes/loose stools.Follows a diabetic diet most of the time. She is compliant with medication(s) and is tolerating med(s) without any side effects. She reports checking her glucose on a once a day schedule with sugars in the fasting 100s-120s range. Patient's last HgA1C was Hemoglobin A1C (%) Date Value 06/24/2024 6.5 01/29/2024 6.9 05/25/2019 6.5 08/17/2018 8.5 Hemoglobin A1C (POCT) (%) Date Value 06/12/2021 7.1 ) Last Ophthalmology exam was over a year ago and needs to schedule routine exam. HTN w/ CKD: Ms. Bosch indicates that she is feeling well and denies any symptoms referable to elevated blood pressure. Specifically denies headache, chest pain, palpitations, dyspnea, and peripheral edema. Patient denies any side effects of her medication(s) and is compliant with their regimen. Shedoes not check BP's generally. Arabella denies regular aerobic exercise. She watches her diet for sodiu m, low fat and low cholesterol most of the time. Follows with [facility]. Last 3 Encounter BP Readings: Date: BP: 06/30/2024 130/80 02/01/2024 125/77[BP Bob[ 07/22/2023 138/80 Is feeling ill. 2 weeks ago started with sinus drainage and dry cough with scratchy throat. Symptoms resolved except cough has become deeper, more often, and producing white sputum. Also with sinus drainage (unknown in color), sinus pressure, or slight wheezing. Denies ear pain, fever, chills, headaches, shortness of breath, chest pain, edema, fatigue, and palpitations. Also with small amount of urinary leakage a few months ago. Happens with cough and wheezing but mostly with urgency. Denies abdominal pain, blood in urine, or pain with urination. REVIEW OF SYSTEMS See HPI PAST MEDICAL HISTORY Diagnosis Date Benign hypertensive heart disease without heart failure 04/12/03 Cervical arthritis 09/01/2014 Esophageal reflux 08/14 Hyperlipidemia LDL goal < 100 08/31/2013 Morbid obesity (HCC) 08/09/2012 Other and unspecified hyperlipidemia 05/15/04 Phlebitis and thrombophlebitis of unspecified site Type II or unspecified type diabetes mellitus without mention of complication, not stated as uncontrolled 05/15/04 PAST SURGICAL HISTORY Procedure Laterality Date ADENOIDECTOMY PRIMARY <AGE 12 Adenoidectomy APPENDECTOMY TONSILLECTOMY PRIMARY/SECONDARY <AGE 12 Tonsillectomy ALLERGIES Patient has no known allergies. MEDICATIONS pantoprazole DR (PROTONIX) 20 mg tablet Take 1 tablet by mouth once daily. atorvastatin (LIPITOR) 80 mg tablet Take 1 tablet by mouth once daily. glimepiride (AMARYL) 1 mg tablet Take 1 tablet by mouth two times a day with meals. carvedilol (COREG) 6.25 mg tablet metFORMIN ER (GLUCOPHAGE XR) 500 mg 24 hr tablet Take 1 tablet by mouth daily with breakfast. clopidogrel (PLAVIX) 75 mg tablet Take 75 mg by mouth once daily. aspirin, enteric coated (ASPIRIN, ENTERIC COATED) 81 mg EC tablet Take 81 mg by mouth once daily. blood sugar diagnostic(ONE TOUCH ULTRA TEST STRIPS) test daily FAMILY HISTORY Problem Relation Age of Onset Cancer Mother Heart Father Thyroid Sister Stroke Maternal Grandmother Blood Disease Maternal Grandfather Cerebral Embolism Paternal Grandmother Social History Tobacco Use Smoking status: Former Smokeless tobacco: Never Tobacco comments: quit smoking 1982 Substance Use Topics Alcohol use: Yes Drug use: No PHYSICAL EXAM BP 130/80 Pulse 64 Resp 16 Wt 108 kg (238 lb) SpO2 97% BMI 38.41 kg/m General Appearance: well appearing, in no acute distress, alert Skin: Skin color, texture, turgor normal for age; Eyes: conjunctiva pink and moist, no icterus, sclera white, non-injected Ears: external ears normal to inspection and palpation, canals clear, Left tympanic membrane normal. , Right tympanic membrane normal Nose/sinus: Nares normal. Septum midline. Mucosa normal. No drainage., No sinus tenderness Neck: Thyroid normal size and symmetric without palpable nodules, Neck supple, No adenopathy Oropharynx: tongue midline and normal, soft palate, uvula, and tonsils normal, palpation of salivary glands negative Lymph nodes: No cervical lymphadenopathy and No supraclavicular lymphadenopathy Lungs: Lungs clear to auscultation. No wheezing, rhonchi, rales. Heart: RRR without murmur, gallop, or rubs. No ectopy Abdomen: Abdomen soft, non-tender. Bowel sounds normal. No masses, organomegaly Health maintenance reviewed with patient: Depression Screening Never done Anxiety Screening Never done BP Controlled (<130/80) Never done Dilated Retinal Exam due on 08/10/2019 Covid-19 Vaccine(4 - 2022-24 season) due on 06/12/2024 DTaP,Tdap,Td Vaccine(2 - Td or Tdap) due on 01/31/2025 RSV Vaccine(1 - 1-dose 60+ series) due on 01/31/2025 Shingrix Vaccine(1 of 2) due on 01/31/2025 Influenza Vaccine(1) due on 04/10/2025 HbA1C due on 12/22/2024 LDL Cholesterol due on 01/28/2025 Diabetic Foot Exam due on 01/31/2025 Serum Creatinine due on 02/18/2025 Urine Albumin:Creatinine Ratio due on 06/24/2025 Hemoglobin/Hematocrit due on 06/24/2025 Annual PCP Team Chronic Disease Visit due on 06/30/2025 Bone Density Screening Completed Advance Directive Discussion Completed Pneumococcal Vaccine: 65+ Completed Colorectal Cancer Screening Discontinued DATA REVIEWED: Most recent labs ASSESSMENT/PLAN: 1. Acute cough - ICD9: 786.2, ICD10: R05.1 (primary diagnosis) Possible from sinusitis but will do CXR as well. If any start of pneumonia will add a zpack. -follow up depending on results - AMOXICILLIN 875 MG-POTASSIUM CLAVULANATE 125 MG TABLET - XR CHEST 2V FRONTAL/LAT 2. Wheezing - ICD9: 786.07, ICD10: R06.2 As above - AMOXICILLIN 875 MG-POTASSIUM CLAVULANATE 125 MG TABLET - XR CHEST 2V FRONTAL/LAT 3. Acute non-recurrent sinusitis, unspecified location - ICD9: 461.9, ICD10: J01.90 - Will begin treatment with as per antibiotic as written, see orders - Supportive care with plenty of fluids, rest, and analgesia prn. - Follow up in 3-5 days if symptoms persist or worsen. - AMOXICILLIN 875 MG-POTASSIUM CLAVULANATE 125 MG TABLET - flonase as ordered. 4. Urge incontinence - ICD9: 788.31, ICD10: N39.41 Ua abnormal with leuks, nitirites, blood, and other concerns. Will send for microscopic analysis and for culture then treat with recommended antibiotic. - UA DIP, URINE (POC) 5. Type 2 diabetes mellitus with chronic kidney disease, without long-term current use of insulin, unspecified CKD stage (HCC) - ICD9: 250.40, 585.9, ICD10: E11.22 - Controlled - Continue current medications - Blood glucose monitoring on a once daily schedule - Counseled on healthy diet and regular exercise - Discussed need for and benefit of weight loss. BMI 38.41 kg/(m^2) 6. Essential hypertension, benign - ICD9: 401.1, ICD10: I10 - Controlled - Continue current medications - Recommend home blood pressure monitoring, to bring results to next visit - Encouraged sodium restriction, DASH or Mediterranean diet - Recommend regular aerobic exercise 7. Stage 3b chronic kidney disease (HCC) - ICD9: 585.3, ICD10: N18.32 - eGFR: 45 Stable - Counseled on avoiding NSAIDs, adequate hydration Prescription instructions reviewed with patient as applicable. Potential red flag symptoms discussed with the patient. Reviewed appropriate action plan to take if red flag symptoms occur. Patient agreeable to treatment plan. Jeanette Mitchell APRN.CNP documented in this encounterMagruder [facility]09-03-2024 NotePatient Outreach (INTMMN) ARABELLA BOSCH ([id number]) 1945 F Date Time Provider Department 06/14/24 MEGA AQUINO During your visit today, we recorded the following information about you: Allergies As of Date: 06/14/2024 (No Known Allergies) Date Reviewed: 02/01/2024 Reviewed by: Craa Gordon MA - Fully Assessed Visit Diagnosis:Type 2 diabetes mellitus with chronic kidney disease, without long-term current use of insulin, unspecified CKD stage (HCC) [E11.22] Order(s):ALBUMIN/CREATININE RATIO, URINE [SQUACR] Order #: [id number] FUTURE HEMOGLOBIN A1C [HNPED2D] Order #: [id number] FUTURE COMPLETE BLOOD COUNT [SQCBC] Order #: [id number] FUTURE Prescriptions as of 06/17/2024 - pantoprazole DR (PROTONIX) 20 mg tablet Take 1 tablet by mouth once daily. - atorvastatin (LIPITOR) 80 mg tablet Take 1 tablet by mouth once daily. - glimepiride (AMARYL) 1 mg tablet Take 1 tablet by mouth two times a day with meals. - carvedilol (COREG) 6.25 mg tablet - metFORMIN ER (GLUCOPHAGE XR) 500 mg 24 hr tablet Take 1 tablet by mouth daily with breakfast. - clopidogrel (PLAVIX) 75 mg tablet Take 75 mg by mouth once daily. - aspirin, enteric coated (ASPIRIN, ENTERIC COATED) 81 mg EC tablet Take 81 mg by mouth once daily. - blood sugar diagnostic(ONE TOUCH ULTRA TEST STRIPS) test daily Problem List As Of Date 06/14/2024 Noted Resolved BENIGN HYPERTENSION [I10] 06/12/2005 ESOPHAGEAL REFLUX [K21.9] 06/12/2005 Other and unspecified hyperlipidemia [E78.5] 06/12/2005 08/31/2013 OSTEOARTHROS NOS-UNSPEC [M19.90] 06/12/2005 ROTATOR CUFF SYND NOS [M71.9, M67.919] 08/10/2008 02/26/2015 Plantar fasciitis [M72.2] 07/16/2009 02/26/2015 Spinal stenosis in cervical region [M48.02] 08/15/2011 Spinal stenosis, lumbar region, without neuroge*08/15/2011 Morbid obesity [E66.01] 08/09/2012 Hyperlipidemia with target LDL less than 100 [E*08/31/2013 Cervical arthritis [M47.812] 09/01/2014 Rotator cuff syndrome of both shoulders [M75.10*08/29/2015 Systolic ejection murmur [R01.1] 08/25/2016 Statin intolerance [Z78.9] 07/04/2017 Type 2 diabetes mellitus with chronic kidney di*08/19/2018 Arthritis of knee [M17.10] 08/19/2018 Arthritis of carpometacarpal (CMC) joint of lef*05/27/2019 Encounter Status:Closed by ANNA HAHN on 06/17/24[facility] 02-22-2024 Telephone encounter Note* Telephone Encounter - Analilia Miller MA - 02/22/2024 8:43 AM EDT Pharmacy request denied. Patient needs to contact office for refills. Analilia Miller MA [facility]05-13-[facility]24 Miscellaneous Notes* Telephone Encounter - Analilia Miller MA - 02/22/2024 8:43 AM EDT Pharmacy request denied. Patient needs to contact office for refills. Analilia Miller MA documented in this encounterMagruder Memorial Hospital04-24-2024 Telephone encounter Note * Telephone Encounter - Cara Gordon MA - 02/03/2024 2:15 PM EDT Patient notified. [facility]04-24-2024 Miscellaneous Notes* Telephone Encounter - Cara Gordon MA - 02/03/2024 2:15 PM EDT Patient notified. * Telephone Encounter - Jeanette Mitchell APRN.CNP - 02/03/2024 1:40 PM EDT We will recheck levels in 2 weeks. If taking any supplement containing calcium and/or potassium sheshould hold this. Thank you Jeanette Mitchell APRN.CNP * Telephone Encounter - Adelita Herrera LPN - 02/03/2024 12:42 PM EDT Phoned patient and went over results, notes from Jeanette Mitchell [employer] with understanding. Patient said she is otc Vitamin D one daily, she was not at home to give me the dose. * Telephone Encounter - Jeanette Mitchell APRN.CNP - 02/03/2024 9:16 AM EDT Kidney function is stable. Calcium and potassium are elevated slightly. What supplements is she taking? .Thank you Jeanette Mitchell APRN.CNP documented in this encounterMagruder [facility] Hospital04-24-2024 Telephone encounter Note * Telephone Encounter - Jeanette Mitchell APRN.CNP - 02/03/2024 1:40 PM EDT We will recheck levels in 2 weeks. If taking any supplement containing calcium and/or potassium sheshould hold this. Thank you Jeanette Mitchell APRN.CNP [facility]04-24-2024 Telephone encounter Note* Telephone Encounter - Adelita Herrera LPN - 02/03/2024 12:42 PM EDT Phoned patient and went over results, notes from Jeanette Mitchell [employer] with understanding. Patient said she is otc Vitamin D one daily, she was not at home to give me the dose. [facility]04-24-[facility]24 Telephone encounter Note* Telephone Encounter - Jeanette Mitchell APRN.CNP - 02/03/2024 9:16 AM EDT Kidney function is stable. Calcium and potassium are elevated slightly. What supplements is she taking? .Thank you Jeanette Mitchell APRN.CNP [facility]04-22-2024 History of Present illness Narrative* Jeanette Mitchell APRN.CNP - 02/01/2024 3:01 PM EDT CC: Patient presents with: Recheck: 6 month follow up HPI Arabella Bosch is a 78 year old female who presents today for routine follow up. HTN/HLD/CAD/CKD: Ms. Bosch indicates that she is feeling well and denies any symptoms referable to elevated blood pressure. Specifically denies headache, chest pain, palpitations, dyspnea. Patient denies any side effects of her medication(s) and is compliant with their regimen but has been out of her atorvastatin. She does check BP's away from this office with average BP's in the 120s-130s/70s range. Arabella denies regular aerobic exercise. She watches her diet for sodium, low fat and low cholesterol most of the time. Sees [facility] and has routine visit next month. Last 3 Encounter BP Readings: Date: BP: 02/01/2024 144/78 07/22/2023 138/80 04/22/2023 128/78 Has had BLE edema for the past few months that suddenly stopped a few days ago. DIABETES MELLITUS: Ms. Bosch denies excessive thirst or increased frequency of urination, chest pain or dyspnea , numbness, tingling or pain in extremities, new or unusual visual symptoms, low sugar/hypoglycemic reactions, weight loss/gain, lightheadedness/dizziness, and bowel changes/loose stools.Follows a diabetic diet most of the time. She is compliant with medication(s) and is tolerating med(s) without any side effects. She reports checking her glucose on a once a day schedule with sugars in the fasting 100s range. Patient's last HgA1C was Hemoglobin A1C (%) Date Value 01/29/2024 6.9 08/21/2023 6.4 05/25/2019 6.5 08/17/2018 8.5 Hemoglobin A1C (POCT) (%) Date Value 06/12/2021 7.1 ) Last Ophthalmology exam was a few years ago but is going to contact orthopaedic hospital for an examination. Chronic right hip, groin, and bilateral shoulder pain with decreased ROM and stiffness that she hashad for the last year and a half. No known injury. Had hip xray completed which patient reports wasnegative for fracture. Previously [facility] and was to have an MRI but not had done due to cost. Orthopedist felt pain due to multiple spinal issues so was sent to dr. Arboleda for pain mgmt but has not established yet. Has not done physical therapy in a long time. Also was previously worked up for possible autoimmune disorder cause but was negative. Denies injury, fever, chills, redness, or new weakness. REVIEW OF SYSTEMS See HPI PAST MEDICAL HISTORY Diagnosis Date Benign hypertensive heart disease without heart failure 04/12/03 Cervical arthritis 09/01/2014 Esophageal reflux 08/14 Hyperlipidemia LDL goal < 100 08/31/2013 Morbid obesity (HCC) 08/09/2012 Other and unspecified hyperlipidemia 05/15/04 Phlebitis and thrombophlebitis of unspecified site Type II or unspecified type diabetes mellitus without mention of complication, not stated as uncontrolled 05/15/04 PAST SURGICAL HISTORY Procedure Laterality Date ADENOIDECTOMY PRIMARY <AGE 10 Adenoidectomy APPENDECTOMY TONSILLECTOMY PRIMARY/SECONDARY <AGE 10 Tonsillectomy ALLERGIES Patient has no known allergies. MEDICATIONS pantoprazole DR (PROTONIX) 20 mg tablet Take 1 tablet by mouth once daily glimepiride (AMARYL) 1 mg tablet Take 1 tablet by mouth two times a day with meals. carvedilol (COREG) 6.25 mg tablet atorvastatin (LIPITOR) 80 mg tablet metFORMIN ER (GLUCOPHAGE XR) 500 mg 24 hr tablet Take 1 tablet by mouth daily with breakfast. clopidogrel (PLAVIX) 75 mg tablet Take 75 mg by mouth once daily. aspirin, enteric coated (ASPIRIN, ENTERIC COATED) 81 mg EC tablet Take 81 mg by mouth once daily. blood sugar diagnostic(ONE TOUCH ULTRA TEST STRIPS) test daily PRILOSEC OTC 20 MG ORAL TBEC Take one(1) tablet daily. FAMILY HISTORY Problem Relation Age of Onset Cancer Mother Heart Father Thyroid Sister Stroke Maternal Grandmother Blood Disease Maternal Grandfather Cerebral Embolism Paternal Grandmother Social History Tobacco Use Smoking status: Former Smokeless tobacco: Never Tobacco comments: quit smoking 1982 Substance Use Topics Alcohol use: Yes Drug use: No PHYSICAL EXAM BP 144/78 Pulse 72 Resp 16 Wt 109.8 kg (242 lb) SpO2 98% BMI 39.06 kg/m General Appearance: well appearing, in no acute distress, alert Eyes: conjunctiva pink and moist, no icterus, sclera white, non-injected Lungs: Lungs clear to auscultation. No wheezing, rhonchi, rales. Heart: RRR without murmur, gallop, or rubs. No ectopy Extremities: No deformities, edema, skin discoloration, clubbing or cyanosis. Good capillary refill. Feet:Shoes and socks removed, normal distal pulses, sensitive to 10 gm monofilament, and vibratory perception normal Health maintenance reviewed with patient: BP Controlled (<130/80) Never done Shingrix Vaccine(1 of 2) Never done RSV Vaccine(1 - 1-dose 60+ series) Never done Fecal Occult Blood due on 09/02/2014 DTaP,Tdap,Td Vaccine(2 - Td or Tdap) due on 08/10/2018 Dilated Retinal Exam due on 08/10/2019 Advance Directive Discussion due on 10/12/2023 Behavioral Health Screening Never done Diabetic Foot Exam due on 11/28/2023 Covid-19 Vaccine( season) due on 07/22/2024 Urine Albumin:Creatinine Ratio due on 04/22/2024 Annual PCP Team Chronic Disease Visit due on 07/22/2024 HbA1C due on 07/30/2024 Serum Creatinine due on 08/21/2024 Hemoglobin/Hematocrit due on 08/21/2024 LDL Cholesterol due on 01/28/2025 Bone Density Screening Completed Influenza Vaccine Completed Pneumococcal Vaccine: 65+ Completed DATA REVIEWED: Most recent labs ASSESSMENT/PLAN: 1. Controlled type 2 diabetes mellitus without complication, without long-term current use of insulin (HCC) - ICD9: 250.00, ICD10: E11.9 (primary diagnosis) - Controlled - Continue current medications - Blood glucose monitoring on a once daily schedule - Counseled on healthy diet and regular exercise - Discussed need for and benefit of weight loss. BMI 39.06 kg/(m^2) - COMPREHENSIVE METABOLIC PANEL 2. Essential hypertension, benign - ICD9: 401.1, ICD10: I10 - Controlled - Continue current medications - Recommend home blood pressure monitoring, to bring results to next visit - Encouraged sodium restriction, DASH or Mediterranean diet - Recommend regular aerobic exercise - COMPREHENSIVE METABOLIC PANEL 3. 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 Stage 3b chronic kidney disease (HCC) - ICD9: 585.3, ICD10: N18.32 - eGFR: needs re-evaluated - Counseled on avoiding NSAIDs, adequate hydration - COMPREHENSIVE METABOLIC PANEL 5. Hyperlipidemia with target LDL less than 100 - ICD9: 272.4, ICD10: E78.5 - Uncontrolled - has not taken her atorvastatin in an unknown amount of time so refilled. - Counseled on healthy diet and regular exercise - Discussed need for and benefit of weight loss. BMI 39.06 kg/(m^2) - ATORVASTATIN 80 MG TABLET - COMPREHENSIVE METABOLIC PANEL 6. Right hip pain - ICD9: 719.45, ICD10: M25.551 - chronic concern consult resent to pain mgmt and called to verify it was received - treatment limited with kidney function ad increasing A1c, patient to use tylenol arthritis at this time - CONSULT TO PHYSICAL THERAPY 7. Chronic pain of both shoulders - ICD9: 719.41, 338.29, ICD10: M25.511, G89.29, M25.512 As above - CONSULT TO PHYSICAL THERAPY 8. Cervical arthritis - ICD9: 721.0, ICD10: M47.812 See #6 9. Spinal stenosis in cervical region - ICD9: 723.0, ICD10: M48.02 See #6 - CONSULT TO PHYSICAL THERAPY 10. Spinal stenosis, lumbar region, without neurogenic claudication - ICD9: 724.02, ICD10: M48.061 See #6 - CONSULT TO PHYSICAL THERAPY 11. Edema of both lower extremities - ICD9: 782.3, ICD10: R60.0 Reported, fully resolved and assessment normal Discussed possibly dependant edema so discussed elevating legs throughout the day, wearing compression socks, and limiting salt intake in her diet. 12. Type 2 diabetes mellitus with chronic kidney disease, without long-term current use of insulin,unspecified CKD stage (HCC) - ICD9: 250.40, 585.9, ICD10: E11.22 See #1 Prescription instructions reviewed with patient as applicable. Potential red flag symptoms discussed with the patient. Reviewed appropriate action plan to take if red flag symptoms occur. Patient agreeable to treatment plan. Jeanette Mitchell APRN.SPARKLE documented in this encounterMagruder [facility]02-05-2024 Miscellaneous Notes* Telephone Encounter - REAGAN Correa Kim E - 11/16/2023 10:19 AM EST Patient has been identified by name and date of : No Patient phones for refill(s): Requested Prescriptions Pending Prescriptions Disp Refills pantoprazole DR (PROTONIX) 20 mg tablet [Pharmacy Med Name: Pantoprazole Sodium 20 MG Oral Tablet Delayed Release] 90 tablet 0 Sig: Take 1 tablet by mouth once daily Date of last office visit in primary care: 07/22/2023 Date of next office visit in primary care: 01/25/2024 Please advise. Thank you. Dea Correa LPN. documented in this encounterMagruder [facility] Hospital10-11-2023 History of Present illness Narrative* Jeanette Mitchell APRN.CNP - 07/22/2023 2:06 PM EDT CC: Patient presents with: Recheck: 3 month follow up Immunizations: Flu vaccination HPI Arabella Bosch is a 77 year old female who presents today for routine follow up. DIABETES MELLITUS: Ms. Bosch denies excessive thirst or increased frequency of urination, chest pain or dyspnea , new or unusual visual symptoms, low sugar/hypoglycemic reactions, weight loss/gain, lightheadedness/dizziness, and bowel changes/loose stools. Follows a diabetic diet most of the time. She is compliant with medication(s) and is tolerating med(s) without any side effects. Metformin wasdiscontinued previously but restarted on her own a few weeks ago with concerns of what if her bloodsugar increases again. She reports checking her glucose on a once a day schedule with sugars in thefasting 120s-130s range. Patient's last HgA1C was Hemoglobin A1C (%) Date Value 04/22/2023 6.2 10/27/2022 7.5 05/25/2019 6.5 08/17/2018 8.5 Hemoglobin A1C (POCT) (%) Date Value 06/12/2021 7.1 ) Last Ophthalmology exam was within the past 12 months. Needs to call and schedule annual exam. HTN/CAD:Sees [facility] and last seen for routine visit within the last few years. Ms. Bosch indicates that she is feeling well and denies any symptoms referable to elevated blood pressure. Specifically denies headache, chest pain, palpitations, dyspnea, and peripheral edema improved with stopping the amlodipine. Patient denies any side effects of her medication(s) and is compliant with their regimen. She does check BP's away from this office with average BP's in the 120s/70s range. Arabella denies regular aerobic exercise because of pain. She watches her diet for sodium, low fat and low cholesterol most of the time. Last 3 Encounter BP Readings: Date: BP: 07/22/2023 138/80 04/22/2023 128/78 11/28/2022 124/74 Chronic Lumbar spinal stenosis causing intense right hip pain. Has seen orthopedics and told all pain is result of spinal stenosis. Was consulted to pain mgmt at last visit but practice never received consult. Consult being faxed today to Dr. Arboleda's office. Reports she is unable to function and tylenol does not help at all. Is limited to options with her decreased kidney function. Denies any new numbness, new weakness, falls, or loss of bowel bladder control. REVIEW OF SYSTEMS See HPI PAST MEDICAL HISTORY Diagnosis Date Benign hypertensive heart disease without heart failure 04/12/03 Cervical arthritis 09/01/2014 Esophageal reflux 08/14 Hyperlipidemia LDL goal < 100 08/31/2013 Morbid obesity (HCC) 08/09/2012 Other and unspecified hyperlipidemia 05/15/04 Phlebitis and thrombophlebitis of unspecified site Type II or unspecified type diabetes mellitus without mention of complication, not stated as uncontrolled 05/15/04 PAST SURGICAL HISTORY Procedure Laterality Date ADENOIDECTOMY PRIMARY <AGE 10 Adenoidectomy APPENDECTOMY TONSILLECTOMY PRIMARY/SECONDARY <AGE 10 Tonsillectomy ALLERGIES Patient has no known allergies. MEDICATIONS amLODIPine (NORVASC) 5 mg tablet Take 5 mg by mouth once daily. aspirin, enteric coated (ASPIRIN, ENTERIC COATED) 81 mg EC tablet Take 81 mg by mouth once daily. atorvastatin (LIPITOR) 20 mg tablet 20mg /day for as many doses /wk as is tolerated. For cholesterol. Take 3 times/week and as tolerated blood sugar diagnostic(ONE TOUCH ULTRA TEST STRIPS) test daily clopidogrel (PLAVIX) 75 mg tablet Take 75 mg by mouth once daily. glimepiride (AMARYL) 1 mg tablet Take 1 tablet by mouth twice daily with meals. metFORMIN ER (GLUCOPHAGE XR) 500 mg 24 hr tablet Take 1 tablet by mouth daily with breakfast. metoprolol tartrate, short acting, (LOPRESSOR) 25 mg tablet Take 25 mg by mouth twice daily. pantoprazole DR (PROTONIX) 20 mg tablet Take 1 tablet by mouth once daily PRILOSEC OTC 20 MG ORAL TBEC Take one(1) tablet daily. FAMILY HISTORY Problem Relation Age of Onset Cancer Mother Heart Father Thyroid Sister Stroke Maternal Grandmother Blood Disease Maternal Grandfather Cerebral Embolism Paternal Grandmother Social History Tobacco Use Smoking status: Former Smokeless tobacco: Never Tobacco comments: quit smoking 1982 Substance Use Topics Alcohol use: Yes Alcohol/week: 10.0 standard drinks of alcohol Drug use: No PHYSICAL EXAM BP 138/80 Pulse 68 Resp 16 Wt 105.2 kg (232 lb) SpO2 99% BMI 37.45 kg/m General Appearance: well appearing, in no acute distress, alert Skin: Skin color, texture, turgor normal for age; Eyes: conjunctiva pink and moist, no icterus, sclera white, non-injected Lungs: Lungs clear to auscultation. No wheezing, rhonchi, rales. Heart: RRR without murmur, gallop, or rubs. No ectopy Health maintenance reviewed with patient: Hepatitis B Vaccine(1 of 3 - Risk 3-dose series) Never done Fecal Occult Blood due on 09/02/2014 Dilated Retinal Exam due on 08/10/2019 Influenza Vaccine(1) due on 06/12/2023 Covid-19 Vaccine( season) due on 06/12/2023 DTaP,Tdap,Td Vaccine(2 - Td or Tdap) due on 11/28/2023 Shingrix Vaccine(1 of 2) due on 11/28/2023 HbA1C due on 10/23/2023 LDL Cholesterol due on 11/27/2023 Diabetic Foot Exam due on 11/28/2023 Urine Albumin:Creatinine Ratio due on 04/22/2024 Annual PCP Team Chronic Disease Visit due on 04/22/2024 BP Controlled (<130/80) due on 04/22/2024 Bone Density Screening Completed Advance Directive Discussion Completed Depression Assessment Completed Pneumococcal Vaccine: 65+ Completed DATA REVIEWED: No new labs ASSESSMENT/PLAN: 1. Controlled type 2 diabetes mellitus without complication, without long-term current use of insulin (HCC) - ICD9: 250.00, ICD10: E11.9 (primary diagnosis) - Control undetermined, due for labs - Continue current medications - Discontinue metformin as previously instructed. - Blood glucose monitoring on a once daily schedule - Counseled on healthy diet and regular exercise - Discussed need for and benefit of weight loss. BMI 37.45 kg/(m^2) - HGB A1C - BASIC METABOLIC PNL - CBC 2. 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 Essential hypertension, benign - ICD9: 401.1, ICD10: I10 - Home blood pressure readings controlled - Continue current medications - Recommend home blood pressure monitoring, to bring results to next visit - Encouraged sodium restriction, DASH or Mediterranean diet - Recommend regular aerobic exercise - BASIC METABOLIC PNL - CBC 4. Stage 3b chronic kidney disease (HCC) - ICD9: 585.3, ICD10: N18.32 - needs reassessed. Has been decreased all year but was on HCTZ, then patient restarted this on [place], then metformin dc'd and patient recently started back on this as well. Patient no longer on HCTZ and instructed to stop metformin as previously instructed. Will recheck kidney function in 2 weeks. - Counseled on avoiding NSAIDs, adequate hydration - BASIC METABOLIC PNL - CBC 5. Spinal stenosis, lumbar region, without neurogenic claudication - ICD9: 724.02, ICD10: M48.061 - continue with plans to see pain mgmt. Consult refaxed to Dr. Arboleda's office - TRAMADOL 50 MG TABLET PDMP website checked and validated. All prescriptions have been APPROPRIATELY filled. No suspiciousactivity was identified. 07/22/2023 by Jeanette Mitchell APRN.BASEBALL INSPECTOR 6. Osteoarthrosis, unspecified whether generalized or localized, unspecified site - ICD9: 715.90, ICD10: M19.90 As above - TRAMADOL 50 MG TABLET 7. Need for influenza vaccination - ICD9: V04.81, ICD10: Z23 - INFLUENZA VACCINE, PRSV FREE, AGE 65+ YR, HIGH DOSE, QUADRIVALENT (FLUZONE HIGH-DOSE) Prescription instructions reviewed with patient as applicable. Potential red flag symptoms discussed with the patient. Reviewed appropriate action plan to take if red flag symptoms occur. Patient agreeable to treatment plan. Jeanette Mitchell APRN.CNP documented in this encounterMagruder [facility]08-15-2023 Miscellaneous Notes* Telephone Encounter - Dea Shah LPN - 05/26/2023 1:12 PM EDT Patient has been identified by name and date of : No Patient phones for refill(s): Requested Prescriptions Pending Prescriptions Disp Refills pantoprazole DR (PROTONIX) 20 mg tablet [Pharmacy Med Name: Pantoprazole Sodium 20 MG Oral Tablet Delayed Release] 90 tablet 0 Sig: Take 1 tablet by mouth once daily Date of last office visit in primary care: 04/22/23 Last 2 Encounter Wt Readings: Date: Wt: 04/22/2023 100.7 kg (222 lb) 11/28/2022 96.6 kg (213 lb) Previous labs/tests for medication: Not applicable Please advise. Thank you. Dea Shah LPN documented in this encounterMagruder [facility]07-12-2023 History of Present illness Narrative* Jeanette Mitchell APRN.CNP - 04/22/2023 2:47 PM EDT CC: Patient presents with: Recheck: DM follow up HPI Arabella Bosch is a 77 year old female who presents today for diabetic follow up. DIABETES MELLITUS: Ms. Bosch denies excessive thirst or increased frequency of urination, chest pain or dyspnea , numbness, tingling or pain in extremities, new or unusual visual symptoms, low sugar/hypoglycemic reactions, weight loss/gain, lightheadedness/dizziness, and bowel changes/loose stools.Follows a diabetic diet most of the time. She is compliant with medication(s) and is tolerating med(s) without any side effects. Has completely stopped the metformin. She reports checking her glucoseon a once a day schedule with sugars in the fasting 80s-120s range. Patient's last HgA1C was Hemoglobin A1C (%) Date Value 10/27/2022 7.5 05/25/2019 6.5 08/17/2018 8.5 Hemoglobin A1C (POCT) (%) Date Value 06/12/2021 7.1 ) Last Ophthalmology exam was over 2 years ago. Is going to see someone in the next few months. Was having an increase in bilateral feet swelling after having the HCTZ discontinued earlier this year due to kidney function. Swelling is described as to bilateral feet worse as the day goes on but improves with elevating legs and Is better in the morning. Patient reports she had a prescription athome of HCTZ so has restarted this. Swelling has improved with the HCTZ. Denies shortness of breath, chest pressure, or palpitations. REVIEW OF SYSTEMS General: no fevers, no chills, no night sweats, no recurrent infections, no change in appetite, no change in energy, and no significant changes in weight Respiratory: no cough, no wheezing, no shortness of breath, no hemoptysis Cardiovascular: no chest pain, no chest pressure, and no palpitations GI: No nausea, vomiting, or diarrhea Neurologic: No headache, weakness, numbness, tingling, neck stiffness, tremor, vertigo, dizziness, memory loss, syncope. PAST MEDICAL HISTORY Diagnosis Date Benign hypertensive heart disease without heart failure 04/12/03 Cervical arthritis 09/01/2014 Esophageal reflux 08/14 Hyperlipidemia LDL goal < 100 08/31/2013 Morbid obesity (HCC) 08/09/2012 Other and unspecified hyperlipidemia 05/15/04 Phlebitis and thrombophlebitis of unspecified site Type II or unspecified type diabetes mellitus without mention of complication, not stated as uncontrolled 05/15/04 PAST SURGICAL HISTORY Procedure Laterality Date ADENOIDECTOMY PRIMARY <AGE 10 Adenoidectomy APPENDECTOMY TONSILLECTOMY PRIMARY/SECONDARY <AGE 10 Tonsillectomy ALLERGIES Patient has no known allergies. MEDICATIONS glimepiride (AMARYL) 1 mg tablet Take 1 tablet by mouth twice daily with meals. pantoprazole DR (PROTONIX) 20 mg tablet Take 1 tablet by mouth once daily. metFORMIN ER (GLUCOPHAGE XR) 500 mg 24 hr tablet Take 1 tablet by mouth daily with breakfast. amLODIPine (NORVASC) 5 mg tablet Take 5 mg by mouth once daily. clopidogrel (PLAVIX) 75 mg tablet Take 75 mg by mouth once daily. metoprolol tartrate, short acting, (LOPRESSOR) 25 mg tablet Take 25 mg by mouth twice daily. aspirin, enteric coated (ASPIRIN, ENTERIC COATED) 81 mg EC tablet Take 81 mg by mouth once daily. atorvastatin (LIPITOR) 20 mg tablet 20mg /day for as many doses /wk as is tolerated. For cholesterol. Take 3 times/week and as tolerated blood sugar diagnostic(ONE TOUCH ULTRA TEST STRIPS) test daily PRILOSEC OTC 20 MG ORAL TBEC Take one(1) tablet daily. FAMILY HISTORY Problem Relation Age of Onset Cancer Mother Heart Father Thyroid Sister Stroke Maternal Grandmother Blood Disease Maternal Grandfather Cerebral Embolism Paternal Grandmother Social History Tobacco Use Smoking status: Former Smokeless tobacco: Never Tobacco comments: quit smoking 1982 Substance Use Topics Alcohol use: Yes Alcohol/week: 10.0 standard drinks of alcohol Drug use: No PHYSICAL EXAM BP 128/78 Pulse 64 Resp 16 Wt 100.7 kg (222 lb) BMI 35.83 kg/m General Appearance: well appearing, in no acute distress, alert Skin: Skin color, texture, turgor normal for age; Eyes: conjunctiva pink and moist, no icterus, sclera white, non-injected Lungs: Lungs clear to auscultation. No wheezing, rhonchi, rales. Heart: RRR without murmur, gallop, or rubs. No ectopy Extremities: No deformities, edema, skin discoloration, clubbing or cyanosis. Good capillary refill. Health maintenance reviewed with patient: FECAL OCCULT BLOOD due on 09/02/2014 DILATED RETINAL EXAM due on 08/10/2019 URINE ALBUMIN:CREATININE RATIO due on 08/17/2019 DTAP,TDAP,TD(2 - Td or Tdap) due on 11/28/2023 SHINGRIX VACCINE(1 of 2) due on 11/28/2023 COVID-19 VACCINE(4 - Moderna series) due on 11/28/2023 HBA1C due on 04/26/2023 INFLUENZA(1) due on 06/12/2023 LDL CHOLESTEROL due on 11/27/2023 DIABETIC FOOT EXAM due on 11/28/2023 ANNUAL PCP TEAM CHRONIC DISEASE VISIT due on 11/28/2023 BP CONTROLLED (<130/80) due on 11/28/2023 BONE DENSITY Completed ADVANCE DIRECTIVE DISCUSSION Completed DEPRESSION ASSESSMENT Completed PNEUMOCOCCAL: 65+ Completed DATA REVIEWED: No new labs ASSESSMENT/PLAN: 1. Controlled type 2 diabetes mellitus without complication, without long-term current use of insulin (HCC) - ICD9: 250.00, ICD10: E11.9 (primary diagnosis) - Controlled - Continue current medications and discontinue metformin - Counseled on healthy diet and regular exercise - Discussed need for and benefit of weight loss. BMI 35.83 kg/(m^2) - BASIC METABOLIC PNL - CBC - follow up in 3 months 2. Pedal edema - ICD9: 782.3, ICD10: R60.0 No edema in office. Patients kidney function had decreased with hospitalization earlier this year so needs rechecked as she has recently started herself back on HCTZ 3. Function kidney decreased - ICD9: 593.9, ICD10: N28.9 As above - BASIC METABOLIC PNL - CBC 4. Cervical arthritis - ICD9: 721.0, ICD10: M47.812 - has had this for years, no change in symptoms. Just wants better pain control so she can be more active and have better quality of life. - chronic condition, not assessed in office today. Had this ordered by PCP last year for chronic concerns and would like a new consult faxed to Dr. Arboleda. - CONSULT TO PAIN MGT 5. Spinal stenosis, lumbar region, without neurogenic claudication - ICD9: 724.02, ICD10: M48.061 As above - CONSULT TO PAIN MGT Prescription instructions reviewed with patient as applicable. Potential red flag symptoms discussed with the patient. Reviewed appropriate action plan to take if red flag symptoms occur. Patient agreeable to treatment plan. Jeanette Mitchell APRN.CNP documented in this encounterMagruder [facility]05-30-2023 Miscellaneous Notes* Telephone Encounter - Dea Shah LPN - 03/10/2023 3:31 PM EDT Patient has been identified by name and date of : No Patient phones for refill(s): Requested Prescriptions Pending Prescriptions Disp Refills glimepiride (AMARYL) 1 mg tablet 180 tablet 1 Sig: Take 1 tablet by mouth twice daily with meals. Date of last office visit in primary care: 11/28/22 Last 2 Encounter Wt Readings: Date: Wt: 11/28/2022 96.6 kg (213 lb) 10/29/2022 97.1 kg (214 lb) Previous labs/tests for medication: Diabetes: Hemoglobin A1C (%) Date Value 10/27/2022 7.5 05/25/2019 6.5 08/17/2018 8.5 Hemoglobin A1C (POCT) (%) Date Value 06/12/2021 7.1 Please advise. Thank you. Dea Shah LPN documented in this encounterMagruder [facility] Hospital02-17-2023 Instructions* Patient Instructions* Jeanette Mitchell, RAJANI.SPARKLE - 11/28/2022 10:50 AM EST Images from the original note were not included. Start taking 1000 or 2000 units of Vit D daily Other options for diabetic control would be once a week injectable, Ozempic, trulicity or mounjaro.Once a daily pill option would be jardiance. I would like to get you completely off of metformin tohopefully improve kidney function. To schedule a diabetic eye exam at the [facility] [place], please call: [phone] Online resources to learn more [email or web address] https://www.diabetes.org/diabetes/complications/eye-complications https://www.aoa.org/healthy-eyes/gwf-hrm-jqlhxk-conditions/diabetic-retinopathy? sso=y https://www.MyDoc.[employer] To Go References 1. National Diabetes Statistics Report 2020: Estimates of Diabetes and Its [place] in the [facility]. Center for Disease Control and Prevention; 2020. Available at: https://www.cdc.gov/diabetes/pdfs /data/statistics/tweqbavz-jxqbrbig-xbsrutqoph-report.pdf 2. Samira Olson, Janel Duncan, Emanuel Pacheco, Roz Fonseca, Jovana Gilliam, Mahesh Borges, Van Keenan, Jonny Myers; Diabetic Retinopathy: A Position Statement by the [place] [employer]. Diabetes Care 10 December 2016; 40 (3): 412-418 documented in this encounterMagruder Memorial Hospital02-17-2023 History of Present illness Narrative* Jeanette Mitchell APRN.CNP - 11/28/2022 10:27 AM EST CC: Patient presents with: Recheck: DM follow up HPI Arabella Bosch is a 77 year old female who presents today for diabetes follow up. At last appointment decreased metformin because of kidney function and started on glimepiride. DIABETES MELLITUS: Ms. Bosch denies excessive thirst or increased frequency of urination, chest pain or dyspnea , numbness, tingling or pain in extremities, new or unusual visual symptoms, low sugar/hypoglycemic reactions, weight loss/gain, lightheadedness/dizziness, and bowel changes/loose stools.Follows a diabetic diet most of the time. She is compliant with medication(s) and is tolerating med(s) without any side effects. She reports checking her glucose on a twice a day schedule with sugarsin the fasting 120s and postprandial 80s range. Patient's last HgA1C was Hemoglobin A1C (%) Date Value 10/27/2022 7.5 05/25/2019 6.5 08/17/2018 8.5 Hemoglobin A1C (POCT) (%) Date Value 06/12/2021 7.1 ) Last saw eye Over 3 years ago. Needs to schedule a follow up. Has difficulty staying asleep. Is able to fall asleep, but wakes up an average of 3-4 times during the night with sometimes being able to go back to sleep but other times is up the rest of the night.Has been taking 1 benadryl prior to first falling asleep and has had an improvement in this. Has tried melatonin but caused diarrhea. States she wakes up because of her back pain from spinal stenosis, is wanting to see pain mgmt. REVIEW OF SYSTEMS General: no fevers, no chills, no night sweats, no recurrent infections, no change in appetite, no change in energy, and no significant changes in weight Respiratory: no cough, no wheezing, no shortness of breath, no hemoptysis Cardiovascular: no chest pain, no chest pressure, no palpitations, and no swelling GI: No nausea, vomiting, or diarrhea Endocrine: no fatigue, no polyuria, no polyphagia, and no polydipsia Neurologic: No headache, weakness, numbness, tingling, dizziness, memory loss, syncope. PAST MEDICAL HISTORY Diagnosis Date Benign hypertensive heart disease without heart failure 04/12/03 Cervical arthritis 09/01/2014 Esophageal reflux 08/14 Hyperlipidemia LDL goal < 100 08/31/2013 Morbid obesity (HCC) 08/09/2012 Other and unspecified hyperlipidemia 05/15/04 Phlebitis and thrombophlebitis of unspecified site Type II or unspecified type diabetes mellitus without mention of complication, not stated as uncontrolled 05/15/04 PAST SURGICAL HISTORY Procedure Laterality Date ADENOIDECTOMY PRIMARY <AGE 10 Adenoidectomy APPENDECTOMY TONSILLECTOMY PRIMARY/SECONDARY <AGE 10 Tonsillectomy ALLERGIES Patient has no known allergies. MEDICATIONS amLODIPine (NORVASC) 5 mg tablet Take 5 mg by mouth once daily. clopidogrel (PLAVIX) 75 mg tablet Take 75 mg by mouth once daily. metoprolol tartrate, short acting, (LOPRESSOR) 25 mg tablet Take 25 mg by mouth twice daily. aspirin, enteric coated (ASPIRIN, ENTERIC COATED) 81 mg EC tablet Take 81 mg by mouth once daily. atorvastatin (LIPITOR) 20 mg tablet 20mg /day for as many doses /wk as is tolerated. For cholesterol. Take 3 times/week and as tolerated pantoprazole DR (PROTONIX) 20 mg tablet Take 1 tablet by mouth once daily. glimepiride (AMARYL) 1 mg tablet Take 1 tablet by mouth twice daily with meals. metFORMIN ER (GLUCOPHAGE XR) 500 mg 24 hr tablet Take 1 tablet by mouth daily with breakfast. blood sugar diagnostic(ONE TOUCH ULTRA TEST STRIPS) test daily PRILOSEC OTC 20 MG ORAL TBEC Take one(1) tablet daily. FAMILY HISTORY Problem Relation Age of Onset Cancer Mother Heart Father Thyroid Sister Stroke Maternal Grandmother Blood Disease Maternal Grandfather Cerebral Embolism Paternal Grandmother Social History Tobacco Use Smoking status: Former Smokeless tobacco: Never Tobacco comments: quit smoking 1982 Substance Use Topics Alcohol use: Yes Alcohol/week: 10.0 standard drinks Drug use: No PHYSICAL EXAM BP 124/74 Pulse 60 Resp 16 Wt 96.6 kg (213 lb) BMI 34.38 kg/m General Appearance: well appearing, in no acute distress, alert Skin: Skin color, texture, turgor normal for age; Eyes: conjunctiva pink and moist, no icterus, sclera white, non-injected Neck: Thyroid normal size and symmetric without palpable nodules, Neck supple, No adenopathy Lymph nodes: No cervical lymphadenopathy and No supraclavicular lymphadenopathy Lungs: Lungs clear to auscultation. No wheezing, rhonchi, rales. Heart: RRR without murmur, gallop, or rubs. No ectopy Feet:Shoes and socks removed, normal distal pulses, sensitive to 10 gm monofilament, and vibratory perception normal Health maintenance reviewed with patient: SHINGRIX VACCINE(1 of 2) Never done FECAL OCCULT BLOOD due on 09/02/2014 DTAP,TDAP,TD(2 - Td or Tdap) due on 08/10/2018 DILATED RETINAL EXAM due on 08/10/2019 URINE ALBUMIN:CREATININE RATIO due on 08/17/2019 DIABETIC FOOT EXAM due on 05/27/2020 COVID-19 VACCINE(4 - Booster for Moderna series) due on 11/07/2021 ADVANCE DIRECTIVE DISCUSSION Never done DEPRESSION ASSESSMENT Never done HBA1C due on 04/26/2023 ANNUAL PCP TEAM CHRONIC DISEASE VISIT due on 10/29/2023 BP CONTROLLED (<130/80) due on 10/29/2023 LDL CHOLESTEROL due on 11/27/2023 BONE DENSITY Completed INFLUENZA Completed PNEUMOCOCCAL: 65+ Completed DATA REVIEWED: Most recent labs ASSESSMENT/PLAN: 1. Controlled type 2 diabetes mellitus without complication, without long-term current use of insulin (HCC) - ICD9: 250.00, ICD10: E11.9 (primary diagnosis) improved control but no improvement to kidney function. Would like to stop metformin and start on once a week injectable or jardiance and then recheck kidney function 4 weeks after med change. Patient wanting to research to hew medication options and will call with her decision. For now patient agreeable to decrease metformin to once a day and increased glimepiride. - Blood glucose monitoring on a twice a day schedule - BP goal of <130/80 - LDL goal of <100 - ALBUMIN/CREAT RATIO RND UR - patient placed for 3 month follow up but when me changes are made will need to follow up 4 weeks after. 2. Stage 3b chronic kidney disease (HCC) - ICD9: 585.3, ICD10: N18.32 - no improvement. If no further improvement when off metformin patient will need a kidney US. 3. Spinal stenosis, lumbar region, without neurogenic claudication - ICD9: 724.02, ICD10: M48.061 - consult to pain mgmt order faxed to Dr. Arboleda as requested - [employer]ED 4. Vitamin D deficiency - ICD9: 268.9, ICD10: E55.9 - low end of normal and patient has only been taking to prescription for less than 4 weeks. Will discontinue prescription and have her take an over the counter daily supplement. 5. Colon cancer screening - ICD9: V76.51, ICD10: Z12.11 - COLOGUARD Prescription instructions reviewed with patient as applicable. Potential red flag symptoms discussed with the patient. Reviewed appropriate action plan to take if red flag symptoms occur. Patient agreeable to treatment plan. Jeanette Mitchell APRN.CNP documented in this encounterMagruder [facility] Hospital01-18-2023 History of Present illness Narrative* Jeanette Mitchell APRN.CNP - 10/29/2022 2:50 PM EST CC: Patient presents with: Recheck: Hosp follow up HPI Arabella Bosch is a 76 year old female who presents today for Hospital follow-up. Facility: [facility] Date of visit: 10/18/22-10/21/22 Reason for visit: patient at a restaurant. Suddenly had pain across her shoulders then became non-responsive. Woke up exhausted and became incontinent. Went to ER. Hospital course: right radial heart cath with stent placement., was told she was very dehydrated. Diagnosis: NSTEMI Discharge: home on multiple new medications and increased atorvastatin to 80mg once daily. Current symptoms: no further syncope, shoulder pain, chest pain. Denies shortness of breath, fever,chills, dizziness, nasuea, or difficulty urinating. DIABETES MELLITUS: Ms. Bosch denies excessive thirst or increased frequency of urination, chest pain or dyspnea , numbness, tingling or pain in extremities, new or unusual visual symptoms, low sugar/hypoglycemic reactions, weight loss/gain, lightheadedness/dizziness, and bowel changes/loose stools.Follows a diabetic diet most of the time. She is compliant with medication(s) and is tolerating med(s) without any side effects. She reports checking her glucose on a twice a day schedule with sugarsin the fasting 160s-195 and postprandial 140s range. Patient's last HgA1C was Hemoglobin A1C (%) Date Value 10/27/2022 7.5 05/25/2019 6.5 08/17/2018 8.5 Hemoglobin A1C (POCT) (%) Date Value 06/12/2021 7.1 ) HTN: Ms. Bosch indicates that she is feeling well and denies any symptoms referable to elevated blood pressure. Specifically denies headache, chest pain, palpitations, dyspnea, and peripheral edema. Patient denies any side effects of her medication(s) and is compliant with their regimen. She does not check BP's generally. Last 3 Encounter BP Readings: Date: BP: 10/29/2022 112/66 06/12/2021 130/70 05/24/2021 130/82 REVIEW OF SYSTEMS General: no fevers, no chills, no night sweats, no recurrent infections, no change in appetite, no change in energy, and no significant changes in weight Respiratory: no cough, no wheezing, no shortness of breath, no hemoptysis Cardiovascular: no chest pain, no chest pressure, no palpitations, and no swelling GI: No nausea, vomiting, or diarrhea : No history of dysuria, frequency or incontinence Endocrine: no fatigue, no weight gain, no weight loss, no cold intolerance, no heat intolerance, nopolyuria, no polyphagia, and no polydipsia Neurologic: No headache, weakness, numbness, tingling, dizziness, memory loss, syncope. PAST MEDICAL HISTORY Diagnosis Date Benign hypertensive heart disease without heart failure 04/12/03 Cervical arthritis 09/01/2014 Esophageal reflux 08/14 Hyperlipidemia LDL goal < 100 08/31/2013 Morbid obesity (HCC) 08/09/2012 Other and unspecified hyperlipidemia 05/15/04 Phlebitis and thrombophlebitis of unspecified site Type II or unspecified type diabetes mellitus without mention of complication, not stated as uncontrolled 05/15/04 PAST SURGICAL HISTORY Procedure Laterality Date ADENOIDECTOMY PRIMARY <AGE 10 Adenoidectomy APPENDECTOMY TONSILLECTOMY PRIMARY/SECONDARY <AGE 10 Tonsillectomy ALLERGIES Patient has no known allergies. MEDICATIONS amLODIPine (NORVASC) 5 mg tablet Take 5 mg by mouth once daily. clopidogrel (PLAVIX) 75 mg tablet Take 75 mg by mouth once daily. metoprolol tartrate, short acting, (LOPRESSOR) 25 mg tablet Take 25 mg by mouth twice daily. pantoprazole DR (PROTONIX) 20 mg tablet Take 20 mg by mouth once daily. aspirin, enteric coated (ASPIRIN, ENTERIC COATED) 81 mg EC tablet Take 81 mg by mouth once daily. atorvastatin (LIPITOR) 20 mg tablet 20mg /day for as many doses /wk as is tolerated. For cholesterol. Take 3 times/week and as tolerated lisinopril-hydroCHLOROthiazide (PRINZIDE,ZESTORETIC) 10-12.5 mg per tablet Take 1 tablet by mouth every morning. ergocalciferol 50,000 unit capsule (VITAMIN D2, DRISDOL) Take 1 capsule by mouth one time a week. metFORMIN ER (GLUCOPHAGE XR) 500 mg 24 hr tablet Take 2 tablets by mouth twice daily as needed. meloxicam (MOBIC) 15 mg tablet Take 1 tablet by mouth once daily. With food. (Patient not taking: Reported on 07/10/2020 ) blood sugar diagnostic(ONE TOUCH ULTRA TEST STRIPS) test daily PRILOSEC OTC 20 MG ORAL TBEC Take one(1) tablet daily. FAMILY HISTORY Problem Relation Age of Onset Cancer Mother Heart Father Thyroid Sister Stroke Maternal Grandmother Blood Disease Maternal Grandfather Cerebral Embolism Paternal Grandmother Social History Tobacco Use Smoking status: Former Smokeless tobacco: Never Tobacco comments: quit smoking 1982 Substance Use Topics Alcohol use: Yes Alcohol/week: 10.0 standard drinks Drug use: No PHYSICAL EXAM BP 112/66 Pulse 64 Temp 36.5 C (97.7 F) (Temporal) Resp 16 Wt 97.1 kg (214 lb) SpO2 95% BMI 34.54 kg/m General Appearance: well appearing, in no acute distress, alert Skin: Skin color, texture, turgor normal for age; right radila with light healing bruise Eyes: conjunctiva pink and moist, no icterus, sclera white, non-injected Neck: Thyroid normal size and symmetric without palpable nodules, No bruits, Neck supple, No adenopathy Lymph nodes: No cervical lymphadenopathy and No supraclavicular lymphadenopathy Lungs: Lungs clear to auscultation. No wheezing, rhonchi, rales. Heart: RRR without murmur, gallop, or rubs. No ectopy Abdomen: Abdomen soft, non-tender. Bowel sounds normal. No masses, organomegaly Extremities: No deformities, edema, skin discoloration, clubbing or cyanosis. Good capillary refill. HEPATITIS C SCREENING Never done BP CONTROLLED (<130/80) Never done SHINGRIX VACCINE(1 of 2) Never done FECAL OCCULT BLOOD due on 09/02/2014 DTAP,TDAP,TD(2 - Td or Tdap) due on 08/10/2018 DILATED RETINAL EXAM due on 08/10/2019 URINE ALBUMIN:CREATININE RATIO due on 08/17/2019 LDL CHOLESTEROL due on 05/25/2020 DIABETIC FOOT EXAM due on 05/27/2020 COVID-19 VACCINE(4 - Booster for Moderna series) due on 11/07/2021 ANNUAL PCP TEAM CHRONIC DISEASE VISIT due on 06/12/2022 ADVANCE DIRECTIVE DISCUSSION Never done DEPRESSION ASSESSMENT Never done HBA1C due on 04/26/2023 BONE DENSITY Completed INFLUENZA Completed PNEUMOCOCCAL: 65+ Completed DATA REVIEWED: Most recent labs Outside chart from [facility] reviewed. ASSESSMENT/PLAN: 1. History of recent hospitalization - ICD9: V13.9, ICD10: Z92.89 (primary diagnosis) NSTEMI with stent placement - no further issues and tolerating mediations as prescribed by hospital. Has appointment to follow up with cardiology and is planning on starting cardiac rehab at [facility]. - continue with planned appointment with cardiology and treatment as ordered by them - go to ER for any chest pain, shortness of breath, palpitations or any other urgent concern 2. NSTEMI (non-ST elevated myocardial infarction) (HCC) - ICD9: 410.70, ICD10: I21.4 As above 3. 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, unspecified vessel or lesion type - ICD9: 414.01, ICD10: I25.10 See #1 4. Function kidney decreased - ICD9: 593.9, ICD10: N28.9 - maintaining level from [facility]. Will decrease metformin in hopes to improve this. - BASIC METABOLIC PNL - CBC + DIFF 5. Controlled type 2 diabetes mellitus without complication, without long-term current use of insulin (HCC) - ICD9: 250.00, ICD10: E11.9 Uncontrolled, FBS elevated, need to decrease metformin because of kidney function so will start glimepiride as patient feels this worked well for her in the past. - Blood glucose monitoring on a once a day schedule - BP goal of <130/80 - LDL goal of <100 - follow up in 4 weeks or earlier if needed 6. Essential hypertension, benign - ICD9: 401.1, ICD10: I10 - good control - Continue current medication(s) - Encouraged dietary sodium restriction/DASH diet - Recommended regular aerobic exercise. - Recommend home blood pressure monitoring, to bring results in on next visit - Goal of BP <130/80 - BASIC METABOLIC PNL - CBC + DIFF Prescription instructions reviewed with patient as applicable. Potential red flag symptoms discussed with the patient. Reviewed appropriate action plan to take if red flag symptoms occur. Patient agreeable to treatment plan. Jeanette Mitchell APRN.SPARKLE documented in this encounterMagruder [facility] Hospital01-18-2023 Miscellaneous Notes* Telephone Encounter - Dominique Mckay LPN - 10/29/2022 8:45 AM EST ----- Message from Mega Aquino MD sent at 10/29/2022 6:32 AM EST ----- Pastora, Please address this in her visit today. Regards, Mega Aquino MD documented in this encounterMagruder Memorial Hospital11-17-2022 Miscellaneous Notes* Telephone Encounter - Jodie Palacio [facility] - 08/28/2022 2:38 PM EST Patient has been identified by name and date of : Yes Last office visit in this department: 06/12/2021 Next office visit: 10/31/22 Patient asking for enough to bridge until 10/31. RX INSTRUCTIONS: Patient aware RX will be sent to pharmacy. No need to notify patient. Patient phones requesting refills as follows: Requested Prescriptions Pending Prescriptions Disp Refills lisinopril-hydroCHLOROthiazide (PRINZIDE,ZESTORETIC) 10-12.5 mg per tablet 30 tablet 0 Sig: Take 1 tablet by mouth every morning. Please review and advise. Jodie Palacio Pss documented in this encounterMag[facility]10-17-2022 Miscellaneous Notes* Telephone Encounter - Tj Austin Ma - 07/28/2022 4:51 PM EDT ALEAH: 06/12/2021 Last refill: 07/29/2021 QTY: 90 Refills: 3 Pt notified via [employer] Mail to call and schedule overdue office visit. documented in this encounterMagruder [facility] Hospital10-17-2022 Miscellaneous Notes* Telephone Encounter - Mili Galarza LPN - 07/28/2022 4:46 PM EDT Patient phones requesting refills as follows: Requested Prescriptions Pending Prescriptions Disp Refills atorvastatin (LIPITOR) 20 mg tablet 12 tablet 11 Simg /day for as many doses /wk as is tolerated. For cholesterol. Take 3 times/week and as tolerated ALEAH 06/12/21 No upcoming appointment scheduled. Please review and advise. Mili Galarza LPN documented in this encounterMagruder [facility] Hospital09-22-2022 History of Present illness Narrative* Nilda Ying MA - 07/03/2022 2:14 PM EDT POPULATION HEALTH NAVIGATION OUTREACH Action/FYI left message to call me back to schedule annual my chart message sent with AD info Pt identified by name and : NO Outreach Outcome/Action Unable to reach patient: Left message MyChart message sent Did you use a PCP flex slot to schedule this appointment? N/A Reason for Outreach HCC or suspected condition Payer: Payor: [employer] MEDICARE / Plan: [employer] MEDICARE PPO / Product Type: PPO / Care Gap Reviewed:: Annual Wellness visit Controlling Blood Pressure Colorectal Cancer Screening Diabetic Eye Exam HBA1C Nephropathy (Albumin/Creatinine) Urine Flu vaccine Reminder: Reminder note to check Health Maintenance for items below Health Maintenance items due: HEPATITIS C SCREENING Never done BP CONTROLLED (<130/80) Never done SHINGRIX VACCINE(1 of 2) Never done FECAL OCCULT BLOOD due on 09/02/2014 DTAP,TDAP,TD(2 - Td or Tdap) due on 08/10/2018 DILATED RETINAL EXAM due on 08/10/2019 URINE ALBUMIN:CREATININE RATIO due on 08/17/2019 LDL CHOLESTEROL due on 05/25/2020 DIABETIC FOOT EXAM due on 05/27/2020 COVID-19 VACCINE(3 - Booster for Moderna series) due on 01/24/2021 ADVANCE DIRECTIVE DISCUSSION Never done HBA1C due on 12/10/2021 DEPRESSION SCREENING due on 05/21/2022 ANNUAL PCP TEAM CHRONIC DISEASE VISIT due on 06/12/2022 INFLUENZA(1) due on 06/12/2022 Message Sent to Practice: No Navigation Signature: Nilda Ying MA July 03, 2022 2:14 PM documented in this encounterMagruder [facility] Hospital08-31-2022 History of Present illness Narrative* Aracely Barr - 06/11/2022 4:47 PM EDT POPULATION HEALTH NAVIGATION OUTREACH Action/FYI [place] Support: Called pt to schedule an appt in Pain Management. Lvm for pt to call [phone] for scheduling. Pt identified by name and : NO Outreach Outcome/Action Unable to reach patient: Left message Did you use a PCP flex slot to schedule this appointment? No Reason for Outreach Care Gap or Scheduling/Wellness visits Payer: Payor: [employer] MEDICARE / Plan: [employer] MEDICARE PPO / Product Type: PPO / Care Gap Reviewed:: Specialty Scheduling Reminder: Reminder note to check Health Maintenance for items below Health Maintenance items due: HEPATITIS C SCREENING Never done BP CONTROLLED (<130/80) Never done SHINGRIX VACCINE(1 of 2) Never done FECAL OCCULT BLOOD due on 09/02/2014 DTAP,TDAP,TD(2 - Td or Tdap) due on 08/10/2018 DILATED RETINAL EXAM due on 08/10/2019 URINE ALBUMIN:CREATININE RATIO due on 08/17/2019 LDL CHOLESTEROL due on 05/25/2020 DIABETIC FOOT EXAM due on 05/27/2020 COVID-19 VACCINE(3 - Booster for Moderna series) due on 04/28/2021 ADVANCE DIRECTIVE DISCUSSION Never done HBA1C due on 12/10/2021 DEPRESSION SCREENING due on 05/21/2022 Message Sent to Practice: No Navigation Signature: Aracely Barr June 11, 2022 4:47 PM documented in this encounterMagruder [facility] Hospital08-02-2022 Miscellaneous Notes* Telephone Encounter - Tomeka Lin Ma - 05/13/2022 10:57 AM EDT Referral, demo, OV, imaging, insurance cards faxed to Dr. Arboleda's office. Will have their office call pt to schedule. Pt notified via [employer]. Tomeka Lin Ma * Telephone Encounter - Mega Aquino MD - 05/11/2022 1:59 PM EDT Cara, I hope that you have informed the patient that I was away for a couple weeks, as she may wonder whythe message was not attended to earlier. The consult is placed please assist with faxing to Dr arboleda. documented in this encounterMagruder [facility] Hospital07-12-2022 Miscellaneous Notes* Telephone Encounter - Dea Shah LPN - 04/22/2022 4:53 PM EDT Patient has been identified by name and date of : Yes Patient phones for refill(s): Pending Prescriptions Disp Refills ERGOCALCIFEROL (VITAMIN D2) 1,250 MCG (50,000 UNIT) CAPSULE 8 capsule 5 Sig: Take 1 capsule by mouth two times a week. TO BE TAKEN ORALLY DIRECTED. Take 1 tablet by mouth twice weekly [id number], then decrease to 1 tablet weekly. TIA: No Date of last office visit in primary care: 06/12/21 Last 2 Encounter Wt Readings: Date: Wt: 06/12/2021 104.8 kg (231 lb) 05/24/2021 106.1 kg (234 lb) Previous labs/tests for medication: Not applicable Please advise. Thank you. Dea Shah LPN documented in this encounterMagruder [facility] Hospital06-14-2022 History of Present illness Narrative* Amaar Flores MA - 03/25/2022 8:38 AM EDT POPULATION HEALTH NAVIGATION OUTREACH Action/March 25, 2022 DM Management outreach ALEAH with Mega Aquino MD was 9.1.2020 DM follow up Outcome: LM on Aptible My chart message also sent Pt identified by name and : NO Outreach Outcome/Action Unable to reach patient: Left message [email or web address] message sent Did you use a PCP flex slot to schedule this appointment? N/A Reason for Outreach [facility] Diabetes Management Payer: Payor: HU[employer] MEDICARE / Plan: [employer] MEDICARE PPO / Product Type: PPO / Care Gap Reviewed:: Annual Wellness visit Controlling Blood Pressure Diabetic Eye Exam HBA1C Flu vaccine Reminder: Reminder note to check Health Maintenance for items below Health Maintenance items due: HEPATITIS C SCREENING Never done BP CONTROLLED (<130/80) Never done SHINGRIX VACCINE(1 of 2) Never done FECAL OCCULT BLOOD due on 09/02/2014 DTAP,TDAP,TD(2 - Td or Tdap) due on 08/10/2018 DILATED RETINAL EXAM due on 08/10/2019 URINE ALBUMIN:CREATININE RATIO due on 08/17/2019 LDL CHOLESTEROL due on 05/25/2020 DIABETIC FOOT EXAM due on 05/27/2020 COVID-19 VACCINE(3 - Booster for Moderna series) due on 04/28/2021 ADVANCE DIRECTIVE DISCUSSION Never done HBA1C due on 12/10/2021 Message Sent to Practice: No Navigation Signature: Amara Flores MA March 25, 2022 8:39 AM documented in this encounterMagruder [facility] Hospital08-27-2021 History of Present illness Narrative* Alva Mike RT(R) - 06/07/2021 12:50 PM EDT Radiology Service Progress Note PATIENT NAME: Arablela Bosch DATE OF SERVICE: June 07, 2021 TIME: 12:54 PM PATIENT IDENTITY VERIFICATION COMPLETED USING TWO (2) IDENTIFIERS: Name and Date of confirmedby patient verbally. FALL SCREENING: Has the patient had 2 falls in the last year or 1 fall with injury or currently using an Ambulatory Assistive Device (Walker, Cane, Wheelchair, Crutches, etc.)? No PATIENT GENDER DATA: Female. status: : No status: NO. PATIENT RELEVANT IMPLANT DATA REVIEWED: Not Applicable RADIOLOGY DEPARTMENT: General X-ray: Exam(s) Completed: Upper Extremity X- Ray(s): Wrist, right and Hand, right PERIPHERAL IV DATA: Not applicable SIGNED BY: RT Cherie(R) June 07, 2021 12:54 PM documented in this encounterMagruder [facility] Hospital10-05-2009 History of Past illness Narrative* Problem Noted Date Resolved Date Plantar fasciitis 07/16/2009 02/26/2015 ROTATOR CUFF SYND NOS 08/10/2008 02/26/2015 Other and unspecified hyperlipidemia 06/12/2005 08/31/2013 documented as of this encounter (statuses as of 03/25/2022) [facility] of Past illness Narrative* Problem Noted Date Resolved Date Plantar fasciitis 07/16/2009 02/26/2015 ROTATOR CUFF SYND NOS 08/10/2008 02/26/2015 Other and unspecified hyperlipidemia 06/12/2005 08/31/2013 documented as of this encounter (statuses as of 04/23/2022) [facility] of Past illness Narrative* Problem Noted Date Resolved Date Plantar fasciitis 07/16/2009 02/26/2015 ROTATOR CUFF SYND NOS 08/10/2008 02/26/2015 Other and unspecified hyperlipidemia 06/12/2005 08/31/2013 documented as of this encounter (statuses as of 05/13/2022) [facility] of Past illness Narrative* Problem Noted Date Resolved Date Plantar fasciitis 07/16/2009 02/26/2015 ROTATOR CUFF SYND NOS 08/10/2008 02/26/2015 Other and unspecified hyperlipidemia 06/12/2005 08/31/2013 documented as of this encounter (statuses as of 06/11/2022) [facility] illness Narrative* Problem Noted Date Resolved Date Plantar fasciitis 07/16/2009 02/26/2015 ROTATOR CUFF SYND NOS 08/10/2008 02/26/2015 Other and unspecified hyperlipidemia 06/12/2005 08/31/2013 documented as of this encounter (statuses as of 07/03/2022) [facility] illness Narrative* Problem Noted Date Resolved Date Plantar fasciitis 07/16/2009 02/26/2015 ROTATOR CUFF SYND NOS 08/10/2008 02/26/2015 Other and unspecified hyperlipidemia 06/12/2005 08/31/2013 documented as of this encounter (statuses as of 07/30/2022) [facility] illness Narrative* Problem Noted Date Resolved Date Plantar fasciitis 07/16/2009 02/26/2015 ROTATOR CUFF SYND NOS 08/10/2008 02/26/2015 Other and unspecified hyperlipidemia 06/12/2005 08/31/2013 documented as of this encounter (statuses as of 07/30/2022) [facility] illness Narrative* Problem Noted Date Resolved Date Plantar fasciitis 07/16/2009 02/26/2015 ROTATOR CUFF SYND NOS 08/10/2008 02/26/2015 Other and unspecified hyperlipidemia 06/12/2005 08/31/2013 documented as of this encounter (statuses as of 08/28/2022) [facility] Narrative* Problem Noted Date Resolved Date Plantar fasciitis 07/16/2009 02/26/2015 ROTATOR CUFF SYND NOS 08/10/2008 02/26/2015 Other and unspecified hyperlipidemia 06/12/2005 08/31/2013 documented as of this encounter (statuses as of 08/29/2022) [facility] illness Narrative* Problem Noted Date Resolved Date Plantar fasciitis 07/16/2009 02/26/2015 ROTATOR CUFF SYND NOS 08/10/2008 02/26/2015 Other and unspecified hyperlipidemia 06/12/2005 08/31/2013 documented as of this encounter (statuses as of 10/17/2022) [facility] Narrative* Problem Noted Date Resolved Date Plantar fasciitis 07/16/2009 02/26/2015 ROTATOR CUFF SYND NOS 08/10/2008 02/26/2015 Other and unspecified hyperlipidemia 06/12/2005 08/31/2013 documented as of this encounter (statuses as of 10/29/2022) [facility] Narrative* Problem Noted Date Resolved Date Plantar fasciitis 07/16/2009 02/26/2015 ROTATOR CUFF SYND NOS 08/10/2008 02/26/2015 Other and unspecified hyperlipidemia 06/12/2005 08/31/2013 documented as of this encounter (statuses as of 10/29/2022) [facility] Narrative* Problem Noted Date Resolved Date Plantar fasciitis 07/16/2009 02/26/2015 ROTATOR CUFF SYND NOS 08/10/2008 02/26/2015 Other and unspecified hyperlipidemia 06/12/2005 08/31/2013 documented as of this encounter (statuses as of 11/24/2022) [facility] Narrative* Problem Noted Date Resolved Date Plantar fasciitis 07/16/2009 02/26/2015 ROTATOR CUFF SYND NOS 08/10/2008 02/26/2015 Other and unspecified hyperlipidemia 06/12/2005 08/31/2013 documented as of this encounter (statuses as of 11/28/2022) [facility] Narrative* Problem Noted Date Resolved Date Plantar fasciitis 07/16/2009 02/26/2015 ROTATOR CUFF SYND NOS 08/10/2008 02/26/2015 Other and unspecified hyperlipidemia 06/12/2005 08/31/2013 documented as of this encounter (statuses as of 03/11/2023) [address]05-2009 History of Past illness Narrative* Problem Noted Date Diagnosed Date Resolved Date Plantar fasciitis 07/16/2009 02/26/2015 ROTATOR CUFF SYND NOS 08/10/20082014 Other and unspecified hyperlipidemia 06/12/2005 08/31/2013 documented as of this encounter (statuses as of 04/23/2023) [facility] Narrative* Problem Noted Date Diagnosed Date Resolved Date Plantar fasciitis 07/16/2009 02/26/2015 ROTATOR CUFF SYND NOS 08/10/20082014 Other and unspecified hyperlipidemia 06/12/2005 08/31/2013 documented as of this encounter (statuses as of 05/28/2023) [facility] Narrative* Problem Noted Date Diagnosed Date Resolved Date Plantar fasciitis 07/16/2009 02/26/2015 ROTATOR CUFF SYND NOS 08/10/20082014 Other and unspecified hyperlipidemia 06/12/2005 08/31/2013 documented as of this encounter (statuses as of 07/23/2023) [facility] Narrative* Problem Noted Date Diagnosed Date Resolved Date Plantar fasciitis 07/16/2009 02/26/2015 ROTATOR CUFF SYND NOS 08/10/20082014 Other and unspecified hyperlipidemia 06/12/2005 08/31/2013 documented as of this encounter (statuses as of 11/16/2023) [facility] Narrative* Problem Noted Date Diagnosed Date Resolved Date Plantar fasciitis 07/16/2009 02/26/2015 ROTATOR CUFF SYND NOS 08/10/20082014 Other and unspecified hyperlipidemia 06/12/2005 08/31/2013 documented as of this encounter (statuses as of 01/22/2024) [facility]* Diagnosis Spinal stenosis, lumbar region, without neurogenic claudication- Primary [facility] Diagnosis Hyperlipidemia with target LDL less than 100 Other and unspecified hyperlipidemia [facility] Diagnosis Onset Date Resolution Status Chest pain acute Creatinine elevation acute Syncope acute [facility] Work Phone: Evaluation note* Diagnosis Controlled type 2 diabetes mellitus without complication, without long-term current use of insulin (HCC) [facility]* Diagnosis Onset Date Resolution Status Chest pain acute Creatinine elevation acute NSTEMI, initial episode of care acute Syncope acute [facility] Work Phone: Evaluation note* Diagnosis History of recent hospitalization- Primary Personal history of unspecified disease NSTEMI (non-ST elevated myocardial infarction) (HCC) Acute myocardial infarction, subendocardial infarction, episode of care unspecified 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, unspecified vessel or lesion type Function kidney decreased Unspecified disorder of kidney and ureter Controlled type 2 diabetes mellitus without complication, without long-term current use of insulin (HCC) Essential hypertension, benign documented [facility] this encounter [facility]* Diagnosis Onset Date Resolution Status Chest pain resolved Atherosclerosis of coronary artery of sioux heart without angina pectoris acute Hyperlipidemia acute Hypertension chronic [facility] Work Phone: Evaluation note* Diagnosis Essential hypertension, benign- Primary Hyperlipidemia with target LDL less than 100 Other and unspecified hyperlipidemia Vitamin D deficiency Unspecified vitamin D deficiency [facility]* Diagnosis Controlled type 2 diabetes mellitus without complication, without long-term current use of insulin (HCC)- Primary Stage 3b chronic kidney disease (HCC) Spinal stenosis, lumbar region, without neurogenic claudication Vitamin D deficiency Unspecified vitamin D deficiency Colon cancer screening Special screening for malignant neoplasms, colon documented in this encounter [facility] note* Diagnosis Controlled type 2 diabetes mellitus without complication, without long-term current use of insulin (HCC)- Primary Pedal edema Edema Function kidney decreased Unspecified disorder of kidney and ureter Cervical arthritis Cervical spondylosis without myelopathy Spinal stenosis, lumbar region, without neurogenic claudication documented in this encounter [facility] note* Diagnosis Controlled type 2 diabetes mellitus without complication, without long-term current use of insulin (HCC)- Primary 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, unspecified vessel or lesion type Essential hypertension, benign Stage 3b chronic kidney disease (HCC) Spinal stenosis, lumbar region, without neurogenic claudication Osteoarthrosis, unspecified whether generalized or localized, unspecified site Need for influenza vaccination Need for prophylactic vaccination and inoculation against influenza documented in this encounter [facility] note* Diagnosis Controlled type 2 diabetes mellitus without complication, without long-term current use of insulin (HCC) Hyperlipidemia with target LDL less than 100 Other and unspecified hyperlipidemia [facility] Diagnosis Controlled type 2 diabetes mellitus without complication, without long-term current use of insulin (HCC)- Primary Essential hypertension, benign 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, unspecified vessel or lesion type Stage 3b chronic kidney disease (HCC) Hyperlipidemia with target LDL less than 100 Other and unspecified hyperlipidemia Right hip pain Pain in joint, pelvic region and thigh Chronic pain of both shoulders Pain in joint, shoulder region Cervical arthritis Cervical spondylosis without myelopathy Spinal stenosis in cervical region Spinal stenosis, lumbar region, without neurogenic claudication Edema of both lower extremities Type 2 diabetes mellitus with chronic kidney disease, without long-term current use of insulin, unspecified CKD stage (HCC) [facility] Diagnosis Hyperkalemia- Primary Hyperpotassemia Hypercalcemia [facility] Diagnosis Type 2 diabetes mellitus with chronic kidney disease, without long-term current use of insulin, unspecified CKD stage (HCC) [facility] Diagnosis Acute cough- Primary Wheezing Acute non-recurrent sinusitis, unspecified location Urge incontinence Type 2 diabetes mellitus with chronic kidney disease, without long-term current use of insulin, unspecified CKD stage (HCC) Essential hypertension, benign Stage 3b chronic kidney disease (HCC) Abnormal urine Other nonspecific finding on examination of urine Acute cough Wheezing [facility] Acute cough Wheezing [facility] Diagnosis Arthritis Arthropathy, unspecified, site unspecified Arthralgia, unspecified joint [facility] Diagnosis Acute non-recurrent frontal sinusitis- Primary [facility]* Diagnosis Type 2 diabetes mellitus with chronic kidney disease, without long-term current use of insulin, unspecified CKD stage (HCC) Hyperlipidemia with target LDL less than 100 Other and unspecified hyperlipidemia [facility] Diagnosis Preop exam for internal medicine- Primary Other specified pre-operative examination Essential hypertension, benign Type 2 diabetes mellitus with chronic kidney disease, without long-term current use of insulin, unspecified CKD stage (HCC) Hyperlipidemia with target LDL less than 100 Other and unspecified hyperlipidemia Gastroesophageal reflux disease, unspecified whether esophagitis present Intertrigo Other specified erythematous condition Umbilical hernia without obstruction and without gangrene Stage 3b chronic kidney disease (HCC) Encounter for immunization Need for other specified prophylactic vaccination against single bacterial disease Nocturia documented in this encounter [facility] for referral (narrative)* Diagnostic Procedure Only (Routine) - Closed Specialty Diagnoses / Procedures Referred By Contac t Referred To Contact XR IMAGING Diagnoses Arthritis Arthralgia, unspecified joint Procedures XR HAND GENERAL 3V PA/LAT/OBL RT X-RAY HAND MINIMUM 3 VIEWS Mega Aquino MD [address] [place] [address] [place] [address] Referral ID Status Reason Start Date Expiration Date V isits Requested Visits Authorized Closed Auto-Generate d Referral 05/24/2021 06/23/2022 1 1 * Diagnostic Procedure Only (Routine) - Closed Specialty Diagnoses / Procedures Referred By Contac t Referred To Contact XR IMAGING Diagnoses Arthritis Arthralgia, unspecified joint Procedures XR WRIST GENERAL 3V PA/LAT/OBL RT X-RAY WRIST COMPLET MIN 3 VIEWS Mega Aquino MD [address] [place] [address] [place] [address] Referral ID Status Reason Start Date Expiration Date V isits Requested Visits Authorized [id number] Closed Auto-Generate d Referral 05/24/2021 06/23/2022 1 1 [facility] for referral (narrative)No reason for referral information availableWOhioHealth [facility] Work [facility]: [facility] ([facility] Medication Prior Authorization - Pending Review Specialty Diagnoses / Procedures Referred By Contac t Referred To Contact Jeanette Mitchell APRN.CNP [address] [place] [address] Phone: tel: fax: Referral ID Status Reason Start Date Expiration Date V isits Requested Visits Authorized [id number] Pending Review 1 1 [facility]* Diagnostic Procedure Only (Routine) - Closed Specialty Diagnoses / Procedures Referred By Contac t Referred To Contact XR IMAGING Diagnoses Arthritis Arthralgia, unspecified joint Procedures XR HAND GENERAL 3V PA/LAT/OBL RT X-RAY HAND MINIMUM 3 VIEWS Mega Aquino MD [address] [place] [address] [place] [id number] Referral ID Status Reason Start Date Expiration Date V isits Requested Visits Authorized [id number] Closed Auto-Generate d Referral 05/24/2021 06/23/2022 1 1 [facility] Reason for Referral Specialty Diagnoses / Procedures Referred By Contac t Referred To Contact Pain Management Diagnoses Spinal stenosis, lumbar region, without neurogenic claudication Procedures CONSULT TO PAIN MGT OFFICE/OUTPATIENT NEW [facility] MDM 60-74 MINUTES Mega Aquino MD [address] [place] [id number] Referral ID Status Reason Start Date Expiration Date Visits Requested Visits Authorized [id number] Authorized PCP Requested Referral 05/11/2022 08/09/2022 1 1 Specialty Diagnoses / Procedures Referred By Contac t Referred To Contact Pain Management Diagnoses Cervical arthritis Spinal stenosis, lumbar region, without neurogenic claudication Procedures CONSULT TO PAIN MGT OFFICE/OUTPATIENT NEW HIGH MDM 60-74 MINUTES Jeanette Mitchell APRN.BASEBALL INSPECTOR [address] [place] [address] Referral ID Status Reason Start Date Expiration Date Visits Requested Visits Authorized [id number] Authorized PCP Requested Referral 04/22/2023 04/21/2024 1 1 Specialty Diagnoses / Procedures Referred By Contac t Referred To Contact [facility] Diagnoses Right hip pain Chronic pain of both shoulders Spinal stenosis in cervical region Spinal stenosis, lumbar region, without neurogenic claudication Procedures CONSULT TO PHYSICAL THERAPY PHYSICAL THERAPY EVALUATION HIGH COMPLEX 45 MINS Jeanette Mitchell APRN.CNP [address] [place] [address] [facility] [facility] [address] [place] [address] Referral ID Status Reason Start Date Expiration Date Visits Requested Visits Authorized [id number] Authorized Auto-Generat ed Referral 10/12/2023 10/11/2024 1 1 Chief Complaint and Reason for Visit Chief Complaint SYNCOPE Reason for Visit Chest pain Creatinine elevation Syncope Chief Complaint Syncope Syncope Syncope SYNCOPE Syncope Syncope Syncope Syncope Syncope Reason for Visit Chest pain Creatinine elevation NSTEMI, initial episode of care Syncope Chief Complaint Syncope Syncope Syncope SYNCOPE Syncope Syncope Syncope Syncope Syncope Syncope SYNCOPE s/p [facility] SYNCOPE 10-18-22 Reason for Visit Chest pain Atherosclerosis of coronary artery of [place] heart without angina pectoris Hyperlipidemia Hypertension Chief Complaint Admit Date 1 Y FU/NEEDS EKG March 02, 2025 11:10 am INT LAB ORDERS March 02, 2025 12:00 pm Reason for Visit Admit Date Atherosclerosis of coronary artery of [place] heart without angina pectoris March 02, 2025 11:10am Cardiac murmur March 02, 2025 11:10 am Hyperlipidemia March 02, 2025 11:10 am Hypertension March 02, 2025 11:10 am Family History No Family History Records Found Relationship Condition Age at Onset Recorded Date/T martínez Not Specified Hypertension Unknown father Diabetes mellitus Unknown Coronary artery disease Unknown sister Diabetes mellitus Unknown Cerebrovascular accident (CVA) Unknown mother Malignant melanoma Unknown Advance Directives No Advanced Directives Records Found Advance Directive Response Recorded Date/ Time Living Will No October 17 3 4:46pm Power of Upper Tier No October 17 023 4:46pm Advance Directive Response Recorded Date/ Time Living Will No October 17 3 5:46pm Do you have a Healthcare Power of Upper Tier? No October 17, 2022 5:46pm Summary Purpose Additional Source Comments Source Comments (unrecognize d section and content) In the event this informatio n is protected by the Federal Confidentiality of Alcohol and Drug Abuse Patient Records regulations: The Federal rules restrict any use of the information to criminally investigate or prosecute any alcohol or drug abuse patient.[facility]In the event this information is protected by the Federal Confidentiality of Alcohol and Drug Abuse Patient Records regulations: The Federal rules restrict any use of the information to criminally investigate or prosecute any alcohol or drug abuse patient.[facility] the event this information is protected by the Federal Confidentiality of Alcohol and Drug Abuse Patient Records regulations: The Federal rules restrict any use of the information to criminally investigate or prosecute any alcohol or drug abuse patient.[facility] HospitalIn the event this information is protected by the Federal Confidentiality of Alcohol and Drug Abuse Patient Records regulations: The Federal rules restrict any use of the information to criminally investigate or prosecute any alcohol or drug abuse patient.[facility] HospitalIn the event this information is protected by the Federal Confidentiality of Alcohol and Drug Abuse Patient Records regulations: The Federal rules restrict any use of the information to criminally investigate or prosecute any alcohol or drug abuse patient.[facility] HospitalIn the event this information is protected by the Federal Confidentiality of Alcohol and Drug Abuse Patient Records regulations: The Federal rules restrict any use of the information to criminally investigate or prosecute any alcohol or drug abuse patient.[facility] HospitalIn the event this information is protected by the Federal Confidentiality of Alcohol and Drug Abuse Patient Records regulations: The Federal rules restrict any use of the information to criminally investigate or prosecute any alcohol or drug abuse patient.[facility] HospitalIn the event this information is protected by the Federal Confidentiality of Alcohol and Drug Abuse Patient Records regulations: The Federal rules restrict any use of the information to criminally investigate or prosecute any alcohol or drug abuse patient.[facility] HospitalIn the event this information is protected by the Federal Confidentiality of Alcohol and Drug Abuse Patient Records regulations: The Federal rules restrict any use of the information to criminally investigate or prosecute any alcohol or drug abuse patient.[facility] HospitalIn the event this information is protected by the Federal Confidentiality of Alcohol and Drug Abuse Patient Records regulations: The Federal rules restrict any use of the information to criminally investigate or prosecute any alcohol or drug abuse patient.[facility] HospitalIn the event this information is protected by the Federal Confidentiality of Alcohol and Drug Abuse Patient Records regulations: The Federal rules restrict any use of the information to criminally investigate or prosecute any alcohol or drug abuse patient.[facility] HospitalIn the event this information is protected by the Federal Confidentiality of Alcohol and Drug Abuse Patient Records regulations: The Federal rules restrict any use of the information to criminally investigate or prosecute any alcohol or drug abuse patient.[facility] HospitalIn the event this information is protected by the Federal Confidentiality of Alcohol and Drug Abuse Patient Records regulations: The Federal rules restrict any use of the information to criminally investigate or prosecute any alcohol or drug abuse patient.[facility] HospitalIn the event this information is protected by the Federal Confidentiality of Alcohol and Drug Abuse Patient Records regulations: The Federal rules restrict any use of the information to criminally investigate or prosecute any alcohol or drug abuse patient.[facility] HospitalIn the event this information is protected by the Federal Confidentiality of Alcohol and Drug Abuse Patient Records regulations: The Federal rules restrict any use of the information to criminally investigate or prosecute any alcohol or drug abuse patient.[facility] HospitalIn the event this information is protected by the Federal Confidentiality of Alcohol and Drug Abuse Patient Records regulations: The Federal rules restrict any use of the information to criminally investigate or prosecute any alcohol or drug abuse patient.[facility] HospitalIn the event this information is protected by the Federal Confidentiality of Alcohol and Drug Abuse Patient Records regulations: The Federal rules restrict any use of the information to criminally investigate or prosecute any alcohol or drug abuse patient.[facility] HospitalIn the event this information is protected by the Federal Confidentiality of Alcohol and Drug Abuse Patient Records regulations: The Federal rules restrict any use of the information to criminally investigate or prosecute any alcohol or drug abuse patient.[facility] HospitalIn the event this information is protected by the Federal Confidentiality of Alcohol and Drug Abuse Patient Records regulations: The Federal rules restrict any use of the information to criminally investigate or prosecute any alcohol or drug abuse patient.[facility] HospitalIn the event this information is protected by the Federal Confidentiality of Alcohol and Drug Abuse Patient Records regulations: The Federal rules restrict any use of the information to criminally investigate or prosecute any alcohol or drug abuse patient.[facility] HospitalIn the event this information is protected by the Federal Confidentiality of Alcohol and Drug Abuse Patient Records regulations: The Federal rules restrict any use of the information to criminally investigate or prosecute any alcohol or drug abuse patient.[facility] HospitalIn the event this information is protected by the Federal Confidentiality of Alcohol and Drug Abuse Patient Records regulations: The Federal rules restrict any use of the information to criminally investigate or prosecute any alcohol or drug abuse patient.[facility] HospitalIn the event this information is protected by the Federal Confidentiality of Alcohol and Drug Abuse Patient Records regulations: The Federal rules restrict any use of the information to criminally investigate or prosecute any alcohol or drug abuse patient.[facility] HospitalIn the event this information is protected by the Federal Confidentiality of Alcohol and Drug Abuse Patient Records regulations: The Federal rules restrict any use of the information to criminally investigate or prosecute any alcohol or drug abuse patient.[facility] HospitalIn the event this information is protected by the Federal Confidentiality of Alcohol and Drug Abuse Patient Records regulations: The Federal rules restrict any use of the information to criminally investigate or prosecute any alcohol or drug abuse patient.[facility] HospitalIn the event this information is protected by the Federal Confidentiality of Alcohol and Drug Abuse Patient Records regulations: The Federal rules restrict any use of the information to criminally investigate or prosecute any alcohol or drug abuse patient.[facility] HospitalIn the event this information is protected by the Federal Confidentiality of Alcohol and Drug Abuse Patient Records regulations: The Federal rules restrict any use of the information to criminally investigate or prosecute any alcohol or drug abuse patient.[facility] HospitalIn the event this information is protected by the Federal Confidentiality of Alcohol and Drug Abuse Patient Records regulations: The Federal rules restrict any use of the information to criminally investigate or prosecute any alcohol or drug abuse patient.[facility] HospitalIn the event this information is protected by the Federal Confidentiality of Alcohol and Drug Abuse Patient Records regulations: The Federal rules restrict any use of the information to criminally investigate or prosecute any alcohol or drug abuse patient.[facility] HospitalIn the event this information is protected by the Federal Confidentiality of Alcohol and Drug Abuse Patient Records regulations: The Federal rules restrict any use of the information to criminally investigate or prosecute any alcohol or drug abuse patient.[facility] HospitalIn the event this information is protected by the Federal Confidentiality of Alcohol and Drug Abuse Patient Records regulations: The Federal rules restrict any use of the information to criminally investigate or prosecute any alcohol or drug abuse patient.[facility] HospitalIn the event this information is protected by the Federal Confidentiality of Alcohol and Drug Abuse Patient Records regulations: The Federal rules restrict any use of the information to criminally investigate or prosecute any alcohol or drug abuse patient.[facility] HospitalIn the event this information is protected by the Federal Confidentiality of Alcohol and Drug Abuse Patient Records regulations: The Federal rules restrict any use of the information to criminally investigate or prosecute any alcohol or drug abuse patient.[facility] HospitalIn the event this information is protected by the Federal Confidentiality of Alcohol and Drug Abuse Patient Records regulations: The Federal rules restrict any use of the information to criminally investigate or prosecute any alcohol or drug abuse patient.[facility] HospitalIn the event this information is protected by the Federal Confidentiality of Alcohol and Drug Abuse Patient Records regulations: The Federal rules restrict any use of the information to criminally investigate or prosecute any alcohol or drug abuse patient.[facility] HospitalIn the event this information is protected by the Federal Confidentiality of Alcohol and Drug Abuse Patient Records regulations: The Federal rules restrict any use of the information to criminally investigate or prosecute any alcohol or drug abuse patient.[facility] Reason for Visit (unrecogniz ed section and content) Reason Onset Date Comments Population Health Navigation Outreach 03/25/2022 DM Management Reason Onset Date Comments Refill Request 04/22/2022 Reason Onset Date Comments Population Health Navigation Outreach 07/03/2022 HCC Low Reason Onset Date Comments Refill Request 07/28/2022 Reason Onset Date Comments Refill Request 08/28/2022 Reason Comments Results Reason Comments Recheck Hosp follow up Reason Comments Recheck DM follow up Reason Onset Date Comments Refill Request 03/06/2023 Reason Comments Recheck DM follow up Reason Comments Refill Request Reason Onset Date Comments Recheck 3 month follow u p Immunizations 07/22/2023 Flu vaccination Reason Comments Recheck 6 month follow up Reason Comments Recheck Follow up Reason Comments Sinus Problem Reason Comments flu like symtoms X1.5 week with sinus drainage/pressure x5 days & sinus [place] xtoday Reason Onset Date Comments Refill Request 03/22/2025 Reason Comments Lab Orders Reason Comments Pre-Op Exam Pre -Op R hip replac ement Reason Comments Insurance Authorization Care Teams (unrecognized sec tion and content) Senior Major Gifts Officer Relationship Specialty Start Date End Date Mega Aquino MD [address] [place], [place] [id number] PCP - General Internal Medicine 07/29/21 Senior Major Gifts Officer Relationship Specialty Start Date End Date Mega Aquino MD [address] [place] [address] PCP - General Internal Medicine 07/29/21 Senior Major Gifts Officer Relationship Specialty Start Date End Date Mega Aquino MD [address] [place], [place] [address] PCP - General Internal Medicine 07/29/21 Senior Major Gifts Officer Relationship Specialty Start Date End Date Mega Aquino MD [address] [place], [place] [id number] PCP - General Internal Medicine 07/29/21 Senior Major Gifts Officer Relationship Specialty Start Date End Date Mega Aquino MD [address] [facility] [place] [address] PCP - General Internal Medicine 07/29/21 Senior Major Gifts Officer Relationship Specialty Start Date End Date Mega Aquino MD [address] [facility], [place] [id number] PCP - General Internal Medicine 07/29/21 Senior Major Gifts Officer Relationship Specialty Start Date End Date Mega Aquino MD [address] [facility], [place] [id number] PCP - General Internal Medicine 07/29/21 Team Status: Active Member Role Status Dates Dr. Mega Aquino MD Primary Care Provider Active Team Status: Active Member Role Status Dates Dr. Zafar Echeverria MD Emergency Provider Active Dr. Mega Aquino MD Primary Care Provider Active Dr. Tomeka Williamson , Admit Provider, Att ending Provider, Other Provider Active Team Status: Active Member Role Status Dates Dr. Zafar Echeverria MD Emergency Provider Active Dr. Mega Aquino MD Primary Care Provider Active Dr. Tomeka Williamson DO Admit Provider, Other Provider Ac tive Dr. Ophelia Calles MD Attending Provider, Othe r Provider Active Dr. Santy Amaya DO Other Provider Active Team Status: Active Member Role Status Dates Dr. Zafar Echeverria MD Emergency Provider Active Dr. Mega Aquino MD Primary Care Provider Active Dr. Tomeka Williamson DO Admit Provider, Other Provider Ac tive Dr. Ophelia Calles MD Other Provider Active Dr. Santy mAaya DO Attending Provider, Other Provid er Active Team Status: Active Member Role Status Dates Dr. Zafar Echeverria MD Emergency Provider Active Dr. Mega Aquino MD Primary Care Provider Active Dr. Tomeka Williamson DO Admit Provider, Other Provider Ac tive Dr. Ophelia Calles MD Other Provider Active Dr. Saundra Palacio MD Other Provider Active Dr. Santy Amaya DO Other Provider Active Dr. Lico Osuna MD Attending Provider Active Team Status: Inactive Member Role Status Dates Dr. 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 Zafar Echeverria MD Emergency Provider Active Dr. Mega Aquino MD Primary Care Provider Active Dr. Tomeka Williamson , Admit Provider, Other Provider Ac tive Dr. Ophelia Calles MD Other Provider Active Dr. Saundra Palacio MD Attending Provider, Other Provid er Active Dr. Santy Amaya DO Other Provider Active Team Status: Inactive Member Role Status Dates Dr. Zafar Echeverria MD Emergency Provider Active Dr. Mega Aquino MD Primary Care Provider Active Dr. Tomeka Williamson , Admit Provider, Other Provider Ac tive Dr. Ophelia Calles MD Other Provider Active Dr. Saundra Palacio MD Attending Provider Active Dr. Santy Amaya DO Other Provider Active Team Status: Inactive Member Role Status Dates Dr. Mega Aquino MD Primary Care Provider Active Dr. Saundra Palacio MD Attending Provider Active Senior Major Gifts Officer Relationship Specialty Start Date End Date Mega Aquino MD [address] [place] [address] PCP - General Internal Medicine 07/29/21 Senior Major Gifts Officer Relationship Specialty Start Date End Date Mega Aquino MD [address] [place] [address] PCP - General Internal Medicine 07/29/21 Senior Major Gifts Officer Relationship Specialty Start Date End Date eMga Aquino MD [address] [place] [address] PCP - General Internal Medicine 07/29/21 Senior Major Gifts Officer Relationship Specialty Start Date End Date Mega Aquino MD [address] [place] [address] PCP - General Internal Medicine 07/29/21 Senior Major Gifts Officer Relationship Specialty Start Date End Date Mega Aquino MD [address] [place] [address] PCP - General Internal Medicine 07/29/21 Senior Major Gifts Officer Relationship Specialty Start Date End Date Mega Aquino MD [address] [place] [address] PCP - General Internal Medicine 07/29/21 Senior Major Gifts Officer Relationship Specialty Start Date End Date Mega Aquino MD [address] [place] [address] PCP - General Internal Medicine 07/29/21 Senior Major Gifts Officer Relationship Specialty Start Date End Date Mega Aquino MD [address] [place] [address] PCP - General Internal Medicine 07/29/21 Senior Major Gifts Officer Relationship Specialty Start Date End Date Mega Aquino MD [address] [place] [address] PCP - General Internal Medicine 07/29/21 Senior Major Gifts Officer Relationship Specialty Start Date End Date Mega Aquino MD [address] [place] [address] PCP - General Internal Medicine 07/29/21 Senior Major Gifts Officer Relationship Specialty Start Date End Date Mega Aquino MD [address] [place] [address] PCP - General Internal Medicine 07/29/21 Senior Major Gifts Officer Relationship Specialty Start Date End Date Mega Aquino MD [address] [place] [address] PCP - General Internal Medicine 07/29/21 Senior Major Gifts Officer Relationship Specialty Start Date End Date Mega Aquino MD [address] [facility] [place] [address] PCP - General Internal Medicine 07/29/21 Senior Major Gifts Officer Relationship Specialty Start Date End Date Mega Aquino MD [address] [place] [address] PCP - General Internal Medicine 07/29/21 Senior Major Gifts Officer Relationship Specialty Start Date End Date Mega Aquino MD [address] [place] [address] PCP - General Internal Medicine 07/29/21 Senior Major Gifts Officer Relationship Specialty Start Date End Date Didier Erazo III, MD NO FORWARDING ADDRESS PCP - General 03/13/03 07/28/21 Senior Major Gifts Officer Relationship Specialty Start Date End Date Mega Aquino MD [address] [place] [address] PCP - General Internal Medicine 07/29/21 Analilia Villareal PA-C [address] [place] [address] Cancer Genetics Assistant Family Medicine 09/18/24 Jeanette Mitchell APRN.CNP [address] [place] [address] Cancer Genetics Assistant Internal Medicine 09/18/24 Rosalina Bean PA-C [address] [place] [address] Cancer Genetics Assistant Family Medicine 09/18/24 Senior Major Gifts Officer Relationship Specialty Start Date End Date Mega Aquino MD [address] [place] [address] PCP - General Internal Medicine 07/29/21 Analilia Villareal PAAlmaC [address] [place] [address] [facility] Family Medicine 09/18/24 Jeanette Mitchell APRN.BASEBALL INSPECTOR [address] [place], [place] [address] Cancer Genetics Assistant Internal Medicine 09/18/24 Rosalina Bean PA-C [address] [place], [place] [id number] [facility] 09/18/24 Team Status: Active Member Role Status Dates JEANETTE MITCHELL MANAGER EMPLOYMENT-C Primary Care Provider Active Team Status: Inactive Member Role Status Dates Dr. Mega Aquino MD Referring Provider Active Start: March 02, 2025 End: March 02, 2025 Mili LOPEZ PA Attending Provider Active Start: March 02, 2025 End: March 02, 2025 JEANETTE MITCHELL MANAGER EMPLOYMENT-C Primary Care Provider Active St art: March 02, 2025 End: March 02, 2025 Team Status: Inactive Member Role Status Dates JEANETTE MITCHELL MANAGER EMPLOYMENT-C Primary Care Provider Active St art: March 02, 2025 End: March 02, 2025 Mili LOPEZ PA Attending Provider Active Start: March 02, 2025 End: March 02, 2025 Mili LOPEZ PA Referring Provider Active Start: March 02, 2025 End: March 02, 2025 Senior Major Gifts Officer Relationship Specialty Start Date End Date Mega Aquino MD [address] [place], [place] [id number] PCP - General Internal Medicine 07/29/21 Jeanette Mitchell APRN.BASEBALL INSPECTOR [address] [place], [place] [id number] [facility] Internal Medicine 09/18/24 Senior Major Gifts Officer Relationship Specialty Start Date End Date Mega Aquino MD [address] [place] [address] PCP - General Internal Medicine 07/29/21 Jeanette Mitchell APRN.BASEBALL INSPECTOR [address] [place] [address] [facility] Internal [facility] 09/18/24 Senior Major Gifts Officer Relationship Specialty Start Date End Date Mega Aquino MD [address] [place] [address] PCP - General Internal Medicine 07/29/21 Jeanette Mitchell APRN.BASEBALL INSPECTOR [address] [place] [address] [facility] Internal [facility] 09/18/24 Goals (unrecognized section and content) Goals may be documented in a n alternate sectionGoals may be documented in an alternate section INFORMATION SOURCE (unrecogn ized section and content) DATE CREATED AUTHOR 02/17/2025 [facility] DATE CREATED AUTHOR AUTHOR'S ORGANIZ ATION 04/04/2025 [facility] DATE CREATED AUTHOR AUTHOR'S ORGANIZ ATION 04/08/2025 [facility] FOR RECORDS PERTAINING TO PATIENTS WHO ARE OR HAVE BEEN ENROLLED IN A CHEMICAL DEPENDENCY/SUBSTANCEABUSE PROGRAM, SOME INFORMATION MAY BE OMITTED. This clinical summary was aggregated from multiple sources. Caution should be exercised in using it in the provision of clinical care. This summary normalizes information from multiple sources, and as a consequence, information in this document may materially change the coding, format and clinical context of patient data. In addition, data may be omitted in some cases. CLINICAL DECISIONS SHOULD BE BASED ON THE PRIMARY CLINICAL RECORDS. [employer] [facility]. provides no warranty or guarantee of the accuracy or completeness of information in this document.
== END | disposition home or self-care (01) ==
LOC: CVS 06:52
PROVIDERS: PCP Nurse Practitioner; Referring Provider Physician Assistant Medical; Visit Provider Physician Assistant Medical
DX: R01.1 Cardiac murmur, unspecified (principal)
CPT/HCPCS: 93306

== ENCOUNTER → 2025-07-17 | Outpatient (CLI) | payer MEDICARE, SELFPAY ==
--- OUTSIDE RECORDS SUMMARY | 2025-07-17 12:19 | XMS RPT_ITS | CCD ---
Author Organization [facility] Care Team Providers Care Gauge Controller Name Role Phone Mega Aquino MD Primary [...] Provider Dr. Mega Aquino Referring Provider Francheska FINISHER TAILOR APPRENTICE, FINISHER TAILOR APPRENTICE-C Janusz Luna Attending Provider Mega Aquino MD Primary Care Provider Mega Aquino MD Primary Care Provider Castro LOAIZA MD, Didier Benjamin Primary Care Provider Ruthie vailable Analilia Villareal PA-C Unavailable Older WHITE SUGAR BOILER.FLOW FLOOR ATTENDANT, Jeanette Unavailable Bogner PA-C, Rosalina Unavailable Panda Blanc Attending Unavailable Dr. Mega Aquino MD Referring Provider Mili De Leon Attending Provider OLDER FINISHER TAILOR APPRENTICE-C, JEANETTE Primary Care Provider Mili De Leon Referring Provider Dr. Lico Osuna MD Attending Provider Lico Osuna Attending Unavailable OLDER, JEANETTE Primary Care Unavailable Mili De Leon Attending Unavail able Ganta, Mega Referring Unavailable OLDER, JEANETTE Primary Care Unavailable Panda Blanc Referring Unavailable OLDER, JEANETTE Primary Care Unavailable Panda Blanc Attending Unavailable Mili De Leon Attending Unavail able Del LOPEZ, Mili Ballesteros Referring Unavail able OLDER, JEANETTE Primary Care Unavailable Mili De Leon Attending Unavail able Del LOPEZ, Mili Ballesteros Referring Unavail able OLDER, JEANETTE Primary Care Unavailable OLDER, JEANETTE Primary Care Unavailable Ganta, Mega Primary Care Unavailable Nando FINISHER TAILOR APPRENTICE, Floresita Attending Unavailable Ganta, Mega Primary Care Unavailable Nando FINISHER TAILOR APPRENTICE, Floresita Attending Unavailable DOROTA CALLAWAY Attending Unavailable GANTA, MEGA Primary Care Unavailable SHANNON KELLER Attending Unavailable GANTA, MEGA Primary Care Unavailable GANTA, MEGA Referring Unavailable GANTA, MEGA Primary Care Unavailable OLDER, JEANETTE Attending Unavailable GANTA, MEGA Primary Care Unavailable GANTA, MEGA Primary Care Unavailable OLDER, JEANETTE Attending Unavailable ROSALINA BEAN Attending Unavailable GANTA, MEGA Primary Care Unavailable OLDER, JEANETTE Attending Unavailable GANTA, MEGA Primary Care Unavailable Medications Current Medications Medication Drug Class(es) Dates Sig (Normalized) Sig (Original) acetaminophen 500 mg oral tablet (5 sources) Start: 10-17-2022 take 2 tablets by mouth twice daily Acetaminophen 500 mg Tablet Active 1000 mg PO TWICE A DAY October 17, 2022 1:00am ARTHRITIS PAIN Start: 10-17-2022 take 2 tablets by mo uth every eight hours Acetaminophen 500 mg Tablet Active 1000 mg PO Q8H October 17, 2022 1:00am Start: 10-17-2022 take 1000 mg by mout h every eight hours Acetaminophen Active 1000 MG PO Q8H October 17, 2022 12:00am amLODIPine 2.5 mg oral tablet (20 sources) Dihydropyridine Calcium Channel Kira Start: 03-10-2025 take 1 tablet by mouth once daily amLODIPine (NORVASC) 2.5 mg tablet Take 1 tablet by mouth once daily. 03/10/2025 Active Start: 12-16-2023 End: 12-06-2024 take 1 tablet by mouth once daily amLODIPine (NORVASC) 2.5 mg tablet Take 1 tablet by mouth once daily. 03/10/2025 Active Start: 12-25-2022 End: 12-16-2023 take 2.5 mg by mouth once daily Amlodipine 5 mg tablet Discontinued 2.5 mg PO DAILY 90 December 25, 2022 4:24pm December 16, 2023 4:43pm Start: 10-21-2022 End: 07-22-2023 take 1 tablet by mouth once daily Amlodipine 5 mg tablet Discontinued 5 mg PO DAILY 90 November 10, 2022 11:50am December 25, 2022 4:24pm Comment on above: Take 5 mg by mouth o nce daily. amoxicillin 875 mg / clavulanate 125 mg oral tablet (4 sources) Penicillin-class Antibacterial Start: Blood Disease Maternal Grandfather Cerebral Embolism Paternal Grandmother SOCIAL HISTORY[1] PHYSICAL EXAM BP 124/70 Pulse 60 Resp 16 Wt 101.6 kg (224 lb) SpO2 97% BMI 36.15 kg/m? General Appearance: well appearing, in no acute distress, alert Skin: small amount of redness and 2 small open areas to lower mid abdominal fold. No drainage, or red streaking noted. Moisture noted but no tenderness Lungs: Lungs clear to auscultation. No wheezing, rhonchi, rales. Heart: RRR without murmur, gallop, or rubs. No ectopy Health maintenance reviewed with patient: Depression Screening Never done Anxiety Screening Never done DTaP,Tdap,Td Vaccine(2 - Td or Tdap) due on 08/10/2018 RSV Vaccine(1 - 1-dose 75+ series) Never done Dilated Retinal Exam due on 08/10/2019 Medicare Advantage Annual Wellness Visit Never done Diabet (more content not included)... Normal [facility] Basic metabolic 2000 panelon 06-30-2025 Anion gap [Moles/Vol] 10 mmol/L Normal 8-15 [facility] Comment on above: Order Comment: Speci men Type: BLOOD SPECIMENOrdering Facility: [facility] Address: [address] [place] [address] Performed By: #### 2 4321-2, 38764-0 ####[facility] LABCLIA [id number] [place] [address] [place] Calcium [Mass/Vol] 9.8 mg/dL Normal 8.5-10.2 [facility] Comment on above: Order Comment: Speci men Type: BLOOD SPECIMENOrdering Facility: [facility] Address: [address] [place] [address] Performed By: #### 2 4321-2, 04355-1 ####[facility] LABCLIA [id number] [place] [address] [place] Chloride [Moles/Vol] 106 mmol/L Normal 98-[address] [facility] Comment on above: Order Comment: Speci men Type: BLOOD SPECIMENOrdering Facility: [facility] Address: [address] [place] [address] Performed By: #### 2 4321-2, 79119-4 ####[facility] LABCLIA [id number] [place] [address] [place] CO2 [Moles/Vol] 22 mmol/L Normal 22-30 [facility] Comment on above: Order Comment: Speci men Type: BLOOD SPECIMENOrdering Facility: [facility] Address: [address] [place] [address] Performed By: #### 2 4321-2, 36046-9 ####[facility] LABCLIA [id number] [place] [id number] [place] Creatinine [Mass/Vol] 1.10 mg/dL High 0.58-0.96 [facility] Comment on above: Order Comment: Speci men Type: BLOOD SPECIMENOrdering Facility: [facility] Address: [address] [place] [address] Performed By: #### 2 4321-2, 10370-5 ####[facility] LABIA [id number] [place] [address] [place] eGFRcr SerPlBld CKD-EPI 2020 51 mL/min/1.73m??? Low >=60 [facility] Comment on above: Order Comment: Priya gardner Type: BLOOD SPECIMENOrdering Facility: [facility] Address: [address] [place] [address] Result Comment: Lorraine mated Glomerular Filtration Rate (eGFR) is calculated using the 2020 CKD-EPI creatinine equation. This equation utilizes serum creatinine, sex, and age as parameters. The creatinine assay has traceable calibration to isotope dilution-mass spectrometry. Refer to KDIGO guidelines for clinical interpretation. In patients with unstable renal function, e.g. those with acute kidney injury, the eGFR may not accurately reflect actual GFR. Performed By: #### 2 4321-2, 85597-8 ####[facility] LABIA [id number] [place] [address] [place] Glucose [Mass/Vol] 142 mg/dL High 74-99 [facility] Comment on above: Order Comment: Priya gardner Type: BLOOD SPECIMENOrdering Facility: [facility] Address: [address] [place] [address] Result Comment: The [place] Diabetes Association (ADA) provides guidance for cutoff values [...] Standards of Medical Care in Diabetes 2016, [place] Diabetes Association. Diabetes Care. 2016.39(Suppl 1). Performed By: #### 2 4321-2, 23154-5 ####[facility] LABCLIA [id number] [address] [address] [place] Potassium [Moles/Vol] 4.4 mmol/L Normal 3.7-5.1 [facility] Comment on above: Order Comment: Speci men Type: BLOOD SPECIMENOrdering Facility: [facility] Address: [address] [place] [address] Performed By: #### 2 4321-2, 66722-7 ####[facility] LABCLIA [id number] [place] [id number] [place] Sodium [Moles/Vol] 138 mmol/L Normal 136-144 [facility] Comment on above: Order Comment: Speci men Type: BLOOD SPECIMENOrdering Facility: [facility] Address: [address] [place] [address] Performed By: #### 2 4321-2, 31142-6 ####[facility] LABIA [id number] [place] [id number] [place] Urea nitrogen [Mass/Vol] 22 mg/dL High 7-21 [facility] Comment on above: Order Comment: Speci men Type: BLOOD SPECIMENOrdering Facility: [facility] Address: [address] [place] [address] Performed By: #### 2 4321-2, 51903-7 ####[facility] LABCLIA [id number] [place] [id number] [place] CBC panel Auto (Bld)on 06-30 Erythrocyte distribution width (RBC) [Ratio] 14.0 % Normal 11.5-15.0 [facility] Comment on above: Order Comment: Speci men Type: BLOOD SPECIMENOrdering Facility: [facility] Address: [address] [place] [address] Performed By: #### 5 8410-2 ####[facility] LABCLIA [id number] [place] [address] [place] Hematocrit (Bld) [Volume fraction] 43.0 % Normal 36.0-46.0 [facility] Comment on above: Order Comment: Speci men Type: BLOOD SPECIMENOrdering Facility: [facility] Address: [address] [place] [address] Performed By: #### 5 8410-2 ####[facility] LABIA [id number] [place] [address] [place] Hemoglobin (Bld) [Mass/Vol] 14.0 g/dL Normal 11.5-15.5 [facility] Comment on above: Order Comment: Speci men Type: BLOOD SPECIMENOrdering Facility: [facility] Address: [address] [place] [address] Performed By: #### 5 8410-2 ####[facility] LABIA [id number] [place] [address] [place] MCH (RBC) [Entitic mass] 30.3 pg Normal 26.0-34.0 [facility] Comment on above: Order Comment: Speci men Type: BLOOD SPECIMENOrdering Facility: [facility] Address: [address] [place] [address] Performed By: #### 5 8410-2 ####[facility] LABIA [id number] [place] [address] [place] MCHC (RBC) [Mass/Vol] 32.6 g/dL Normal 30.5-36.0 [facility] Comment on above: Order Comment: Speci men Type: BLOOD SPECIMENOrdering Facility: [facility] Address: [address] [place] [address] Performed By: #### 5 8410-2 ####[facility] LABIA [id number] [place] [address] [place] MCV (RBC) [Entitic vol] 93.1 fL Normal 80.0-100.0 [facility] Comment on above: Order Comment: Speci men Type: BLOOD SPECIMENOrdering Facility: [facility] Address: [address] [place] [address] Performed By: #### 5 8410-2 ####[facility] LABIA [id number] [place] [address] [place] Nucleated RBC (Bld) [#/Vol] 10*3/uL Normal <0.01 [facility] Comment on above: Order Comment: Speci men Type: BLOOD SPECIMENOrdering Facility: [facility] Address: [address] [place] [address] Performed By: #### 5 8410-2 ####[facility] LABIA [id number] [place] [address] [place] Platelet mean volume (Bld) [Entitic vol] 11.4 fL Normal 9.0-12.7 [facility] Comment on above: Order Comment: Speci men Type: BLOOD SPECIMENOrdering Facility: [facility] Address: [address] [place] [address] Performed By: #### 5 8410-2 ####[facility] LABIA [id number] [place] [address] [place] Platelets (Bld) [#/Vol] 360 10*3/uL Normal 150-400 [facility] Comment on above: Order Comment: Speci men Type: BLOOD SPECIMENOrdering Facility: [facility] Address: [address] [place] [address] Performed By: #### 5 8410-2 ####[facility] LABIA [id number] [place] [address] [place] RBC (Bld) [#/Vol] 4.62 10*6/uL Normal 3.90-5.20 [facility] Comment on above: Order Comment: Speci men Type: BLOOD SPECIMENOrdering Facility: [facility] Address: [address] [place] [address] Performed By: #### 5 8410-2 ####[facility] LABCLIA [id number] [place] [id number] [place] WBC (Bld) [#/Vol] 8.16 10*3/uL Normal 3.70-11.00 [facility] Comment on above: Order Comment: Speci men Type: BLOOD SPECIMENOrdering Facility: [facility] Address: [address] [place] [address] Performed By: #### 5 8410-2 ####[facility] LABIA [id number] [address] [place] HbA1c (Bld)on 06-30-2025 Average glucose Estimated from glycated hemoglobin (Bld) [Mass/Vol] 131 mg/dL Normal [facility] Comment on above: Order Comment: Speci men Type: BLOOD SPECIMENOrdering Facility: [facility] Address: [address] [place] [address] Result Comment: eAG: (Estimated average glucose) is a calculated value from HgbA1c and is security representative of the average blood glucose level in the last 2-3 month period. Performed By: #### 5 5454-3 ####[facility] LABIA [id number] [place] [id number] [facility] HbA1c (Bld) [Mass fraction] 6.2 % High 4.3-5.6 [facility] Comment on above: Order Comment: Speci men Type: BLOOD SPECIMENOrdering Facility: [facility] Address: [address] [place] [address] Result Comment: Amer [place] Diabetes Association guidelines indicate that patients with HgbA1c in the range 5.7-6.4% are at increased risk for development of diabetes, and intervention by lifestyle modification may be beneficial. HgbA1c greater or equal to 6.5% is considered diagnostic of diabetes. Performed By: #### 5 5454-3 ####[facility] LABIA [id number] [place] [id number] [place] Lipid 1996 panelon 5 Cholesterol [Mass/Vol] 151 mg/dL Normal <200 [facility] Comment on above: Order Comment: Speci men Type: BLOOD SPECIMENOrdering Facility: [facility] Address: [address] [place] [address] Result Comment: <200 mg/dL, Desirable 200-239 mg/dL, Borderline high >239 mg/dL, High Performed By: #### 2 4321-2, 72653-1 ####[facility] LABCLIA [id number] [facility] [id number], [facility]95 [facility] Cholesterol in HDL [Mass/Vol] 38 mg/dL Low >39 [facility] Comment on above: Order Comment: Speci men Type: BLOOD SPECIMENOrdering Facility: [facility] Address: [address] [place] [address] Result Comment: 40-5 9 mg/dL, Acceptable >59 mg/dL, High: Negative risk factor for coronary heart disease <40 mg/dL, Low: Positive risk factor for coronary heart disease Performed By: #### 2 4321-2, 55198-9 ####[facility] LABCLIA [id number] [address], [address] STATES [facility] Cholesterol in LDL [Mass/Vol] 91 mg/dL Normal <100 [facility] Comment on above: Order Comment: Speci men Type: BLOOD SPECIMENOrdering Facility: [facility] Address: [address] [place] [address] Result Comment: <100 mg/dL, Optimal 100-129 mg/dL, Near optimal/above optimal 130-159 mg/dL, Borderline high 160-189 mg/dL, High >189 mg/dL, Very high Secondary prevention optimal LDL Cholesterol levels are recommended to be <70 mg/dL LDL cholesterol is calculated using the Patel-NIH equation. Performed By: #### 2 4321-2, 86177-8 ####[facility] LABCLIA [id number] [facility] [address] [place] [address] [facility] [place] Cholesterol in LDL/Cholesterol in HDL [Mass ratio] 2.39 {ratio} Normal <2.54 [facility] Comment on above: Order Comment: Speci men Type: BLOOD SPECIMENOrdering Facility: [facility] Address: [address] [place] [address] Result Comment: Verito jansen: 1. National Cholesterol Education Program ATP III Guideline At-A-Glance Quick Desk Reference: National Heart, Lung, and Blood [place]. National Institutes of Health. 2001: NIH Publication No. 01-3305. 2. An International Atherosclerosis Society position paper: global recommendations for the management of dyslipidemia: executive summary, Atherosclerosis. 2014: 232(2):410-413. Performed By: #### 2 4321-2, 89126-0 ####[facility] LABCLIA [id number] [place] [address] [place] Cholesterol in VLDL [Mass/Vol] 19 mg/dL Normal <30 [facility] Comment on above: Order Comment: Rickeyi men Type: BLOOD SPECIMENOrdering Facility: [facility] Address: [address] [place] [address] Performed By: #### 2 432-2, 76646-4 ####[facility] LABCLIA [id number] [place] [address] [place] Cholesterol non HDL [Mass/Vol] 113 mg/dL Normal <130 [facility] Comment on above: Order Comment: Rickeyi kendra Type: BLOOD SPECIMENOrdering Facility: [facility] Address: [address] [place] [address] Result Comment: <130 mg/dL, Optimal 130-159 mg/dL, Near optimal/above optimal 160-189 mg/dL, Borderline high 190-219 mg/dL, High >219 mg/dL, Very high Secondary prevention optimal non HDL Cholesterol levels are recommended to be <100 mg/dL Performed By: #### 2 1-2, 49343-9 ####[facility] LABCLIA [id number] [address] [address] [place] Cholesterol.total/Choles terol in HDL [Mass ratio] 3.97 {ratio} Normal <5.10 [facility] Comment on above: Order Comment: Speci men Type: BLOOD SPECIMENOrdering Facility: [facility] Address: [address] [place] [address] Performed By: #### 2 4321-2, 87312-7 ####[facility] LABCLIA [id number] [place] [address] [place] FASTING TIME 12 hrs Normal [facility] Comment on above: Order Comment: Speci men Type: BLOOD SPECIMENOrdering Facility: [facility] Address: [address] [place] [address] Performed By: #### 2 432-2, ####[facility] LABCLIA [id number] [address] [place] Triglyceride [Mass/Vol] 122 mg/dL Normal <150 [facility] Comment on above: Order Comment: Speci men Type: BLOOD SPECIMENOrdering Facility: [facility] Address: [address] [place] [address] Result Comment: <150 mg/dL, Normal 150-199 mg/dL, Borderline high 200-499 mg/dL, High >499 mg/dL, Very high Performed By: #### 2 432-2, ####[facility] LABCLIA [id number] [address] [place] CNOVon 06-07-2025 CNOV Office Visit (ERCIAPWS ) ARABELLA BOSCH ([id number]) 1945 F Date Time Provider Department 06/07/25 3:00 PM [facility] your visit today, we recorded the following information about you: Pulse Respiration Blood pressure 62/minute 16/minute 140/78 Shannon KellerRAJANI.FLOW FLOOR ATTENDANT 06/07/2025 3:36 PM Signed This is a 79 year old female who presents today with: The patient is an 79-year-old female presenting for re-eval of rash so she can move forward with hip surgeryvaluation of a persistent rash to obtain clearance for scheduled hip replacement surgery. HISTORY OF PRESENT ILLNESS: Rash: - Rash had been present for over a month. - Improved with a two-week course of oral fluconazole. - Rash initially bright red and oozing, now much improved under abdominal fold. Does note minimal pinkness under the right breast. PAST MEDICAL HISTORY: PAST MEDICAL HISTORY Diagnosis Date Benign hypertensive [...] allergies. MEDICATIONS Current Outpatient Medications Medication Sig fluconazole (DIFLUCAN) 50 mg tablet Take 1 tablet by mouth once daily for 7 days. rosuvastatin (CRESTOR) 20 mg tablet Take 1 tablet by mouth once daily. amLODIPine (NORVASC) 2.5 mg tablet Take 1 tablet by mouth once daily. pantoprazole DR (PROTONIX) 20 mg tablet [...] No current facility-administered medications for this visit. FAMILY HISTORY Problem Relation Age of Onset Cancer Mother Heart Father Thyroid Sister Stroke Maternal Grandmother Blood Disease Maternal Grandfather Cerebral Embolism Paternal Grandmother SOCIAL HISTORY[1] EXAM: BP 140/78 Pulse 62 Resp 16 SpO2 97% PHYSICAL EXAM: General Appearance: Well appearing, alert, in no acute distress, well-hydrated, well nourished.. Skin: Skin color, texture, turgor normal, no suspicious rashes or lesions. Minimal amount of pinkness under the right breast. Skin healed with just some remnant pinkness under the abdominal fold. No odor. No itch. No drainage. Not angry/irritated. Head: Normocephalic, no masses, lesions, tenderness or abnormalities. Eyes: Anicteric sclera. Extraocular movements are intact. . Neurologic: Gait w/ cane. ASSESSMENT/PLAN 1. Intertrigo (L30.4) - abdominal fold rash reportedly significantly improved (this is the first this provider has evaluated); - minimal erythema remains under right breast - Start fluconazole for 1 week. - Continue ketoconazole cream and nystatin powder as needed under right breast. - Advised to keep affected areas dry; use applied psychology chair after cleansing. - Educated on importance of completing full course of topical antifungal treatment and continuing application for one week after visible resolution. - Instructed to contact clinic if rash does not resolve after one week of treatment. - Will fax note to Dr. Blanc's office to document current status of rash. Discussed treatment plan and patient voices understanding. Patient's questions answered appropriately. Medications and potential side effects were discussed and patient voices understanding. Return to the office as scheduled or as needed for worsening/no improvement. Shannon Keller APRN.FLOW FLOOR ATTENDANT Recording using Sova software for draft documentation of the visit was discussed with the patient/authorized security representative; all questions welcomed and answered. Patient/authorized security representative agreed to proceed [1] Social History Tobacco Use Smoking status: Former Smokeless tobacco: Never Tobacco comments: quit smoking 1983 Vaping Use Vaping status: Never Used Substance Use Topics Alcohol use: Yes Alcohol/week: 1.0 standard drink of alcohol Types: 1 Standard drinks or equivalent per week Drug use: No Allergies As of Date: 06/07/2025 (No Known Allergies) Date Reviewed: 06/07/2025 Reviewed by: Betsy (more content not included)... Normal [facility] CNOVon 04-12-2025 CNOV Office Visit (INTMWS ) ARABELLA BOSCH ([id number]) 1945 F Date Time Provider Department 04/12/25 3:00 PM DOROTA CALLAWAY IN[facility]WS During your visit today, we recorded the following information about you: Temperature Pulse Respiration Blood pressure 97.8 degrees 64/minute 14/minute 132/78 Weight 102.6 kg Dorota Callaway, WHITE [employer]AR BOILER.[facility] 04/12/2025 3:18 PM Signed We discussed your yeast infection rash: - You will start taking Diflucan (fluconazole) 50 mg orally once daily for 2 weeks. This prescription has been sent to your [facility] pharmacy. Please take it as directed. - Stop using the nystatin powder you were previously prescribed. Instead, start using ketoconazole cream, which has been sent to your pharmacy. Apply this cream to the affected area daily for 4 weeks, even if the rash clears up before then. - To help keep the area dry, you can use wjol-kyl-zsuwuaq medicated powders, such as Gold [place], after applying the cream and allowing it to absorb. Avoid using tissue directly on the area, as it may not be as effective as powders or a folded washcloth. - After bathing, allow the area to air dry before applying the cream and getting dressed. You can use a blow dryer on a cool setting to help dry the area if needed. - Avoid spending time outside in the heat, as sweating can worsen the rash. We discussed your upcoming surgery: - Your surgeon will evaluate the rash on the day of your surgery to determine if it has improved enough to proceed. Please call your surgeon to inform them of today?s visit and the treatment plan. We discussed the cause of your rash: - This type of yeast infection is common in areas with excess skin or folds, especially during hot weather. It is not contagious. Please follow the above instructions carefully to help improve the rash before your surgery. If you have any questions or concerns, feel free to contact our office. Dorota Callaway, RAJANI.FLOW FLOOR ATTENDANT 04/12/2025 3:41 PM Signed CC: Patient presents with: Recheck: Rash: lower abdomen/groin HPI Recording using Sova software for draft documentation of the visit was discussed with the patient/authorized security representative; all questions welcomed and answered. Patient/authorized security representative agreed to proceed Arabella Bosch is a 79-year-old female presenting for evaluation of a recurrent rash on the abdomen. Arabella reports a recurrent rash on the abdomen that has been present intermittently for approximately 6 months. The rash is described as erythematous and pruritic, with some improvement in erythema and pruritus noted after initiating treatment with nystatin and oral Diflucan, as prescribed by a previous clinician. She has completed two doses of Diflucan, with the second dose taken 3 days after the first. Arabella notes that the rash is not completely resolved, and she is concerned about its persistence due to an upcoming hip surgery scheduled for Thursday. The surgeon has advised that the rash needs to be resolved before the surgery can proceed. Arabella also reports a history of similar rashes under the breasts, which have resolved. She has previously used antibiotic cream with temporary improvement, but the rash would recur. Review of Systems See HPI PAST MEDICAL HISTORY Diagnosis Date [...] Take 1 tablet by mouth once daily. pantoprazole DR (PROTONIX) 20 mg tablet [...] diagnostic(ONE TOUCH ULTRA TEST STRIPS) test daily fluconazole (DIFLUCAN) 50 mg tablet Take 1 tablet by mouth once daily for 14 days. ketoconazole (NIZORAL) 2 % cream Apply to affected area once daily. FAMILY HISTORY Problem Relation Age of Onset Cancer Mother Heart Father Thyroid Sister Stroke Maternal Grandmothe (more content not included)... Normal [facility] Echo Completeon 04-11-2025 Echo Complete [facility] [address] [place] [address] Echo Complete 04/11/25 0400 MR#: [id number] Acct: [id number] Name: ARABELLA BOSCH DANDRE Rep #: [id number] : 1945 79 From: Lico Osuna MD Attending Dr: JOHN Olivares Status: REG CLI Ordering Dr: Mili Mathis PA Date: 11/05 Location: CVS Sex: F C Admitted: Reason For Study Reason For Study: MURMUR Procedure This was a 2D Doppler, Color Flow transthoracic echocardiogram. Exam performed in department. Left Ventricle Normal LV size. Left ventricular systolic function is normal. The left ventricular ejection fraction is 65 %. Stage 1 diastolic dysfunction. No regional wall motion abnormalities noted. Right Ventricle Normal RV size. Normal systolic function. Atria Normal left atrium. Normal right atrium. Mitral Valve There is moderate mitral annular calcification. Mild (1+) eccentric mitral valve insufficiency. Tricuspid Valve Normal tricuspid valve. Mild (1+) tricuspid valve insufficiency. Pulmonary artery systolic pressure is 38 mmHg. Aortic Valve Trisinus/trileaflet aortic valve. Pulmonic Valve Normal pulmonic valve. Great Vessels Normal aortic root. The pulmonary artery is normal size. Inferior vena cava collapse with respiration. Pericardium/Pleural No pericardial effusion. MMode/2D Measurements Calculations LVIDd: 4.8 cm IVSd: 0.81 cm LVOT diam: 2.1 cm LVIDs: 3.2 cm LVPWd: 0.87 cm LVOT area: 3.5 cm2 RVDd: 3.7 cm FS: 31.8 % Ao root diam: 3.2 cm LAV(MOD-bp): 79.4 ml LVAd ap4: 28.1 cm2 LAV(MOD-bp) Indexed: 38.4 ml/m2 LVLd ap4: 7.8 cm LAV(MOD-sp2): 66.5 ml EDV(MOD-sp4): 85.0 ml LAV(MOD-sp4): 82.5 ml EDV(sp4-el): 85.7 ml LVAs ap4: 13.5 cm2 LVLs ap4: 6.6 cm ESV(MOD-sp4): 23.3 ml ESV(sp4-el): 23.4 ml EF(MOD-sp4): 72.5 % EF(sp4-el): 72.7 % LVAd ap2: 22.3 cm2 SV(MOD-sp4): 61.6 ml SV(MOD-sp2): 39.7 ml LVLd ap2: 7.6 cm SI(MOD-sp4): 29.8 ml/m2 SI(MOD-sp2): 19.2 ml/m2 EDV(MOD-sp2): 55.1 ml EDV(sp2-el): 55.3 ml LVAs ap2: 11.0 cm2 LVLs ap2: 6.4 cm ESV(MOD-sp2): 15.4 ml ESV(sp2-el): 15.9 ml EF(MOD-sp2): 72.1 % SV(sp4-el): 62.3 ml LA dimension(2D): 4.3 cm LA A4 area: 24.7 cm2 TAPSE: 2.5 cm Time Measurements MV dec time: 0.24 sec Doppler Measurements Calculations MV E max renetta: 77.8 cm/sec Lat Peak E' Renetta: 6.5 cm/sec Med Peak E' Renetta: 6.5 cm/sec MV A max renetta: 113.6 cm/sec E/E' lat: 12.0 E/E' med: 12.0 MV E/A: 0.68 MV V2 max: 132.0 cm/sec MV P1/2t max renetta: 86.1 cm/sec Ao V2 max: 213.1 cm/sec MV max P.0 mmHg MV P1/2t: 75.1 msec Ao max P.2 mmHg MV V2 mean: 54.8 cm/sec MV dec slope: 335.5 cm/sec2 Ao V2 mean: 147.8 cm/sec MV mean P.6 mmHg Ao mean P.0 mmHg MV V2 VTI: 30.9 cm MVA(P1/2t): 2.9 cm2 Ao V2 VTI: 53.7 cm MVA(VTI): 4.2 cm2 AV (velocity ratio): 0.69 RENÉ(I,D): 2.4 cm2 RENÉ(V,D): 2.1 cm2 LV V1 max: 130.4 cm/sec SV(LVOT): 130.8 ml PA V2 max: 77.9 cm/sec LV V1 max P.8 mmHg PA V2 mean: 48.3 cm/sec LV V1 mean P.7 mmHg LV V1 mean: 90.0 cm/sec LV V1 VTI: 37.3 cm TR max renetta: 288.3 cm/sec TR max P.2 mmHg ECHO/Echo Complete Interpretation Summary Normal LV size. Left ventricular systolic function is normal. The left ventricular ejection fraction is 65 %. Stage 1 diastolic dysfunction. There is moderate mitral annular calcification. Ordering Physician: Mili Mathis Referring Physician: Jeanette Mitchell Performed By: Lolita Buitrago, MUSTAPHACS, RVT 04/11/25947 Date Lico Osuna MD CC: ABEL MITCHELL; JOHN Olivares Date Dictated: 04/11/25399 Date Transcribed: 04/11/25947 Utility Mechanic Supervisor: Signed Normal [facility] Echocardiogram study reportO rdered By: Lico Osuna on 04-11-2025 Study report [facility] [address] [place] [address] Echo Complete 04/11/25399 MR#: [id number] Acct: [id number] Name: ARABELLA BOSCH ADNDRE Rep #:[id number] : 1945 79 From: Lico Walsh Attending Dr: JOHN Olivares Status: REG CLI Ordering Dr: Mili Mathis Date: 04/11/25 Location: [facility] Sex: F C Admitted: Reason For Study Reason For Study: MURMUR Procedure This was a 2D Doppler, Color Flow transthoracic echocardiogram. Exam performed in department. Left Ventricle Normal LV size. Left ventricular systolic function is normal. The left ventricular ejection fraction is 65 %. Stage 1 diastolic dysfunction. No regional wall motion abnormalities noted. Right Ventricle Normal RV size. Normal systolic function. Atria Normal left atrium. Normal right atrium. Mitral Valve There is moderate mitral annular calcification. Mild (1+) eccentric mitral valveinsufficiency. Tricuspid Valve Normal tricuspid valve. Mild (1+) tricuspid valve insufficiency. Pulmonary artery systolic pressure is 38 mmHg. Aortic Valve Trisinus/trileaflet aortic valve. Pulmonic Valve Normal pulmonic valve. Great Vessels Normal aortic root. The pulmonary artery is normal size. Inferior vena cava collapse with respiration. Pericardium/Pleural No pericardial effusion. MMode/2D Measurements & Calculations LVIDd: 4.8 cm IVSd: 0.81 cm LVOT diam: 2.1 cm LVIDs: 3.2 cm LVPWd: 0.87 cm LVOT area: 3.5 cm2 RVDd: 3.7 cm FS: 31.8 % Ao root diam: 3.2 cm LAV(MOD-bp): 79.4 ml LVAd ap4: 28.1 cm2 LAV(MOD-bp) Indexed: 38.4 ml/m2 LVLd ap4: 7.8 cm LAV(MOD-sp2): 66.5 ml EDV(MOD-sp4): 85.0 ml LAV(MOD-sp4): 82.5 ml EDV(sp4-el): 85.7 ml LVAs ap4: 13.5 cm2 LVLs ap4: 6.6 cm ESV(MOD-sp4): 23.3 ml ESV(sp4-el): 23.4 ml EF(MOD-sp4): 72.5 % EF(sp4-el): 72.7 % LVAd ap2: 22.3 cm2 SV(MOD-sp4): 61.6 ml SV(MOD-sp2): 39.7 ml LVLd ap2: 7.6 cm SI(MOD-sp4): 29.8 ml/m2 SI(MOD-sp2): 19.2 ml/m2 EDV(MOD-sp2): 55.1 ml EDV(sp2-el): 55.3 ml LVAs ap2: 11.0 cm2 LVLs ap2: 6.4 cm ESV(MOD-sp2): 15.4 ml ESV(sp2-el): 15.9 ml EF(MOD-sp2): 72.1 % SV(sp4-el): 62.3 ml LA dimension(2D): 4.3 cm LA A4 area: 24.7 cm2 TAPSE: 2.5 cm Time Measurements MV dec time: 0.24 sec Doppler Measurements & Calculations MV E max renetta: 77.8 cm/sec Lat Peak E' Renetta: 6.5 cm/sec Med Peak E' Renetta: 6.5 cm/sec MV A max renetta: 113.6 cm/sec E/E' lat: 12.0 E/E' med: 12.0 MV E/A: 0.68 MV V2 max: 132.0 cm/sec MV P1/2t max renetta: 86.1 cm/sec Ao V2 max: 213.1 cm/sec MV max P.0 mmHg MV P1/2t: 75.1 msec Ao max P.2 mmHg MV V2 mean: 54.8 cm/sec MV dec slope: 335.5 cm/sec2 Ao V2 mean: 147.8 cm/sec MV mean P.6 mmHg Ao mean P.0 mmHg MV V2 VTI: 30.9 cm MVA(P1/2t): 2.9 cm2 Ao V2 VTI: 53.7 cm MVA(VTI): 4.2 cm2 AV (velocity ratio): 0.69 RENÉ(I,D): 2.4 cm2 RENÉ(V,D): 2.1 cm2 LV V1 max: 130.4 cm/sec SV(LVOT): 130.8 ml PA V2 max: 77.9 cm/sec LV V1 max P.8 mmHg PA V2 mean: 48.3 cm/sec LV V1 mean P.7 mmHg LV V1 mean: 90.0 cm/sec LV V1 VTI: 37.3 cm TR max renetta: 288.3 cm/sec TR max P.2 mmHg ECHO/Echo Complete Interpretation Summary Normal LV size. Left ventricular systolic function is normal. The left ventricular ejection fraction is 65 %. Stage 1 diastolic dysfunction. There is moderate mitral annular calcification. Ordering Physician: Mili Mathis Referring Physician: Jeanette Mitchell Performed By: Lolita Buitrago, AMMON, RVT 04/11/25 0948 Date _ Lico Osuna MD CC: FINISHER TAILOR APPRENTICE-C JEANETTE MITCHELL; JOHN Olivares ~ Date Dictated: 04/11/25399 Date Transcribed: 04/11/25947 Utility Mechanic Supervisor: Signed [facility] Work Phone: MR/[place] 04-11-2025 /[facility] Medical Records Department [address] [place] [address] PAT - Anesthesia 04/11/25 1823 MR#: [id number] Acct: [id number] Name: BOSCHARABELLA Troy DANDRE Rep #: [id number] : 1945 79 From: Glenroy Oreilly MD PCP: ABEL HOWE Status:PRE [facility] Y Race: C Location: [facility] Pre-Assessment Diagnosis/Proposed Procedure Planned Operative Procedure(s): (R) Total Hip Anterior Approach 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: 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 Hx Hospitalization No 03/29/25 08:45 Any Problems [...] take am of surgery PONV PONV - wind technician: PONV - wind technician Female Yes 03/29/25 08:45 HX of Motion [...] 03/02/25 06:51 Respiratory Assessment Respiratory Assessment - wind technician: Respiratory Tract Infection Hx - wind technician Hx Respiratory Tract Infection No 03/29/25 08:45 STOP Sleep Apnea STOP Sleep Apnea - wind technician: STOP Sleep Apnea - wind technician Hx Hypertension Yes: MED INCREASE RECENTLY 03/29/25 [...] Tobacco Use History Tobacco Use History - wind technician: Tobacco Use History - wind technician Tobacco Use Smoking Status Former smoker 03/29/25 08:45 Hx Tobacco Use No 03/29/25 08:45 Years Smoking Packs Smoked per Day Smoking Cessation Date was No - quit smoking greater 03/29/25 08:45 within the last 15 years than 15 years ago Hx Smoking Cessation Date Hx Smoking Cessation Counseling Hematologic Medial History Hematologic Hx - wind technician: 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 Specify any problems Hx of Preganancy in last 3 No 03/29/25 08:45 Months Nurse Filling Out Transfusion VCHRISTIN 03/29/25 08:45 Questions: Date: 03/29/25 03/29/25 08:45 Time: 08:50 03/29/25 08:45 Patient unable to answer at this time (ie. confused, unrespo /Reproductio n History /Reproductiv e History - wind technician: /Reproductiv e Hx- wind technician Hx Now Gestational Age (in weeks): EDC: Hx Hx Para Hx Section [facility] Medical History (Updated 03/29/25 @ 08:45 by Gris Elias) Wears glasses Alcohol use Post-menopausal Ambulates with cane History of renal disease High cholesterol DVT (deep venous thrombosis) Back pain Former smoker Leg cramps History of edema History of normal Holter exam History of echocardiogram Cardiology follow-up encounter History of heart attack History of irregular heartbeat Atherosclerosis of coronary artery of [place] heart without angina pectoris NSTEMI, initial episode of care Seasonal allergies Hyperlipidemia Hypertension Diabetes Arthritis GERD (gastroesophageal reflux disease) Creatinine elevation Syncope Home Medications ???Medication ???Instructions ???Recorded ???Last Taken ???Type acetaminophen 500 mg tablet 1,000 mg PO BID ARTHRITIS PAIN 04/0310/17/22 05:00 History diphenhydramine HCl 25 mg tablet 25 mg PO QHS PRN ALLERGIES 3 10/15/22 History (B (more content not included)... [facility] 04-04-2025 [facility] Telephone (INTMWS) ARABELLA BOSCH ([id number]) 1945 F Date Time Provider Department 04/04/25 MEGA AQUINO During your visit today, we recorded the following information about you: Mela Hawley LPN 04/04/2025 9:23 AM Signed Electronic PA rec'd and completed for nystatin. This was approved. Prior authorization approved Payer: [facility] [phone] Note from payer: JOHN Case: [id number], Status: Approved, Coverage Starts on: 10/12/2024 12:00:00 [...] to its destination. To be filled at: [facility] [address] [place] [id number] [phone] [place] [phone] [facility] notified. Allergies As of Date: 04/04/2025 (No Known Allergies) Date Reviewed: 04/03/2025 Reviewed by: Jeanette Mitchell APRN.FLOW FLOOR ATTENDANT - Fully Assessed Reason for Visit: Insurance Authorization [[id number]] Prescriptions as of 04/04/2025 - rosuvastatin (CRESTOR) [...] Status:Closed by MELA HAWLEY on 04/04/25 Normal [facility] CNOVon 04-03-2025 CNOV Office Visit (INTMWS ) ARABELLA BOSCH ([id number]) 1945 F Date Time Provider Department 04/03/25 2:00 PM JEANETTE MITCHELL During your visit today, we recorded the following information about you: Pulse Respiration Blood pressure Weight 62/minute 16/minute 134/78 102.1 kg Jeanette Mitchell APRN.CNP 04/03/2025 3:56 PM Signed CC: Patient presents with: Pre-Op Exam: Pre -Op R hip replacement HPI Arabella Bosch is a 79 year old female who presents today for preop exam. Recording using Sova software for draft documentation of the visit was discussed with the patient/authorized security representative; all questions welcomed and answered. Patient/authorized security representative agreed to proceed Pre-Operative Evaluation: - Scheduled for right total hip arthroplasty on April 17, to be performed by Dr. Blanc, [facility]. - Underwent pre-operative blood work and [...] PAST M (more content not included)... Normal [facility] Albumin, Serumon 03-31-2025 Albumin [Mass/Vol] 4.0 g/dL Normal 3.4-4.8 [facility] Comment on above: Performed By: #### L 100.0100, M100.651, L501.1800, L500.2500, L501.9985 #### [facility] [address] [facility] [address] Basic Metabolic Profile (BMP )on 03-31-2025 BUN/CRE 17.6 RATIO Normal -20 [facility] Comment on above: Performed By: #### L 100.0100, M100.651, L501.1800, L500.2500, L501.9985 #### [facility] [address] [facility] [address] Calcium [Mass/Vol] 9.7 mg/dL Normal 7.6-11.0 [facility] Comment on above: Performed By: #### L 100.0100, M100.651, L501.1800, L500.2500, L501.9985 #### [facility] [address] [facility] [address] Chloride [Moles/Vol] 106 mmol/L Normal 98-108 [facility] Comment on above: Performed By: #### L 100.0100, M100.651, L501.1800, L500.2500, L501.9985 #### [facility] [address] [place], [address] CO2 [Moles/Vol] 23.9 mmol/L Normal 21.0-32.0 [facility] Comment on above: Performed By: #### L 100.0100, M100.651, L501.1800, L500.2500, L501.9985 #### [facility] [address] [place], [address] Creatinine [Mass/Vol] 1.09 mg/dL Normal 0.70-1.20 [facility] Comment on above: Performed By: #### L 100.0100, M100.651, L501.1800, L500.2500, L501.9985 #### [facility] [address] [place], [address] GAP 11 Normal 5-15 [facility] Comment on above: Performed By: #### L 100.0100, M100.651, L501.1800, L500.2500, L501.9985 #### [facility] [address] [place], [address] GFR/1.73 sq M.predicted among non-blacks MDRD (S/P/Bld) [Vol rate/Area] 51 mL/min/{1.73_m2} Low >60 [facility] Comment on above: Result Comment: mL/m in/1.73m2 CKD-EPI Creatinine Equation (2020) Performed By: #### L 100.0100, M100.651, L501.1800, L500.2500, L501.9985 #### [facility] [address] [place], [address] Glucose [Mass/Vol] 127 mg/dL High 70-99 [facility] Comment on above: Performed By: #### L 100.0100, M100.651, L501.1800, L500.2500, L501.9985 #### [facility] [address] [place], [address] Potassium [Moles/Vol] 4.2 mmol/L Normal 3.3-5.1 [facility] Comment on above: Performed By: #### L 100.0100, M100.651, L501.1800, L500.2500, L501.9985 #### [facility] [address] [place], [address] Sodium [Moles/Vol] 142 mmol/L Normal 133-145 [facility] Comment on above: Performed By: #### L 100.0100, M100.651, L501.1800, L500.2500, L501.9985 #### [facility] [address] [place], [address] Urea nitrogen [Mass/Vol] 19 mg/dL Normal 4-19 [facility] Comment on above: Performed By: #### L 100.0100, M100.651, L501.1800, L500.2500, L501.9985 #### [facility] [address] [place], [address] CBC W/Diff, Automatedon 06-2 0-2024 Absolute Lymph 1.70 X10 3/uL Normal 0.83-4.51 [facility] Comment on above: Performed By: #### L 100.0100, M100.651, L501.1800, L500.2500, L501.9985 #### [facility] [address] [place], [address] Absolute Neut 5.1 X10 3/uL Normal 2.0-7.7 [facility] Comment on above: Performed By: #### L 100.0100, M100.651, L501.1800, L500.2500, L501.9985 #### [facility] [address] [place], [address] Basophils/100 WBC (Bld) 0.5 % Normal 0-1 [facility] Comment on above: Performed By: #### L 100.0100, M100.651, L501.1800, L500.2500, L501.9985 #### [facility] [address] [place], [address] Eosinophils/100 WBC (Bld) 2.3 % Normal 0-5 [facility] Comment on above: Performed By: #### L 100.0100, M100.651, L501.1800, L500.2500, L501.9985 #### [facility] [address] [place], [address] Erythrocyte distribution width (RBC) [Ratio] 13.8 % Normal 11.6-14.6 [facility] Comment on above: Performed By: #### L 100.0100, M100.651, L501.1800, L500.2500, L501.9985 #### [facility] [address] [place], [address] Hematocrit (Bld) [Volume fraction] 41.7 % Normal 37-47 [facility] Comment on above: Performed By: #### L 100.0100, M100.651, L501.1800, L500.2500, L501.9985 #### [facility] [address] [place], [address] Hemoglobin (Bld) [Mass/Vol] 13.6 g/dL Normal 12.0-15.0 [facility] Comment on above: Performed By: #### L 100.0100, M100.651, L501.1800, L500.2500, L501.9985 #### [facility] [address] [place], [address] IG% 0.300 Normal 0.0-0.9 [facility] Comment on above: Result Comment: IG% - Immature Granulocytes (promyelocytes, myelocytes and metamyelocytes) > 1% indicates that a LEFT SHIFT is Present. Performed By: #### L 100.0100, M100.651, L501.1800, L500.2500, L501.9985 #### [facility] [address] [place], [address] Lymphocytes/100 WBC (Bld) 22.5 % Normal 19-41 [facility] Comment on above: Performed By: #### L 100.0100, M100.651, L501.1800, L500.2500, L501.9985 #### [facility] [address] [place], [address] MCH (RBC) [Entitic mass] 30.3 pg Normal 27.0-32.0 [facility] Comment on above: Performed By: #### L 100.0100, M100.651, L501.1800, L500.2500, L501.9985 #### [facility] [address] [place], [address] MCHC (RBC) [Mass/Vol] 32.6 g/dL Normal 32-36 [facility] Comment on above: Performed By: #### L 100.0100, M100.651, L501.1800, L500.2500, L501.9985 #### [facility] [address] [place], [address] MCV (RBC) [Entitic vol] 92.9 fL Normal 81-99 [facility] Comment on above: Performed By: #### L 100.0100, M100.651, L501.1800, L500.2500, L501.9985 #### [facility] [address] [place], [address] Monocytes/100 WBC (Bld) 7.2 % Normal 0-10 [facility] Comment on above: Performed By: #### L 100.0100, M100.651, L501.1800, L500.2500, L501.9985 #### [facility] [address] [place], [address] Neutrophils/100 WBC (Bld) 67.2 % Normal 47-70 [facility] Comment on above: Performed By: #### L 100.0100, M100.651, L501.1800, L500.2500, L501.9985 #### [facility] [address] [place], [address] Nucleated RBC (Bld) [#/Vol] 0 10*3/uL Normal 0-5 [facility] Comment on above: Performed By: #### L 100.0100, M100.651, L501.1800, L500.2500, L501.9985 #### [facility] [address] [place], [address] Platelet mean volume (Bld) [Entitic vol] 11.3 fL Normal 6.2-12.0 [facility] Comment on above: Performed By: #### L 100.0100, M100.651, L501.1800, L500.2500, L501.9985 #### [facility] [address] [place], [address] Platelets (Bld) [#/Vol] 319 10*3/uL Normal 150-450 [facility] Comment on above: Performed By: #### L 100.0100, M100.651, L501.1800, L500.2500, L501.9985 #### [facility] [address] [place], [address] RBC (Bld) [#/Vol] 4.49 10*6/uL Normal 4.2-5.4 [facility] Comment on above: Performed By: #### L 100.0100, M100.651, L501.1800, L500.2500, L501.9985 #### [facility] [address] [place], [address] RDW SD 47.0 fl High 35.1-43.9 [facility] Comment on above: Performed By: #### L 100.0100, M100.651, L501.1800, L500.2500, L501.9985 #### [facility] [address] [place], [address] WBC (Bld) [#/Vol] 7.6 10*3/uL Normal 4.4-11.0 [facility] Comment on above: Performed By: #### L 100.0100, M100.651, L501.1800, L500.2500, L501.9985 #### [facility] [address] [place], [address] Hemoglobin A1con 03-31-2025 HbA1c (Bld) [Mass fraction] 6.8 % High <=5.6 [facility] Comment on above: Result Comment: Norm al < 5.7 % Prediabetic 5.7 - 6.4 % Diabetic >or= 6.5 % Please note range changes. Performed By: #### L 100.0100, M100.651, L501.1800, L500.2500, L501.9985 #### [facility] [address] [place], [address] MRSA/SAID NASAL SCREENon MRSA+SAID SCRN Reason for Exam: Surgery MRSA MRSA Negative S. AUREUS S. aureus Negative Normal [facility] Comment on above: Performed By: #### L 100.0100, M100.651, L501.1800, L500.2500, L501.9985 #### [facility] [address] [place], [address] Magnesiumon 03-31-2025 Magnesium [Mass/Vol] 2.1 mg/dL Normal 1.5-2.2 [facility] Comment on above: Performed By: #### L 501.5200 ####[facility] [address] [place], [address] MR/PAT.ANEon 03-29-2025 MR/PAT.[facility] Medical Records Department [address] [place] [address] PAT - Anesthesia 03/29/252138 MR#: [id number] Acct: [id number] Name: ARABELLA BOSCH Rep #: [id number] : 1945 79 From: Anurag Yancey MD PCP: Status:PRE SDC Y Race: C Location: [facility] Pre-Assessment Diagnosis/Proposed Procedure Planned Operative Procedure(s): (R) Total Hip Anterior Approach 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: 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 Hx Hospitalization No 03/29/25 08:45 Any Problems [...] take am of surgery PONV PONV - wind technician: PONV - wind technician Female Yes 03/29/25 08:45 HX of Motion [...] 03/02/25 06:51 Respiratory Assessment Respiratory Assessment - wind technician: Respiratory Tract Infection Hx - wind technician Hx Respiratory Tract Infection No 03/29/25 08:45 STOP Sleep Apnea STOP Sleep Apnea - wind technician: STOP Sleep Apnea - wind technician Hx Hypertension Yes: MED INCREASE RECENTLY 03/29/25 [...] Tobacco Use History Tobacco Use History - wind technician: Tobacco Use History - wind technician Tobacco Use Smoking Status Former smoker 03/29/25 08:45 Hx Tobacco Use No 03/29/25 08:45 Years Smoking Packs Smoked per Day Smoking Cessation Date was No - quit smoking greater 03/29/25 08:45 within the last 15 years than 15 years ago Hx Smoking Cessation Date Hx Smoking Cessation Counseling Hematologic Medial History Hematologic Hx - wind technician: 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 Specify any problems Hx of Preganancy in last 3 No 03/29/25 08:45 Months Nurse Filling Out Transfusion VCHRISTIN 03/29/25 08:45 Questions: Date: 03/29/25 03/29/25 08:45 Time: 08:50 03/29/25 08:45 Patient unable to answer at this time (ie. confused, unrespo /Reproductio n History /Reproductiv e History - wind technician: /Reproductiv e Hx- wind technician Hx Now Gestational Age (in weeks): EDC: Hx Hx Para Hx Section [facility] Medical History (Updated 03/29/25 @ 08:45 by Gris Elias) Wears glasses Alcohol use Post-menopausal Ambulates with cane History of renal disease High cholesterol DVT (deep venous thrombosis) Back pain Former smoker Leg cramps History of edema History of normal Holter exam History of echocardiogram Cardiology follow-up encounter History of heart attack History of irregular heartbeat Atherosclerosis of coronary artery of [place] heart without angina pectoris NSTEMI, initial episode of care Seasonal allergies Hyperlipidemia Hypertension Diabetes Arthritis GERD (gastroesophageal reflux disease) Creatinine elevation Syncope Home Medications ???Medication ???Instructions ???Recorded ???Last Taken ???Type acetaminophen 500 mg tablet 1,000 mg PO BID ARTHRITIS PAIN 04/0310/17/22 05:00 History diphenhydramine HCl 25 mg tablet 25 mg PO QHS PRN ALLERGIES 3 10/15/22 History (Benadryl Deandre (more content not included)... Normal [facility] 03-28-2025 [facility] ARABELLA BOSCH ([id number]) 1945 F Date Time Provider Department 03/28/25 MEGA AQUINO [facility] During your visit today, we recorded the following information about you: Denise Johnson LPN 03/28/2025 3:50 PM Signed Lakshmi with [facility] calls to report pt needs some [...] lab appt for Thursday. REAGAN Ernandez Krystle, [place] 03/29/2025 9:39 AM Signed Nicolette with [facility] calls to report that patient is actually scheduled with [facility] PAT nurse to have pre-op testing completed on Thursday and will have labs completed there. Requesting orders for Jeanette to also be faxed so patient doesn't have to have lab work completed twice. Verified with patient. Faxed orders to [facility] PAT nurse: Lynda at [phone]. Cancelled appointment with [facility] on Thursday03/31/2025 for lab work. Jason Lowry RN Allergies As of Date: 03/28/2025 (No Known Allergies) Date Reviewed: 12/13/2024 Reviewed by: Radha Hadley MA - Fully Assessed Reason for Visit: Lab Orders [1368] Prescriptions as of 03/29/2025 - pantoprazole DR [...] Encounter Status:Closed by JASON LOWRY on 03/29/25 Normal [facility] Bilirubin directOrdered By: Mili Mathis on 03-02-2025 Bilirubin.direct [Mass/Vol] 0.17 mg/dL 0.00-0.30 [facility] Bilirubin, totalOrdered By: Mili Mathis on 03-02-2025 Bilirubin [Mass/Vol] 0.46 mg/dL 0.00-1.30 [facility] Calculated very low density lipoprotein (VLDL) cholesterol measurementOrdered By: Mili Mathis on 03-02-2025 Calculated very low density lipoprotein (VLDL) cholesterol measurement 37 mg/dL 5-40 [facility] Cardiology Visit Reporton Cardiology Visit Report [facility] 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 Normal [facility] LDL calc ser/plasOrdered By: Mili Mathis on 03-02-2025 Cholesterol in LDL [Mass/Vol] 176 mg/dL [facility] Comment on above: Xogusalvsk=775-818 m g/dL & Higher Diel=039 mg/dL or greater Laboratory - Chemistry and C hemistry - challengeOrdered By: Mili Mathis on 03-02-2025 AST [Catalytic activity/Vol] 28 U/L <32 [facility] Lipid Profileon 03-02-2025 CHOL:HDL 6.22 Normal [facility] Comment on above: Performed By: #### L 500.3400, L500.4100 ####[facility] [address] [place], [address] Cholesterol [Mass/Vol] 253 mg/dL High <=200 [facility] Comment on above: Result Comment: Chol esterol level, Desirable <200 mg/dL Borderline high cholesterol 200-239 mg/dL High cholesterol >=240 mg/dL Recommendations of the NCEP Adult Treatment Panel for the following risk-cutoff thresholds for the [place] population. Performed By: #### L 500.3400, L500.4100 ####[facility] [address] [place], [address] Cholesterol in HDL [Mass/Vol] 41 mg/dL Normal [facility] Comment on above: Result Comment: Susie onal Cholesterol Education Program (NCEP) guidelines: <40 mg/dL: Low HDL-cholesterol (major risk factor for CHD) >= 60 mg/dL: High HDL-cholesterol (negative risk factor for CHD) HDL-cholesterol is affected by a number of factors, e.g. smoking, exercise, hormones, sex and age. Performed By: #### L 500.3400, L500.4100 ####[facility] [address] [place], [address] Cholesterol in LDL [Mass/Vol] 176 mg/dL Normal [facility] Comment on above: Result Comment: Bord zkxsre=718-237 mg/dL Higher Whsx=047 mg/dL or greater Performed By: #### L 500.3400, L500.4100 ####[facility] [address] [place], [address] Cholesterol in VLDL [Mass/Vol] 37 mg/dL Normal 5-40 [facility] Comment on above: Performed By: #### L 500.3400, L500.4100 ####[facility] [address] [place], [address] Triglyceride [Mass/Vol] 184 mg/dL Normal [facility] Comment on above: Result Comment: The drugs N-Acetylcysteine and Metamizole may falsely depress this assay. Normal range: <150 mg/dL Borderline High: 150-199 mg/dL High: 200-499 mg/dL Very High: >500 mg/dL Performed By: #### L 500.3400, L500.4100 ####[facility] [address] [place], [address] Liver Profileon 03-02-2025 Albumin [Mass/Vol] 4.0 g/dL Normal 3.4-4.8 [facility] Comment on above: Performed By: #### L 500.3400, L500.4100 ####[facility] [address] [place], [address] ALK PHOS 67 U/L Normal 35-104 [facility] Comment on above: Performed By: #### L 500.3400, L500.4100 ####[facility] [address] [place], [address] ALT [Catalytic activity/Vol] 15 U/L Normal <=34 [facility] Comment on above: Performed By: #### L 500.3400, L500.4100 ####[facility] [address] [place], [address] AST [Catalytic activity/Vol] 28 U/L Normal <=31 [facility] Comment on above: Performed By: #### L 500.3400, L500.4100 ####[facility] [address] [place], [address] Bilirubin [Mass/Vol] 0.46 mg/dL Normal 0.00-1.30 [facility] Comment on above: Performed By: #### L 500.3400, L500.4100 ####[facility] [address] [place], [address] Bilirubin.direct [Mass/Vol] 0.17 mg/dL Normal 0.00-0.30 [facility] Comment on above: Performed By: #### L 500.3400, L500.4100 ####[facility] [address] [place], [place], [id number] Globulin (S) [Mass/Vol] 3.1 g/dL Normal 2.2-4.2 [facility] Comment on above: Performed By: #### L 500.3400, L500.4100 ####[facility] [address] [place], [address] T PROT 7.2 g/dL Normal 5.9-8.4 [facility] Comment on above: Performed By: #### L 500.3400, L500.4100 ####[facility] [address] [place], [place], [id number] Screening total cholesterol/ high density lipoprotein (HDL) cholesterol ratioOrdered By: Mili Mathis on 03-02-2025 Cholesterol.total/Choles terol in HDL [Mass ratio] 6.22 {ratio} [facility] Serum globulin measurementOr dered By: Mili Mathis on 03-02-2025 Globulin (S) [Mass/Vol] 3.1 g/dL 2.2-4.2 [facility] Serum or plasma alanine mckay otransferase (ALT) measurementOrdered By: Mili Mathis on 03-02-2025 ALT [Catalytic activity/Vol] 15 U/L <35 [facility] Serum or plasma albumin torsten urement (mass/volume)Ordered By: Mili Mathis on 03-02-2025 Albumin [Mass/Vol] 4.0 g/dL 3.4-4.8 [facility] Serum or plasma alkaline maría sphatase measurementOrdered By: Mili Mathis on 03-02-2025 ALP [Catalytic activity/Vol] 67 U/L 35-104 [facility] Serum or plasma cholesterol in HDL measurement (mass/volume)Ordered By: Mili Mathis on 03-02-2025 Cholesterol in HDL [Mass/Vol] 41 mg/dL >40 [facility] Comment on above: National Cholesterol Education Program (NCEP) guidelines:<40 mg/dL: Low HDL-cholesterol (major risk factor for CHD)>= 60 mg/dL: High HDL-cholesterol (negative risk factor for CHD)HDL-cholesterol is affected by a number of factors, e.g. smoking, exercise, hormones, sex and age. Serum or plasma cholesterol measurement (mass/volume)Ordered By: Mili Mathis on 03-02-2025 Cholesterol [Mass/Vol] 253 mg/dL High <201 [facility] Comment on above: Cholesterol level, D esirable <200 mg/dLBorderline high cholesterol 200-239 mg/dLHigh cholesterol >=240 mg/dLRecommendations of the NCEP Adult Treatment Panel for the following risk-cutoff thresholds for the [place] population. Total proteinOrdered By: Bola Mathis on 03-02-2025 Protein [Mass/Vol] 7.2 g/dL 5.9-8.4 [facility] Triglycerides measurementOrd ered By: Mili Mathis on 03-02-2025 Triglyceride [Mass/Vol] 184 mg/dL <199 [facility] Comment on above: The drugs N-Acetylcy steine and Metamizole may falsely depress this assay. Normal range: <150 mg/dLBorderline High: 150-199 mg/dLHigh: 200-499 mg/dLVery High: >500 mg/dL CNOVon 12-13-2024 CNOV Office Visit (FAMPWS ) ARABELLA BOSCH ([id number]) 1945 F Date Time Provider Department 12/13/24 2:00 PM ROSALINA BEAN During your visit today, we recorded the [...] mg table (more content not included)... Normal [facility] UA DIP, URINE (POC)on 2023 BILIRUBIN UA (POCT) Negative Negative [facility] CLARITY UA (POCT) Cloudy [facility] COLOR UA (POCT) Yellow [facility] GLUCOSE UA (POCT) Negative Negative mg/dL [facility] Hemoglobin Ql (U) Trace-lysed Abnormal Negative [facility] Interpretation and review of laboratory results Abnormal [facility] KETONE UA (POCT) Negative Negative mg/dL [facility] LEUKOCYTES UA (POCT) Small Abnormal Negative [facility] NITRITE UA (POCT) Positive Abnormal Negative [facility] PH UA (POCT) 5.5 4.5 - 8.[address] [facility] Protein Ql (U) 100 mg/dL Abnormal Negative [facility] SPECIFIC GRAVITY UA (POCT) >=1.030 1.005 - 1.[address] [facility] UROBILINOGEN UA (POCT) 0.2 Zandra l E.U./dL [facility] Location:[address], [place], [place], [address] [place] [address] POINT OF CARE [facility] XR Chest PA and Lateralon IMPRESSION: No acute radiographic abnormality. Utility Mechanic Supervisor: WALLACE Transcribe Date/Time: Jun 30 2024 3:36P Dictated by : MORENA MICHAUD MD This examination was interpreted and the report reviewed and electronically signed by: MORENA MICHAUD MD on Jun 30 2024 3:36PM [facility] DIVISION OF RADIOLOGY * * *Final Report* [...] shows degenerative changes. DIVISION OF RADIOLOGY Provider, Morgan Mortensen [facility] - 06/30/2024 * * *Final Report* * [...] changes. IMPRESSION IMPRESSION: No acute radiographic abnormality. Utility Mechanic Supervisor: WALLACE Transcribe Date/Time: Jun 30 2024 3:36P Dictated by : MORENA MICHAUD MD This examination was interpreted and the report reviewed and electronically signed by: MORENA MICHAUD MD on Jun 30 2024 3:36PM EST [facility] Radiology Study observation (narrative) Eamon walsh [facility] XR Chest PA and LateralOrder ed By: [facility] Provider on 06-30-[address] [facility] Comprehensive metabolic 2000 panelon 02-02-2024 Albumin [Mass/Vol] 4.2 g/dL 3.9 - 4.9 g/dL [facility] ALP [Catalytic activity/Vol] 68 U/L 34 - 123 U/L [facility] ALT [Catalytic activity/Vol] 17 U/L 7 - 38 U/L [facility] Anion gap [Moles/Vol] 11 mmol/L 9 - 18 mmol/L [facility] AST [Catalytic activity/Vol] 21 U/L 13 - 35 U/L [facility] Bilirubin [Mass/Vol] 0.3 mg/dL 0.2 - 1 .3 mg/dL [facility] Calcium [Mass/Vol] 10.4 mg/dL High 8.5 - 10. 2 mg/dL [facility] Chloride [Moles/Vol] 105 mmol/L 97 - 10 5 mmol/L [facility] CO2 [Moles/Vol] 25 mmol/L 22 - 30 mmol/L [facility] Creatinine [Mass/Vol] 1.25 mg/dL High 0.58 - 0.96 mg/dL [facility] GFR/1.73 sq M.predicted among non-blacks MDRD (S/P/Bld) [Vol rate/Area] 44 mL/min/{1.73_m2} Low - PINF [facility] Comment on above: Estimated Glomerular Filtration Rate [...] 129 mg/dL High 74 - 99 mg/dL [facility] Comment on above: The [place] Diabete s Association (ADA) provides guidance for [...] Standards of Medical Care in Diabetes 2016, [place] Diabetes Association. Diabetes Care. 2016.39(Suppl 1). Interpretation and review of laboratory results Abnormal [facility] Potassium [Moles/Vol] 5.2 mmol/L High 3.7 - 5.1 mmol/L [facility] Protein [Mass/Vol] 7.5 g/dL 6.3 - 8.0 g/dL [facility] Sodium [Moles/Vol] 141 mmol/L 136 - 144 mmol/L [facility] Urea nitrogen [Mass/Vol] 28 mg/dL High 7 - 21 mg/d L [facility] CBC panel Auto (Bld)on 04-22 Erythrocyte distribution width (RBC) [Ratio] 14.0 % 11.5 - 15.0 % [facility] Hematocrit (Bld) [Volume fraction] 40.6 % 36.0 - 46.0 % [facility] Hemoglobin (Bld) [Mass/Vol] 12.7 g/dL 11.5 - 15.5 g/dL [facility] MCH (RBC) [Entitic mass] 29.2 pg 26. 0 - 34.[address] [facility] MCHC (RBC) [Mass/Vol] 31.3 g/dL 30.5 - 36.0 g/dL [facility] MCV (RBC) [Entitic vol] 93.3 fL 80.0 - 100.[address] [facility] Nucleated RBC (Bld) [#/Vol] <0.01 k/uL [facility] Platelet mean volume (Bld) [Entitic vol] 11.0 fL 9.0 - 12.[address] [facility] Platelets (Bld) [#/Vol] 309 10*3/uL 150 - 400 k/uL [facility] RBC (Bld) [#/Vol] 4.35 10*6/uL 3.90 - 5.2 0 m/uL [facility] WBC (Bld) [#/Vol] 8.47 10*3/uL 3.70 - 11. 00 k/uL [facility] Absolute lymphocyte countOrd ered By: Dr. Palacio on 10-21-2022 Lymphocytes Auto (Unsp spec) [#/Vol] 1.66 10*3/uL 0.83-4.51 [facility] Basophil percentageOrdered B y: Dr. Palacio on 10-21-2022 Basophils/100 WBC (Bld) 0.6 % 0-1 [facility] Eosinophils/100 WBC (Bld) 1.9 % 0-5 [facility] Neutrophils (Bld) [#/Vol] 6.4 10*3/uL 2.0-7.7 [facility] Neutrophils/100 WBC (Bld) 71.4 % 47-70 [facility] WBC (Bld) [#/Vol] 8.9 10*3/uL 4.4-11.0 [facility] Basophil percentageOrdered B y: Dr. Machado on 10-21-2022 Bilirubin [Mass/Vol] 0.30 mg/dL 0.20-1.00 [facility] Comment on above: For patients on eltr ombopag therapy, use of Dimension [place] TBIL is not recommended. Chloride [Moles/Vol] 112 mmol/L 98-107 [facility] Glucose [Mass/Vol] 159 mg/dL 74-106 [facility] Comment on above: Fasting Glucose resu lt greater than or equal to 126 mg/dL suggests DIABETES MELLITUS per A.D.A. criteria. Potassium [Moles/Vol] 4.4 mmol/L 3.5-5.1 [facility] Protein [Mass/Vol] 7.2 g/dL 6.4-8.2 [facility] Sodium [Moles/Vol] 138 mmol/L 136-145 [facility] Blood erythrocytes count (nu mber/volume)Ordered By: Dr. Palacio on 10-21-2022 RBC (Bld) [#/Vol] 4.13 10*6/uL 4.2-5.4 [facility] Blood hemoglobin measurement (mass/volume)Ordered By: Dr. Palacio on 10-21-2022 Hemoglobin (Bld) [Mass/Vol] 12.2 g/dL 12.0-15.0 [facility] Blood lymphocytes/100 leukoc ytesOrdered By: Dr. Palacio on 10-21-2022 Lymphocytes/100 WBC (Bld) 18.6 % 19-41 [facility] Blood monocytes/100 leukocyt esOrdered By: Dr. Palacio on 10-21-2022 Monocytes/100 WBC (Bld) 7.2 % 0-10 [facility] Blood platelet mean volumeOr dered By: Dr. Palacio on 10-21-2022 Platelet mean volume (Bld) [Entitic vol] 10.6 fL 6.2-12.0 [facility] Determination of erythrocyte mean corpuscular volume (MCV)Ordered By: Dr. Palacio on 10-21-2022 MCV (RBC) [Entitic vol] 98.5 fL 81-99 [facility] Glucose Glucometer (BldC) [M ass/Vol]Ordered By: Dr. Palacio on 10-21-2022 Glucose [Mass/Vol] 218 mg/dL 74-106 [facility] Comment on above: MANAGEMENT OF PATIEN T CARE PER NURSING PROTOCOL Hematocrit Auto (Bld) [Volum e fraction]Ordered By: Dr. Palacio on 10-21-2022 Hematocrit (Bld) [Volume fraction] 40.7 % 37-47 [facility] - Chemistry and C hemistry - challengeOrdered By: Dr. Machado on 10-21-2022 ALP [Catalytic activity/Vol] 51 U/L 45-117 [facility] ALT [Catalytic activity/Vol] 30 U/L 13-56 [facility] CO2 [Moles/Vol] 22.0 mmol/L 21.0-32.0 [facility] Globulin (S) [Mass/Vol] 4.1 g/dL 2.2-4.2 [facility] Urea nitrogen/Creatinine [Mass ratio] 14.4 mg/mg 10-20 [facility] - Hematology and Cell countsOrdered By: Dr. Palacio on 10-21-2022 Erythrocyte distribution width (RBC) [Entitic vol] 52.9 fL 35.1-43.9 [facility] Erythrocyte distribution width (RBC) [Ratio] 14.6 % 11.6-14.6 [facility] Immature granulocytes/100 WBC (Bld) 0.300 % 0.0-0.9 [facility] Comment on above: IG% - Immature Granu locytes (promyelocytes, myelocytes and metamyelocytes) > 1% indicates that a LEFT SHIFT is Present. MCH (RBC) [Entitic mass] 29.5 pg 27.0-32.0 [facility] Nucleated RBC/100 WBC (Bld) [Ratio] 0 % 0-5 [facility] MCHC Auto (RBC) [Mass/Vol]Or dered By: Dr. Palacio on 10-21-2022 MCHC (RBC) [Mass/Vol] 30.0 g/dL 32-36 [facility] No Panel InformationOrdered By: Dr. Machado on 10-21-2022 Estimated Creatinine Clearance Calc 22.19 ml/min [facility] Estimated GFR (MDRD) Amer 33 mL/min >60 [facility] Comment on above: GFR Calc Estimated GFR (MDRD) Non-Af Amer 27 mL/min >60 [facility] Comment on above: Non- GFR Calc Platelets bldOrdered By: Dr. Palacio on 10-21-2022 Platelets (Bld) [#/Vol] 338 10*3/uL 150-450 [facility] Serum or plasma albumin torsten urement (mass/volume)Ordered By: Dr. Machado on 10-21-2022 Albumin [Mass/Vol] 3.1 g/dL 3.2-5.0 [facility] Serum or plasma albumin/glob ulin mass ratioOrdered By: Dr. Machado on 10-21-2022 Albumin/Globulin [Mass ratio] 0.8 {ratio} 0.9-2.4 [facility] Serum or plasma calcium torsten urement (mass/volume)Ordered By: Dr. Machado on 10-21-2022 Calcium [Mass/Vol] 9.6 mg/dL 8.5-10.1 [facility] Serum or plasma creatinine m easurement (mass/volume)Ordered By: Dr. Machado on 10-21-2022 Creatinine [Mass/Vol] 1.88 mg/dL 0.55-1.02 [facility] Comment on above: The validity of the calculated GFR & GFRAA in patients over 70 years has not been determined. Clinical correlation is essential. Serum or plasma urea nitroge n measurement (mass/volume)Ordered By: Dr. Machado on 10-21-2022 Urea nitrogen [Mass/Vol] 27 mg/dL 7-18 [facility] Thin prep Papanicolaou smear with manual screeningOrdered By: Dr. Machado on 10-21-2022 Thin prep Papanicolaou smear with manual screening 29 U/L 15-37 [facility] Thin prep Papanicolaou smear with manual screening 4 5-15 [facility] - CoagulationOrde red By: Dr. Williamson on 10-20-2022 aPTT Coag (Bld) [Time] 247.8 s 24.1-36.2 [facility] Comment on above: CRITICAL VALUE VERIF IED. CALLED TO HANSEL BERUMEN ([facility])10/20/22 1055 Nick Larkin.RESULTS READ BACK BY SAME. Basophil percentageOrdered B y: Dr. Williamson on 10-18-2022 Basophil percentage 2.9 mg/dL 2.5-4.9 [facility] Cholesterol [Mass/Vol] 174 mg/dL <200 [facility] Comment on above: <200 mg/dL Desirable 200-240 mg/dL Borderline >240 mg/dL High Risk Triglyceride [Mass/Vol] 147 mg/dL <199 [facility] Comment on above: The drugs N-Acetylcy steine and Metamizole may falsely depress this assay.Serum Triglycerides Reference Interval Normal <150 mg/dL Borderline high 150 - 199 mg/dL High 200 - 499 mg/dL Very High > or = 500 mg/dL Laboratory - Chemistry and C hemistry - challengeOrdered By: Dr. Williamson on 10-18-2022 Magnesium [Mass/Vol] 2.2 mg/dL 1.6-2.6 [facility] No Panel InformationOrdered By: Dr. Williamson on 10-18-2022 Thyroid Stimulating Hormone (TSH) 1.32 uIU/mL 0.358-3.74 [facility] Serum or plasma cholesterol in HDL measurement (mass/volume)Ordered By: Dr. Williamson on 10-18-2022 Cholesterol in HDL [Mass/Vol] 39 mg/dL >40 [facility] Comment on above: The drugs N-Acetylcy steine and Metamizole may falsely depress this assay. Reference Range HDL <40 mg/dL Low HDL Cholesterol HDL >or= 60 mg/dL High HDL Cholesterol Serum or plasma cholesterol in VLDL measurement (mass/volume)Ordered By: Dr. Williamson on 10-18-2022 Cholesterol in VLDL [Mass/Vol] 29 mg/dL 5-40 [facility] Serum or plasma low density lipoprotein (LDL) cholesterol measurement (mass/volume)Ordered By: Dr. Williamson on 10-18-2022 Cholesterol in LDL [Mass/Vol] 106 mg/dL 0-130 [facility] Whole blood hemoglobin A1c/t otal hemoglobin ratio (mass fraction)Ordered By: Dr. Williamson on 10-18-2022 HbA1c (Bld) [Mass fraction] 7.1 % 3.8-5.6 [facility] Comment on above: Normal < 5.7 % Predi abetic 5.7 - 6.4 % Diabetic >or= 6.5 % Please note range changes. Absolute lymphocyte counton 10-17-2022 Lymphocytes Auto (Unsp spec) [#/Vol] 1.63 10*3/uL 0.83-4.51 [facility] Work Phone: Basophil percentageOrdered B y: Dr. Echeverria on 10-17-2022 Basophil percentage 0-5 SEEN /hpf 0-5 [facility] Basophil percentageon 2022 Basophils/100 WBC (Bld) 0.4 % 0-1 [facility] Work Phone: Chloride [Moles/Vol] 105 mmol/L 98-107 [facility] Work Phone: Eosinophils/100 WBC (Bld) 0.8 % 0-5 [facility] Work Phone: Glucose [Mass/Vol] 294 mg/dL 74-106 [facility] Work Phone: Comment on above: Glucose result great er than or equal to 200 mg/dLsuggests DIABETES MELLITUS per A.D.A. criteria. Neutrophils (Bld) [#/Vol] 11.4 10*3/uL 2.0-7.7 [facility] Work Phone: Neutrophils/100 WBC (Bld) 81.4 % 47-70 [facility] Work Phone: Potassium [Moles/Vol] 3.8 mmol/L 3.5-5.1 [facility] Work Phone: Sodium [Moles/Vol] 136 mmol/L 136-145 [facility] Work Phone: WBC (Bld) [#/Vol] 14.0 10*3/uL 4.4-11.0 [facility] Work Phone: Bilirubin Test strip Ql (U)O rdered By: Dr. Echeverria on 10-17-2022 Bilirubin Ql (U) Negative Negative [facility] Blood erythrocytes count (nu mber/volume)on 10-17-2022 RBC (Bld) [#/Vol] 4.31 10*6/uL 4.2-5.4 [facility] Work Phone: Blood hemoglobin measurement (mass/volume)on 10-17-2022 Hemoglobin (Bld) [Mass/Vol] 13.1 g/dL 12.0-15.0 [facility] Work Phone: Blood lymphocytes/100 leukoc yteson 10-17-2022 Lymphocytes/100 WBC (Bld) 11.7 % 19-41 [facility] Work Phone: Blood monocytes/100 leukocyt eson 10-17-2022 Monocytes/100 WBC (Bld) 5.3 % 0-10 [facility] Work Phone: Blood platelet mean volumeon 10-17-2022 Platelet mean volume (Bld) [Entitic vol] 11.3 fL 6.2-12.0 [facility] Work Phone: Determination of erythrocyte mean corpuscular volume (MCV)on 10-17-2022 MCV (RBC) [Entitic vol] 92.8 fL 81-99 [facility] Work Phone: Hematocrit Auto (Bld) [Volum e fraction]on 10-17-2022 Hematocrit (Bld) [Volume fraction] 40.0 % 37-47 [facility] Work Phone: Influenza virus A and B and SARS-CoV-2 (COVID-19) Ag panel - Upper respiratory specimOrdered By: Dr. Echeverria on 10-17-2022 SARS-CoV-2 (COVID-19) RNA SLY+probe Ql (Resp) [facility] Ketones Test strip Ql (U)Ord ered By: Dr. Echeverria on 10-17-2022 Ketones Ql (U) Negative Negative [facility] Laboratory - Chemistry and C hemistry - challengeon 10-17-2022 CO2 [Moles/Vol] 25.0 mmol/L 21.0-32.0 [facility] Work Phone: Urea nitrogen/Creatinine [Mass ratio] 19.3 mg/mg 10-20 [facility] Work Phone: Laboratory - Hematology and Cell countson 10-17-2022 Erythrocyte distribution width (RBC) [Entitic vol] 49.1 fL 35.1-43.9 [facility] Work Phone: Erythrocyte distribution width (RBC) [Ratio] 14.3 % 11.6-14.6 [facility] Work Phone: Immature granulocytes/100 WBC (Bld) 0.400 % 0.0-0.9 [facility] Work Phone: Comment on above: IG% - Immature Granu locytes (promyelocytes, myelocytes and metamyelocytes) > 1% indicates that a LEFT SHIFT is Present. MCH (RBC) [Entitic mass] 30.4 pg 27.0-32.0 [facility] Work Phone: Nucleated RBC/100 WBC (Bld) [Ratio] 0 % 0-5 [facility] Work Phone: MCHC Auto (RBC) [Mass/Vol]on 10-17-2022 MCHC (RBC) [Mass/Vol] 32.8 g/dL 32-36 [facility] Work Phone: Mucus LM Ql (Urine sed)Order ed By: Dr. Echeverria on 10-17-2022 Mucus Ql (Urine sed) 0 SEEN /hpf [facility] Nitrite Test strip Ql (U)Ord ered By: Dr. Echeverria on 10-17-2022 Nitrite Ql (U) Negative Negative [facility] No Panel InformationOrdered By: Dr. Williamson on 10-17-2022 Troponin I High Sensitivity 813 pg/mL 3.0-54.0 [facility] Comment on above: Critical Result(s) C alled at: 21:14:47 10/17/2022 by: Mary WALLIS. Results read back by same. Please Note: New Test Units and Gender Specific Reference Ranges. For more information see Policy Stat Procedure [place] High Sensitivity Troponin (TNIH) and attachments. No Panel Informationon 01-06 -2023 Estimated Creatinine Clearance Calc 19.68 ml/min [facility] Work Phone: Estimated GFR (MDRD) Amer 29 mL/min >60 [facility] Work Phone: Comment on above: GFR Calc Estimated GFR (MDRD) Non-Af Amer 24 mL/min >60 [facility] Work Phone: Comment on above: Non- GFR Calc Troponin I High Sensitivity 19 pg/mL 3.0-54.0 [facility] Work Phone: Comment on above: Please Note: New Rupal t Units and Gender Specific Reference Ranges. For more information see Policy Stat Procedure [place] High Sensitivity Troponin (TNIH) and attachments. Platelets bldon 10-17-2022 Platelets (Bld) [#/Vol] 429 10*3/uL 150-450 [facility] Work Phone: Protein Test strip Ql (U)Ord ered By: Dr. Echeverria on 10-17-2022 Protein Ql (U) 100 mg/dl Negative [facility] Serum or plasma calcium torsten urement (mass/volume)on 10-17-2022 Calcium [Mass/Vol] 9.9 mg/dL 8.5-10.1 [facility] Work Phone: Serum or plasma creatinine m easurement (mass/volume)on 10-17-2022 Creatinine [Mass/Vol] 2.12 mg/dL 0.55-1.02 [facility] Work Phone: Comment on above: The validity of the calculated GFR & GFRAA in patients over 70 years has not been determined. Clinical correlation is essential. Serum or plasma urea nitroge n measurement (mass/volume)on 10-17-2022 Urea nitrogen [Mass/Vol] 41 mg/dL 7-18 [facility] Work Phone: Squamous epithelial cells de tection in urine sediment by light microscopyOrdered By: Dr. Echeverria on 10-17-2022 Epithelial cells.squamous LM Ql (Urine sed) 0-5 SEEN /hpf 5-10 [facility] Thin prep Papanicolaou smear with manual screeningon 10-17-2022 Thin prep Papanicolaou smear with manual screening 6 5-15 [facility] Work Phone: Urine blood detectionOrdered By: Dr. Echeverria on 10-17-2022 RBC Ql (U) 50 /ul Negative [facility] RBC Ql (U) 0 SEEN /hpf 0-5 [facility] Urine clarityOrdered By: Dr. Echeverria on 10-17-2022 Clarity (U) Sl. Cloudy Clear [facility] Urine color determinationOrd ered By: Dr. Echeverria on 10-17-2022 Color (U) Yellow Yellow [facility] Urine glucose detectionOrder ed By: Dr. Echeverria on 10-17-2022 Glucose Ql (U) 1000 mg/dl Normal [facility] Urine leukocyte esterase det ection by dipstickOrdered By: Dr. Echeverria on 10-17-2022 Leukocyte esterase Test strip Ql (U) 25 /ul Negative [facility] Urine pHOrdered By: Dr. Yecenia bliss on 10-17-2022 pH (U) 6.5 [pH] 5.0 - 8.0 [facility] Urine sediment bacteria coun t by microscopy (number/high power field)Ordered By: Dr. Echeverria on 10-17-2022 Bacteria LM.HPF (Urine sed) [#/Area] 2 /[HPF] None Seen [facility] Urine specific gravity measu rementOrdered By: Dr. Echeverria on 10-17-2022 Specific gravity (U) [Rel density] 1.015 1.002-1.030 [facility] Urobilinogen Auto test strip Ql (U)Ordered By: Dr. Echeverria on 10-17-2022 Urobilinogen Ql (U) Normal mg/dl Normal [facility] No Panel Informationon 06-07 IMPRESSION: No acute osseous abnormality identified. No evidence of inflammatory arthropathy. 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 XR Hand - right PA and Later [...] tissue abnormality identified. DIVISION OF RADIOLOGY Provider, [facility] - 06/07/2021 * * *Final Report* * [...] abnormality identified. No evidence of inflammatory arthropathy. Utility Mechanic Supervisor: WALLACE Transcribe Date/Time: Jun 07 2021 1:08P Dictated by : PIOTR CANTOR MD This examination was interpreted and the report reviewed and electronically signed by: PIOTR CANTOR MD on Jun 07 2021 1:10PM [facility] XR Wrist - right PA and Late [...] tissue abnormality identified. DIVISION OF RADIOLOGY Provider, [facility] - 06/07/2021 * * *Final Report* * [...] abnormality identified. No evidence of inflammatory arthropathy. Utility Mechanic Supervisor: PSCB Transcribe Date/Time: Jun 07 2021 1:08P Dictated by : PIOTR CANTOR MD This examination was interpreted and the report reviewed and electronically signed by: PIOTR CANTOR MD on Jun 07 2021 1:10PM [facility] Influenza virus A and B and SARS-CoV-2 (COVID-19) Ag panel - Upper respiratory specim SARS-CoV-2 (COVID-19) RNA SLY+probe Ql (Resp) [facility] Work Phone: Vital Signs Date Time Vital Sign Value Performing Clinician Facility 06-07-2025 15:02-0400 Diastolic blood pressure 78 mm[Hg] Shannon Keller APRN.FLOW FLOOR ATTENDANT Work Phone: [facility] 06-07-2025 15:02-0400 Heart rate 62 /min Shannon Keller APRN.FLOW FLOOR ATTENDANT Work Phone: [facility] 06-07-2025 15:02-0400 Respiratory rate 16 /min Shannon Keller [employer].FLOW FLOOR ATTENDANT Work Phone: [facility] 06-07-2025 15:02-0400 SaO2% (BldA) [Mass fraction] 97 % Shannon Keller [employer]ER.FLOW FLOOR ATTENDANT Work Phone: [facility] 06-07-2025 15:02-0400 Systolic blood pressure 140 mm[Hg] Shannon Keller WH[employer] BO[employer]ER.FLOW FLOOR ATTENDANT Work Phone: [facility] 04-12-2025 15:00-0400 Body mass index (BMI) [Ratio] 36.51 kg/m2 Dorota Callaway [employer]ER.FLOW FLOOR ATTENDANT Work Phone: [facility] 04-12-2025 15:00-0400 Body temperature 97.81 [degF] Dorota Callaway APRN.FLOW FLOOR ATTENDANT Work Phone: [facility] 04-12-2025 15:00-0400 Body weight 102.6 kg Dorota Callaway [employer]ER.FLOW FLOOR ATTENDANT Work Phone: [facility] 04-12-2025 15:00-0400 Diastolic blood pressure 78 mm[Hg] Dorota Courtney [employer].FLOW FLOOR ATTENDANT Work Phone: [facility] 04-12-2025 15:00-0400 Heart rate 64 /min Dorota Courtney [employer]ER.FLOW FLOOR ATTENDANT Work Phone: [facility] 04-12-2025 15:00-0400 Respiratory rate 14 /min Dorota Courtney [employer]ER.FLOW FLOOR ATTENDANT Work Phone: [facility] 04-12-2025 15:00-0400 SaO2% (BldA) [Mass fraction] 98 % Dorota Courtney [employer]ER.FLOW FLOOR ATTENDANT Work Phone: [facility] 04-12-2025 15:00-0400 Systolic blood pressure 132 mm[Hg] Dorota Courtney [employer] BO[employer]ER.FLOW FLOOR ATTENDANT Work Phone: [facility] 04-03-2025 14:07-0400 Body mass index (BMI) [Ratio] 36.32 kg/m2 Jeanette Older [employer]ER.FLOW FLOOR ATTENDANT Work Phone: [facility] 04-03-2025 14:07-0400 Body weight 102.06 kg Jeanette Older [employer]ER.FLOW FLOOR ATTENDANT Work Phone: [facility] 04-03-2025 14:07-0400 Diastolic blood pressure 78 mm[Hg] Jeanette Older [employer]ER.FLOW FLOOR ATTENDANT Work Phone: [facility] 04-03-2025 14:07-0400 Heart rate 62 /min Jeanette Older [employer]ER.FLOW FLOOR ATTENDANT Work Phone: [facility] 04-03-2025 14:07-0400 Respiratory rate 16 /min Jeanette Older [employer]ER.FLOW FLOOR ATTENDANT Work Phone: [facility] 04-03-2025 14:07-0400 SaO2% (BldA) [Mass fraction] 97 % Jeanette Older [employer]ER.FLOW FLOOR ATTENDANT Work Phone: [facility] 04-03-2025 14:07-0400 Systolic blood pressure 134 mm[Hg] Jeanette Older [employer]ER.FLOW FLOOR ATTENDANT Work Phone: [facility] 03-02-2025 06:51-0400 Body height 165.[address] Mega Aquino MD Work Phone: 3(786)[phone] [place] [address] 03-02-2025 06:51-0400 Body mass index (BMI) [Ratio] 37.4 kg/m2 Dr. Mega Aquino MD Work Phone: 5(475)[phone] [place] [address] 03-02-2025 06:51-0400 Body weight 102.[address] Mega Aquino MD Work Phone: 5(486)[phone] [place] [address] 03-02-2025 06:51-0400 Diastolic blood pressure 84 mm[Hg] Dr. Mega Aquino MD Work Phone: 1(672)[phone] [place] [address] 03-02-2025 06:51-0400 Heart rate 59 /min Dr. Mega Aquino MD Work Phone: 7(800)[phone] [place] [address] 03-02-2025 06:51-0400 Respiratory rate 18 /min Dr. Mega Aquino MD Work Phone: 7(855)[phone] [place] [address] 03-02-2025 06:51-0400 SaO2% (BldA) [Mass fraction] 92 % Dr. Mega Aquino MD Work Phone: [facility] 03-02-2025 06:51-0400 Systolic blood pressure 153 mm[Hg] Dr. Mega Aquino MD Work Phone: [facility] 12-13-2024 14:10-0500 Body mass index (BMI) [Ratio] 35.9 kg/m2 Rosalina Bogner PA-C Work Phone: [facility] 12-13-2024 14:10-0500 Body temperature 97.81 [degF] Rosalina Bogner PA-C Work Phone: [facility] 12-13-2024 14:10-0500 Body weight 100.88 kg Rosalina Bean PA-C Work Phone: [facility] 12-13-2024 14:10-0500 Diastolic blood pressure 79 mm[Hg] Rosalina Bogner PA-C Work Phone: [facility] 12-13-2024 14:10-0500 Heart rate 86 /min Rosalina Bogner PA-C Work Phone: [facility] 12-13-2024 14:10-0500 Respiratory rate 20 /min Rosalina Bogner PA-C Work Phone: [facility] 12-13-2024 14:10-0500 SaO2% (BldA) [Mass fraction] 95 % Rosalina Bogner PA-C Work Phone: [facility] 12-13-2024 14:10-0500 Systolic blood pressure 138 mm[Hg] Rosalina Bogner PA-C Work Phone: [facility] 06-30-2024 14:23-0400 Body mass index (BMI) [Ratio] 38.41 kg/m2 Jeanette Older [employer]ER.FLOW FLOOR ATTENDANT Work Phone: [facility] 06-30-2024 14:23-0400 Body weight 107.96 kg Jeanette Older [employer]ER.FLOW FLOOR ATTENDANT Work Phone: [facility] 06-30-2024 14:23-0400 Diastolic blood pressure 80 mm[Hg] Jeanette Older [employer]ER.FLOW FLOOR ATTENDANT Work Phone: [facility] 06-30-2024 14:23-0400 Heart rate 64 /min Jeanette Older [employer]ER.FLOW FLOOR ATTENDANT Work Phone: [facility] 06-30-2024 14:23-0400 Respiratory rate 16 /min Jeanette Older [employer]ER.FLOW FLOOR ATTENDANT Work Phone: [facility] 06-30-2024 14:23-0400 SaO2% (BldA) [Mass fraction] 97 % Jeanette Older [employer]ER.FLOW FLOOR ATTENDANT Work Phone: [facility] 06-30-2024 14:23-0400 Systolic blood pressure 130 mm[Hg] Jeanette Older [employer]ER.FLOW FLOOR ATTENDANT Work Phone: [facility] 02-01-2024 15:52-0400 Diastolic blood pressure 77 mm[Hg] Jeanette Older [employer]ER.FLOW FLOOR ATTENDANT Work Phone: [facility] Comment on above: BP Bob 02-01-2024 15:52-0400 Systolic blood pressure 125 mm[Hg] Jeanette Older [employer]ER.FLOW FLOOR ATTENDANT Work Phone: [facility] Comment on above: BP Bob 02-01-2024 14:45-0400 Body mass index (BMI) [Ratio] 39.06 kg/m2 Jeanette Older [employer]ER.FLOW FLOOR ATTENDANT Work Phone: [facility] 02-01-2024 14:45-0400 Body weight 109.77 kg Jeanette Older [employer]ER.FLOW FLOOR ATTENDANT Work Phone: [facility] 02-01-2024 14:45-0400 Heart rate 72 /min Jeanette Older [employer] BO[employer]ER.FLOW FLOOR ATTENDANT Work Phone: [facility] 02-01-2024 14:45-0400 Respiratory rate 16 /min Jeanette Older WH[employer]ER.FLOW FLOOR ATTENDANT Work Phone: [facility] 02-01-2024 14:45-0400 SaO2% (BldA) [Mass fraction] 98 % Jeanette Older [employer]ER.FLOW FLOOR ATTENDANT Work Phone: [facility] 07-22-2023 13:58-0400 Body weight 105.23 kg Jeanette Older [employer]ER.FLOW FLOOR ATTENDANT Work Phone: [facility] 07-22-2023 13:58-0400 Diastolic blood pressure 80 mm[Hg] Jeanette Older [employer]ER.FLOW FLOOR ATTENDANT Work Phone: [facility] 07-22-2023 13:58-0400 Heart rate 68 /min Jeanette Older [employer] BO[employer]ER.FLOW FLOOR ATTENDANT Work Phone: [facility] 07-22-2023 13:58-0400 Respiratory rate 16 /min Jeanette Older WH[employer] BO[employer]ER.FLOW FLOOR ATTENDANT Work Phone: [facility] 07-22-2023 13:58-0400 SaO2% (BldA) [Mass fraction] 99 % Jeanette Older [employer] BO[employer]ER.FLOW FLOOR ATTENDANT Work Phone: [facility] 07-22-2023 13:58-0400 Systolic blood pressure 138 mm[Hg] Jeanette Older [employer] BO[employer]ER.FLOW FLOOR ATTENDANT Work Phone: [facility] 04-22-2023 14:34-0400 Body weight 100.7 kg Jeanette Older [employer]ER.FLOW FLOOR ATTENDANT Work Phone: [facility] 04-22-2023 14:34-0400 Diastolic blood pressure 78 mm[Hg] Jeanette Older [employer] BO[employer]ER.FLOW FLOOR ATTENDANT Work Phone: [facility] 04-22-2023 14:34-0400 Heart rate 64 /min Jeanette Older WH[employer]ER.FLOW FLOOR ATTENDANT Work Phone: [facility] 04-22-2023 14:34-0400 Respiratory rate 16 /min Jeanette Older WH[employer] BO[employer]ER.FLOW FLOOR ATTENDANT Work Phone: [facility] 04-22-2023 14:34-0400 Systolic blood pressure 128 mm[Hg] Jeanette Older [employer]ER.FLOW FLOOR ATTENDANT Work Phone: [facility] 11-28-2022 10:24-0500 Body weight 96.62 kg Jeanette Older [employer]ER.FLOW FLOOR ATTENDANT Work Phone: [facility] 11-28-2022 10:24-0500 Diastolic blood pressure 74 mm[Hg] Jeanette Older [employer] BO[employer]ER.FLOW FLOOR ATTENDANT Work Phone: [facility] 11-28-2022 10:24-0500 Heart rate 60 /min Jeanette Older [employer]ER.FLOW FLOOR ATTENDANT Work Phone: [facility] 11-28-2022 10:24-0500 Respiratory rate 16 /min Jeanette Older [employer]ER.FLOW FLOOR ATTENDANT Work Phone: [facility] 11-28-2022 10:24-0500 Systolic blood pressure 124 mm[Hg] Jeanette Older [employer]ER.FLOW FLOOR ATTENDANT Work Phone: [facility] 11-10-2022 10:00-0500 Body height 165.[address] Zafar Echeverria Work Phone: [facility] 11-10-2022 10:00-0500 Body mass index (BMI) [Ratio] 36.2 kg/m2 Dr. Zafar Echeverria Work Phone: [facility] 11-10-2022 10:00-0500 Body weight 98.[address] Zafar Echeverria Work Phone: [facility] 11-10-2022 10:00-0500 Diastolic blood pressure 85 mm[Hg] Dr. Zafar Echeverria Work Phone: [facility] 11-10-2022 10:00-0500 Heart rate 92 /min Dr. Zafar Echeverria Work Phone: [facility] 11-10-2022 10:00-0500 Respiratory rate 20 /min Dr. Zafar Echeverria Work Phone: [facility] 11-10-2022 10:00-0500 SaO2% (BldA) [Mass fraction] 94 % Dr. Zafar Echeverria Work Phone: [facility] 11-10-2022 10:00-0500 Systolic blood pressure 142 mm[Hg] Dr. Zafar Echeverria Work Phone: [facility] 10-29-2022 14:46-0500 Body temperature 97.7 [degF] Jeanette Older WH[employer]ER.FLOW FLOOR ATTENDANT Work Phone: [facility] 10-29-2022 14:46-0500 Body weight 97.07 kg Jeanette Older WH[employer]ER.FLOW FLOOR ATTENDANT Work Phone: [facility] 10-29-2022 14:46-0500 Diastolic blood pressure 66 mm[Hg] Jeanette Older WH[employer] BO[employer]ER.FLOW FLOOR ATTENDANT Work Phone: [facility] 10-29-2022 14:46-0500 Heart rate 64 /min Jeanette Older WH[employer] BO[employer]ER.FLOW FLOOR ATTENDANT Work Phone: [facility] 10-29-2022 14:46-0500 Respiratory rate 16 /min Jeanette Older WH[employer] BO[employer]ER.FLOW FLOOR ATTENDANT Work Phone: [facility] 10-29-2022 14:46-0500 SaO2% (BldA) [Mass fraction] 95 % Jeanette Older [employer]ER.FLOW FLOOR ATTENDANT Work Phone: [facility] 10-29-2022 14:46-0500 Systolic blood pressure 112 mm[Hg] Jeanette Mitchell APRN.CNP Work Phone: [facility] 10-21-2022 14:51-0500 Body temperature 97.7 [degF] Dr. Zafar Echeverria Work Phone: [facility] 10-21-2022 14:51-0500 Diastolic blood pressure 79 mm[Hg] Dr. Zafar Echeverria Work Phone: [facility] 10-21-2022 14:51-0500 Heart rate 67 /min Dr. Zafar Echeverria Work Phone: [facility] 10-21-2022 14:51-0500 Respiratory rate 16 /min Dr. Zafar Echeverria Work Phone: [facility] 10-21-2022 14:51-0500 SaO2% (BldA) [Mass fraction] 93 % Dr. Zafar Echeverria Work Phone: [facility] 10-21-2022 14:51-0500 Systolic blood pressure 145 mm[Hg] Dr. Zafar Echeverria Work Phone: [facility] 10-17-2022 17:43-0500 Body height 165.[address] Zafar Echeverria Work Phone: [facility] Work Phone: 10-17-2022 17:43-0500 Body mass index (BMI) [Ratio] 35.9 kg/m2 Dr. Zafar Echeverria Work Phone: [facility] 10-17-2022 17:43-0500 Body weight 97.[address] Zafar Echeverria Work Phone: [facility] 10-17-2022 17:13-0500 Diastolic blood pressure 87 mm[Hg] [facility] Work Phone: 10-17-2022 17:13-0500 Heart rate 67 /min [facility] Work Phone: 10-17-2022 17:13-0500 Respiratory rate 16 /min [facility] Work Phone: 10-17-2022 17:13-0500 SaO2% (BldA) [Mass fraction] 95 % [facility] Work Phone: 10-17-2022 17:13-0500 Systolic blood pressure 116 mm[Hg] [facility] Work Phone: 10-17-2022 16:02-0500 Body temperature 98.3 [degF] [facility] Work Phone: 10-17-2022 13:59-0500 Body height 165.1 cm [facility] Work Phone: 10-17-2022 13:59-0500 Body mass index (BMI) [Ratio] 35.4 kg/m2 [facility] Work Phone: 10-17-2022 13:59-0500 Body weight 96.61 kg [facility] Work Phone: Encounters Encounter Date Encounter Type Care Provider Facility Start: 07-10-2025 End: 07-10-2025 ambulatory MEGA AQUINO Facility:[facility] Start: 07-10-2025 Encounter for other preprocedural examination JEANETTE MITCHELL [facility] Start: 07-03-2025 End: 07-03-2025 ambulatory JEANETTE MITCHELL Facility:[facility] Start: 06-30-2025 End: 06-30-2025 ambulatory MEGA AQUINO Facility:[facility] Start: 06-20-2025 End: 06-23-2025 ambulatory Mega Aquino MD Work Phone: Internal Medicine [facility] Start: 06-07-2025 End: 06-07-2025 Office outpatient visit 25 minutes Shannon Keller APRN.CNP Work Phone: [facility] [place] Comment on above: Intertrigo Start: 06-07-2025 End: 06-07-2025 ambulatory SHANNON KELLER Facility:[facility] Start: 04-17-2025 ambulatory Panda Blanc Facility: [facility] Start: 04-13-2025 Encounter for other preprocedural examination Panda Blanc [facility] Start: 04-12-2025 End: 04-12-2025 Office outpatient visit 15 minutes Dorota Callaway [employer].FLOW FLOOR ATTENDANT Work Phone: Internal Medicine [place] Comment on above: Intertrigo (Primary Dx) Start: 04-12-2025 End: 04-12-2025 ambulatory DOROTA CALLAWAY Facility:[facility] Start: 04-11-2025 End: 04-11-2025 Patient encounter procedure Mili LOPEZ -Cardiovascular Services Work Phone: Start: 04-11-2025 End: 04-11-[address] Mega Aquino MD Work Phone: -Cardiovascular Services Start: 04-11-2025 Non-patient / Non-visit [facility]. Sanchez [facility] Start: 04-11-2025 End: 04-11-2025 ambulatory Mili LOPEZ Facility:[facility] Start: 04-04-2025 End: 04-04-2025 Telephone encounter Mega Aquino MD Work Phone: Internal Medicine [place] Comment on above: Insurance Authorizat ion Start: 04-03-2025 End: 04-03-2025 Office outpatient visit 25 minutes Jeanette Mitchell [employer].FLOW FLOOR ATTENDANT Work Phone: Internal Medicine [place] Comment on above: Preop exam for inter [...] End: 04-03-2025 Patient encounter status Jeanette Mitchell [employer].FLOW FLOOR ATTENDANT Work Phone: [facility] Start: 04-03-2025 End: 04-03-2025 ambulatory JEANETTE MITCHELL Facility:[facility] Start: 04-03-2025 Encounter for other preprocedural examination JEANETTE MITCHELL [facility] Start: 03-28-2025 End: 03-29-2025 Telephone encounter Mega Aquino MD Work Phone: [facility] Comment on above: Lab Orders Start: 03-27-2025 ambulatory Panda Jayashree Facility: [facility] Start: 03-22-2025 End: 03-23-2025 Refill Jeanette Mitchell APRN.FLOW FLOOR ATTENDANT Work Phone: Internal [facility] Comment on above: Refill Request Start: 03-21-2025 End: 03-24-2025 ambulatory Mega Aquino MD Work Phone: Internal [place] [id number] Start: 03-02-2025 End: 03-02-2025 Patient encounter procedure Mili LOPEZ -[facility] [facility] Work Phone: Start: 03-02-2025 End: 03-02-[address] Mega Aquino MD Work Phone: [facility] Work Phone: Start: 03-02-2025 End: 03-02-2025 ambulatory Mili LOPEZ Facility:[facility] Start: 12-13-2024 End: 12-13-2024 ambulatory ORSALINA BEAN Facility:[facility] Start: 12-13-2024 End: 12-13-2024 Office outpatient visit 25 minutes Rosalina Bean PA-C Work Phone: [facility] Comment on above: Acute non-recurrent frontal sinusitis (Primary Dx) Start: 12-12-2024 End: 12-12-2024 ambulatory Mega Aquino MD Work Phone: Internal [facility] Comment on above: Sinus Problem Start: 07-04-2024 End: 07-04-2024 Telephone encounter Jeanette Mitchell APRN.FLOW FLOOR ATTENDANT Work Phone: Internal [facility] Comment on above: Results Start: 06-30-2024 End: 06-30-2024 Subsequent hospital visit by physician Laura [facility] Work Phone: Radiology Comment on above: Acute cough [R05.1] Start: 06-30-2024 End: 06-30-2024 Patient encounter procedure Jeanette Mitchell APRN.CNP Work Phone: [facility] [place] Comment on above: Acute cough (Primary Dx); Wheezing; Acute non-recurrent sinusitis, unspecified location; Urge incontinence; Type 2 diabetes mellitus with chronic kidney disease, without long-term current use of insulin, unspecified CKD stage (HCC); Essential hypertension, benign; Stage 3b chronic kidney disease (HCC); Abnormal urine Start: 06-14-2024 End: 06-17-2024 ambulatory Mega Aquino MD Work Phone: [facility] [place] Start: 06-02-2024 ambulatory Mega Aquino Facility:[facility] Start: 05-02-2024 ambulatory Mega Aquino Facility:[facility] Start: 03-09-2024 Get Medical Advice Jeanette maria APRN.CNP Work Phone: [facility] [place] Comment on above: RX refill Start: 02-21-2024 Refill Rosalina ramirez PA-C Work Phone: [facility] [place] Comment on above: Refill Request Start: 02-03-2024 Telephone encounter Jeanette Mitchell APRN.CNP Work Phone: [facility] [place] Comment on above: Results Start: 02-01-2024 End: 02-01-2024 Patient encounter procedure Jeanette Mitchell APRN.CNP Work Phone: Internal [facility] [place] Comment on above: Controlled type 2 di abetes mellitus without complication, without long-term current use of insulin (HCC) (Primary Dx); Essential hypertension, benign; 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, unspecified vessel or [...] 01-19-2024 ambulatory Mega Walsh Work Phone: [facility] [place] Start: 11-13-2023 Refill Jeanette Older [employer] .FLOW FLOOR ATTENDANT Work Phone: Internal [facility] [place] Comment on above: Refill Request Start: 07-22-2023 End: 07-22-2023 Patient encounter procedure Jeanette Older [employer].FLOW FLOOR ATTENDANT Work Phone: [facility] [place] Comment on above: Controlled type 2 di abetes mellitus without complication, without long-term current use of insulin (HCC) (Primary Dx); 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, unspecified vessel or lesion type; Essential hypertension, benign; Stage 3b chronic kidney disease (HCC); Spinal stenosis, lumbar region, without neurogenic claudication; Osteoarthrosis, unspecified whether generalized or localized, unspecified site; Need for influenza vaccination Start: 05-25-2023 Refill Jeanette Older [employer] .FLOW FLOOR ATTENDANT Work Phone: Internal Medicine [place] Comment on above: Refill Request Start: 04-22-2023 End: 04-22-2023 Patient encounter procedure Jeanette Older [employer].FLOW FLOOR ATTENDANT Work Phone: [facility] [place] Comment on above: Controlled type 2 di abetes mellitus without complication, without long-term current use of insulin (HCC) (Primary Dx); Pedal edema; Function kidney decreased; Cervical arthritis; Spinal stenosis, lumbar region, without neurogenic claudication Start: 03-06-2023 Refill Jeanette Older [employer] .FLOW FLOOR ATTENDANT Work Phone: Internal [facility] [place] Comment on above: Refill Request Start: 11-28-2022 End: 11-28-2022 Patient encounter procedure Jeanette Older [employer].FLOW FLOOR ATTENDANT Work Phone: [facility] [place] Comment on above: Controlled type 2 di abetes mellitus without complication, without long-term current use of insulin (HCC) (Primary Dx); Stage 3b chronic kidney disease (HCC); Spinal stenosis, lumbar region, without neurogenic claudication; Vitamin D deficiency; Colon cancer screening Start: 11-22-2022 ambulatory Jeanette Older [employer] .FLOW FLOOR ATTENDANT Work Phone: Internal Medicine [place] Comment on above: Lab work for 11/28 vi sit Start: 11-10-2022 End: 11-10-[address] Zafar Echeverria Work Phone: [facility] Start: 10-31-2022 End: 10-31-[address] Zafar Echeverria Work Phone: [facility] Work Phone: Start: 10-31-2022 End: 10-31-[address] 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 Ean Reddy Work Phone: [facility] Start: 10-21-2022 Non-patient / Non-visit Dr. Ean Reddy Work Phone: [facility] Start: 10-20-2022 Non-patient / Non-visit Dr. Ean Reddy Work Phone: [facility] Start: 10-20-2022 Non-patient / Non-visit Dr. Ean Reddy Work Phone: [facility] Start: 10-19-2022 Non-patient / Non-visit Dr. Ean Reddy Work Phone: [facility] Start: 10-19-2022 Non-patient / Non-visit Dr. Ean Reddy Work Phone: [facility] Start: 10-18-2022 End: 10-21-2022 Evaluation and management of inpatient Dr. Zafar Echeverria Work Phone: [facility] Start: 10-18-2022 Non-patient / Non-visit Dr. Ean Reddy Work Phone: [facility] Start: 10-18-2022 Non-patient / Non-visit Dr. Ean Reddy Work Phone: [facility] Start: 10-17-2022 Non-patient / Non-visit Dr. Ean Reddy Work Phone: [facility] Start: 10-17-2022 Evaluation and manag ement of inpatient [facility] Start: 10-17-2022 observation encounter [facility] Work Phone: Start: 10-14-2022 ambulatory Mega Walsh Work Phone: Internal Medicine [facility] Start: 08-28-2022 Refill Jeanette RaoFLOW FLOOR ATTENDANT Work Phone: [facility] Comment on above: Refill Request Start: 07-28-2022 Refill Dorota RaoFLOW FLOOR ATTENDANT Work Phone: Family [facility] Comment on above: Refill Request Start: 07-03-2022 ambulatory Nilda Ying MA [facility] Comment on above: Population Health Na vigation Outreach (HCC Low) Start: 06-11-2022 ambulatory No Pcp (Historical) [facility] Start: 05-03-2022 ambulatory Mega Walsh Work Phone: Internal [facility] [place] Comment on above: Back pain Start: 04-22-2022 Refill Mega Walsh Work Phone: [facility] [place] Comment on above: Refill Request Start: 03-25-2022 ambulatory Amara Sandra [facility] Comment on above: Population Health Na vigation Outreach (DM Management) Start: 06-07-2021 End: 06-07-2021 Subsequent hospital visit by physician [facility] [place] Work Phone: Radiology Comment on above: Arthritis [M19.90] Procedures Date Procedure Procedure Detail Performing Clinician Start: 06-30-2024 Radiologic exam ches t 2 views Jeanette Mitchell [employer].FLOW FLOOR ATTENDANT Work Phone: Start: 06-30-2024 Urnls dip stick/tabl et rgnt auto w/o microscopy Jeanette Mitchell [employer]ER.FLOW FLOOR ATTENDANT Work Phone: Start: 07-22-2023 INFLUENZA VACCINE, P RSV FREE, AGE 65+ YR, HIGH DOSE, QUADRIVALENT (FLUZONE HIGH-DOSE) Jeanette Mitchell [employer]ER.FLOW FLOOR ATTENDANT Work Phone: Start: 10-17-2022 Plain chest X-ray Start: 10-12-2022 History of placement of stent for coronary artery disease History of coronary artery stent placement Dr. Zafar Echeverria Work Phone: Comment on above: [place] [...] 1:00 PM EDT Office Visit Internal [facility] [place] [address] [place] [address] Jeanette Mitchell APRN.FLOW FLOOR ATTENDANT [address] [place] [address] 3 month follow up [facility] [place] Comment on above: 3 month follow up Start: 06-30-2025 Annual PCP Team Chronic Disease Visit Annual PCP Team Chronic Disease Visit [facility] Start: 06-30-2025 Covid-19 Vaccine () Covid-19 Vaccine () [facility] Comment on above: Postponed from 06/12/2024 (Declined at t his time) Start: 06-30-2025 Covid-19 Vaccine () Covid-19 Vaccine () [facility] Comment on above: Postponed from 06/12/2024 (Declined at t his time) Start: 06-24-2025 Complete blood count Hemoglobin/Hematocrit [facility] Start: 06-24-2025 Hepatitis B screening Urine Albumin:Creatinine Ratio [facility] Start: 06-20-2025 End: 09-19-2025 Basic metabolic 2000 panel - Serum or Plasma BASIC METABOLIC PANEL Lab Routine Type 2 diabetes mellitus with chronic kidney disease, without long-term current use of insulin, unspecified CKD stage (HCC) Expected: 06/20/2025, Expires: 09/19/2025 [facility] Work Phone: Comment on above: Expected: 06/20/2025, Expires: Start: 06-20-2025 End: 09-19-2025 CBC panel - Blood by Automated count COMPLETE BLOOD COUNT Lab Routine Type 2 diabetes mellitus with chronic kidney disease, without long-term current use of insulin, unspecified CKD stage (HCC) Expected: 06/20/2025, Expires: 09/19/[address] [facility] Comment on above: Expected: 06/20/2025, Expires: Start: 06-20-2025 End: 09-19-2025 Hemoglobin A1c in Blood HEMOGLOBIN A1C Lab Routine Type 2 diabetes mellitus with chronic kidney disease, without long-term current use of insulin, unspecified CKD stage (HCC) Expected: 06/20/2025, Expires: 09/19/[address] [facility] Comment on above: Expected: 06/20/2025, Expires: Start: 06-20-2025 End: 09-19-2025 Lipid 1996 panel - Serum or Plasma LIPID PANEL, FASTING Lab Routine Hyperlipidemia with target LDL less than 100 Expected: 06/20/2025, Expires: 09/19/[address] [facility] Comment on above: Expected: 06/20/2025, Expires: Start: 06-12-2025 Influenza vaccination [facility] Start: 04-30-2025 Shingrix Vaccine (2 of 2) Shingrix Vaccine (2 of 2) [facility] Start: 04-10-2025 Influenza vaccination Influ[facility] Vacc[facility] (#[facility] Comment on above: Postponed from 06/12/2024 (Declined at t his time) Start: 04-03-2025 End: 04-03-2025 Patient encounter procedure 04/03/2025 2:00 PM EDT Office Visit Internal Medicine [place] [address] [facility], [place] [id number] Jeanette Mitchell APRN.FLOW FLOOR ATTENDANT [address] [facility] [place] [address] Pre op clearance. Right Total Hip. 04/17/25. [facility] [place] Comment on above: Pre op clearance. Right Total Hip. 5. [facility] Start: 03-21-2025 End: 06-20-2025 Basic metabolic 2000 panel - Serum or Plasma BASIC METABOLIC PANEL Lab Routine Type 2 diabetes mellitus with chronic kidney disease, without long-term current use of insulin, unspecified CKD stage (HCC) Expected: 03/21/2025, Expires: 06/20/2025 [facility] Work Phone: Comment on above: Expected: 03/21/2025, Expires: Start: 03-21-2025 End: 06-20-2025 Hemoglobin A1c in Blood HEMOGLOBIN A1C Lab Routine Type 2 diabetes mellitus with chronic kidney disease, without long-term current use of insulin, unspecified CKD stage (HCC) Expected: 03/21/2025, Expires: 06/20/[address] [facility] Comment on above: Expected: 03/21/2025, Expires: Start: 03-21-2025 End: 06-20-2025 Lipid 1996 panel - Serum or Plasma LIPID PANEL, FASTING Lab Routine Hyperlipidemia with target LDL less than 100 Expected: 03/21/2025, Expires: 06/20/[address] [facility] Comment on above: Expected: 03/21/2025, Expires: Start: 03-02-2025 Evaluation of diagnostic study results [facility] Start: 02-18-2025 Creatinine measurement Serum Creatinine [facility] Start: 01-31-2025 Annual PCP Team Chronic Disease Visit Annual PCP Team Chronic Disease Visit [facility] Start: 01-31-2025 BP Controlled (<130/80) BP Controlled (<130/80) [facility] Start: 01-31-2025 Creatinine measurement Serum Creatinine [facility] Start: 01-31-2025 Diabetic foot examination Diabetic Foot Exam [facility] Start: 01-31-2025 RSV Vaccine (1 - 1-dose 60+ series) RSV Vaccine (1 - 1-dose 60+ series) [facility] Comment on above: Postponed from 2003 (Declined at t his time) Start: 01-31-2025 RSV Vaccine (1 - 1-dose 75+ series) RSV Vaccine (1 - 1-dose 75+ series) [facility] Comment on above: Postponed from 2018 (Declined at t his time) Start: 01-31-2025 Shingrix Vaccine (1 of 2) Shingrix Vaccine (1 of 2) [facility] Comment on above: Postponed from 1993 (Declined at t his time) Start: 01-31-2025 Urine microalbumin profile DTaP,Tdap,Td Vaccine (2 - Td or Tdap) [facility] Comment on above: Postponed from 08/10/2018 (Declined at t his time) Start: 01-28-2025 Hepatitis B surface antibody level LDL Cholesterol [facility] Start: 12-22-2024 Hemoglobin A1c measurement HbA1C [facility] Start: 12-13-2024 End: 12-13-2024 Patient encounter procedure 12/13/2024 2:00 PM EST Office Visit [facility] [place] [address] [place], [place] [id number] Rosalina Bean PA-C [address] [place], [place] [id number] Sinus Congestion. See triage 12/13/2023 [facility] [place] Comment on above: Sinus Congestion. See triage 12/13/2023 Start: 10-12-2024 Advance Directive Discussion Advance Directive Discussion [facility] Start: 10-12-2024 Medicare Advantage Annual Wellness Visit Medicare Advantage Annual Wellness Visit [facility] Start: 08-21-2024 Complete blood count Hemoglobin/Hematocrit [facility] Start: 08-21-2024 Creatinine measurement Serum Creatinine [facility] Start: 07-30-2024 Hemoglobin A1c measurement [facility]C [facility] Start: 07-22-2024 Annual PCP Team Chronic Disease Visit Annual PCP Team Chronic Disease Visit [facility] Start: 07-22-2024 Covid-19 Vaccine () Covid-19 Vaccine () [facility] Comment on above: Postponed from 06/12/2023 (Declined at t his time) Start: 07-22-2024 Hepatitis B Vaccine (1 of 3 - Risk 3-dose series) Hepatitis B Vaccine (1 of 3 - Risk 3-dose series) [facility] Comment on above: Postponed from 2003 (Declined at t his time) Start: 06-30-2024 End: 06-30-2024 Patient encounter procedure 06/30/2024 2:20 PM EDT Office Visit [facility] [place] [address] [place] [address] Jeanette Mitchell APRN.FLOW FLOOR ATTENDANT [address] [place] [address] OAB, A1C, kidney function, cholesterol [facility] [place] Comment on above: OAB, A1C, kidney function, cholesterol Start: 06-24-2024 End: 06-24-2024 ambulatory 06/24/2024 10:15 AM EDT Results Only [facility] [address] [place] [address] [facility] Start: 06-14-2024 End: 09-13-2024 CBC panel - Blood by Automated count COMPLETE BLOOD COUNT Lab Routine Type 2 diabetes mellitus with chronic kidney disease, without long-term current use of insulin, unspecified CKD stage (HCC) Expected: 06/14/2024, Expires: 09/13/[address] [facility] Comment on above: Expected: 06/14/2024, Expires: Start: 06-14-2024 End: 09-13-2024 Hemoglobin A1c in Blood HEMOGLOBIN A1C Lab Routine Type 2 diabetes mellitus with chronic kidney disease, without long-term current use of insulin, unspecified CKD stage (HCC) Expected: 06/14/2024, Expires: 09/13/[address] [facility] Comment on above: Expected: 06/14/2024, Expires: Start: 06-14-2024 End: 09-13-2024 Microalbumin/Creatinine [Mass Ratio] in Urine ALBUMIN/CREATININE RATIO, URINE Lab Routine Type 2 diabetes mellitus with chronic kidney disease, without long-term current use of insulin, unspecified CKD stage (HCC) Expected: 06/14/2024, Expires: 09/13/2024 [facility] Work Phone: Comment on above: Expected: 06/14/2024, Expires: Start: 06-12-2024 Covid-19 Vaccine ( season) Covid-19 Vaccine ( season) [facility] Start: 06-12-2024 Influenza vaccination Influenza Vaccine (#1) [place] Start: 05-02-2024 End: 05-02-2024 Patient encounter procedure 05/02/2024 3:00 PM EDT Office Visit [facility] [place] [address] [place], [place] [id number] Jeanette Mitchell APRN.FLOW FLOOR ATTENDANT [address] [place] [address] 3 month follow up [facility] [place] Comment on above: 3 month follow up Start: 04-22-2024 ANNUAL PCP TEAM CHRONIC DISEASE VISIT ANNUAL PCP TEAM CHRONIC DISEASE VISIT [facility] Start: 04-22-2024 BP CONTROLLED (<130/80) BP CONTROLLED (<130/80) [facility] Start: 04-22-2024 Hemoglobin/Hematocrit Hemoglobin/Hematocrit [facility] Start: 04-22-2024 Hepatitis B screening URINE ALBUMIN:CREATININE RATIO [facility] Start: 04-22-2024 Serum Creatinine Serum Creatinine [facility] Start: 02-19-2024 Hemoglobin A1c measurement HbA1C [facility] Start: 02-19-2024 End: 02-19-2024 ambulatory 02/19/2024 10:00 AM EDT Results Only [facility] [address] [facility] [place] [address] [facility] Start: 02-17-2024 End: 05-18-2024 Basic metabolic 2000 panel - Serum or Plasma BASIC METABOLIC PANEL Lab Routine Hyperkalemia Hypercalcemia Expected: 02/17/2024 (Approximate), Expires: 05/18/2024 [facility] Work Phone: Comment on above: Expected: 02/17/2024 (Approximate), Expi res: 05/18/2024 Start: 02-15-2024 End: 02-15-2024 ambulatory 02/15/2024 9:30 AM EDT OT/PT/Speech Visit [facility] [address] [place] [address] Bear Ficnh, PT [address] [place] [address] Right hip pain [M25.551] [facility] Comment on above: Right hip pain [M25.551] Start: 01-19-2024 End: 04-19-2024 Hemoglobin A1c in Blood HGB A1C Lab Routine Controlled type 2 diabetes mellitus without complication, without long-term current use of insulin (HCC) Expected: 01/19/2024, Expires: 04/19/2024 [facility] Work Phone: Comment on above: Expected: 01/19/2024, Expires: Start: 01-19-2024 End: 04-19-2024 Lipid 1996 panel - Serum or Plasma LIPID PANEL BASIC Lab Routine Hyperlipidemia with target LDL less than 100 Expected: 01/19/2024, Expires: 04/19/2024 [facility] Work Phone: Comment on above: Expected: 01/19/2024, Expires: Start: 11-28-2023 3 comp foot exam completed DIABETIC FOOT EXAM [facility] Start: 11-28-2023 ANNUAL PCP TEAM CHRONIC DISEASE VISIT ANNUAL PCP TEAM CHRONIC DISEASE VISIT [facility] Start: 11-28-2023 BP CONTROLLED (<130/80) BP CONTROLLED (<130/80) [facility] Start: 11-28-2023 COVID-19 VACCINE (4 - Booster for Moderna series) COVID-19 VACCINE (4 - Booster for Moderna series) [facility] Comment on above: Postponed from 11/07/2021 (Declined at t his time) Start: 11-28-2023 COVID-19 VACCINE (4 - Moderna series) COVID-19 VACCINE (4 - Moderna series) [facility] Comment on above: Postponed from 11/07/2021 (Declined at t his time) Start: 11-28-2023 Diabetic foot examination Diabetic Foot Exam [facility] ic Start: 11-28-2023 SHINGRIX VACCINE (1 of 2) SHINGRIX VACCINE (1 of 2) [facility] Comment on above: Postponed from 1993 (Declined at t his time) Start: 11-28-2023 Urine microalbumin profile [facility] Comment on above: Postponed from 08/10/2018 (Declined at t his time) Start: 11-27-2023 Hepatitis B surface antibody level LDL CHOLESTEROL [facility] Start: 10-29-2023 ANNUAL PCP TEAM CHRONIC DISEASE VISIT ANNUAL PCP TEAM CHRONIC DISEASE VISIT [facility] Start: 10-29-2023 BP CONTROLLED (<130/80) BP CONTROLLED (<130/80) [facility] Start: 10-23-2023 Hemoglobin A1c/Hemoglobin.total in Blood HBA1C [facility] Start: 10-12-2023 Advance Directive Discussion Advance Directive Discussion [facility] Start: 10-12-2023 Behavioral Health Screening Behavioral Health Screening [facility] Start: 10-12-2023 Depression Assessment Depression Assessment [facility] Start: 07-22-2023 End: 09-21-2023 Basic metabolic 2000 panel - Serum or Plasma BASIC METABOLIC PNL Lab Routine Essential hypertension, benign Controlled type 2 diabetes mellitus without complication, without long-term current use of insulin (HCC) Stage 3b chronic kidney disease (HCC) 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, unspecified vessel or lesion type Expected: 07/22/2023, Expires: 09/21/2023 [facility] Work Phone: Comment on above: Expected: 07/22/2023, Expires: 3 Start: 07-22-2023 End: 09-21-2023 CBC panel - Blood by Automated count CBC Lab Routine Essential hypertension, benign Controlled type 2 diabetes mellitus without complication, without long-term current use of insulin (HCC) Stage 3b chronic kidney disease (HCC) Expected: 07/22/2023, Expires: 09/21/2023 [facility] Work Phone: Comment on above: Expected: 07/22/2023, Expires: 3 Start: 07-22-2023 End: 09-21-2023 Hemoglobin A1c in Blood HGB A1C Lab Routine Controlled type 2 diabetes mellitus without complication, without long-term current use of insulin ([facility]) Expected: 07/22/2023, Expires: 09/21/2023 [facility] Work Phone: Comment on above: Expected: 07/22/2023, Expires: 3 Start: 06-12-2023 Influenza vaccination INFLUENZA (#1) [facility] Start: 04-26-2023 Hemoglobin A1c/Hemoglobin.total in Blood HBA1C [facility] Start: 04-22-2023 End: 06-22-2023 Basic metabolic 2000 panel - Serum or Plasma [facility] Work Phone: Comment on above: Expected: 04/22/2023, Expires: 3 Start: 11-28-2022 End: 01-28-2023 ALBUMIN/CREAT RATIO RND UR ALBUMIN/CREAT RATIO RND UR Lab Routine Controlled type 2 diabetes mellitus without complication, without long-term current use of insulin ([facility]) Expected: 11/28/2022, Expires: 01/28/2023 [facility] Work Phone: Comment on above: Expected: 11/28/2022, Expires: 3 Start: 11-24-2022 End: 01-24-2023 25-hydroxyvitamin D3 [Mass/volume] in Serum or Plasma VITAMIN D 25 HYDROXY Lab Routine Vitamin D deficiency Expected: 11/24/2022, Expires: 01/24/2023 [facility] Work Phone: Comment on above: Expected: 11/24/2022, Expires: 3 Start: 11-24-2022 End: 01-24-2023 Comprehensive metabolic 2000 panel - Serum or Plasma COMP METABOLIC PANEL Lab Routine Essential hypertension, benign Hyperlipidemia with target LDL less than 100 Expected: 11/24/2022, Expires: 01/24/2023 [facility] Work Phone: Comment on above: Expected: 11/24/2022, Expires: 3 Start: 11-24-2022 End: 01-24-2023 Lipid 1996 panel - Serum or Plasma LIPID PANEL BASIC Lab Routine Hyperlipidemia with target LDL less than 100 Expected: 11/24/2022, Expires: 01/24/2023 [facility] Work Phone: Comment on above: Expected: 11/24/2022, Expires: 3 Start: 11-12-2022 End: 01-12-2023 Basic metabolic 2000 panel - Serum or Plasma BASIC METABOLIC PNL Lab Routine Essential hypertension, benign Function kidney decreased Expected: 11/12/2022 (Approximate), Expires: 01/12/2023 [facility] Work Phone: Comment on above: Expected: 11/12/2022 (Approximate), Expi res: 01/12/2023 Start: 11-12-2022 End: 01-12-2023 CBC W Auto Differential panel - Blood CBC + DIFF Lab Routine Essential hypertension, benign Function kidney decreased Expected: 11/12/2022 (Approximate), Expires: 01/12/2023 [facility] Work Phone: Comment on above: Expected: 11/12/2022 (Approximate), Expi res: 01/12/2023 Start: 10-21-2022 Patient discharge [facility] Start: 10-20-2022 [facility] Start: 10-20-2022 Patient referral [facility] Work Phone: Start: 10-20-2022 Ambulation without limitation [facility] Start: 10-20-2022 Cardiac monitoring [facility] Start: 10-20-2022 Cardiac rehabilitation - phase 1 [facility] Start: 10-20-2022 Cardiac rehabilitation - phase 2 [facility] Start: 10-20-2022 Notification of physician [facility] Start: 10-20-2022 Patient discharge [facility] Start: 10-20-2022 Provision of activity privileges [facility] Start: 10-20-2022 Taking patient vital signs [facility] Start: 10-20-2022 Vital signs measurements [facility] Start: 10-20-2022 End: 10-20-2022 [facility] Start: 10-20-2022 Catheterization of vein [facility] Start: 10-20-2022 Medication not administered [facility] Start: 10-20-2022 Notification of physician [facility] Start: 10-20-2022 [facility] Start: 10-18-2022 Admission procedure [facility] Start: 10-18-2022 Application of intermittent pneumatic compression device [facility] Start: 10-17-2022 Referral to horologist [facility] Start: 10-17-2022 Assessment of risk of venous thromboembolism [facility] Start: 10-17-2022 Care regimes management [facility] Start: 10-17-2022 Insertion of catheter into peripheral vein [facility] Start: 10-17-2022 Measuring intake and output [facility] Start: 10-17-2022 Oxygen therapy [facility] Start: 10-17-2022 Providing care according to standard [facility] Start: 10-17-2022 Provision of activity privileges [facility] Start: 10-17-2022 Referral to service [facility] Start: 10-17-2022 Tobacco use cessation education [facility] Start: 10-17-2022 [facility] Start: 10-17-2022 Electroencephalogram [facility] Work Phone: Start: 10-17-2022 Troponin I measurement [facility] Work Phone: Start: 10-17-2022 Following clinical pathway protocol [facility] Start: 10-17-2022 Admission procedure [facility] Start: 10-17-2022 [facility] Work Phone: Start: 10-14-2022 End: 12-14-2022 Basic metabolic 2000 panel - Serum or Plasma BASIC METABOLIC PNL Lab Routine Controlled type 2 diabetes mellitus without complication, without long-term current use of insulin ([facility]) Expected: 10/14/2022, Expires: 12/14/2022 [facility] Work Phone: Comment on above: Expected: 10/14/2022, Expires: 3 Start: 10-14-2022 End: 12-14-2022 Hemoglobin A1c in Blood HGB A1C Lab Routine Controlled type 2 diabetes mellitus without complication, without long-term current use of insulin ([facility]) Expected: 10/14/2022, Expires: 12/14/2022 [facility] Work Phone: Comment on above: Expected: 10/14/2022, Expires: 3 Start: 10-14-2022 End: 12-14-2022 SCHEDULE LAB TESTING SCHEDULE LAB TESTING Lab Routine Expected: 10/14/2022, Expires: 12/14/2022 [facility] Work Phone: Comment on above: Expected: 10/14/2022, Expires: 3 Start: 10-12-2022 ADVANCE DIRECTIVE DISCUSSION ADVANCE DIRECTIVE DISCUSSION [facility] Start: 10-12-2022 DEPRESSION ASSESSMENT DEPRESSION ASSESSMENT [facility] Start: 06-12-2022 ANNUAL PCP TEAM CHRONIC DISEASE VISIT ANNUAL PCP TEAM CHRONIC DISEASE VISIT [facility] Start: 06-12-2022 Influenza vaccination INFLUENZA (#1) [facility] Start: 05-21-2022 Adult depression screening assessment DEPRESSION SCREENING [facility] Start: 12-10-2021 Hemoglobin A1c/Hemoglobin.total in Blood HBA1C [facility] Start: 11-07-2021 COVID-19 VACCINE (4 - Booster for Moderna series) COVID-19 VACCINE (4 - Booster for Moderna series) [facility] Start: 10-12-2021 ADVANCE DIRECTIVE DISCUSSION ADVANCE DIRECTIVE DISCUSSION [facility] Start: 10-12-2021 DEPRESSION ASSESSMENT DEPRESSION ASSESSMENT [facility] Start: 04-28-2021 COVID-19 VACCINE (3 - Booster for Moderna series) COVID-19 VACCINE (3 - Booster for Moderna series) [facility] Start: 01-24-2021 COVID-19 VACCINE (3 - Booster for Moderna series) COVID-19 VACCINE (3 - Booster for Moderna series) [facility] Start: 05-27-2020 3 comp foot exam completed DIABETIC FOOT EXAM [facility] maryann Start: 05-25-2020 Hepatitis B surface antibody level LDL CHOLESTEROL [facility] Start: 08-17-2019 Hepatitis B screening URINE ALBUMIN:CREATININE RATIO [facility] Start: 08-10-2019 Glaucoma screening Dilated Retinal Exam [facility] Start: 08-10-2019 Hepatitis C antibody, confirmatory test DILATED RETINAL EXAM [facility] Start: 2018 RSV Vaccine (1 - 1-dose 75+ series) RSV Vaccine (1 - 1-dose 75+ series) [facility] Start: 08-10-2018 Urine microalbumin profile [facility] maryann Start: 09-02-2014 FECAL OCCULT BLOOD FECAL OCCULT BLOOD [facility] Start: 09-02-2014 Screening for malignant neoplasm of colon Fecal Occult Blood [facility] Start: 2003 RSV Vaccine (1 - 1-dose 60+ series) RSV Vaccine (1 - 1-dose 60+ series) [facility] Start: 1993 SHINGRIX VACCINE (1 of 2) SHINGRIX VACCINE (1 of 2) [facility] Start: 1961 Anxiety Screening Anxiety Screening [facility] Start: 1961 BP CONTROLLED (<130/80) BP CONTROLLED (<130/80) [facility] Start: 1961 Depression Screening Depression Screening [facility] Start: 1961 HEPATITIS C SCREENING HEPATITIS C SCREENING [facility] Ambulatory ECG [facility] Work Phone: Bacteria identified in Urine by Culture URINE CULTURE Microbiology Routine Urge incontinence Abnormal urine 06/30/2024 3:10 PM EDT [facility] Bilirubin measurement, urine [facility] Work Phone: [facility] Ro tereza Colon cancer screening Ordered: 11/28/2022 [facility] Work Phone: Comment on above: Ordered: 11/28/2022 Hemoglobin [Presence ] in Urine [facility] Work Phone: Hemoglobin A1c/Hemoglobin.total in Blood [facility] Work Phone: Measurement of keton es in urine using dipstick [facility] Work Phone: Microscopic urinalysis [facility] Work Phone: Patient Education DASH Plan Eat Heart Healthy Food CAD Diabetes Glossary Diabetes Carbs Fats Protein [facility] Work Phone: Patient referral [facility] Work Phone: pH of Urine [facility] Work Phone: Specific gravity of Urine [facility] Work Phone: Troponin I measurement [facility] Work Phone: Urinalysis complete panel - Urine URINALYSIS, WITH MICROSCOPIC Lab Routine Urge incontinence Abnormal urine 06/30/2024 3:10 PM EDT [facility] Work Phone: Urinalysis, blood, qualitative [facility] Work Phone: Urine dipstick for glucose [facility] Work Phone: Urine dipstick for l eukocyte esterase [facility] Work Phone: Urine dipstick for nitrite [facility] Work Phone: Urine dipstick for protein [facility] Work Phone: Urine examination [facility] Work Phone: Urine microscopy: ep ithelial cells [facility] Work Phone: Urine Microscopy: white cells [facility] Work Phone: Urobilinogen [Presen ce] in Urine [facility] Work Phone: [facility] Immunizations Immunization Date Immunization Notes Care Provider Helen mabry 06-09-2025 zoster vaccine recombinant Mega Aquino MD Work Phone: [facility] 03-05-2025 zoster vaccine recombinant Jeanette Older [employer].FLOW FLOOR ATTENDANT Work Phone: [facility] 07-22-2023 influenza (HD-IIV4) vaccine, age 65+ yr, high dose, quadrivalent, PF (FLUZONE HIGH-DOSE) Jeanette Older [employer] BOILER.FLOW FLOOR ATTENDANT Work Phone: [facility] 07-22-2023 influenza virus vacc ine, unspecified formulation Mega Aquino MD Work Phone: [facility] 08-01-2022 influenza, high dose seasonal, preservative-free Jeanette Older [employer] BOILER.FLOW FLOOR ATTENDANT Work Phone: [facility] 08-01-2021 influenza, high-dose , quadrivalent vaccine (FLUZONE HIGH DOSE QUADRIVALENT) Amara Flores [facility] 08-19-2018 influenza, high dose seasonal, preservative-free Amara Lagania [facility] 07-01-2017 influenza, high dose seasonal, preservative-free Amara Jenniferania [facility] 07-01-2017 pneumococcal polysaccharide vaccine, 23 valent Amara Flores [facility] 08-25-2016 influenza, high dose seasonal, preservative-free Amara Rodriguezania [facility] 08-29-2015 influenza, high dose seasonal, preservative-free Amara Lagania [facility] 08-29-2015 pneumococcal conjuga te vaccine, 13 valent Amara Flores [facility] 09-01-2014 influenza, high dose seasonal, preservative-free Amara Lagania [facility] 08-26-2013 influenza virus vacc ine, unspecified formulation Amara Flores [facility] 08-08-2011 influenza virus vacc ine, unspecified formulation Amara Flores [facility] 08-15-2010 influenza virus vacc ine, unspecified formulation Amara Flores [facility] 07-16-2009 influenza virus vacc ine, unspecified formulation Amara Flores [facility] Work Phone: 08-10-2008 influenza virus vacc ine, unspecified formulation mAara Flores [facility] Work Phone: 08-10-2008 pneumococcal polysaccharide vaccine, 23 valent Amara [facility] Work Phone: 08-10-2008 tetanus toxoid, redu connie diphtheria toxoid, and acellular pertussis vaccine, adsorbed Amara [facility] Work Phone: Payers Date Payer Category Payer Self-pay [id number] 2021 Medicare HUMANA MEDICARE HUMANA MEDICARE PPO [id number] 2021-Present [phone] [place] [address] PPO [id number] 2021 Medicare (Managed Care) [facility] [id number] 2021 Medicare [id number] 2019 Medicare [id number] Unknown [id number] Unknown [id number] Unknown [id number] Unknown [id number] Unknown [id number] Unknown [id number] Unknown [id number] Unknown [id number] Unknown [id number] Unknown [id number] Social History Date Type Detail Facility Start: 05-11-2018 End: 12-13-2024 Tobacco smoking status NHIS Ex-smoker [facility] Start: 06-12-2021 End: 06-07-2025 Alcohol intake Current drinker of alcohol (finding) [facility] Start: 06-12-2021 End: 04-22-2023 Alcohol intake [facility] Start: 05-22-2021 End: 10-28-2022 History SDOH Alcohol Frequency [address] [facility] Start: 05-22-2021 End: 10-28-2022 History SDOH Alcohol Std Drinks [address] [facility] Start: 05-22-2021 End: 10-28-2022 History SDOH Social Connections Phone [address] [facility] Start: 05-22-2021 End: 10-28-2022 History SDOH Social Connections Get Together [address] [facility] Start: 05-22-2021 End: 10-28-2022 History SDOH Social Connections Zoroastrianism [address] [facility] Start: 05-22-2021 End: 10-28-2022 History SDOH Social Connections Meetings [address] [facility] Start: 05-22-2021 History SDOH Physica l Activity DPW [address] [facility] Start: 05-21-2021 Education [address] [facility] Start: 1945 Sex Assigned At Not on file C [facility] History of tobacco use Current smoker [facility] Work Phone: Start: 05-11-2018 End: 12-13-2024 Tobacco use and exposure Smokeless tobacco non-user [facility] Work Phone: Start: 10-17-2022 End: 11-10-2022 Tobacco smoking status NHIS Unknown if ever smoked [facility] Start: 1945 Sex Assigned At Female W [facility] Start: 10-28-2022 End: 04-22-2023 Social connection and isolation panel [facility] Start: 09-12-2012 How often do you att end worship or cheondoism services? Patient refused [facility] Do you belong to any clubs or organizations such as worship groups, unions, fraternal or athletic groups, or school groups? Yes [facility] Are you now , , , , never or living with a partner? [facility] How often to you hav e a drink containing alcohol? 2-4 times a month [facility] How many standard dr inks containing alcohol do you have on a typical day? 1 or [address] [facility] How often do you hav e 6 or more drinks on 1 occasion? Never [facility] Do you feel stress - tense, restless, nervous, or anxious, or unable to sleep at night because your mind is troubled all the time - these days [OSQ] Only a little [facility] (I/We) worried amarilys er (my/our) food would run out before (I/we) got money to buy more. DK or Refused [facility] In the past 12 month s, was there a time when you were not able to pay the mortgage or rent on time? No [facility] Are you now , , , , never or living with a partner? [facility] How often to you hav e a drink containing alcohol? 2-3 time sa week [facility] How hard is it for y ou to pay for the very basics like food, housing, medical care, and heating Not very hard [facility] (I/We) worried amarilys er (my/our) food would run out before (I/we) got money to buy more. Never true [facility] Start: 04-24-2021 End: 05-24-2021 Exposure to SARS-CoV-2 (event) Not sure [facility] Start: 12-13-2024 Tobacco Comment quit smoking 1982 [facility] Medical Equipment Procedure Code Equipment Code Equipment Origin al Text Equipment Identifier Dates test daily [id number] Start: 11-07-2009 Comment on above: test daily Drug-eluting coronary artery stent, [id number]-[id number] olymer-coated [id number] [facility] Start: 10-20-2022 Goals Date Patient Goal Desired Activity /State Functional Status Date Assessment Result Facility 10-21-2022 Functional status Up ad durga [facility] Work Phone: 02-26-2015 Are you deaf, or do you have serious difficulty hearing No 02/26/2015 2:07 PM Abbey Garcia MA No [facility] 02-26-2015 Are you blind, or do you have serious difficulty seeing, even when wearing glasses No 02/26/2015 2:07 PM Abbey Garcia MA No [facility] 02-26-2015 Do you have serious difficulty walking or climbing stairs Yes 02/26/2015 2:07 PM Abbey Garcia MA Yes [facility] 02-26-2015 Do you have difficul ty dressing or bathing No 02/26/2015 2:07 PM Abbey Garcia MA No [facility] 02-26-2015 Because of a physica l, mental, or emotional condition, do you have difficulty doing errands alone such as visiting a physician's office or shopping No 02/26/2015 2:07 PM Abbey Garcia MA No [facility] Mental Status Date Assessment Result Facility 10-21-2022 Cognitive function Voice/Name [facility] Work Phone: 10-17-2022 Cognitive function Level Of Cons ciousness Awake;Alert;Appropriate;Fol lows Commands [facility] Work Phone: 02-26-2015 Because of a physica l, mental, or emotional condition, do you have serious difficulty concentrating, remembering, or making decisions No 02/26/2015 2:07 PM EDT Abbey Cárdenas MA No [facility] Clinical Notes 07-16-2009 to 07-10-2025 Shannon Keller APRN.FLOW FLOOR ATTENDANT - 06/07/2025 3:25 PM EDDorota Da Silva APRN.CNP - 04/12/2025 3:34 PM EDTPatient InstructionsTelephone Encounter - Mela HawleyREAGAN - 04/04/2025 9:21 AM EDT Note Date & Type Note Facility 07-10-2025 Note HNO ID: [id number] Author: JEANETTE MITCHELL APRN.SPARKLE Service: ? Author Type: Nurse Practitioner Type: Progress Notes Filed: 07/10/2025 16:06 Note Text: CC: Patient presents with: Recheck: Follow up intertrigo Pre-Op Exam: Pre- Op R hip HPI Arabella Bosch is a 79 year old female who presents today for pre-op visit. Recording using Sova software for draft documentation of the visit was discussed with the patient/authorized security representative; all questions welcomed and answered. Patient/authorized security representative agreed to proceed Pre-Operative Evaluation: - Scheduled for right total hip arthroplasty with Dr. Blanc at [facility]; date not yet determined. - Cleared by cardiology 3 months ago; EKG and echocardiogram performed at [facility]. Intertrigo: - previously scheduled surgery was delayed due to this. - Rash under the breast and near the hip; using a cream for treatment and previously on oral diflucan as well. - Inquires about the best time to apply the cream; currently applying it at night. - Using diapers to prevent easv-ug-exor contact. Diabetes Mellitus: - Blood sugar readings typically in the 130s; most recent reading was 132 mg/dL. - Recent A1c was 6.2%. - Occasional hypoglycemic episodes, approximately once every couple of months, resolved with orange juice or candy. - Reports numbness in the foot, attributed to neuropathy which is chronic without change - Taking glimepiride BID. Hypertension and HLD: - Taking amlodipine and carvedilol. - Recent blood pressure readings have been stable, including a reading of 130/72 mmHg today. - Occasional mild ankle swelling, attributed to amlodipine use. - denies chest pressure, dyspnea, headache, or palpitations. Chronic Kidney Disease Stage 3: - Advised to avoid NSAIDs and stay well-hydrated, especially around surgery. GERD: - Well-controlled with pantoprazole. - Denies heartburn, dysphagia, nausea, or abdominal pain. METS: Walk indoors, such as around the [...] weeding,or pushing a power mower (4.50 METs): YES Climb a flight of stairs or walk [...] a short distance (8.00 METs): NO Total: 5.5 Patient denies any chest pain or undue [...] or incontinence Neurologic: No headache, weakness, numbness, tingling, neck [...] Take 1 tablet by mouth once daily. pantoprazole DR (PROTONIX) 20 mg tablet Take 1 tablet by mouth once daily. glimepiride (AMARYL) 1 mg tablet Take 1 tablet by mouth two times (more content not included)... [facility] 07-03-2025 Note HNO ID: [id number] Author: JEANETTE MITCHELL APRN.[facility] Service: ? Author Type: Nurse Practitioner Type: Progress Notes Filed: 07/03/2025 16:07 Note Text: CC: Patient presents with: Recheck: 3 month follow up HPI Arabella Bosch is a 79 year old female who presents today for intertrigo follow up. Recording using Sova software for draft documentation of the visit was discussed with the patient/authorized security representative; all questions welcomed and answered. Patient/authorized security representative agreed to proceed Rash: - Arabella Bosch has a persistent rash under the breasts and in the abdominal fold. - Rash under the breasts appears to have resolved. - Rash in the abdominal fold has improved but is unsure if fully gone. Has been waiting to get needed hip surgery until this is fully resolved. - Arabella last took fluconazole when prescribed a week's worth 3 weeks ago. - Arabella still has approximately one-third of a tube of ketoconazole cream remaining along with nystatin powder - Denies fever, chills, or dyspnea. DIABETES MELLITUS: Mrs. Bosch was denies excessive thirst or increased frequency of urination, chest pain or dyspnea , numbness, tingling or pain in extremities, new or unusual visual symptoms, low sugar/hypoglycemic reactions, weight loss/gain, lightheadedness/dizziness, bowel changes/loose stools Follows a diabetic diet most of the time. She is compliant with medication(s) and is tolerating med(s) without any side effects. She reports checking her glucose on a once a day schedule with sugars in the fasting 120s-130s range. Patient's last HgA1C was Hemoglobin A1C (%) Date Value 06/30/2025 6.2 06/24/2024 6.5 05/25/2019 6.5 08/17/2018 8.5 Hemoglobin A1C (POCT) (%) Date Value 06/12/2021 7.1 ) Last Ophthalmology exam is needing to be scheduled. HTN and HLD: Mrs. Bosch denies headache, chest pain, palpitations, dyspnea, and peripheral edema. Patient denies any side effects of her medication(s) and is compliant with their regimen. She does not check BP's generally. Arabella denies regular aerobic exercise due to ongoing hip pain she is waiting to have surgery for. She watches her diet for sodium, low fat and low cholesterol most of the time. Last 3 Encounter BP Readings: Date: BP: 07/03/2025 124/70 06/07/2025 140/78 04/12/2025 132/78 REVIEW OF SYSTEMS See HPI PAST MEDICAL [...] Take 1 tablet by mouth once daily. pantoprazole DR (PROTONIX) 20 mg tablet [...] Disease Maternal Grandfather Cerebral Embolism Paternal Grandmother SOCIAL HISTORY[1] PHYSICAL EXAM BP 124/70 Pulse 60 Resp 16 Wt 101.6 kg (224 lb) SpO2 97% BMI 36.15 kg/m? General Appearance: well appearing, in no acute distress, alert Skin: small amount of redness and 2 small open areas to lower mid abdominal fold. No drainage, or red streaking noted. Moisture noted but no tenderness Lungs: Lungs clear to auscultation. No wheezing, rhonchi, rales. Heart: RRR without murmur, gallop, or rubs. No ectopy Health maintenance reviewed with patient: Depression Screening Never done Anxiety Screening Never done DTaP,Tdap,Td Vaccine(2 - Td or Tdap) due on 08/10/2018 RSV Vaccine(1 - 1-dose 75+ series) Never done Dilated Retinal Exam due on 08/10/2019 Medicare Advantage Annual Wellness Visit Never done Diabetic Foot Exam due on 01/31/2025 Influenza Vaccine(1) due on 06/12/2025 Urine Albumin:Creatinine Ratio due on 06/24/2025 HbA1C due on 12/28/2025 LDL Cholesterol due on 06/30/2026 Bone Density Screening Completed Advance Directive Discussion Comple (more content not included)... [facility] 06-20-2025 Note Patient Outreach (IN [facility]) DANITZAERIKARABELLA J ([id number]) 1945 F Date Time Provider Department 06/20/25 MEGA AQUINO During your visit today, we recorded the following information about you: Allergies As of Date: 06/20/2025 (No Known Allergies) Date Reviewed: 06/07/2025 Reviewed by: Godfrey Angulo LPN - Fully Assessed Visit Diagnoses:Type 2 diabetes mellitus with chronic kidney disease, without long-term current use of insulin, unspecified CKD stage (HCC) [E11.22] Hyperlipidemia with target LDL less than 100 [E78.5] Order(s):BASIC METABOLIC PANEL [SQBMP] Order #: [id number] FUTURE HEMOGLOBIN A1C [BIBFG2C] Order #: [id number] FUTURE LIPID PANEL, FASTING [SQLIPB] Order #: [id number] FUTURE COMPLETE BLOOD COUNT [SQCBC] Order #: [id number] FUTURE Prescriptions as of 06/23/2025 - rosuvastatin (CRESTOR) 20 mg tablet Take 1 tablet by mouth once daily. - amLODIPine (NORVASC) 2.5 mg tablet Take 1 tablet by mouth once daily. - pantoprazole DR (PROTONIX) 20 mg [...] test daily Problem List As Of Date 06/20/2025 Noted Resolved BENIGN HYPERTENSION [I10] 06/12/2005 ESOPHAGEAL [...] (CMC) joint of lef*05/27/2019 Encounter Status:Closed by AB HAHNUSER on 06/23/25 [facility] 06-07-2025 Note HNO ID: [id number] Author: SHANNON KELLER APRN.[employer] Service: ? Author Type: Nurse Practitioner Type: Progress Notes Filed: 06/07/2025 15:36 Note Text: This is a 79 year old female who presents today with: The patient is an 79-year-old female presenting for re-eval of rash so she can move forward with hip surgeryvaluation of a persistent rash to obtain clearance for scheduled hip replacement surgery. HISTORY OF PRESENT ILLNESS: Rash: - Rash had been present for over a month. - Improved with a two-week course of oral fluconazole. - Rash initially bright red and oozing, now much improved under abdominal fold. Does note minimal pinkness under the right breast. PAST MEDICAL HISTORY: PAST MEDICAL HISTORY Diagnosis Date Benign hypertensive [...] allergies. MEDICATIONS Current Outpatient Medications Medication Sig fluconazole (DIFLUCAN) 50 mg tablet Take 1 tablet by mouth once daily for 7 days. rosuvastatin (CRESTOR) 20 mg tablet Take 1 tablet by mouth once daily. amLODIPine (NORVASC) 2.5 mg tablet Take 1 tablet by mouth once daily. pantoprazole DR (PROTONIX) 20 mg tablet [...] No current facility-administered medications for this visit. FAMILY HISTORY Problem Relation Age of Onset Cancer Mother Heart Father Thyroid Sister Stroke Maternal Grandmother Blood Disease Maternal Grandfather Cerebral Embolism Paternal Grandmother SOCIAL HISTORY[1] EXAM: BP 140/78 Pulse 62 Resp 16 SpO2 97% PHYSICAL EXAM: General Appearance: Well appearing, alert, in no acute distress, well-hydrated, well nourished.. Skin: Skin color, texture, turgor normal, no suspicious rashes or lesions. Minimal amount of pinkness under the right breast. Skin healed with just some remnant pinkness under the abdominal fold. No odor. No itch. No drainage. Not angry/irritated. Head: Normocephalic, no masses, lesions, tenderness or abnormalities. Eyes: Anicteric sclera. Extraocular movements are intact. . Neurologic: Gait w/ cane. ASSESSMENT/PLAN 1. Intertrigo (L30.4) - abdominal fold rash reportedly significantly improved (this is the first this provider has evaluated); - minimal erythema remains under right breast - Start fluconazole for 1 week. - Continue ketoconazole cream and nystatin powder as needed under right breast. - Advised to keep affected areas dry; use applied psychology chair after cleansing. - Educated on importance of completing full course of topical antifungal treatment and continuing application for one week after visible resolution. - Instructed to contact clinic if rash does not resolve after one week of treatment. - Will fax note to Dr. Blanc's office to document current status of rash. Discussed treatment plan and patient voices understanding. Patient's questions answered appropriately. Medications and potential side effects were discussed and patient voices understanding. Return to the office as scheduled or as needed for worsening/no improvement. Shannon Keller APRN.[employer] ATTENDANT Recording using Sova software for draft documentation of the visit was discussed with the patient/authorized security representative; all questions welcomed and answered. Patient/authorized security representative agreed to proceed [1] Social History Tobacco Use Smoking status: Former Smokeless tobacco: Never Tobacco comments: quit smoking 1982 Vaping Use Vaping status: Never Used Substance Use Topics Alcohol use: Yes Alcohol/week: 1.0 standard drink of alcohol Types: 1 Standard drinks or equivalent per week Drug use: No [facility] 06-07-2025 History of Present illness Narrative This is a 79 year old female who presents today with: The patient is an 79-year-old female presenting for re-eval of rash so she can move forward with hip surgeryvaluation of a persistent rash to obtain clearance for scheduled hip replacement surgery. HISTORY OF PRESENT ILLNESS: Rash: - Rash had been present for over a month. - Improved with a two-week course of oral fluconazole. - Rash initially bright red and oozing, now much improved under abdominal fold. Does note minimal pinkness under the right breast. PAST MEDICAL HISTORY: PAST MEDICAL HISTORY Diagnosis Date Benign hypertensive [...] allergies. MEDICATIONS Current Outpatient Medications Medication Sig fluconazole (DIFLUCAN) 50 mg tablet Take 1 tablet by mouth once daily for 7 days. rosuvastatin (CRESTOR) 20 mg tablet Take 1 tablet by mouth once daily. amLODIPine (NORVASC) 2.5 mg tablet Take 1 tablet by mouth once daily. pantoprazole DR (PROTONIX) 20 mg tablet [...] No current facility-administered medications for this visit. FAMILY HISTORY Problem Relation Age of Onset Cancer Mother Heart Father Thyroid Sister Stroke Maternal Grandmother Blood Disease Maternal Grandfather Cerebral Embolism Paternal Grandmother SOCIAL HISTORY[1] EXAM: BP 140/78 Pulse 62 Resp 16 SpO2 97% PHYSICAL EXAM: General Appearance: Well appearing, alert, in no acute distress, well-hydrated, well nourished.. Skin: Skin color, texture, turgor normal, no suspicious rashes or lesions. Minimal amount of pinkness under the right breast. Skin healed with just some remnant pinkness under the abdominal fold. No odor. No itch. No drainage. Not angry/irritated. Head: Normocephalic, no masses, lesions, tenderness or abnormalities. Eyes: Anicteric sclera. Extraocular movements are intact. . Neurologic: Gait w/ cane. ASSESSMENT/PLAN 1. Intertrigo (L30.4) - abdominal fold rash reportedly significantly improved (this is the first this provider has evaluated); - minimal erythema remains under right breast - Start fluconazole for 1 week. - Continue ketoconazole cream and nystatin powder as needed under right breast. - Advised to keep affected areas dry; use applied psychology chair after cleansing. - Educated on importance of completing full course of topical antifungal treatment and continuing application for one week after visible resolution. - Instructed to contact clinic if rash does not resolve after one week of treatment. - Will fax note to Dr. Blanc's office to document current status of rash. Discussed treatment plan and patient voices understanding. Patient's questions answered appropriately. Medications and potential side effects were discussed and patient voices understanding. Return to the office as scheduled or as needed for worsening/no improvement. Shannon Keller APRN.[employer] ATTENDANT Recording using Sova software for draft documentation of the visit was discussed with the patient/authorized security representative; all questions welcomed and answered. Patient/authorized security representative agreed to proceed [1] Social History Tobacco Use Smoking status: Former Smokeless tobacco: Never Tobacco comments: quit smoking 1983 Vaping Use Vaping status: Never Used Substance Use Topics Alcohol use: Yes Alcohol/week: 1.0 standard drink of alcohol Types: 1 Standard drinks or equivalent per week Drug use: No documented in this encounter [facility] 04-12-2025 Note HNO ID: [id number] Author: DOROTA CALLAWAY APRN.[facility] Service: ? Author Type: Nurse Practitioner Type: Progress Notes Filed: 04/12/2025 15:41 Note Text: CC: Patient presents with: Recheck: Rash: lower abdomen/groin HPI Recording using Sova software for draft documentation of the visit was discussed with the patient/authorized security representative; all questions welcomed and answered. Patient/authorized security representative agreed to proceed Arabella Bosch is a 79-year-old female presenting for evaluation of a recurrent rash on the abdomen. Arabella reports a recurrent rash on the abdomen that has been present intermittently for approximately 6 months. The rash is described as erythematous and pruritic, with some improvement in erythema and pruritus noted after initiating treatment with nystatin and oral Diflucan, as prescribed by a previous clinician. She has completed two doses of Diflucan, with the second dose taken 3 days after the first. Arabella notes that the rash is not completely resolved, and she is concerned about its persistence due to an upcoming hip surgery scheduled for Thursday. The surgeon has advised that the rash needs to be resolved before the surgery can proceed. Arabella also reports a history of similar rashes under the breasts, which have resolved. She has previously used antibiotic cream with temporary improvement, but the rash would recur. Review of Systems See HPI PAST MEDICAL HISTORY Diagnosis Date [...] Take 1 tablet by mouth once daily. pantoprazole DR (PROTONIX) 20 mg tablet [...] diagnostic(ONE TOUCH ULTRA TEST STRIPS) test daily fluconazole (DIFLUCAN) 50 mg tablet Take 1 tablet by mouth once daily for 14 days. ketoconazole (NIZORAL) 2 % cream Apply to affected area once daily. FAMILY HISTORY Problem Relation Age of Onset Cancer Mother Heart Father Thyroid Sister Stroke Maternal Grandmother Blood Disease Maternal Grandfather Cerebral Embolism Paternal Grandmother Social History Tobacco Use Smoking status: Former Smokeless tobacco: Never Tobacco comments: quit smoking 1982 Vaping Use Vaping status: Never Used Substance Use Topics Alcohol use: Yes Alcohol/week: 1.0 standard drink of alcohol Types: 1 Standard drinks or equivalent per week Drug use: No BP 132/78 Pulse 64 Temp 36.6 ?C (97.8 ?F) (Temporal) Resp 14 Wt 102.6 kg (226 lb 3.1 oz) SpO2 98% BMI 36.51 kg/m? Physical Exam Vitals reviewed. Constitutional: Appearance: Normal appearance. Abdominal: Comments: Faintly erythematous rash scattered to abdominal fold/groin. Lichenification present. Neurological: Mental Status: She is alert. Assessment/Plan 1. Intertrigo (L30.4) Chronic intertrigo with recurrent episodes over the past six months. Previous treatment with nystatin and oral fluconazole 150 mg every three days showed partial improvement. Current episode is less erythematous and pruritic, but not fully resolved. Scheduled for hip surgery on Thursday, which may be postponed if the rash is not resolved. - Initiated fluconazole 50 mg orally once daily for 2 weeks. - Prescribed ketoconazole cream to be applied topically for 4 weeks, even if the rash clears up. - Advised to keep the affected area dry and clean; recommended using a blow dryer on a cool setting post-bathing to ensure thorough drying before dressing. - Suggested using [id number] medicated powders like Gold Segundo to maintain dryness. - Advised to avoid outdoor activities that may induce sweating. - Patient to inform Dr. Blanc about the current status of the rash and the treatment plan. - Provided printed after-visit summary with detailed instructions. Prescription instructions reviewed with patient as applicable. Potential red flag symptoms disc (more content not included)... [facility] 04-12-2025 History of Present illness Narrative Images from the original note were not included. CC: Patient presents with: Recheck: Rash: lower abdomen/groin HPI Recording using Sova software for draft documentation of the visit was discussed with the patient/authorized security representative; all questions welcomed and answered. Patient/authorized security representative agreed to proceed Arabella Bosch is a 79-year-old female presenting for evaluation of a recurrent rash on the abdomen. Arabella reports a recurrent rash on the abdomen that has been present intermittently for approximately 6 months. The rash is described as erythematous and pruritic, with some improvement in erythema and pruritus noted after initiating treatment with nystatin and oral Diflucan, as prescribed by a previous clinician. She has completed two doses of Diflucan, with the second dose taken 3 days after the first. Arabella notes that the rash is not completely resolved, and she is concerned about its persistence due to an upcoming hip surgery scheduled for Thursday. The surgeon has advised that the rash needs to be resolved before the surgery can proceed. Arabella also reports a history of similar rashes under the breasts, which have resolved. She has previously used antibiotic cream with temporary improvement, but the rash would recur. Review of Systems See HPI PAST MEDICAL HISTORY Diagnosis Date [...] Take 1 tablet by mouth once daily. pantoprazole DR (PROTONIX) 20 mg tablet [...] diagnostic(ONE TOUCH ULTRA TEST STRIPS) test daily fluconazole (DIFLUCAN) 50 mg tablet Take 1 tablet by mouth once daily for 14 days. ketoconazole (NIZORAL) 2 % cream Apply to affected area once daily. FAMILY HISTORY Problem Relation Age of [...] or equivalent per week Drug use: No BP 132/78 Pulse 64 Temp 36.6 C (97.8 F) (Temporal) Resp 14 Wt 102.6 kg (226 lb 3.1 oz) SpO2 98% BMI 36.51 kg/m Physical Exam Vitals reviewed. Constitutional: Appearance: Normal appearance. Abdominal: Comments: Faintly erythematous rash scattered to abdominal fold/groin. Lichenification present. Neurological: Mental Status: She is alert. Assessment/Plan 1. Intertrigo (L30.4) Chronic intertrigo with recurrent episodes over the past six months. Previous treatment with nystatin and oral fluconazole 150 mg every three days showed partial improvement. Current episode is less erythematous and pruritic, but not fully resolved. Scheduled for hip surgery on Thursday, which may be postponed if the rash is not resolved. - Initiated fluconazole 50 mg orally once daily for 2 weeks. - Prescribed ketoconazole cream to be applied topically for 4 weeks, even if the rash clears up. - Advised to keep the affected area dry and clean; recommended using a blow dryer on a cool setting post-bathing to ensure thorough drying before dressing. - Suggested using [id number]-ozn-[id number] medicated powders like Gold Segundo to maintain dryness. - Advised to avoid outdoor activities that may induce sweating. - Patient to inform Dr. Blanc about the current status of the rash and the treatment plan. - Provided printed after-visit summary with detailed instructions. Prescription instructions reviewed with patient as applicable. Potential red flag symptoms discussed with the patient. Reviewed appropriate action plan to take if red flag symptoms occur. Patient agreeable to treatment plan. Dorota Callaway APRN.[facility] documented in this encounter [facility] 04-12-2025 Instructions Dorota Callaway APRN.[facility] - 04/12/2025 3:18 PM EDT We discussed your yeast infection rash: - You will start taking Diflucan (fluconazole) 50 mg orally once daily for 2 weeks. This prescription has been sent to your [facility] pharmacy. Please take it as directed. - Stop using the nystatin powder you were previously prescribed. Instead, start using ketoconazole cream, which has been sent to your pharmacy. Apply this cream to the affected area daily for 4 weeks, even if the rash clears up before then. - To help keep the area dry, you can use iwyw-bsa-ucpybez medicated powders, such as Gold Segundo, after applying the cream and allowing it to absorb. Avoid using tissue directly on the area, as it may not be as effective as powders or a folded washcloth. - After bathing, allow the area to air dry before applying the cream and getting dressed. You can use a blow dryer on a cool setting to help dry the area if needed. - Avoid spending time outside in the heat, as sweating can worsen the rash. We discussed your upcoming surgery: - Your surgeon will evaluate the rash on the day of your surgery to determine if it has improved enough to proceed. Please call your surgeon to inform them of today s visit and the treatment plan. We discussed the cause of your rash: - This type of yeast infection is common in areas with excess skin or folds, especially during hot weather. It is not contagious. Please follow the above instructions carefully to help improve the rash before your surgery. If you have any questions or concerns, feel free to contact our office. documented in this encounter [facility] 04-10-2025 Note [facility] Medical Records Department [address] [place] [address] History Physical Exam 04/10/25 2230 MR#: [id number] Acct: [id number] Name: ARABELLA BOSCH Rep #: [id number] : 1945 79 From: Dm LOPEZ PA-C PCP: ABEL HOWE Status:PRE [facility] Location: PAT History and Physical History and Physical??? Patient Name: Arabella Bosch : 1945From:??? DM QUEEN PA-C??? DATE OF PRE-OPERATIVE EXAM: 04/10/2025 DATE OF SURGERY:??? 04/17/2025 SCHEDULED PROCEDURE:??? Direct anterior right total hip arthroplasty HISTORY OF PRESENT ILLNESS: Preoperative history and physical exam was performed on April 10, 2025.??? This is a 79-year-old female who is been having ongoing pain in the hip for over 2 years.??? She has severe right hip pain that has affected her mobility and activities.??? Pain is been constant, dull, aching, sharp, and stabbing.??? Pain is increased with sitting, walking and getting in and out of the car.??? She has been using a cane for over a year and a half.??? Patient has difficulty with showering and shopping.??? She has had 2 previous hip injections by Dr. Arboleda with the last injection in December 2024.??? They only provided several days of relief.??? She has also had back injections for spinal stenosis which did not alleviate the groin pain.??? She has been on tramadol from pain management.??? Her walking has been limited due to the pain.??? Patient feels she has seen a significant decline in her overall health and quality of life.??? Patient is tried other oral medications including Tylenol and ibuprofen.??? She should not be taking any nonsteroidal anti-inflammatories due to her chronic kidney disease.??? She denies past history of surgery on the right hip.??? After failing conservative measures and discussing all treatment options was Dr. Panda Blanc, the patient does wish to proceed with a direct anterior right total hip arthroplasty.??? Patient has obtain surgical clearance from the primary care provider Jeanette Mitchell CNP and cardiology with Mili Mathis PA-C.??? However patient is currently being treated for a yeast infection.??? It's affecting her vaginal area and throughout her skin folds of the pannus.??? She has been treated with nystatin and fluconazole.??? It has been improving.??? She has medical history pertinent for previous heart attack in 2022, hypertension, type 2 diabetes mellitus with last A1c 6.8, chronic kidney disease stage III, past history of superficial venous thrombosis in the , coronary artery disease, and hypercholesterolemia.??? She denies past history of DVT or pulmonary embolism.??? No recent chest pain, shortness of breath, fevers chills. REVIEW OF SYSTEMS: Review Of Systems: Constitutional: Denies change in appetite, fever and weight change. Cardiovasular: Reports CAD and heart murmur, but denies chest pain and irregular heartbeat. Respiratory: Denies cough, pneumonia, shortness of breath, tuberculosis and wheezing. Gastrointestinal: Reports heartburn, but denies constipation, diarrhea, nausea, rectal itching, bloody stools and vomiting. Musculoskeletal: Reports gait disturbance, leg swelling, pain, trouble walking and weakness. Skin: Denies Raynaud's, history of shingles and tattoo. Neurological: Denies ambulatory dysfunction, dizziness, numbness/tingling and tremor. Psychiatric: Denies anxiety, insomnia and stress. Hematologic/Lymphatic: Denies anemia, bleeding/bruising tendency and past transfusion. Reviewed and updated. PAST MEDICAL HISTORY: Advance Care Plan: No Advance Directives Effective Date: 07/25/2022 Past Medical History: Medical Problems: Acid Reflux, Arthritis, Diabetes, High Blood Pressure Heart Attack - (2022) Kidney Disease/Renal Failure - stage 3B Covid-19 Vaccine yeast infection - current per patient??? Superficial vein thrombosis - around ??? heart murmur Hernia - current??? Coronary Artery Disease (CAD), Hypercholesterolemia, hyperlipidemia Accidents: None Surgical Hx: Appendectomy - 1957 Heart Stent - (2022) total of 1 heart stent??? Tonsillectomy - 1953 Anesthesia Complications: None Assistive Devices: Cane, Glasses Reviewed and updated. SOCIAL HISTORY: Social History: Marital: .Occupation: Retired.Work Status: Retired.Hand Dominance: Right-handed. Personal Habits:??? Cigarette Use: Former.Smokeless Tobacco: Never Used Smokeless Tobacco.E-Cigarette Use: Never used.Alcohol: Occasionally.Drug Use: Denies Use.Enjoy Exercising: Exercises 1-3 x/month. Reviewed and updated. VITALS: Ht: 64.5 Wt: 223lb Wt k.153 BMI: 37.7 BP: 128/82 Pulse: 64 Resp: 18 T: 98.0 T: 36.7C Pain Level: 10/10 O2SatR: 96 ALLERGIES: No Known Drug Allergy??? MEDICATIONS: Atorvastatin Calcium 20 mg 1 by mouth every day, Glimepiride 1 mg take 1 tablet by mouth twice daily with meals, Tra (more content not included)... [facility] 04-04-2025 Miscellaneous Notes Images from the original note were not included. Electronic PA rec'd and completed for nystatin. This was approved. Prior authorization approved Payer: Swathi [phone] Note from payer: JOHN Case: [id number], Status: Approved, Coverage Starts on: 10/12/2024 12:00:00 [...] to its destination. To be filled at: [facility] [address] [place] [id number] [address] [place] [place] [phone] [facility] notified. documented in this encounter [facility] 04-04-2025 Telephone encounter Note Images from the original note were not included. Electronic PA rec'd and completed for nystatin. This was approved. Prior authorization approved Payer: [employer] [phone] Note from payer: JOHN Case: [id number], Status: Approved, Coverage Starts on: 10/12/2024 12:00:00 [...] to its destination. To be filled at: [facility] [address] [place] [phone] [facility] [phone] [facility] notified. [facility] 04-03-2025 Instructions Jeanette Mitchell APRN.FLOW FLOOR ATTENDANT - 04/03/2025 2:38 PM EDT - Your [...] vaccines administered there). documented in this encounter [facility] 04-03-2025 Note HNO ID: [id number] Author: JEANETTE MITCHELL APRN.FLOW FLOOR ATTENDANT Service: ? Author Type: Nurse Practitioner Type: Progress Notes Filed: 04/03/2025 15:56 Note Text: CC: Patient presents with: Pre-Op Exam: Pre -Op R hip replacement HPI Arabella Bosch is a 79 year old female who presents today for preop exam. Recording using ambient peerTransfer software for draft documentation of the visit was discussed with the patient/authorized security representative; all questions welcomed and answered. Patient/authorized security representative agreed to proceed Pre-Operative Evaluation: - Scheduled for right total hip arthroplasty on April 17, to be performed by Dr. Blanc, [facility]. - Underwent pre-operative blood work and [...] and unspecified h (more content not included)... [facility] 04-03-2025 History of Present illness Narrative CC: Patient presents with: Pre-Op Exam: Pre -Op R hip replacement HPI Arabella Bosch is a 79 year old female who presents today for preop exam. Recording using Sova software for draft documentation of the visit was discussed with the patient/authorized security representative; all questions welcomed and answered. Patient/authorized security representative agreed to proceed Pre-Operative Evaluation: - Scheduled for right total hip arthroplasty on April 17, to be performed by Dr. Blanc, [facility]. - Underwent pre-operative blood work and [...] tobacco: Never Tobacco comments: quit smoking 1982 Vaping Use Vaping status: Never Used Substance [...] with elevated LDL, liver enzymes normal. - Trucking Manager cleared patient for surgery; EKG without concerns [...] Jeanette Mitchell APRN.CNP documented in this encounter [facility] 03-29-2025 Telephone encounter Note Nicolette with [facility] calls to report that patient is actually scheduled with [facility] PAT nurse to have pre-op testing completed on Thursday and will have labs completed there. Requesting orders for Jeanette to also be faxed so patient doesn't have to have lab work completed twice. Verified with patient. Faxed orders to [facility] PAT nurse: Lynda at [phone]. Cancelled appointment with [facility] on Thursday03/31/2025 for lab work. Jason Lowry RN [facility] 03-29-2025 Miscellaneous Notes Nicolette with [facility] calls to report that patient is actually scheduled with [facility] PAT nurse to have pre-op testing completed on Thursday and will have labs completed there. Requesting orders for Jeanette to also be faxed so patient doesn't have to have lab work completed twice. Verified with patient. Faxed orders to [facility] PAT nurse: Lynda at [phone]. Cancelled appointment with [facility] on Thursday03/31/2025 for lab work. Jason Lowry RN Lakshmi with [facility] calls to report [...] Denise Johnson LPN documented in this encounter [facility] 03-28-2025 Telephone encounter Note Lakshmi with [facility] [...] lab appt for Thursday. Denise Johnson LPN [facility] 03-22-2025 Telephone encounter Note Patient has been [...] Please advise. Thank you. Dominique Mckay LPN. [facility] 03-22-2025 Miscellaneous Notes Patient has been identified [...] Dominique Mckay LPN. documented in this encounter [facility] 03-21-2025 Note Patient Outreach (IN TMMN) ARABELLA BOSCH ([id number]) 1945 F Date Time Provider Department 03/21/25 [...] [E78.5] Order(s):BASIC METABOLIC PANEL [SQBMP] Order #: [id number] FUTURE HEMOGLOBIN A1C [EJUYS2S] Order #: [id number] FUTURE LIPID PANEL, FASTING [SQLIPB] Order #: [id number] FUTURE Prescriptions as of 03/24/2025 - pantoprazole [...] lef*05/27/2019 Encounter Status:Closed by ANNA HAHN on 03/24/25 [facility] 03-02-2025 Evaluation note Diagnosis Onset Date Resolution Atherosclerosis of coronary artery of port gamble heart without angina pectoris acute March 02, 2025 11:10am Cardiac murmur acute March 02, 2025 11:10am Hyperlipidemia acute March 02, 2025 11:10am Hypertension chronic March 02 11:10am [facility] Work Phone: [phone]) 285-586603-04-2025 NoteHNO ID: [id number] Author: ROSALINA BEAN PA-C Service: ? Author Type: Physician Electronic Warfare Operator Type: Progress Notes Filed: 12/14/2024 08:52 Note [...] and when to seek care sooner. JOHN [facility]03-04-2025 History of Present illness Narrative* Rosalina Bean [...] sooner. Rosalina Bean PA-C [facility] Telephone encounter Note * Telephone Encounter - [...] difficulty breathing. Protocols used: Sinus Pain or [id number] [facility]03-03-2025 Miscellaneous Notes* Telephone Encounter - Jason Lowry [...] difficulty breathing. Protocols used: Sinus Pain or [id number]-QH documented in this encounter[facility]09[facility]24 Telephone encounter Note * Telephone Encounter - Cara Gordon MA - 07/04/2024 10:07 AM EDT Patient notified. [facility]09-23-2024 Miscellaneous Notes* Telephone Encounter - Cara Gordon MA - 07/04/2024 10:07 AM EDT Patient notified. * Telephone Encounter - Jeanette Mitchell APRN.CNP - 07/04/2024 9:32 AM EDT Urinary tract infection is resistant to the pcn based antibiotic she is taking for a sinus infection. I am adding an additional antibitotic. How is she feeling? Thank you Jeanette Mitchell APRN.CNP documented in [facility] Telephone encounter Note * Telephone Encounter - Jeanette Mitchell APRN.CNP - 07/04/2024 9:32 AM EDT Urinary tract infection is resistant to the pcn based antibiotic she is taking for a sinus infection. I am adding an additional antibitotic. How is she feeling? Thank you Jeanette Mitchell APRN.CNP [facility]09-19-2024 History of Present illness Narrative* Genesis Olmedo RT(R) - 06/30/2024 3:20 PM EDT [...] PATIENT PRESENTS WITH AN IMPLANTABLE OR ATTACHED PEDIGREE RESEARCHER: No RADIOLOGY DEPARTMENT: General X-ray: Exam(s) Completed: Chest X-Ray PERIPHERAL IV DATA: Not applicable SIGNED BY: RT Dante(R) June 30, 2024 3:14 PM documented in this encounterMer[facility]09[facility]-20[facility] History of Present illness Narrative* Jeanette Mitchell APRN.FLOW FLOOR ATTENDANT - 06/30/2024 2:33 PM EDT CC: Patient [...] Dilated Retinal Exam due on 08/10/2019 Covid-19 Vaccine( season) due on 06/12/2024 DTaP,Tdap,Td Vaccine(2 - [...] plan. Jeanette Mitchell APRN.CNP documented in this encounter[facility]24 Telephone encounter Note * Telephone Encounter - Analilia Miller MA - 02/22/2024 8:43 AM EDT Pharmacy request denied. Patient needs to contact office for refills. Analilia Miller MA [facility]05-13-2024 Miscellaneous Notes* Telephone Encounter - Analilia Miller MA - 02/22/2024 8:43 AM EDT Pharmacy request denied. Patient needs to contact office for refills. Analilia Miller MA documented in this encounterMer[facility]04-24-2024 Telephone encounter Note * Telephone Encounter - Cara Gordon MA - 02/03/2024 2:15 PM EDT Patient notified. [facility]04-24-2024 Miscellaneous Notes* Telephone Encounter - Cara Gordon [...] went over results, notes from Jeanette Mitchell FINISHER TAILOR APPRENTICE with understanding. Patient said she is otc Vitamin D one daily, she was not at home to give me the dose. * Telephone Encounter - Jeanette Mitchell APRN.CNP - 02/03/2024 9:16 AM EDT Kidney function is stable. Calcium and potassium are elevated slightly. What supplements is she taking? .Thank you Jeanette Mitchell APRN.CNP documented in this encounterMer[facility]04-24-2024 Telephone encounter Note * Telephone Encounter - Jeanette Mitchell APRN.CNP - 02/03/2024 1:40 PM EDT We will recheck levels in 2 weeks. If taking any supplement containing calcium and/or potassium sheshould hold this. Thank you Jeanette Mitchell APRN.CNP [facility]04-24-2024 Telephone encounter Note* Telephone Encounter - Adelita Herrera LPN - 02/03/2024 12:42 PM EDT Phoned patient and went over results, notes from Jeanette Mitchell FINISHER TAILOR APPRENTICE with understanding. Patient said she is otc Vitamin D one daily, she was not at home to give me the dose. [facility]04-24-2024 Telephone encounter Note* Telephone Encounter - Jeanette Mitchell APRN.CNP - 02/03/2024 9:16 AM EDT Kidney function is stable. Calcium and potassium are elevated slightly. What supplements is she taking? .Thank you Jeanette Mitchell APRN.CNP [facility]04-22-2024 History of Present illness Narrative* Jeanette Mitchell [...] low cholesterol most of the time. Sees [facility] and has routine visit next [...] years ago but is going to contact [facility] for an examination. Chronic right hip, groin, and bilateral shoulder pain with decreased ROM and stiffness that she hashad for the last year and a half. No known injury. Had hip xray completed which patient reports wasnegative for fracture. Previously seen [facility] and was to have an MRI [...] Diabetic Foot Exam due on 11/28/2023 Covid-19 Vaccine() due on 07/22/2024 Urine Albumin:Creatinine Ratio due [...] METABOLIC PANEL 3. 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, unspecified vessel or [...] plan. Jeanette Mitchell APRN.CNP documented in this encounterMer[facility]02-05-2024 Miscellaneous Notes* Telephone Encounter - REAGAN Correa [...] you. Dea Correa LPN. documented in this encounterMer[facility]10-11-2023 History of Present illness Narrative* Jeanette Mitchell APRN.FLOW FLOOR ATTENDANT - 07/22/2023 2:06 PM EDT CC: Patient [...] to call and schedule annual exam. HTN/CAD:Sees [facility] and last seen for routine [...] - CBC 2. 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, unspecified vessel or [...] suspiciousactivity was identified. 07/22/2023 by Jeanette Mitchell APRN.FLOW FLOOR ATTENDANT 6. Osteoarthrosis, unspecified whether generalized or localized, [...] plan. Jeanette Mitchell APRN.CNP documented in this encounterMer[facility]08-15-2023 Miscellaneous Notes* Telephone Encounter - Dae Shah LPN - 05/26/2023 1:12 PM EDT [...] you. Dea Shah LPN documented in this encounterMer[facility]07-12-2023 History of Present illness Narrative* Jeanette Mitchell [...] plan. Jeanette Mitchell APRN.CNP documented in this encounterMer[facility]05-30-2023 Miscellaneous Notes* Telephone Encounter - Dea Matthewsjames KIRK - 03/10/2023 3:31 PM EDT Patient has [...] you. Dea Shah LPN documented in this encounterMer[facility]02-17-2023 Instructions* Patient Instructions* Jeanette Mitchell APRN.FLOW FLOOR ATTENDANT - 11/28/2022 10:50 AM EST Images from [...] schedule a diabetic eye exam at the [facility] [place], please call: [phone] Online resources to learn more https://my.[facility].org/health/diseases/6181-yoyqpbxd-edxggesbsqs https://www.diabetes.org/diabetes/complications/eye-complications https://www.aoa.org/healthy-eyes/ybt-urm-lljbpe-conditions/diabetic-retinopathy? sso=y https://www.resmio.myLINGO References 1. National Diabetes Statistics Report 2020: Estimates of Diabetes and Its [place] in the [facility]. Center for Disease Control and Prevention; 2020. Available at: https://www.cdc.gov/diabetes/pdfs /data/statistics/irlwzcoc-ympxjykm-vczngnwkkg-report.pdf 2. Samira Olson, Janel Duncan, Emanuel Pacheco, Roz Fonseca, Jovana Gilliam, Mahesh Borges, Van Keenan, Jonny Myers; Diabetic Retinopathy: A Position Statement by the [place] [employer]. Diabetes Care 10 December 2016; 40 (3): 412-418 documented in [address] encounterMer[facility]. [facility]02-17-2023 History of Present illness Narrative* Jeanette Mitchell [...] plan. Jeanette Mitchell APRN.CNP documented in this encounterMer[facility]01-18-2023 History of Present illness Narrative* Jeanette Mitchell APRN.CNP - 10/29/2022 2:50 PM EST CC: Patient presents with: Recheck: Hosp follow up HPI Arabella Bosch is a 76 year old female who presents today for Hospital follow-up. Facility: [facility] Date of visit: 10/18/22-10/21/22 Reason for visit: [...] REVIEWED: Most recent labs Outside chart from [facility] reviewed. ASSESSMENT/PLAN: 1. History of recent hospitalization - ICD9: V13.9, ICD10: Z92.89 (primary diagnosis) NSTEMI with stent placement - no further issues and tolerating mediations as prescribed by hospital. Has appointment to follow up with cardiology and is planning on starting cardiac rehab at [facility]. - continue with planned appointment with cardiology and treatment as ordered by them - go to ER for any chest pain, shortness of breath, palpitations or any other urgent concern 2. NSTEMI (non-ST elevated myocardial infarction) (HCC) - ICD9: 410.70, ICD10: I21.4 As above 3. 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, unspecified vessel or lesion type - ICD9: 414.01, ICD10: I25.10 See #1 4. Function kidney decreased - ICD9: 593.9, ICD10: N28.9 - maintaining level from [facility]. Will decrease metformin in hopes to improve [...] plan. Jeanette Mitchell APRN.SPARKLE documented in this encounterMer[facility]01-18-2023 Miscellaneous Notes* Telephone Encounter - Dominique Mckay LPN - 10/29/2022 8:45 AM EST ----- Message from Mega Aquino MD sent at 10/29/2022 6:32 AM EST ----- Pastora, Please address this in her visit today. Regards, Mega Aquino MD documented in this encounterMer[facility]11-17-2022 Miscellaneous Notes* Telephone Encounter - Jodie Palacio [facility] - 08/28/2022 2:38 PM EST Patient has [...] advise. Jodie Palacio Pss documented in this encounterMer[facility]10-17-2022 Miscellaneous Notes* Telephone Encounter - Tj Austin Ma - 07/28/2022 4:51 PM EDT ALEAH: 06/12/2021 Last refill: 07/29/2021 QTY: 90 Refills: 3 Pt notified via Letsgofordinner to call and schedule overdue office visit. documented in this encounterMer[facility]10-17-2022 Miscellaneous Notes* Telephone Encounter - Mili Galarza [...] advise. Mili Galarza LPN documented in this encounterMer[facility] Health [facility]. [facility]09-22-2022 History of Present illness Narrative* Nilda Ying MA - 07/03/2022 2:14 PM EDT POPULATION HEALTH NAVIGATION OUTREACH Action/FYI left message to call me back to schedule annual my chart message sent with AD info Pt identified by name and : NO Outreach Outcome/Action Unable to reach patient: Left message [employer] message sent Did you use a PCP flex slot to schedule this appointment? N/A Reason for Outreach HCC or suspected condition Payer: Payor: [employer] MEDICARE / Plan: [employer] MEDICARE PPO / Product Type: PPO / [...] 03, 2022 2:14 PM documented in this encounterMer[facility] Health St. [facility]08-31-2022 History of Present illness Narrative* Aracely Barr - 06/11/2022 4:47 PM EDT POPULATION HEALTH NAVIGATION OUTREACH Action/[facility] [place] Support: Called pt to schedule an appt in Pain Management. Lvm for pt to call [phone] for scheduling. Pt identified by name and : NO Outreach Outcome/Action Unable to reach patient: Left message Did you use a PCP flex slot to schedule this appointment? No Reason for Outreach Care Gap or Scheduling/Wellness visits Payer: Payor: [employer] MEDICARE / Plan: [employer] MEDICARE PPO / [...] 11, 2022 4:47 PM documented in this encounterMer[facility]. [facility]08-02-2022 Miscellaneous Notes* Telephone Encounter - Tomeka Lin Ma - 05/13/2022 10:57 AM EDT Referral, demo, OV, imaging, insurance cards faxed to Dr. Arboleda's office. Will have their office call pt to schedule. Pt notified via Letsgofordinner. Tomeka Lin Ma * Telephone Encounter - Mega Aquino MD - 05/11/2022 1:59 PM EDT Cara, I hope that you have informed the patient that I was away for a couple weeks, as she may wonder whythe message was not attended to earlier. The consult is placed please assist with faxing to Dr arboleda. documented in this encounterMer[facility]. [facility]07-12-2022 Miscellaneous Notes* Telephone Encounter - Dea Shah [...] Take 1 tablet by mouth twice weekly [id number], then decrease to 1 tablet weekly. TIA: No Date of last office visit in primary care: 06/12/21 Last 2 Encounter Wt Readings: Date: Wt: 06/12/2021 104.8 kg (231 lb) 05/24/2021 106.1 kg (234 lb) Previous labs/tests for medication: Not applicable Please advise. Thank you. Dea Shah LPN documented in this encounterMer[facility] Health [facility]. [facility]06-14-2022 History of Present illness Narrative* Amara Flores MA - 03/25/2022 8:38 AM EDT POPULATION HEALTH NAVIGATION OUTREACH Action/FYI March 25, 2022 DM Management outreach ALEAH with Mega Aquino MD was 9.1.2020 DM follow up Outcome: LM on Mind Palette My chart message also sent Pt identified by name and : NO Outreach Outcome/Action Unable to reach patient: Left message [employer] message sent Did you use a PCP flex slot to schedule this appointment? N/A Reason for Outreach [facility] Diabetes Management Payer: Payor: [employer] MEDICARE / [...] 25, 2022 8:39 AM documented in this encounterMer[facility] Health St. [facility]08-27-2021 History of Present illness Narrative* Alva Mike RT(R) - 06/07/2021 12:50 PM EDT Radiology Service Progress Note PATIENT NAME: Arabella Bosch DATE OF SERVICE: June 07, 2021 [...] 07, 2021 12:54 PM documented in this encounterMer[facility]. [facility]10-05-2009 History of Past illness Narrative* Problem Noted Date Resolved Date Plantar fasciitis 07/16/2009 02/26/2015 ROTATOR CUFF SYND NOS 08/10/2008 02/26/2015 Other and unspecified hyperlipidemia 06/12/2005 08/31/2013 documented as of this encounter (statuses as of 03/25/2022) [facility]10[facility] History of Past illness Narrative* Problem Noted Date Resolved Date Plantar fasciitis 07/16/2009 02/26/2015 ROTATOR CUFF SYND NOS 08/10/2008 02/26/2015 Other and unspecified hyperlipidemia 06/12/2005 08/31/2013 documented as of this encounter (statuses as of 04/23/2022) [facility] History of Past illness Narrative* Problem Noted Date Resolved Date Plantar fasciitis 07/16/2009 02/26/2015 ROTATOR CUFF SYND NOS 08/10/2008 02/26/2015 Other and unspecified hyperlipidemia 06/12/2005 08/31/2013 documented as of this encounter (statuses as of 05/13/2022) [facility] History of Past illness Narrative* Problem Noted Date Resolved Date Plantar fasciitis 07/16/2009 02/26/2015 ROTATOR CUFF SYND NOS 08/10/2008 02/26/2015 Other and unspecified hyperlipidemia 06/12/2005 08/31/2013 documented as of this encounter (statuses as of 06/11/2022) [facility] History of Past illness Narrative* Problem Noted Date Resolved Date Plantar fasciitis 07/16/2009 02/26/2015 ROTATOR CUFF SYND NOS 08/10/2008 02/26/2015 Other and unspecified hyperlipidemia 06/12/2005 08/31/2013 documented as of this encounter (statuses as of 07/03/2022) [facility] History of Past illness Narrative* Problem Noted Date Resolved Date Plantar fasciitis 07/16/2009 02/26/2015 ROTATOR CUFF SYND NOS 08/10/2008 02/26/2015 Other and unspecified hyperlipidemia 06/12/2005 08/31/2013 documented as of this encounter (statuses as of 07/30/2022) [facility] History of Past illness Narrative* Problem Noted Date Resolved Date Plantar fasciitis 07/16/2009 02/26/2015 ROTATOR CUFF SYND NOS 08/10/2008 02/26/2015 Other and unspecified hyperlipidemia 06/12/2005 08/31/2013 documented as of this encounter (statuses as of 07/30/2022) [facility] History of Past illness Narrative* Problem Noted Date Resolved Date Plantar fasciitis 07/16/2009 02/26/2015 ROTATOR CUFF SYND NOS 08/10/2008 02/26/2015 Other and unspecified hyperlipidemia 06/12/2005 08/31/2013 documented as of this encounter (statuses as of 08/28/2022) [facility] History of Past illness Narrative* Problem Noted Date Resolved Date Plantar fasciitis 07/16/2009 02/26/2015 ROTATOR CUFF SYND NOS 08/10/2008 02/26/2015 Other and unspecified hyperlipidemia 06/12/2005 08/31/2013 documented as of this encounter (statuses as of 08/29/2022) [facility] History of Past illness Narrative* Problem Noted Date Resolved Date Plantar fasciitis 07/16/2009 02/26/2015 ROTATOR CUFF SYND NOS 08/10/2008 02/26/2015 Other and unspecified hyperlipidemia 06/12/2005 08/31/2013 documented as of this encounter (statuses as of 10/17/2022) [facility] History of Past illness Narrative* Problem Noted Date Resolved Date Plantar fasciitis 07/16/2009 02/26/2015 ROTATOR CUFF SYND NOS 08/10/2008 02/26/2015 Other and unspecified hyperlipidemia 06/12/2005 08/31/2013 documented as of this encounter (statuses as of 10/29/2022) [facility] History of Past illness Narrative* Problem Noted Date Resolved Date Plantar fasciitis 07/16/2009 02/26/2015 ROTATOR CUFF SYND NOS 08/10/2008 02/26/2015 Other and unspecified hyperlipidemia 06/12/2005 08/31/2013 documented as of this encounter (statuses as of 10/29/2022) [facility] History of Past illness Narrative* Problem Noted Date Resolved Date Plantar fasciitis 07/16/2009 02/26/2015 ROTATOR CUFF SYND NOS 08/10/2008 02/26/2015 Other and unspecified hyperlipidemia 06/12/2005 08/31/2013 documented as of this encounter (statuses as of 11/24/2022) [facility] History of Past illness Narrative* Problem Noted Date Resolved Date Plantar fasciitis 07/16/2009 02/26/2015 ROTATOR CUFF SYND NOS 08/10/2008 02/26/2015 Other and unspecified hyperlipidemia 06/12/2005 08/31/2013 documented as of this encounter (statuses as of 11/28/2022) [facility] History of Past illness Narrative* Problem Noted Date Resolved Date Plantar fasciitis 07/16/2009 02/26/2015 ROTATOR CUFF SYND NOS 08/10/2008 02/26/2015 Other and unspecified hyperlipidemia 06/12/2005 08/31/2013 documented as of this encounter (statuses as of 03/11/2023) [facility] History of Past illness Narrative* Problem Noted Date Diagnosed Date Resolved Date Plantar fasciitis 07/16/2009 02/26/2015 ROTATOR CUFF SYND NOS 08/10/20082014 Other and unspecified hyperlipidemia 06/12/2005 08/31/2013 documented as of this encounter (statuses as of 04/23/2023) [facility] History of Past illness Narrative* Problem Noted Date Diagnosed Date Resolved Date Plantar fasciitis 07/16/2009 02/26/2015 ROTATOR CUFF SYND NOS 08/10/20082014 Other and unspecified hyperlipidemia 06/12/2005 08/31/2013 documented as of this encounter (statuses as of 05/28/2023) [facility] History of Past illness Narrative* Problem Noted Date Diagnosed Date Resolved Date Plantar fasciitis 07/16/2009 02/26/2015 ROTATOR CUFF SYND NOS 08/10/20082014 Other and unspecified hyperlipidemia 06/12/2005 08/31/2013 documented as of this encounter (statuses as of 07/23/2023) [facility] History of Past illness Narrative* Problem Noted Date Diagnosed Date Resolved Date Plantar fasciitis 07/16/2009 02/26/2015 ROTATOR CUFF SYND NOS 08/10/20082014 Other and unspecified hyperlipidemia 06/12/2005 08/31/2013 documented as of this encounter (statuses as of 11/16/2023) [facility] History of Past illness Narrative* Problem Noted Date Diagnosed Date Resolved Date Plantar fasciitis 07/16/2009 02/26/2015 ROTATOR CUFF SYND NOS 08/10/20082014 Other and unspecified hyperlipidemia 06/12/2005 08/31/2013 documented as of this encounter (statuses as of 01/22/2024) [facility] Diagnosis Spinal stenosis, lumbar region, without neurogenic claudication- Primary [facility] Diagnosis Hyperlipidemia with target LDL less than 100 Other and unspecified hyperlipidemia [facility] Diagnosis Onset Date Resolution Status Chest pain acute Creatinine elevation acute Syncope [facility] Work Phone: Evaluation note* Diagnosis Controlled type 2 diabetes mellitus without complication, without long-term current use of insulin ([facility]) [facility] Diagnosis Onset Date Resolution Status Chest pain acute Creatinine elevation acute NSTEMI, initial episode of care acute Syncope [facility] Work Phone: Evaluation note* Diagnosis History of recent hospitalization- Primary Personal history of unspecified disease NSTEMI (non-ST elevated myocardial infarction) ([facility]) Acute myocardial infarction, subendocardial infarction, episode of care unspecified 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, unspecified vessel or lesion type Function kidney decreased Unspecified disorder of kidney and ureter Controlled type 2 diabetes mellitus without complication, without long-term current use of insulin (HCC) Essential hypertension, benign [facility] Diagnosis Onset Date Resolution Status Chest pain resolved Atherosclerosis of coronary artery of [place] heart without angina pectoris acute Hyperlipidemia acute Hypertension [facility] Work Phone: Evaluation note* Diagnosis Essential hypertension, benign- Primary Hyperlipidemia with target LDL less than 100 Other and unspecified hyperlipidemia Vitamin D deficiency Unspecified vitamin D deficiency documented in this encounter [facility] note* Diagnosis Controlled type 2 diabetes mellitus without complication, without long-term current use of insulin (HCC)- Primary Stage 3b chronic kidney disease (HCC) Spinal stenosis, lumbar region, without neurogenic claudication Vitamin D deficiency Unspecified vitamin D deficiency Colon cancer screening Special screening for malignant neoplasms, colon documented in this encounter [facility] note* Diagnosis Controlled type 2 diabetes mellitus without complication, without long-term current use of insulin (HCC)- Primary Pedal edema Edema Function kidney decreased Unspecified disorder of kidney and ureter Cervical arthritis Cervical spondylosis without myelopathy Spinal stenosis, lumbar region, without neurogenic claudication documented in this encounter [facility] note* Diagnosis Controlled type 2 diabetes mellitus without complication, without long-term current use of insulin (HCC)- Primary 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, unspecified vessel or lesion type Essential hypertension, benign Stage 3b chronic kidney disease (HCC) Spinal stenosis, lumbar region, without neurogenic claudication Osteoarthrosis, unspecified whether generalized or localized, unspecified site Need for influenza vaccination Need for prophylactic vaccination and inoculation against influenza [facility] Diagnosis Controlled type 2 diabetes mellitus without complication, without long-term current use of insulin (HCC) Hyperlipidemia with target LDL less than 100 Other and unspecified hyperlipidemia documented in this encounter [facility] note* Diagnosis Controlled type 2 diabetes mellitus without complication, without long-term current use of insulin (HCC)- Primary Essential hypertension, benign 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, unspecified vessel or [...] CKD stage (HCC) [facility] Diagnosis Hyperkalemia- Primary Hyperpotassemia Hypercalcemia [facility]* Diagnosis Type 2 diabetes mellitus with chronic kidney disease, without long-term current use of insulin, unspecified CKD stage (HCC) [facility] Diagnosis Acute cough- Primary Wheezing Acute non-recurrent sinusitis, unspecified location Urge incontinence Type 2 diabetes mellitus with chronic kidney disease, without long-term current use of insulin, unspecified CKD stage (HCC) Essential hypertension, benign Stage 3b chronic kidney disease (HCC) Abnormal urine Other nonspecific finding on examination of urine Acute cough Wheezing [facility] Diagnosis Acute cough Wheezing [facility]* Diagnosis Arthritis Arthropathy, unspecified, site unspecified Arthralgia, unspecified joint [facility] Diagnosis Acute non-recurrent frontal sinusitis- Primary [facility]* Diagnosis Type 2 diabetes mellitus with chronic kidney disease, without long-term current use of insulin, unspecified CKD stage (HCC) Hyperlipidemia with target LDL less than 100 Other and unspecified hyperlipidemia [facility]* Diagnosis Preop exam for internal medicine- [...] bacterial disease Nocturia [facility]* Diagnosis Intertrigo- Primary Other specified erythematous condition [facility]* Diagnosis Intertrigo Other specified erythematous condition documented in this encounter [facility] for referral (narrative)* Diagnostic Procedure Only (Routine) - Closed Specialty Diagnoses / Procedures Referred By Contac t Referred To Contact XR IMAGING Diagnoses Arthritis Arthralgia, unspecified joint Procedures XR HAND GENERAL 3V PA/LAT/OBL RT X-RAY HAND MINIMUM 3 VIEWS Mega Aquino MD [address] [place] [address] [place] [id number] Referral ID Status Reason Start Date Expiration Date V isits Requested Visits Authorized Closed Auto-Generate d Referral 05/24/2021 06/23/2022 1 1 * Diagnostic Procedure Only (Routine) - Closed Specialty Diagnoses / Procedures Referred By Contac t Referred To Contact XR IMAGING Diagnoses Arthritis Arthralgia, unspecified joint Procedures XR WRIST GENERAL 3V PA/LAT/OBL RT X-RAY WRIST COMPLET MIN 3 VIEWS Mega Aquino MD [address] [place] [id number] [place] [address] Referral ID Status Reason Start Date Expiration Date V isits Requested Visits Authorized Closed Auto-Generate d Referral 05/24/2021 06/23/2022 1 1 [facility] for referral (narrative)No reason for referral [facility] Work Phone: Reason for referral (narrative)* Medication Prior Authorization - Pending Review Specialty Diagnoses / Procedures Referred By Contac t Referred To Contact Jeanette Mitchell APRN.CNP [address] [place] [address] Phone: tel: fax: Referral ID Status Reason Start Date Expiration Date V isits Requested Visits Authorized [id number] Pending Review 1 1 [facility] for visit Narrative* Diagnostic Procedure Only (Routine) - Closed Specialty Diagnoses / Procedures Referred By Contac t Referred To Contact XR IMAGING Diagnoses Arthritis Arthralgia, unspecified joint Procedures XR HAND GENERAL 3V PA/LAT/OBL RT X-RAY HAND MINIMUM 3 VIEWS Mega Aquino MD [address] [place] [address] [place] [address] Referral ID Status Reason Start Date Expiration Date V isits Requested Visits Authorized [id number] Closed Auto-Generate d Referral 05/24/2021 06/23/2022 [address] [facility] Reason for Referral Specialty Diagnoses / Procedures Referred By Contac t Referred To Contact Pain Management Diagnoses Spinal stenosis, lumbar region, without neurogenic claudication Procedures CONSULT TO PAIN MGT OFFICE/OUTPATIENT [facility] 60-74 MINUTES Mega Aquino MD [address] [place] [address] Referral ID Status Reason Start Date Expiration Date Visits Requested Visits Authorized [id number] Authorized PCP Requested Referral 05/11/2022 08/09/2022 1 1 Specialty Diagnoses / Procedures Referred By Contac t Referred To Contact Pain Management Diagnoses Cervical arthritis Spinal stenosis, lumbar region, without neurogenic claudication Procedures CONSULT TO PAIN MGT OFFICE/OUTPATIENT [facility] MDM 60-74 MINUTES Jeanette Mitchell APRN.FLOW FLOOR ATTENDANT [address] [place] [address] Referral ID Status Reason Start Date Expiration Date Visits Requested Visits Authorized [id number] Authorized PCP Requested Referral 04/22/2023 04/21/2024 1 1 Specialty Diagnoses / Procedures Referred By Contac t Referred To Contact [facility] Diagnoses Right hip pain Chronic pain of both shoulders Spinal stenosis in cervical region Spinal stenosis, lumbar region, without neurogenic claudication Procedures CONSULT TO PHYSICAL THERAPY PHYSICAL THERAPY EVALUATION HIGH COMPLEX 45 MINS Jeanette Mitchell APRN.FLOW FLOOR ATTENDANT [address] [place] [address] [facility] [place] [address] [place] [address] Referral ID Status Reason Start Date Expiration Date Visits Requested Visits Authorized [id number] Authorized Auto-Generat ed Referral 10/12/2023 10/11/2024 1 1 Chief Complaint and Reason for Visit Chief Complaint SYNCOPE Reason for Visit Chest pain Creatinine elevation Syncope Chief Complaint Syncope Syncope Syncope SYNCOPE Syncope Syncope Syncope Syncope Syncope Reason for Visit Chest pain Creatinine elevation NSTEMI, initial episode of care Syncope Chief Complaint Syncope Syncope Syncope SYNCOPE Syncope Syncope Syncope Syncope Syncope Syncope SYNCOPE s/p [facility] SYNCOPE 10-18-22 Reason for Visit Chest pain Atherosclerosis of coronary artery of [place] heart without angina pectoris Hyperlipidemia Hypertension Chief Complaint Admit Date 1 Y FU/NEEDS EKG March 02, 2025 11:10 am INT LAB ORDERS March 02, 2025 12:00 pm Reason for Visit Admit Date Atherosclerosis of coronary artery of [place] heart without angina pectoris March 02, 2025 11:10am Cardiac murmur March 02, 2025 11:10 am Hyperlipidemia March 02, 2025 11:10 am Hypertension March 02, 2025 11:10 am Chief Complaint Admit Date 1 Y FU/NEEDS EKG March 02, 2025 11:10 am INT LAB ORDERS March 02, 2025 12:00 pm MURMUR April 11, 2025 6:50a m Family History No Family History Records Found Relationship Condition Age at Onset Recorded Date/T martínez Not Specified Hypertension Unknown father Diabetes mellitus Unknown Coronary artery disease Unknown sister Diabetes mellitus Unknown Cerebrovascular accident (CVA) Unknown mother Malignant melanoma Unknown Advance Directives No Advanced Directives Records Found Advance Directive Response Recorded Date/ Time Living Will No October 17 3 4:46pm Power of County Judge No October 17 023 4:46pm Advance Directive Response Recorded Date/ Time Living Will No October 17 3 5:46pm Do you have a Healthcare Power of County Judge? No October 17, 2022 5:46pm Summary Purpose Additional Source Comments Source Comments (unrecognize d section and content) In the event this informatio n is protected by the Federal Confidentiality of Alcohol and Drug Abuse Patient Records regulations: The Federal rules restrict any use of the information to criminally investigate or prosecute any alcohol or drug abuse patient.[facility] the event this information is protected by the Federal Confidentiality of Alcohol and Drug Abuse Patient Records regulations: The Federal rules restrict any use of the information to criminally investigate or prosecute any alcohol or drug abuse patient.[facility] CenterIn the event this information is protected by the Federal Confidentiality of Alcohol and Drug Abuse Patient Records regulations: The Federal rules restrict any use of the information to criminally investigate or prosecute any alcohol or drug abuse patient.[facility] CenterIn the event this information is protected by the Federal Confidentiality of Alcohol and Drug Abuse Patient Records regulations: The Federal rules restrict any use of the information to criminally investigate or prosecute any alcohol or drug abuse patient.[facility] CenterIn the event this information is protected by the Federal Confidentiality of Alcohol and Drug Abuse Patient Records regulations: The Federal rules restrict any use of the information to criminally investigate or prosecute any alcohol or drug abuse patient.[facility] CenterIn the event this information is protected by the Federal Confidentiality of Alcohol and Drug Abuse Patient Records regulations: The Federal rules restrict any use of the information to criminally investigate or prosecute any alcohol or drug abuse patient.[facility] CenterIn the event this information is protected by the Federal Confidentiality of Alcohol and Drug Abuse Patient Records regulations: The Federal rules restrict any use of the information to criminally investigate or prosecute any alcohol or drug abuse patient.[facility] CenterIn the event this information is protected by the Federal Confidentiality of Alcohol and Drug Abuse Patient Records regulations: The Federal rules restrict any use of the information to criminally investigate or prosecute any alcohol or drug abuse patient.[facility] CenterIn the event this information is protected by the Federal Confidentiality of Alcohol and Drug Abuse Patient Records regulations: The Federal rules restrict any use of the information to criminally investigate or prosecute any alcohol or drug abuse patient.[facility] CenterIn the event this information is protected by the Federal Confidentiality of Alcohol and Drug Abuse Patient Records regulations: The Federal rules restrict any use of the information to criminally investigate or prosecute any alcohol or drug abuse patient.[facility] CenterIn the event this information is protected by the Federal Confidentiality of Alcohol and Drug Abuse Patient Records regulations: The Federal rules restrict any use of the information to criminally investigate or prosecute any alcohol or drug abuse patient.[facility] CenterIn the event this information is protected by the Federal Confidentiality of Alcohol and Drug Abuse Patient Records regulations: The Federal rules restrict any use of the information to criminally investigate or prosecute any alcohol or drug abuse patient.[facility] CenterIn the event this information is protected by the Federal Confidentiality of Alcohol and Drug Abuse Patient Records regulations: The Federal rules restrict any use of the information to criminally investigate or prosecute any alcohol or drug abuse patient.[facility] CenterIn the event this information is protected by the Federal Confidentiality of Alcohol and Drug Abuse Patient Records regulations: The Federal rules restrict any use of the information to criminally investigate or prosecute any alcohol or drug abuse patient.[facility] CenterIn the event this information is protected by the Federal Confidentiality of Alcohol and Drug Abuse Patient Records regulations: The Federal rules restrict any use of the information to criminally investigate or prosecute any alcohol or drug abuse patient.[facility] CenterIn the event this information is protected by the Federal Confidentiality of Alcohol and Drug Abuse Patient Records regulations: The Federal rules restrict any use of the information to criminally investigate or prosecute any alcohol or drug abuse patient.[facility] CenterIn the event this information is protected by the Federal Confidentiality of Alcohol and Drug Abuse Patient Records regulations: The Federal rules restrict any use of the information to criminally investigate or prosecute any alcohol or drug abuse patient.[facility] CenterIn the event this information is protected by the Federal Confidentiality of Alcohol and Drug Abuse Patient Records regulations: The Federal rules restrict any use of the information to criminally investigate or prosecute any alcohol or drug abuse patient.[facility] CenterIn the event this information is protected by the Federal Confidentiality of Alcohol and Drug Abuse Patient Records regulations: The Federal rules restrict any use of the information to criminally investigate or prosecute any alcohol or drug abuse patient.[facility] CenterIn the event this information is protected by the Federal Confidentiality of Alcohol and Drug Abuse Patient Records regulations: The Federal rules restrict any use of the information to criminally investigate or prosecute any alcohol or drug abuse patient.[facility] CenterIn the event this information is protected by the Federal Confidentiality of Alcohol and Drug Abuse Patient Records regulations: The Federal rules restrict any use of the information to criminally investigate or prosecute any alcohol or drug abuse patient.[facility] CenterIn the event this information is protected by the Federal Confidentiality of Alcohol and Drug Abuse Patient Records regulations: The Federal rules restrict any use of the information to criminally investigate or prosecute any alcohol or drug abuse patient.[facility] CenterIn the event this information is protected by the Federal Confidentiality of Alcohol and Drug Abuse Patient Records regulations: The Federal rules restrict any use of the information to criminally investigate or prosecute any alcohol or drug abuse patient.[facility] CenterIn the event this information is protected by the Federal Confidentiality of Alcohol and Drug Abuse Patient Records regulations: The Federal rules restrict any use of the information to criminally investigate or prosecute any alcohol or drug abuse patient.[facility] CenterIn the event this information is protected by the Federal Confidentiality of Alcohol and Drug Abuse Patient Records regulations: The Federal rules restrict any use of the information to criminally investigate or prosecute any alcohol or drug abuse patient.[facility] CenterIn the event this information is protected by the Federal Confidentiality of Alcohol and Drug Abuse Patient Records regulations: The Federal rules restrict any use of the information to criminally investigate or prosecute any alcohol or drug abuse patient.[facility] CenterIn the event this information is protected by the Federal Confidentiality of Alcohol and Drug Abuse Patient Records regulations: The Federal rules restrict any use of the information to criminally investigate or prosecute any alcohol or drug abuse patient.[facility] CenterIn the event this information is protected by the Federal Confidentiality of Alcohol and Drug Abuse Patient Records regulations: The Federal rules restrict any use of the information to criminally investigate or prosecute any alcohol or drug abuse patient.[facility] CenterIn the event this information is protected by the Federal Confidentiality of Alcohol and Drug Abuse Patient Records regulations: The Federal rules restrict any use of the information to criminally investigate or prosecute any alcohol or drug abuse patient.[facility] CenterIn the event this information is protected by the Federal Confidentiality of Alcohol and Drug Abuse Patient Records regulations: The Federal rules restrict any use of the information to criminally investigate or prosecute any alcohol or drug abuse patient.[facility] CenterIn the event this information is protected by the Federal Confidentiality of Alcohol and Drug Abuse Patient Records regulations: The Federal rules restrict any use of the information to criminally investigate or prosecute any alcohol or drug abuse patient.[facility] CenterIn the event this information is protected by the Federal Confidentiality of Alcohol and Drug Abuse Patient Records regulations: The Federal rules restrict any use of the information to criminally investigate or prosecute any alcohol or drug abuse patient.[facility] CenterIn the event this information is protected by the Federal Confidentiality of Alcohol and Drug Abuse Patient Records regulations: The Federal rules restrict any use of the information to criminally investigate or prosecute any alcohol or drug abuse patient.[facility] CenterIn the event this information is protected by the Federal Confidentiality of Alcohol and Drug Abuse Patient Records regulations: The Federal rules restrict any use of the information to criminally investigate or prosecute any alcohol or drug abuse patient.[facility] CenterIn the event this information is protected by the Federal Confidentiality of Alcohol and Drug Abuse Patient Records regulations: The Federal rules restrict any use of the information to criminally investigate or prosecute any alcohol or drug abuse patient.[facility] CenterIn the event this information is protected by the Federal Confidentiality of Alcohol and Drug Abuse Patient Records regulations: The Federal rules restrict any use of the information to criminally investigate or prosecute any alcohol or drug abuse patient.[facility] CenterIn the event this information is protected by the Federal Confidentiality of Alcohol and Drug Abuse Patient Records regulations: The Federal rules restrict any use of the information to criminally investigate or prosecute any alcohol or drug abuse patient.[facility] CenterIn the event this information is protected by the Federal Confidentiality of Alcohol and Drug Abuse Patient Records regulations: The Federal rules restrict any use of the information to criminally investigate or prosecute any alcohol or drug abuse patient.[facility] CenterIn the event this information is protected by the Federal Confidentiality of Alcohol and Drug Abuse Patient Records regulations: The Federal rules restrict any use of the information to criminally investigate or prosecute any alcohol or drug abuse patient.[facility] Reason for Visit (unrecogniz ed section and [...] hip replac ement Reason Comments Insurance Authorization Reason Comments Recheck Rash: lower abdomen/ groin Reason Comments Recheck Follow up on rash on groin, abdomen and R breast Care Teams (unrecognized sec tion and content) Gauge Controller Relationship Specialty Start Date End Date Mega Aquino MD [address] [place] [address] PCP - General Internal Medicine 07/29/21 Gauge Controller Relationship Specialty Start Date End Date Mega Aquino MD [address] [place] [address] PCP - General Internal Medicine 07/29/21 Gauge Controller Relationship Specialty Start Date End Date Mega Aquino MD [address] [place] [address] PCP - General Internal Medicine 07/29/21 Gauge Controller Relationship Specialty Start Date End Date Mega Aquino MD [address] [place] [address] PCP - General Internal Medicine 07/29/21 Gauge Controller Relationship Specialty Start Date End Date Mega Aquino MD [address] [place] [address] PCP - General Internal Medicine 07/29/21 Gauge Controller Relationship Specialty Start Date End Date Mega Aquino MD [address] [place] [address] PCP - General Internal Medicine 07/29/21 Gauge Controller Relationship Specialty Start Date End Date Mega Aquino MD [address] [place] [address] PCP - General Internal Medicine 07/29/21 Team Status: Active Member Role Status Dates Dr. Mega Aquino MD Primary Care Provider Active Team Status: Active Member Role Status Dates Dr. Zafar Echeverria MD Emergency Provider Active Dr. Mega Aquino MD Primary Care Provider Active Dr. Tomeka Williamson , DO Admit Provider, Att ending Provider, Other Provider Active Team Status: Active Member Role Status Dates Dr. Zafar Echeverria MD Emergency Provider Active Dr. Mega Aquino MD Primary Care Provider Active Dr. Tomeka Williamson , DO Admit Provider, Other Provider Ac tive [...] Calles MD Other Provider Active Dr. Santy Amaya DO Attending Provider, Other Provid er Active [...] Care Provider, Referring Provider Active Janusz Pritchard FINISHER TAILOR APPRENTICE, FINISHER TAILOR APPRENTICE-C Attending Provider Active Team Status: Active Member Role Status Dates Dr. Zafar Echeverria MD Emergency Provider Active Dr. Mega Aquino MD Primary Care Provider Active Dr. Tomeka Williamson DO Admit Provider, Other Provider Ac tive Dr. Ophelia Calles MD Other Provider Active Dr. Saundra Palacio MD Attending Provider, Other Provid er Active Dr. Santy Amaya , DO Other Provider Active Team Status: Inactive Member Role Status Dates Dr. Zafar Echeverria MD Emergency Provider Active Dr. Mega Aquino MD Primary Care Provider Active Dr. Tomeka Williamson DO Admit Provider, Other Provider Ac tive Dr. Ophelia Calles MD Other Provider Active Dr. Saundra Palacio MD Attending Provider Active Dr. Santy Amaya , DO Other Provider Active Team Status: Inactive Member Role Status Dates Dr. Mega Aquino MD Primary Care Provider Active Dr. Saundra Palacio MD Attending Provider Active Gauge Controller Relationship Specialty Start Date End Date Mega Aquino MD [address] [place] [address] PCP - General Internal Medicine 07/29/21 Gauge Controller Relationship Specialty Start Date End Date Mega Aquino MD [address] [place] [address] PCP - General Internal Medicine 07/29/21 Gauge Controller Relationship Specialty Start Date End Date Mega Aquino MD [address] [place] [address] PCP - General Internal Medicine 07/29/21 Gauge Controller Relationship Specialty Start Date End Date Mega Aquino MD [address] [place] [address] PCP - General Internal Medicine 07/29/21 Gauge Controller Relationship Specialty Start Date End Date Mega Aquino MD [address] [place] [address] PCP - General Internal Medicine 07/29/21 Gauge Controller Relationship Specialty Start Date End Date Mega Aquino MD [address] [place] [address] PCP - General Internal Medicine 07/29/21 Gauge Controller Relationship Specialty Start Date End Date Mega Aquino MD [address] [place] [address] PCP - General Internal Medicine 07/29/21 Gauge Controller Relationship Specialty Start Date End Date Mega Aquino MD [address] [place] [address] PCP - General Internal Medicine 07/29/21 Gauge Controller Relationship Specialty Start Date End Date Mega Aquino MD [address] [place] [address] PCP - General Internal Medicine 07/29/21 Gauge Controller Relationship Specialty Start Date End Date Mega Aquino MD [address] [place] [address] PCP - General Internal Medicine 07/29/21 Gauge Controller Relationship Specialty Start Date End Date Mega Aquino MD [address] [place] [address] PCP - General Internal Medicine 07/29/21 Gauge Controller Relationship Specialty Start Date End Date Mega Aquino MD [address] [place] [address] PCP - General Internal Medicine 07/29/21 Gauge Controller Relationship Specialty Start Date End Date Mega Aquino MD [address] [place] [address] PCP - General Internal Medicine 07/29/21 Gauge Controller Relationship Specialty Start Date End Date Mega Aquino MD [address] [place] [address] PCP - General Internal Medicine 07/29/21 Gauge Controller Relationship Specialty Start Date End Date Mega Aquino MD [address] [place], [place] [address] PCP - General Internal Medicine 07/29/21 Gauge Controller Relationship Specialty Start Date End Date Didier Erazo III, MD [employer] PCP - General 03/13/03 07/28/21 Gauge Controller Relationship Specialty Start Date End Date Mega Aquino MD [address] [place] [address] PCP - General Internal Medicine 07/29/21 Analilia Villareal PA-C [address] [place] [address] [phone] Cardiac Care Nurse Family Medicine 09/18/24 Jeanette Mitchell APRN.FLOW FLOOR ATTENDANT [address] [place] [address] Cardiac Care Nurse Internal Medicine 09/18/24 Rosalina Bean PA-C [address] [place] [address] Cardiac Care Nurse Family Medicine 09/18/24 Gauge Controller Relationship Specialty Start Date End Date Mega Aquino MD [address] [place] [address] PCP - General Internal Medicine 07/29/21 Analilia Villareal PA-C [address] [place] [id number] Cardiac Care Nurse Family Medicine 09/18/24 Jeanette Mitchell APRN.FLOW FLOOR ATTENDANT [address] [place] [address] Cardiac Care Nurse Internal Medicine 09/18/24 Rosalina Bean PA-C [address] [place], [place] [address] Cardiac Care Nurse Family Medicine 09/18/24 Team Status: Active Member Role Status Dates JEANETTE MITCHELL FINISHER TAILOR APPRENTICE-C Primary Care Provider Active Team Status: Inactive Member Role Status Dates Dr. Mega Aquino MD Referring Provider Active Start: March 02, 2025 End: March 02, 2025 Mili LOPEZ PA Attending Provider Active Start: March 02, 2025 End: March 02, 2025 JEANETTE MITCHELL NP-Jasmyn Primary Care Provider Active St art: March 02, 2025 End: March 02, 2025 Team Status: Inactive Member Role Status Dates JEANETTE MITCHELL NP-C Primary Care Provider Active St art: March 02, 2025 End: March 02, 2025 Mili LOPEZ, PA Attending Provider Active Start: March 02, 2025 End: March 02, 2025 Mili LOPEZ PA Referring Provider Active Start: March 02, 2025 End: March 02, 2025 Gauge Controller Relationship Specialty Start Date End Date Mega Aquino MD [address] [place] [address] PCP - General Internal Medicine 07/29/21 Jeanette Mitchell APRN.FLOW FLOOR ATTENDANT [address] [place], [place] [address] Cardiac Care Nurse Internal Medicine 09/18/24 Gauge Controller Relationship Specialty Start Date End Date Mega Aquino MD [address] [place] [address] PCP - General Internal Medicine 07/29/21 Jeanette Mitchell APRN.FLOW FLOOR ATTENDANT [address] [place] [address] Cardiac Care Nurse Internal Medicine 09/18/24 Gauge Controller Relationship Specialty Start Date End Date Mega Aquino MD [address] [place] [address] PCP - General Internal Medicine 07/29/21 Jeanette Mitchell APRN.FLOW FLOOR ATTENDANT [address] [place] [address] Cardiac Care Nurse Internal Medicine 09/18/24 Gauge Controller Relationship Specialty Start Date End Date Mega Aquino MD [address] [place] [address] PCP - General Internal Medicine 07/29/21 Jeanette Mitchell APRN.FLOW FLOOR ATTENDANT [address] [place] [address] Cardiac Care Nurse Internal Medicine 09/18/24 Team Status: Active Member Role/Relationship Status Dates JEANETTE MITCHELL FINISHER TAILOR APPRENTICE-C Primary Care Provider Active Team Status: Inactive Member Role/Relationship Status Dates Dr. Mega Aquino MD Referring Provider Active Start: March 02, 2025 End: March 02, 2025 Mili LOPEZ, PA Attending Provider Active Start: March 02, 2025 End: March 02, 2025 JEANETTE MITCHELL FINISHER TAILOR APPRENTICE-C Primary Care Provider Active St art: March 02, 2025 End: March 02, 2025 Team Status: Inactive Member Role/Relationship Status Dates JEANETTE MITCHELL FINISHER TAILOR APPRENTICE-C Primary Care Provider Active St art: March 02, 2025 End: March 02, 2025 Mili LOPEZ, PA Attending Provider Active Start: March 02, 2025 End: March 02, 2025 Mili LOPEZ, PA Referring Provider Active Start: March 02, 2025 End: March 02, 2025 Team Status: Active Member Role/Relationship Status Dates JEANETTE OLDER , FINISHER TAILOR APPRENTICE-C Primary Care Provider Active St art: April 11, 2025 Dr. Lico Osuna MD Attending Provider Active S tart: April 11, 2025 Team Status: Inactive Member Role/Relationship Status Dates JEANETTE OLDER , FINISHER TAILOR APPRENTICE-C Primary Care Provider Active St art: April 11, 2025 End: April 11, 2025 Mili LOPEZ PA Attending Provider Active Start: April 11, 2025 End: April 11, 2025 JOHN Villalobos Referring Provider Active Start: April 11, 2025 End: April 11, 2025 Goals (unrecognized section and content) Goals may be documented in a n alternate sectionGoals may be documented in an alternate sectionGoals may be documented in an alternate section INFORMATION SOURCE (unrecogn ized section and content) DATE CREATED AUTHOR 02/17/2025 [facility] DATE CREATED AUTHOR AUTHOR'S ORGANIZ ATION 04/21/2025 [facility] DATE CREATED AUTHOR AUTHOR'S ORGANIZ ATION 07/16/2025 [facility] FOR RECORDS PERTAINING TO PATIENTS WHO ARE [...] BE BASED ON THE PRIMARY CLINICAL RECORDS. [facility] [employer] [facility]. provides no warranty or guarantee of the accuracy or completeness of information in this document.
[2025-07-17 12:50] LABS: Albumin, Serum 4.0 g/dL (3.4-4.8); Magnesium 2.2 mg/dL (1.5-2.2)
== END | disposition home or self-care (01) ==
LOC: MTLAB 10:09
PROVIDERS: Specialist; PCP Nurse Practitioner; Referring Provider Nurse Practitioner Primary Care; Visit Provider Nurse Practitioner Primary Care
DX: Z01.818 Encounter for other preprocedural examination (principal)
CPT/HCPCS: 36415; 82040; 83735; 87081

== ENCOUNTER 2025-07-24 07:13 | Observation (INO) | payer MEDICARE, SELFPAY ==
--- NOTE | 2025-07-19 16:16 | PAT.ANESEVAL ---
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 When Was Last Pacemaker Check QUESTION #4 FULL TEXT: You/Your Family Experience fever (hyperthermia) with Anesthesia Last Oral Intake Last Oral intake: Last Oral Intake NPO since Meds taken in AM with sips of water? Meds patient instructed to take am of surgery PONV PONV - camp counselor: PONV - camp counselor Female Yes 07/19/25 13:07 HX of Motion Sickness No 07/19/25 13:07 HX of N/V After Surgery No 07/19/25 13:07 Non-Smoker Yes 07/19/25 13:07 Duration of Surgery greater Yes 07/19/25 13:07 than 60 minutes Number of Risk Factors 3 07/19/25 13:07 PONV Score Moderate Risk 07/19/25 13:07 Height & Weight Height & Weight: Anesthesia: Height & Weight Height 5 ft 5 in 03/02/25 06:51 Respiratory Assessment Respiratory Assessment - camp counselor: Respiratory Tract Infection Hx - camp counselor Hx Respiratory Tract Infection No 07/19/25 13:07 STOP Sleep Apnea STOP Sleep Apnea - camp counselor: STOP Sleep Apnea - camp counselor Hx Hypertension Yes 07/19/25 13:07 Hx Sleep Apnea No 07/19/25 13:07 CPAP BIPAP Do you snore loudly (louder No 07/19/25 13:07 than talking or can be heard Do you often feel tired/ No 07/19/25 13:07 fatigued/ sleepy during daytime? Has anyone observed you stop No 07/19/25 13:07 breathing during sleep? STOP Results Negative 07/19/25 13:07 QUESTION #5 FULL TEXT : Do you snore loudly (louder than talking or can be heard through closed doors)? 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 Specify any problems Hx of Preganancy in last 3 No 07/19/25 13:07 Months Nurse Filling Out Transfusion [id number] 07/19/25 13:07 & Questions: Date: 07/19/25 07/19/25 13:07 Time: 13:14 07/19/25 13:07 Patient unable to answer at this time (ie. confused, unrespo /Reproduction History /Reproductive History - camp counselor: /Reproductive Hx- camp counselor Hx Now Gestational Age (in weeks): EDC: Hx Hx Para Hx Section SAB PFSH Medical History (Updated 07/19/25 @ 13:19 by Brayan Carpio) Walker as ambulation aid Wears glasses Alcohol use Post-menopausal Ambulates with cane History of renal disease High cholesterol DVT (deep venous thrombosis) Back pain Former smoker Leg cramps History of edema History of normal Holter exam History of echocardiogram Cardiology follow-up encounter History of heart attack History of irregular heartbeat Atherosclerosis of coronary artery of [place] heart without angina pectoris NSTEMI, initial episode of care Seasonal allergies Hyperlipidemia Hypertension Diabetes Arthritis GERD (gastroesophageal reflux disease) Creatinine elevation Syncope Home Medications ?Medication ?Instructions ?Recorded ?Last Taken ?Type acetaminophen 500 mg tablet 1,000 mg PO BID ARTHRITIS PAIN 10/17/22 10/17/22 05:00 History diphenhydramine HCl 25 mg tablet 25 mg PO QHS PRN ALLERGIES 10/17/22 10/15/22 History (Benadryl Allergy) pantoprazole 20 mg tablet,delayed 20 mg PO QHS 30 days #30 tabs 10/21/22 Unknown Rx release glimepiride 1 mg tablet 1 mg PO BID 11/10/22 Unknown History amlodipine 2.5 mg tablet 2.5 mg PO DAILY #90 tabs 12/06/24 Unknown Rx aspirin 81 mg tablet,delayed 81 mg PO QDAY 03/02/25 Unknown History release (Adult Aspirin Regimen) carvedilol 12.5 mg tablet 12.5 mg PO BID #180 tabs 03/02/25 Unknown Rx rosuvastatin 20 mg tablet 20 mg PO QDAY #90 tabs 03/03/25 Unknown Rx tramadol 50 mg tablet 25 - 50 mg PO TID PRN PRN pain 03/29/25 Unknown History Allergy/AdvReac Type Severity Reaction Status Date / Time No Known Allergies Allergy Verified 07/19/25 13:05 Family History Father Diabetes CAD (coronary artery disease) Sister Diabetes CVA (cerebral vascular accident) Mother Melanoma Other Hypertension Surgical History History of cardiac catheterization Hx of tonsillectomy History of coronary artery stent placement (~10/20/22) History of appendectomy Social History (System 03/28/25 @ 13:17 by Yuliana Woods) household members: spouse housing: house Smoking Status: Former smoker alcohol intake: current alcohol intake frequency: a few times a week details: Drinks of couple drinks couple times a week substance use type: does not use Audit: Pertinent Findings Pertinent Findings EKG Perinent findings: EKG 03/02/2025. Sinus rhythm. Low voltage in precordial leads. Echo (EF%) pertinent findings: Echo 04/11/2025. Left ventricular systolic function is normal. The left ventricular ejection fraction is 65%. Stage I diastolic dysfunction. There is moderate mitral annular calcification. Heart catheterization pertinent findings: Heart cath 10/20/2022. Successful AMERICA mid OM1 using resolute Mauro 2.5 x 18 mm, post dilated using 2.75 mm balloon recommendations ASA indefinitely. Plavix for at least 12 months Recommendation Anesthesia Recommendation Anesthesia recommendation: OPTIMIZED for anesthesia
--- NOTE | 2025-07-20 20:47 | HP.PCM_ITS ---
History and Physical History and Physical Patient Name: Arabella BeaulieuOB: 1945 From: REMBERTO LI PA-C DATE OF PRE-OPERATIVE EXAM: 07/20/2025 DATE OF SURGERY: 07/24/2025 SCHEDULED PROCEDURE: Direct anterior right total hip arthroplasty HISTORY OF PRESENT ILLNESS: Patient states that her right hip has hurt for 2 years. Patient states that her pain is constant, sharp, stabbing. Patient states that doing stairs, walking, bending make her pain worse. Patient states that sitting and resting the leg helps alleviate her pain. Patient states that she is no longer able to do housework and shopping due to difficulty due to to the right hip. Patient states that she feels unsafe walking due to her pain. Patient states that she has tried heat, cortisone injection with no help. Patient states she has tried rest, oral medications such as Tylenol with help. Patient states she has not tried ice, elevation, weight loss, compression, physical therapy, home exercises, chiropractor. Patient has received [address] Bassett. Patient denies any previous surgeries on the affected joint. Patient states that she has had to use a cane and/or a walker for 2 years due to her pain. The hip pain has significantly impacted Ousmane' daily functioning. They are unable to tie their right shoe or put on socks due to the pain severely limiting her ADLs. Walking is limited to 20-40 feet before experiencing pain. The patient's mobility issues and pain severity suggest a significant decline in their overall health status and quality of life. REVIEW OF SYSTEMS: Review Of Systems: Constitutional: Denies change in appetite, fever and weight change. Cardiovasular: Reports CAD and heart murmur, but denies chest pain and irregular heartbeat. Respiratory: Denies cough, pneumonia, shortness of breath, tuberculosis and wheezing. Gastrointestinal: Reports heartburn, but denies constipation, diarrhea, nausea, rectal itching, bloody stools and vomiting. Genitourinary: . (F Genital Sx) . (Urinary Sx) Musculoskeletal: Reports gait disturbance, leg swelling, pain, trouble walking and weakness. Skin: Denies Raynaud's, history of shingles and tattoo. Neurological: Denies ambulatory dysfunction, dizziness, numbness/tingling and tremor. Psychiatric: Denies anxiety, insomnia and stress. Hematologic/Lymphatic: Denies anemia, bleeding/bruising tendency and past transfusion. Reviewed, no changes. PAST MEDICAL HISTORY: Advance Care Plan: No Advance Directives Effective Date: 07/25/2022 Past Medical History: Medical Problems: Acid Reflux, Arthritis, Diabetes, High Blood Pressure Heart Attack - (2022) Kidney Disease/Renal Failure - stage 3B Covid-19 Vaccine yeast infection - current per patient Superficial vein thrombosis - around heart murmur Hernia - current Coronary Artery Disease (CAD), Hypercholesterolemia, hyperlipidemia Accidents: None Surgical Hx: Appendectomy - 1957 Heart Stent - (2022) total of 1 heart stent Tonsillectomy - 1953 Anesthesia Complications: None Assistive Devices: Cane, Glasses Reviewed, no changes. SOCIAL HISTORY: Social History: Marital: .Occupation: Retired.Work Status: Retired.Hand Dominance: Right- handed. Personal Habits: Cigarette Use: Former.Smokeless Tobacco: Never Used Smokeless Tobacco.E-Cigarette Use: Never used.Alcohol: Occasionally.Drug Use: Denies Use.Enjoy Exercising: Exercises 1-3 x/month. Reviewed, no changes. VITALS: Ht: 64 Wt: 224lb Wt k.606 BMI: 38.4 BP: 128/82 Pulse: 75 Resp: 12 T: 96.4 T: 35.8C Pain Level: 8/10 O2SatR: 97 ALLERGIES: No Known Drug Allergy MEDICATIONS: Atorvastatin Calcium 20 mg 1 by mouth every day, Glimepiride 1 mg take 1 tablet by mouth twice daily with meals, Tramadol HCL 50 mg take 1/2 (one-half) to 1 tablet by mouth three times daily as needed for pain, Pantoprazole Sodium 20 mg take 1 tablet by mouth once daily, Amlodipine Besylate 2.5 mg take 1 tablet by mouth once daily, Carvedilol 6.25 mg twice a day, Tylenol Extra Strength 500 mg 2 by mouth every 8 hours, Vitamin D3 1.25 MG (86994 Ut) daily, Aspirin 81 81 mg 1 po qdaily PRE-OP EXAM: General appearance:NORMAL Other: Eyes: Conjunctivae and lids: NORMAL Pupils: ERR Ears, Nose, Mouth, and Throat: NORMAL Other: Inspection of lips, teeth and gums: NORMAL Other: Neck: Examination of neck: no masses noted. Respiratory: Assessment of respiratory effort: NORMAL Other: Auscultation of lungs: clear to auscultation no wheezes, rhonchi or rales. Cardiovascular: Auscultation of heart: regular rate and rhythm, no murmurs, ga llops or rubs. Exam of carotid arteries: NORMAL Other: Gastrointestinal: Exam of abdomen: soft, nontender, nondistended bowel sounds present. Lymphatic: Palpation of nodes in neck: NORMAL Other: Palpation of nodes in Axillae: NORMAL Other: Neurological: see below Psychiatric: Orientation to time, place and person: NORMAL Other: Mood and affect: NORMAL Other: PHYSICAL EXAMINATION: - Musculoskeletal: - Mild tenderness over the greater trochanter - Hip flexion with obligatory external rotation - Hip flexion to 65 degrees - Passive hip flexion and internal rotation recreate groin pain - Overall range of motion 10 degrees external to 15 degrees external - Hip flexion strength 3/5 with associated pain IMAGING STUDIES: -Complete series of the right hip with AP pelvis, AP hip and crossfire lateral reviewed today reveal joint space narrowing, subchondral sclerosis and osteophyte formation consistent with severe stage IV [id number] erosive osteoarthritis. There is cyst collapse and erosion of the femoral head resulting in shortening of the right hip compared to the left based on lesser trochanters. IMPRESSION: Acid reflux Diabetes Hypertension History of heart attack Chronic kidney disease Superficial vein thrombosis Heart murmur Coronary artery disease Hypercholesterolemia Hyperlipidemia Osteoarthritis right hip Pain right hip Obesity PLAN: The surgeon did discuss and review all treatment options with the patient including surgical versus nonsurgical. At this time the patient does wish to proceed with the above-stated procedure. Potential risks benefits and complications of the procedure were discussed and reviewed with the patient including but not limited to , infection, nerve and blood vessel damage, persistent pain, numbness, tingling, paresthesias, blood clot, pulmonary embolism, in the requirement for possible further surgery. Patient expressed full understanding. Has no further questions for the doctor. Does agree to proceed with the above-stated procedure, and has signed the appropriate surgery consent form. DVT prophylaxis: Patient will be taking aspirin 81 mg twice daily for 4 weeks postoperatively. Patient will be wearing CHRISTIANO hose for 2 weeks postoperatively. Pain medications: Patient will be taking Tylenol 1000 mg every 8 hours, oxycodone as needed for postoperative pain control. Patient was educated on the use of senna for postoperative constipation. Patient was educated in the use of senna for nausea and vomiting. ___ I have re-examined the patient. There are no clinical changes since date of exam. ___ See progress notes for changes. ___ Dictated on admission Date: Time: Signature:
[2025-07-24] VITALS (12 sets, daily range): BP systolic 103–159; BP diastolic 64–95; PULSE 57–77; RESP 16–18; TEMP 36.1–37.1; O2SAT 91–100; BMI 36.9; BMI 38.2
--- NOTE | 2025-07-24 09:04 | PCM.PRE.AN2 ---
ASA Classification* ASA Classification ASA Classification: 2 Assessment & Plan Anesthesia* Anesthesia Assessment Anesthesia Assessment: Discussed sedation and/or anesthesia options, risks, benefits, and alternatives with patient/parents/legal guardian/POA. Questions invited. The patient/parents/legal guardian/POA seems to understand and agrees to proceed with anesthesia plan. Reviewed the physical assessment, medical history, allergy history and patient home medications list prior to surgery/procedure/anesthetic and documented any changes. Performed airway and anesthesia risk assessments. Anesthesia Type Anesthesia Type: Spinal Anesthesia Focused Assessment* Airway Assessment Mouth opens: >3 cm Mallampati Score: II Labs Anesthesia Preop lab: CBC WBC, (4.4-11.0) 7.6 K/mm3 03/31/25, 09:37 RBC, (4.2-5.4) 4.49 M/mm3 03/31/25, 09:37 Hgb, (12.0-15.0) 13.6 g/dL 03/31/25, 09:37 Hct, (37-47) 41.7 % 03/31/25, 09:37 Plt Count, (150-450) 319 K/mm3 03/31/25, 09:37 CHEMISTRY Potassium, (3.3-5.1) 4.2 mmol/L 03/31/25, 09:37 Sodium, (133-145) 142 mmol/L 03/31/25, 09:37 Magnesium, (1.5-2.2) 2.2 mg/dL 07/17/25, 10:11 Phosphorus, (2.5-4.9) 2.9 mg/dL 10/18/22, 05:43 BUN, (4-19) 19 mg/dL 03/31/25, 09:37 Creatinine, (0.70-1.20) 1.09 mg/dL 03/31/25, 09:37 Glucose, (70-99) 127 mg/dL H 03/31/25, 09:37 POC Glucose, (74-106) 218 mg/dL H 10/21/22, 10:55 TSH, (0.358-3.74) 1.32 uIU/mL 10/18/22, 05:43 COAG Pre-Assessment Diagnosis/Proposed Procedure Planned Operative Procedure(s): DIRECT ANTERIOR RIGHT TOTAL HIP ARTHROPLASTY 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 When Was Last Pacemaker Check QUESTION #4 FULL TEXT: You/Your Family Experience fever (hyperthermia) with Anesthesia Last Oral Intake Last Oral intake: Last Oral Intake NPO since Meds taken in AM with sips of water? 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 Female Yes 07/19/25 13:07 HX of Motion Sickness No 07/19/25 13:07 HX of N/V After Surgery No 07/19/25 13:07 Non-Smoker Yes 07/19/25 13:07 Duration of Surgery greater Yes 07/19/25 13:07 than 60 minutes Number of Risk Factors 3 07/19/25 13:07 PONV Score Moderate Risk 07/19/25 13:07 Height & Weight Height & Weight: Anesthesia: Height & Weight Height 5 ft 5 in 03/02/25 06:51 Respiratory Assessment Respiratory Assessment - bale breaker operator: Respiratory Tract Infection Hx - bale breaker operator Hx Respiratory Tract Infection No 07/19/25 13:07 STOP Sleep Apnea STOP Sleep Apnea - bale breaker operator: STOP Sleep Apnea - bale breaker operator Hx Hypertension Yes 07/19/25 13:07 Hx Sleep Apnea No 07/19/25 13:07 CPAP BIPAP Do you snore loudly (louder No 07/19/25 13:07 than talking or can be heard Do you often feel tired/ No 07/19/25 13:07 fatigued/ sleepy during daytime? Has anyone observed you stop No 07/19/25 13:07 breathing during sleep? STOP Results Negative 07/19/25 13:07 QUESTION #5 FULL TEXT : Do you snore loudly (louder than talking or can be heard through closed doors)? 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 Specify any problems Hx of Preganancy in last 3 No 07/19/25 13:07 Months Nurse Filling Out Transfusion [id number] 07/19/25 13:07 & Questions: Date: 07/19/25 07/19/25 13:07 Time: 13:14 07/19/25 13:07 Patient unable to answer at this time (ie. confused, unrespo /Reproduction History /Reproductive History - bale breaker operator: /Reproductive Hx- bale breaker operator Hx Now Gestational Age (in weeks): EDC: Hx Hx Para Hx Section SAB Active Medications Active Medications: Current Medications Generic Name Dose Route Start Last Admin Trade Name Freq PRN Reason Stop Dose Admin Acetaminophen 1,000 mg 07/24/25 10:30 Acetaminophen 500 Mg Tablet PO 07/24/25 10:31 PREOP ONE Acetaminophen 1,000 mg 07/24/25 14:00 Acetaminophen 500 Mg Tablet PO Q8 [facility] Aspirin 81 mg 07/24/25 10:00 Aspirin 81 Mg Tab.Chew PO BID [facility] Sodium Chloride 77.9 ml/ 0 ml 07/24/25 10:30 Ropivacaine 200 mg/ OPERA.SITE 07/24/25 10:31 Epinephrine HCl 0.6 mg/ INTRAOP ONE Ketorolac Tromethamine 30 mg/ Morphine Sulfate 5 mg Dexamethasone Sodium Phosphate 10 mg 07/24/25 10:30 Dexamethasone 10 Mg/Ml Vial IV 07/24/25 10:31 INTRAOP ONE Enteral Nutritional Formula 237 ml 07/24/25 08:00 Ensure Surgery 237 Ml Liquid PO TIDCM [facility] Famotidine 20 mg 07/24/25 10:00 Famotidine 20 Mg Tablet PO DAILY [facility] Gabapentin 600 mg 07/24/25 10:30 Gabapentin 600 Mg Tablet PO 07/24/25 10:31 PREOP ONE Lactated Ringer's 1,000 mls @ 999 mls/hr 07/24/25 10:30 IV 07/24/25 11:30 .Q1H1M [facility] Cefazolin Sodium 2 gm/ Sodium 110 mls @ 150 mls/hr 07/24/25 10:30 Chloride IV 07/24/25 11:13 INTRAOP ONE Tranexamic Acid 1,000 mg/ 110 mls @ 660 mls/hr 07/24/25 10:30 Sodium Chloride IV 07/24/25 10:39 INTRAOP ONE Tranexamic Acid 1,000 mg/ 110 mls @ 660 mls/hr 07/24/25 11:30 Sodium Chloride IV 07/24/25 11:39 INTRAOP ONE Lactated Ringer's 1,000 mls @ 999 mls/hr 07/24/25 11:30 IV 07/24/25 12:30 .Q1H1M [facility]O Lactated Ringer's 1,000 mls @ 125 mls/hr 07/24/25 12:30 IV 07/24/25 20:29 .Q8H [facility] Magnesium Sulfate 1 gm/ 102 mls @ 408 mls/hr 07/24/25 10:30 Dextrose IV 07/24/25 10:44 PREOP ONE Cefazolin Sodium 1 gm in 50 mls @ 100 mls/hr 07/24/25 07:15 IV 07/24/25 15:44 Q8H [facility] Insulin Human Lispro 1 - 6 unit 07/24/25 10:30 Insulin Lispro 100 Unit/Ml Insuln.Pen SC 07/24/25 16:30 Q4H PRN PRN BG>/= 180, SEE PROTOCOL Protocol Morphine Sulfate 2 - 4 mg 07/24/25 07:13 Morphine 2 Mg/Ml Syringe IV Q2H PRN PRN Pain Score 4-10 Ondansetron HCl 4 mg 07/24/25 07:13 Ondansetron 4 Mg/2 Ml Vial IV Q8H PRN PRN NAUSEA Oxycodone HCl 5 - 10 mg 07/24/25 07:13 Oxycodone 5 Mg Tablet PO Q4H PRN PRN Pain Score 4-10 Promethazine HCl 12.5 mg 07/24/25 07:13 Promethazine 25 Mg/Ml Syringe IM Q6H PRN PRN NAUSEA/VOMITING Protocol Senna/Docusate Sodium 2 tablet 07/24/25 10:00 Senna/Docusate Sodium 1 Tablet PO BID [facility] PFSH Medical History Walker as ambulation aid Wears glasses Alcohol use Post-menopausal Ambulates with cane History of renal disease High cholesterol DVT (deep venous thrombosis) Back pain Former smoker Leg cramps History of edema History of normal Holter exam History of echocardiogram Cardiology follow-up encounter History of heart attack History of irregular heartbeat Atherosclerosis of coronary artery of cheesh-na heart without angina pectoris NSTEMI, initial episode of care Seasonal allergies Hyperlipidemia Hypertension Diabetes Arthritis GERD (gastroesophageal reflux disease) Creatinine elevation Syncope Home Medications ?Medication ?Instructions ?Recorded ?Last Taken ?Type acetaminophen 500 mg tablet 1,000 mg PO BID ARTHRITIS PAIN 10/17/22 10/17/22 05:00 History diphenhydramine HCl 25 mg tablet 25 mg PO QHS PRN ALLERGIES 10/17/22 10/15/22 History (Benadryl Allergy) pantoprazole 20 mg tablet,delayed 20 mg PO QHS 30 days #30 tabs 10/21/22 Unknown Rx release glimepiride 1 mg tablet 1 mg PO BID 11/10/22 Unknown History amlodipine 2.5 mg tablet 2.5 mg PO DAILY #90 tabs 12/06/24 Unknown Rx aspirin 81 mg tablet,delayed 81 mg PO QDAY 03/02/25 Unknown History release (Adult Aspirin Regimen) carvedilol 12.5 mg tablet 12.5 mg PO BID #180 tabs 03/02/25 Unknown Rx rosuvastatin 20 mg tablet 20 mg PO QDAY #90 tabs 03/03/25 Unknown Rx tramadol 50 mg tablet 25 - 50 mg PO TID PRN PRN pain 03/29/25 Unknown History Allergy/AdvReac Type Severity Reaction Status Date / Time No Known Allergies Allergy Verified 07/19/25 13:05 Family History Father Diabetes CAD (coronary artery disease) Sister Diabetes CVA (cerebral vascular accident) Mother Melanoma Other Hypertension Surgical History History of cardiac catheterization Hx of tonsillectomy History of coronary artery stent placement (~10/20/22) History of appendectomy Social History household members: spouse housing: house Smoking Status: Former smoker alcohol intake: current alcohol intake frequency: a few times a week details: Drinks of couple drinks couple times a week substance use type: does not use Review of Systems (Anesthesia) ROS Narrative System reviewed and no additional complaints, except as documented.
[2025-07-24] MEDS: Magnesium 1 GM over 15 mins IV (09:41)
[2025-07-24] MEDS: LR 1,000 ML - BOLUS PREOP 999 ML IV (09:42)
[2025-07-24] MEDS: Cefazolin 1 GM/5 ML Vial 2 GM IV (10:30)
[2025-07-24] MEDS: Lidocaine 1% (5 ml sdv) 5 ML Vial IV (10:32)
--- NOTE | 2025-07-24 11:17 | RAD_ITS ---
PROCEDURE: HIP 1 VIEW WITH PELVIS 07/24/2025 REASON FOR EXAM: ERAS, ANTERIOR RIGHT TOTAL HIP ARTHROPLASTY TECHNIQUE: Procedure Code: RADHPINP Modality: DX Procedure: HIP 1 VIEW WITH PELVIS Laterality: COMPARISON: 07/24/2025. FINDINGS: Intraoperative fluoroscopy was performed. 5.6 seconds of fluoroscopic time. 1.17 mGy. See procedure report for full details. RAD/Hip 1 view with Pelvis IMPRESSION: As above. Reading Location: [id number]
[2025-07-24] MEDS: JPS (Morphine 10mg/ml) OPERA.SITE (11:35)
[2025-07-24] MEDS: Midazolam 2 MG/2 ML Syringe IV (11:39)
[2025-07-24] MEDS: TRANEXAMIC ACID 1,000 MG/10 ML ML 2000 MG IV (11:40)
--- NOTE | 2025-07-24 11:42 | OP.PCM_ITS ---
Operative Report (Standard) Operative Information Date of Procedure: 07/24/25 Pre-Operative Diagnosis: Right hip primary osteoarthritis Post-Operative Diagnosis: Right hip primary osteoarthritis Surgery/Procedure Performed: Right minimally invasive direct anterior total replacement litigation secretary: Yes Adventure Therapist: Dm Guzman Tasks completed by assistant professor of drama: Other (See body of operative report) Type of Anesthesia: Spinal RN Documented Start/Stop Times: Operation Date: 07/24/25 11:00 Case Time Into Pre-Op 07/24/25 09:02 Anesthesia Start 07/24/25 10:27 Into Room 07/24/25 10:27 Out of Pre-Op 07/24/25 10:27 Procedure Start 07/24/25 10:50 Procedure End 07/24/25 12:07 Anesthesia End 07/24/25 12:14 Out of Room 07/24/25 12:14 Into Recovery 07/24/25 12:16 Out of Recovery 07/24/25 13:04 Procedure Start Time: 10:50 Procedure Stop Time: 12:07 Select all DRAINS/GRAFTS/IMPLANTS that apply: Prosthetic device Prosthetic device details: See body of operative report Special Medications: 2 g Ancef, 1 g TXA at incision, 1 g TXA closure, 10 mg Decadron, joint cocktail (5 mg Duramorph, 30 mL of 0.5% Ropivicaine, 1000 units of epinephrine, 30 mg of Toradol) Estimated Blood Loss: 300 Fluids Replaced: 1100 mL Specimen collected: No Description of surgery: Components used: 1. Insignia Jessie femoral stem size 5 high offset 2. [place] trident 2 acetabular shell size 50 mm 3. Jessie X3 polyethylene D 4. Jessie Biolox delta 36mm, 2.5mm femoral head Brief history operative indications: 79 yo f who failed conservative measures for their hip osteoarthritis. X-rays were consistent with osteoarthritis including joint space narrowing, osteophyte formation and subchondral cysts. Total hip replacement was discussed with the patient with risks and benefits including but not limited to blood loss, DVTs, PEs, neurovascular damage, dislocation, general risks of anesthesia including loss of life. Patient demonstrated an understanding medical clearance is obtained the patient was consented for surgery. Procedure: On the date of procedure the patient's R hip was marked in the preoperative area. Patient was then taken back to the operating room where anesthesia assumed control of the C-spine and airway and administered anesthetic. Patient was transferred to the operating table and placed in the supine position. The hips were placed at the break of the bed and a sacral bump was placed. The R lower extremity was then prepped out in a sterile fashion using chlorhexidine while the surgeon scrubbed. The PA was vital in the positioning of the patient. Upon reentering the room the R lower extremity was draped in the standard orthopedic fashion and the incision was marked. A timeout was called and everyone agreed upon the side, the site, the procedure be performed, antibody given, and patient's identity. At this time incision was made through skin, s ubcutaneous tissue, and fat down to fascia. The fascia was then incised and the TFL was retracted laterally. A retractor was placed on the lateral border of the femoral neck. Attention was directed to the inferior portion of the approach and all crossing vessels were identified and appropriately coagulated. A retractor was then placed on the medial portion of the femoral neck. The anterior capsule was then cleared of all soft tissue and then H shaped capsulotomy was made. The retractors were then placed inside the capsule. The femoral neck was identified and a cleanup cut was made. At this time a power corkscrew was used to remove the femoral head. Attention was then turned toward the acetabulum where the soft tissues were appropriately retracted and the acetabulum was sequentially reamed to 50 mm. A 50 mm cup was then selected and impacted into place. Acetabular liner was impacted into place and locking mechanism was verified. The position of the acetabular cup was then verified under live fluoroscopy. Attention was then turned to the femur. Soft tissue releases on the medial and lateral femoral neck were appropriately done, the leg was externally rotated and lateralized. A Talley retractor was placed medially and proximally to the greater trochanter this allowed appropriate visualization and exposure of the femoral canal. Rongeour was then used to remove excess lateral bone. A canal finder and entry broach were used to open the proximal canal. Once we verified we were down the femoral canal we subsequently broached up to a size 5 femur. The appropriate neck was placed in the previously selected head was trialed with a 2.5 mm neck. Traction was pulled and the hip was reduced with internal rotation. Once it was appropriately reduced and stability was checked. There was minimal shuck, equal leg lengths and appropriate stability with hyperextension and external rotation as well as with 90? flexion and internal rotation. Fluoroscopy was then also used to verify the position of the components and leg lengths using the contralateral side for comparison. The trial components were then dislocated the proximal femur was again exposed and the components were removed from the wound. The final components were verified and opened. The wound was copiously irrigated out with normal saline. The acetabulum was checked for any residual debris. The final components were placed and impacted. Traction and internal rotation were again used to reduce the hip. After adequate reduction the hip remained stable with appropriate leg lengths. The final components were once again checked with live fluoroscopy and were found to be satisfactory. The wound was then copiously irrigated with normal saline once more, and hemostasis was obtained. Closure was then done using #1 Vicryl runner to close the fascia. A 2-0 vicryl interuppted sutures were used to close the subcutaneous skin. A 3-0 Monocryl and Steri-Strips were used for final skin closure. A Silverlon dressing was placed. Patient was awakened by anesthesia and transferred to the [facility]. Patient was then transferred to the PACU for recovery. Postoperative plan: Patient will get 24 hours postop antibiotics. Patient will get in-house physical therapy and will be weight-bear as tolerated. Patient will follow up in office in 2 weeks for a wound check and x-rays. Aspirin 81 mg twice daily. During the course of the procedure the physician custom garment designer (PE) played a vital role. Their intimate knowledge of my steps in the procedure aided in safe and expedient completion of the procedure. The PE played a vital rolls in positioning particularly in obtaining the appropriate positioning of the sacral bump. The PE was also vital in the retraction of soft tissues during the ex posure and especially the femoral work as this is a vital part of the procedure to prevent complications and fractures. The PE was also vital and protecting soft tissues during times of bony cuts and reaming. He also played a vital role in closure with my direct supervision. The PE was also important during reduction and dislocation of the joint and trials intraoperatively. Surgical Findings: Stable hip with equal leg lengths Complications Complications: No Admit VTE Documentation VTE Present on Admission: Yes VTE Mechan Device Prophylaxis: SCD's and Thigh High CHRISTIANO Hose VTE Pharm Prophylaxis ordered?: Yes
--- NOTE | 2025-07-24 12:20 | PCM.POST.ANE ---
Anesthesia: Postop Eval I Current Vital Signs Temperature: 96.9 F Pulse Rate: 61 Blood Pressure: 111/64 Respiratory Rate: 16 Pulse Ox: 91 Oxygen Delivery Method: Nasal Cannula Oxygen Flow Rate (L/min): 2 Assessment Airway patent: Yes Spontaneous unlabored respirations: Yes Mental status: Awake and Calm nausea: No Vomiting: No Anesthesia Complication: No Fluid Hydration Crystalloid volume administer (ml): 1,100 Total IV fluid infused: 1,100 Progress Note Anesthesia document: Postop Eval 1 completed: Yes
--- NOTE | 2025-07-24 12:25 | RAD_ITS ---
PROCEDURE: HIP MIN 2 VIEWS (PORTABLE) 07/24/2025 REASON FOR EXAM: POST OP TECHNIQUE: Procedure Code: RADH_P Modality: DX Procedure: HIP MIN 2 VIEWS (PORTABLE) Right hip two views COMPARISON: None FINDINGS: There is a total hip prosthesis in position. Soft tissue air is noted consistent with recent surgery. Alignment is anatomic. RAD/Hip Min 2 Views (Portable) IMPRESSION: Hardware in position. Reading Location: [facility]
[2025-07-24] MEDS: LR 1,000 ML - BOLUS POSTOP 999 ML IV (12:26)
--- NOTE | 2025-07-24 12:34 | POSTOPAN2_ITS ---
Anesthesia Postop Eval I Sum Postop Eval Completion status Anesthesia document: Postop Eval 1 completed: Yes Anesthesia Postop Eval I Summary Anesthesia Postop Eval I Summary: Anesthesia Postop Eval I: Assessment Summary Airway patent Yes 07/24/25 12:21 MANAGER [email or web address] Spontaneous unlabored Yes 07/24/25 12:21 MANAGER [email or web address] respirations Mental status Awake,Calm 07/24/25 12:21 MANAGER [email or web address] nausea No 07/24/25 12:21 MANAGER [email or web address] Vomiting No 07/24/25 12:21 MANAGER [email or web address] Anesthesia Postop Eval I: Fluid Summary Crystalloid volume administer 1,100 07/24/25 12:21 MANAGER [email or web address] (ml) Colloids volume administered ( ml) Blood Product volume administered (ml) Total IV fluid infused 1,100 07/24/25 12:21 MANAGER [email or web address] Anesthesia Postop Eval I: Summary Notes Anesthesia Complication No 07/24/25 12:21 MANAGER [email or web address] Anesthesia Complication Comment: Post-operative progress note Anesthesia: Postop Eval II Evaluation Mental status: Awake Pain Level: 0 nausea: No Vomiting: No
--- NOTE | 2025-07-24 12:34 | PCM.POSTANE2 ---
Anesthesia Postop Eval I Sum Postop Eval Completion status Anesthesia document: Postop Eval 1 completed: Yes Anesthesia Postop Eval I Summary Anesthesia Postop Eval I Summary: Anesthesia Postop Eval I: Assessment Summary Airway patent Yes 07/24/25 12:21 [email or web address] Spontaneous unlabored Yes 07/24/25 12:21 [employer] [email or web address].SHOF respirations Mental status Awake,Calm 07/24/25 12:21 [employer] [email or web address].SHOF nausea No 07/24/25 12:21 [employer] [email or web address].SHOF Vomiting No 07/24/25 12:21 [employer] [email or web address].SHOF Anesthesia Postop Eval I: Fluid Summary Crystalloid volume administer 1,100 07/24/25 12:21 [employer] [email or web address].SHOF (ml) Colloids volume administered ( ml) Blood Product volume administered (ml) Total IV fluid infused 1,100 07/24/25 12:21 [email or web address].SHOF Anesthesia Postop Eval I: Summary Notes Anesthesia Complication No 07/24/25 12:21 [employer] AND [employer]ORY [email or web address].SHOF Anesthesia Complication Comment: Post-operative progress note Anesthesia: Postop Eval II Evaluation Mental status: Awake Pain Level: 0 nausea: No Vomiting: No
[2025-07-24] MEDS: LR 1,000 ML - 125 ML/HR (POST BOLUS) POST OP IV (14:53)
[2025-07-24] MEDS: Cefazolin 1 GM/50 ML BAG IV (17:07)
--- NOTE | 2025-07-24 21:34 | PN.HOSP_ITS ---
Reason for Visit Chief Complaint: Right hip pain Subjective Subjective Patient is an 79-year-old white female who presents to [facility] on 07/24/2025 for a minimally invasive right total hip arthroplasty with Dr. Blanc. Patient has a past medical history of essential hypertension, hyperlipidemia, CAD with previous stent placement, DM-2, obesity, and GERD. We have been consulted postoperatively for medical management of chronic medical issues. Patient was evaluated postoperatively on the general medical floor. Patient reports minimal discomfort in the right hip. No nausea or vomiting. Objective Data Objective Data Vital Signs: Vital Signs Temp Pulse Resp BP Pulse Ox O2 Del Method O2 Flow Rate 97.8 F 65 17 159/78 H 95 Room Air 2 07/24/25 17:12 07/24/25 17:12 07/24/25 17:12 07/24/25 17:12 07/24/25 17:12 07/24/25 17:12 07/24/25 15:01 Oxygen Flow Rate (L/min) 2 Oxygen Delivery Method Room Air Weight: 104.326 kg Body Mass Index (BMI) 38.2 Intake & Output: Intake and Output for Last 24 Hours 07/22/25 07/23/25 07/24/25 23:59 23:59 23:59 Intake Total 2152 / 2152 Output Total 350 / 350 Balance 1802 / 1802 Lab / Micro Data Labs: Laboratory Results - last 24 hr 07/24/25 09:27: POC Glucose 299 H 07/24/25 11:32: POC Glucose 178 H 07/24/25 12:51: POC Glucose 187 H Radiography Diagnostic Testing: Radiology Impression Hip X-Ray 07/24/25 12:25 IMPRESSION: Hardware in position. Reading Location: [facility] Physical Exam Const alert, oriented x3, no apparent distress, healthy appearing and well nourished; Negative for average body habitus Constitutional Narrative: Obese, elderly, white female, sitting up in chair bedside, watching television, comfortable, nontoxic HEENT head/scalp atraumatic and moist oral mucous membranes HEENT Narrative: Mallampati 3, no thrush Head and Scalp: normocephalic Resp normal respiratory effort, no retractions, no use of accessory muscles and clear to auscultation bilaterally Auscultation: Negative for rales, rhonchi or wheezes Cardio regular rate, regular rhythm, S1 normal heart sound, S2 normal heart sound, no rub, no gallops and no clicks; Negative for no murmurs Cardio Narrative: 3 out of 6 systolic murmur loudest at right upper sternal border GI normal to inspection, nondistended, normoactive bowel sounds, soft to palpation and non-tender GI Narrative: Protuberant abdomen Extremity no clubbing, cyanosis or edema Extremity Narrative: CHRISTIANO hose in place bilateral lower bases, SCDs in place Skin Skin Narrative: Multiple seborrheic keratoses Neuro moves all extremities and no focal motor deficits Speech: speech normal Psych affect normal Psych Narrative: Very pleasant, interacts appropriately Assessment & Plan Assessment/Plan (1) Right hip pain: PLAN: Plan Right hip osteoarthritis - Postop day 0 minimally invasive direct anterior right total hip arthroplasty - Weightbearing as tolerated - PT/OT consultation - Aspirin 81 mg p.o. twice daily for DVT prophylactics - Outpatient follow-up in 2 weeks - Recommend scheduled bowel regimen DM-2 - Restart home glimepiride - Hemoglobin A1c was 6.8 on 03/31/2025 - Expect postoperative hyperglycemia as steroids were given intraoperatively - Accu-Cheks as ordered Essential hypertension/hyperlipidemia - Restart home carvedilol - Restart home amlodipine - Restart home rosuvastatin GERD - Discontinue famotidine as patient is on PPI at home and restart PPI CKD stage IIIb - Recheck a.m. BMP - Creatinine was previously between 1.3 and 1.6 - Preoperative serum creatinine was 1.09 - Avoid perioperative hypotension Obesity - Complicates treatment, prognosis, outcomes - BMI is 38.3 - Recommend weight loss DVT prophylaxis - Per primary service Charges/Coding Visit Charges Inpatient E&M: 20599 Subs Hosp L2
[2025-07-24] MEDS: Senna/Docusate Sodium 1 Tablet 2 TABLET PO (23:09)
--- NOTE | 2025-07-25 00:30 | PCM.HOSP.N ---
Hospitalist Note Per consulting hospitalist's note, hyperglycemia expected following steroid administration during surgical procedure. Nrsg notified me of HS glucometer of 370. I did order Lispro SC AC/HS low-med scale SSI, along with the hypoglycemic PRN order set.
[2025-07-25 00:53] VITALS: BP 144/69; PULSE 60; RESP 15; TEMP 36.4; O2SAT 94
[2025-07-25] MEDS: Cefazolin 1 GM/50 ML BAG IV (02:54)
[2025-07-25] MEDS: 0.9% Normal Saline (250mL Bag) 250 ML 15 ML IV (02:55)
[2025-07-25 04:48] VITALS: BP 148/67; PULSE 63; RESP 14; TEMP 36.4; O2SAT 95
[2025-07-25 06:54] LABS: Hematocrit 36.6 % (37-47); Hemoglobin 11.7 g/dL (12.0-15.0); Immature Granulocytes Count 0.070 X10^3/uL (0.0-0.0); Mean Corp Hgb Conc 32.0 g/dL (32-36); Mean Corpuscular Volume 94.1 fL (81-99); Mean Platelet Vol. 10.7 fl (6.2-12.0); NRBC Flagged by Analyzer 0 % (0-5); Platelet Count 300 K/mm3 (150-450); RBC Distribution Width CV 14.2 % (11.6-14.6); RBC Distribution Width SD 48.8 fl (35.1-43.9); Red Blood Count 3.89 M/mm3 (4.2-5.4); White Blood Count 12.0 K/mm3 (4.4-11.0)
[2025-07-25 07:14] LABS: Anion Gap 9 (5-15); BUN 18 mg/dL (4-19); BUN/Creat Ratio 15.8 RATIO (10-20); Calcium,Total 9.3 mg/dL (7.6-11.0); Carbon Dioxide 23.3 mmol/L (21.0-32.0); Chloride 103 mmol/L (98-108); Estimated Creatinine Clearance 47.22 ml/min (50-250); Glucose 299 mg/dL (70-99); Potassium 4.4 mmol/L (3.3-5.1)
--- NOTE | 2025-07-25 07:51 | PCM.PN.HOSP ---
Reason for Visit Chief Complaint: Right hip pain Subjective Subjective Patient is an 79-year-old lady who underwent right total hip arthroplasty on 07/24/2025 hospitalist service was consulted to assist with management of patient medical comorbidities Objective Data Objective Data Vital Signs: Vital Signs Temp Pulse Resp BP Pulse Ox O2 Del Method O2 Flow Rate 97.6 F L 63 14 148/67 H 95 Room Air 2 07/25/25 04:48 07/25/25 04:48 07/25/25 04:48 07/25/25 04:48 07/25/25 04:48 07/25/25 04:48 07/24/25 15:01 Oxygen Flow Rate (L/min) 2 Oxygen Delivery Method Room Air Weight: 104.326 kg Body Mass Index (BMI) 38.2 Intake & Output: Intake and Output for Last 24 Hours 07/23/25 07/24/25 07/25/25 23:59 23:59 23:59 Intake Total 3152 / 3152 230.25 / 230.25 Output Total 350 / 350 Balance 2802 / 2802 230.25 / 230.25 Lab / Micro Data 07/25/25 06:43 07/25/25 06:43 Labs: Laboratory Results - last 24 hr 07/24/25 09:27: POC Glucose 299 H 07/24/25 11:32: POC Glucose 178 H 07/24/25 12:51: POC Glucose 187 H 07/24/25 23:16: POC Glucose 370 H 07/25/25 06:20: POC Glucose 266 H 07/25/25 06:43: WBC 12.0 H, RBC 3.89 L, Hgb 11.7 L, Hct 36.6 L, MCV 94.1, MCH 30.1, MCHC 32.0, RDW Std Deviation 48.8 H, RDW Coeff of Carl 14.2, Plt Count 300, MPV 10.7, Immature Gran % (Auto) 0.600, Neut % (Auto) 83.0 H, Lymph % (Auto) 9.0 L, Mckinley % (Auto) 7.2, Eos % (Auto) 0.0, Baso % (Auto) 0.2, Absolute Neuts (auto) 10.0 H, Absolute Lymphs (auto) 1.08, Nucleated RBC % 0, Sodium 135, Potassium 4.4, Chloride 103, Carbon Dioxide 23.3, Anion Gap 9, BUN 18, Creatinine 1.12, Estim Creat Clear Calc 47.22 L, Est GFR (MDRD) Non-Af 49 L, BUN/Creatinine Ratio 15.8, Glucose 299 H, Calcium 9.3 Radiography Diagnostic Testing: Radiology Impression Hip X-Ray 07/24/25 12:25 IMPRESSION: Hardware in position. Reading Location: [facility] Physical Exam Narrative GENERAL: cooperative HEENT: Atraumatic; normocephalic EYES; Anicteric, Normal Conjunctiva NECK; supple, normal thyroid, RESPIRATORY: Diminished to auscultation CARDIOVASCULAR: Regular S1 S2, GI: soft, normoactive bowel sounds, : No Renal angle tenderness; EXTREMITIES: No edema, no clubbing, MUSCULOSKELETAL: no muscle wasting NEURO: Awake; no lateralizing signs. SKIN: No Rash PSYCH; Flat affect Assessment & Plan Assessment/Plan (1) Right hip pain: PLAN: Plan Patient is an 79-year-old lady who underwent right total hip arthroplasty on 07/24/2025 hospitalist service was consulted to assist with management of patient medical comorbidities 1. Status post minimally invasive direct anterior right total hip arthroplasty ? Procedure was performed on 07/24/[address] Blnac 2. Diabetes mellitus type 2 ? Home meds restarted following surgery also placed on Accu-Cheks AC and at bedtime with sliding scale coverage 3. Dyslipidemia ?Patient is on statin therapy, continued at home dose 4. Hypertension ? Blood pressure controlled, home medications continued with dose adjustment as needed 5. GERD ? Patient is on PPI continue 6. Chronic kidney disease stage IIIb ? Kidney function at baseline 7. Coronary artery disease ? With previous history of stent placement patient is on guideline directed medical therapy 8. Class II obesity with BMI of 30.3 ? Complicating care weight loss advised 9. DVT prophylaxis ? Defer to primary service Time spent in the patient's overall evaluation,decision-making process, review of diagnostic data, adjustment of management, discussion with other providers, nursing nursing and ancillary staff involved in patient's care documentation, 35 Minutes Charges/Coding Visit Charges Inpatient E&M: 43578 Subs Hosp L2
[2025-07-25 08:45] VITALS: BP 144/62; PULSE 66; RESP 16; TEMP 36.6; O2SAT 96
[2025-07-25] MEDS: Senna/Docusate Sodium 1 Tablet 2 TABLET PO (08:49)
--- NOTE | 2025-07-25 09:12 | CASEMGMT ---
SANDOVAL Met with patient to complete SANDOVAL form. SANDOVAL form and its content were verbally explained and patient's questions were answered to the best of my ability.? Patient voiced understanding and signed SANDOVAL form.? Patient provided a copy of signed SANDOVAL form and original placed in patient's chart.? Patient had no further questions. Maeve Loyd, Discharge Planning Asst
--- NOTE | 2025-07-25 09:15 | PCM.PN.ORT ---
Subjective Subjective Patient is sitting comfortably in bed upon examination. Patient states that she is doing well and is eager to get home. Patient states that she did not sleep very well. Patient states that she does have help at home from her daughter and her grandson. Patient states that her daughter was here when she was working with physical therapy yesterday and her daughter felt comfortable with her going home as well. Patient states that she has been up to the bathroom as well. Patient states that her pain is adequately controlled. Patient denies any shortness of breath, chest pain, calf pain. Patient denies any nausea or vomiting. Patient denies any new numbness or tingling. Patient denies any fevers, chills, signs of infection. Patient denies any adverse effects overnight. Objective Data Objective Data Vital Signs: Vital Signs Temp Pulse Resp BP Pulse Ox O2 Del Method O2 Flow Rate 97.8 F 66 16 144/62 H 96 Room Air 2 07/25/25 08:45 07/25/25 08:45 07/25/25 08:45 07/25/25 08:45 07/25/25 08:45 07/25/25 08:45 07/24/25 15:01 Oxygen Flow Rate (L/min) 2 Oxygen Delivery Method Room Air Weight: 104.326 kg Body Mass Index (BMI) 38.2 Intake & Output: Intake and Output for Last 24 Hours 07/23/25 07/24/25 07/25/25 23:59 23:59 23:59 Intake Total 3152 / 3152 230.25 / 230.25 Output Total 350 / 350 Balance 2802 / 2802 230.25 / 230.25 Lab / Micro Data 07/25/25 06:43 07/25/25 06:43 Labs: Laboratory Results - last 24 hr 07/24/25 09:27: POC Glucose 299 H 07/24/25 11:32: POC Glucose 178 H 07/24/25 12:51: POC Glucose 187 H 07/24/25 23:16: POC Glucose 370 H 07/25/25 06:20: POC Glucose 266 H 07/25/25 06:43: WBC 12.0 H, RBC 3.89 L, Hgb 11.7 L, Hct 36.6 L, MCV 94.1, MCH 30.1, MCHC 32.0, RDW Std Deviation 48.8 H, RDW Coeff of Carl 14.2, Plt Count 300, MPV 10.7, Immature Gran % (Auto) 0.600, Neut % (Auto) 83.0 H, Lymph % (Auto) 9.0 L, [place] % (Auto) 7.2, Eos % (Auto) 0.0, Baso % (Auto) 0.2, Absolute Neuts (auto) 10.0 H, Absolute Lymphs (auto) 1.08, Nucleated RBC % 0, Sodium 135, Potassium 4.4, Chloride 103, Carbon Dioxide 23.3, Anion Gap 9, BUN 18, Creatinine 1.12, Estim Creat Clear Calc 47.22 L, Est GFR (MDRD) Non-Af 49 L, BUN/Creatinine Ratio 15.8, Glucose 299 H, Calcium 9.3 Radiography Diagnostic Testing: Radiology Impression Hip X-Ray 07/24/25 12:25 IMPRESSION: Hardware in position. Reading Location: [facility] Physical Exam Narrative CHRISTIANO hose in place bilaterally SCDs in place bilaterally Dressing is clean, dry, intact. Right hip is soft and supple. Dorsiflexion and plantarflexion are performed actively without pain or restriction Sensation intact light touch. Neurovascularly intact overall. Negative Homans bilaterally. Const alert, oriented x3 and no apparent distress Assessment & Plan Assessment/Plan (1) S/P total right hip arthroplasty: PLAN: Status post right total hip arthroplasty day 1 DVT prophylaxis: Patient will be on aspirin 81 mg twice daily for 4 weeks postoperatively. Patient will also be wearing CHRISTIANO hose for 2 weeks postoperatively. Patient was educated she can remove CHRISTIANO hose for showers and at nighttime. Pain medications: Patient will be on Tylenol 1000 mg every 8 hours, oxycodone as needed for postoperative pain control. Patient was educated that maximum dose of Tylenol is 3000 mg and do not take above. We will avoid anti-inflammatory medications and patient due to chronic kidney disease. OARRS report was reviewed today. Patient was educated to take the least amount of narcotic pain medication as possible. Patient was educated not to operate motor vehicle while taking narcotic pain medication. Patient voiced understanding. Anterior hip precautions: Patient was educated on anterior hip precautions. Patient voiced understanding. Physical therapy: Patient will continue to be weightbearing as tolerated with walker. Patient will be following anterior hip precautions. Patient does have outpatient physical therapy established at this point. Constipation: Patient was instructed to take senna as instructed until first bowel movement to decrease risk of infection following surgery. Patient was educated if she has not had a bowel movement in 3 days to contact our office. H&H: 11.7/36.6. Patient vital signs are stable and patient is afebrile at this time. Patient's hemoglobin is currently above 10 so we will not start the anemia protocol at this time. Reactive leukocytosis: White blood cell count is currently 12.0. Patient was given Decadron intraoperatively. Vital signs are stable and patient is afebrile at this time. Incentive spirometry: Patient was instructed to use incentive spirometer every hour she is awake for the first week to exercise lungs and decrease risk of postoperative lung infection. Dressings: Patient can get dressing wet on postop day 1. Patient was educated to remove dressing on postop day 5. Patient was educated as long as her incision is clean, dry, intact she can leave it open to air. Patient was educated it is very important for an anterior hip to stay dry in the groin area. Patient is to follow-up per postoperative medication instructions. Medicine is currently on board at this time to help ensure safe and proper discharge. Patient will have a follow-up appointment in 2 weeks at the office for wound check. Disposition: Patient is okay for discharge as long as pain maintains adequately controlled, she has worked with and is cleared by physical therapy and is okay per medicine doctors recommendations. Patient states at this time she is eager to get home and feels comfortable with going home. Patient states that she does have help at home from her daughter and her grandson. Patient states that she does not need any aspirin, Tylenol as she has some at home. Patient stated she does not feel that she needs any Zofran at this time. Patient's medications will be sent to patient's pharmacy of choice which is [facility]. Patient will need to work with physical therapy as an outpatient. Patient was reminded of anterior precautions. Patient does have 2-week follow-up visit scheduled with our office. Patient was encouraged to call with any questions, concerns, new problems. All questions were answered to the best my ability.
--- NOTE | 2025-07-25 09:25 | PCM.DC ---
Discharge Instructions DC O2, CPAP, BIPAP needs Home O2 Discharge instructions: No Dressing / Incision Discharge Activity: May Not Drive (No driving for 6 weeks postoperatively.) Weight Bearing Status: Weight bearing as tolerated (With walker. Follow anterior hip precautions.) Keep extremity elevated above heart level: Right Leg (Ice and elevate as needed.) Dressing / Incision Call your doctor if your incision/area has: Continuous Slow Oozing, Sudden Increased Bleeding, Increased Pain/ Swelling, Increased Redness, Foul Smelling Discharge and Swelling at the incision site Call your doctor if you observe: Fever of 101 or Higher, Coldness, Increased Pain, Numbness or Tingling, Change in Color, Inability to urinate, Inability to have a bowel movement, Using more than 1 pad per hour, Shortness of breath, Dizziness, Fainting spells, Swelling in the ankles, Chest pain, Increased palpitations (irregular heartbeat), Calf discomfort and Uncontrolled pain Remove Dressing in: 5 days (Remove dressing on day 5 postop. As long as incision is clean, dry, intact may leave open to air.) Cleanse incision/area with: Soap & Water (Gentle soap and water in the shower. Following shower keep incision clean and dry.) Additional Dressing/Incision Instructions:: No soaking or submerging for 6 weeks postoperatively. No lotions, salves, oils for 6 weeks postoperatively. Patient was educated on anterior precautions today. OARRS report was reviewed today. Follow Up Care Test Results: Test results from this visit will be discussed in further detail at your follow-up appointment, if applicable. Discharge Plan Admission Admit Date/Time: 07/24/25 07:13 Attending Provider: Marshall Hooper Primary Care Provider: ONEYDA OLIVARES Consulting Providers: Tomeka Williamson; Panda Blanc Discharge Orders/Prescriptions Prescriptions: New acetaminophen 500 mg Tablet 1,000 mg PO Q8 Qty: 0 0RF Rx Instructions: 1000 mg every 8 hours for postoperative pain control. No more than 3000 mg in 24 hours. aspirin 81 mg Tablet,Chewable 81 mg PO BID Qty: 0 0RF Rx Instructions: Aspirin 81 mg twice daily for 4 weeks postoperatively. oxycodone 5 mg Tablet 5 - 10 mg PO Q4H PRN PRN (Reason: As needed for postoperative pain) 7 Days Qty: 42 0RF sennosides-docusate sodium [Stimulant Laxative Plus] 8.6-50 mg Tablet 2 tab PO BID 3 Days Qty: 12 0RF Rx Instructions: Take until first bowel movement and then can take as needed. Continued glimepiride 1 mg tablet 1 mg PO BID carvedilol 12.5 mg tablet 12.5 mg PO BID Qty: 180 3RF Rx Instructions: must administer with a meal/food diphenhydramine HCl [Benadryl Allergy] 25 mg Tablet 25 mg PO QHS PRN (Reason: ALLERGIES) pantoprazole 20 mg Tablet,Delayed Release (Dr/Ec) 20 mg PO QHS 30 Days Qty: 30 0RF amlodipine 2.5 mg tablet 2.5 mg PO DAILY Qty: 90 3RF rosuvastatin 20 mg tablet 20 mg PO QDAY Qty: 90 3RF Held aspirin [Adult Aspirin Regimen] 81 mg tablet,delayed release (DR/EC) 81 mg PO QDAY Hold Instructions: Resume on 08/22/25. Can resume normal dose once done with aspirin 81 mg twice daily for 4 weeks postoperatively. acetaminophen 500 mg Tablet 1,000 mg PO BID Hold Instructions: 1000 mg every 8 hours for postoperative pain control. tramadol 50 mg tablet 25 - 50 mg PO TID PRN PRN (Reason: pain) Hold Instructions: Resume on 08/08/25. Hold tramadol until finished with postoperative oxycodone for postoperative pain control. Patient was educated not to take tramadol while on oxycodone. Referrals / Follow Up: ONEYDA OLIVARES [employer] [Primary Care Provider, Internal Medicine] Disposition Disposition (needs filled in before D/C Order can be placed): Home, Self Care
--- NOTE | 2025-07-25 09:45 | CASEMGMT ---
Addendum entered by Keeley Yeager 07/25/25 10:08: [place] PEREZ into pt room, pt sitting up in chair dressed in no distress. Pt is aware of cost of oxycodone. She denies issues with paying for meds. Pt states she lives with dtr and grandson in a 2 story home. Pt has walker in room. Pt states that she has outpt therapy set up for and she has transportation. Pt denies any homegoing needs at this time. Original Note: Pt nurse notified that pt is questioning cost of oxycodone as pt cannot find a discount on [facility]. TC to [facility], cost of med is $8.04.
[2025-07-25 12:36] VITALS: BP 162/75; PULSE 65; RESP 16; O2SAT 96
== END 2025-07-25 12:53 | disposition home or self-care (01) ==
LOC: SDC 15:38 → AC 15:38 → SDC 15:38 → MS3 15:38
PROVIDERS: Admitting Provider Specialist; PCP Nurse Practitioner; Referring Provider Specialist; Visit Provider Internal Medicine
PROC: (CPT 27284; principal; 2025-07-24 10:35)
DX: M16.11 Unilateral primary osteoarthritis, right hip (principal); E11.65 Type 2 diabetes mellitus with hyperglycemia; E11.22 Type 2 diabetes mellitus with diabetic chronic kidney disease; N18.32 Chronic kidney disease, stage 3b; Z79.899 Other long term (current) drug therapy; Z79.84 Long term (current) use of oral hypoglycemic drugs; Z95.5 Presence of coronary angioplasty implant and graft; E66.812 Obesity, class 2; K21.9 Gastro-esophageal reflux disease without esophagitis; Z87.891 Personal history of nicotine dependence; I25.10 Atherosclerotic heart disease of native coronary artery without angina pectoris; I25.2 Old myocardial infarction; E78.00 Pure hypercholesterolemia, unspecified; Z68.38 Body mass index [BMI] 38.0-38.9, adult; I12.9 Hypertensive chronic kidney disease with stage 1 through stage 4 chronic kidney disease, or unspecified chronic kidney disease
CPT/HCPCS: 27130; 01214; 36415; 73501; 73502; 76000; 80048; 82962; 85025; 94668; 96361; 96365; 96366; 97116; 97162; 97166; 97530; 97535; 99221; C1776; G0378; J3475

== ENCOUNTER 2025-08-07 16:31 | Emergency (ER) | payer MEDICARE, SELFPAY ==
[2025-08-07 16:33] VITALS: BP 175/81; PULSE 68; RESP 14; TEMP 37.1; O2SAT 98
--- NOTE | 2025-08-07 17:37 | ED.VIS.LOWEX ---
HPI History of Present Illness Chief Complaint: Lower Extremity Injury Narrative Narrative: Patient is a 79-year-old female presenting to the emergency department for right leg swelling after being called with a positive DVT result outpatient. Patient states that she had hip replacement surgery and followed up with her orthopedic doctor today who ordered an outpatient ultrasound who then was called with positive results and told her that we could not prescribe anticoagulation and to call her primary care doctor. She then called her primary care doctor who told her the same thing and told her to come to the emergency department. She denies history of DVTs. Denies any chest pain or shortness of breath. States that the leg swelling started right after surgery [address] [facility] Medical History Walker as ambulation aid Wears glasses Alcohol use Post-menopausal Ambulates with cane History of renal disease High cholesterol DVT (deep venous thrombosis) Back pain Former smoker Leg cramps History of edema History of normal Holter exam History of echocardiogram Cardiology follow-up encounter History of heart attack History of irregular heartbeat Atherosclerosis of coronary artery of [place] heart without angina pectoris NSTEMI, initial episode of care Seasonal allergies Hyperlipidemia Hypertension Diabetes Arthritis GERD (gastroesophageal reflux disease) Creatinine elevation Syncope Home Medications ?Medication ?Instructions ?Recorded ?Last Taken ?Type acetaminophen 500 mg tablet 1,000 mg PO BID ARTHRITIS PAIN 10/17/22 07/23/25 History Held on 07/25/25. Instructions: 1000 mg every 8 hours for postoperative pain control. diphenhydramine HCl 25 mg tablet 25 mg PO QHS PRN ALLERGIES 10/17/22 10/15/22 History (Benadryl Allergy) pantoprazole 20 mg tablet,delayed 20 mg PO QHS 30 days #30 tabs 10/21/22 07/23/25 Rx release glimepiride 1 mg tablet 1 mg PO BID 11/10/22 07/23/25 History amlodipine 2.5 mg tablet 2.5 mg PO DAILY #90 tabs 12/06/24 07/24/25 07:30 Rx aspirin 81 mg tablet,delayed 81 mg PO QDAY 03/02/25 07/23/25 History release (Adult Aspirin Regimen) Held on 07/25/25. Instructions: Resume on 08/22/25. Can resume normal dose once done with aspirin 81 mg twice daily for 4 weeks postoperatively. carvedilol 12.5 mg tablet 12.5 mg PO BID #180 tabs 03/02/25 07/24/25 07:30 Rx rosuvastatin 20 mg tablet 20 mg PO QDAY #90 tabs 03/03/25 07/22/25 Rx tramadol 50 mg tablet 25 - 50 mg PO TID PRN PRN pain 03/29/25 07/23/25 History Held on 07/25/25. Instructions: Resume on 08/08/25. Hold tramadol until finished with postoperative oxycodone for postoperative pain control. Patient was educated not to take tramadol while on oxycodone. acetaminophen 500 mg tablet 1,000 mg (2 x 500 mg) PO Q8 #0 tabs 07/25/25 Unknown Rx aspirin 81 mg chewable tablet 81 mg PO BID #0 tabs 07/25/25 Unknown Rx oxycodone 5 mg tablet 5 - 10 mg (1 - 2 x 5 mg) PO Q4H 07/25/25 Unknown Rx PRN PRN As needed for postoperative pain 7 days #42 tabs sennosides 8.6 mg-docusate sodium 2 tab PO BID 3 days #12 tabs 07/25/25 Unknown Rx 50 mg tablet (Stimulant Laxative Plus) oxycodone 5 mg tablet 5 mg PO Q4H PRN pain 5 days #30 07/29/25 Unknown Rx tabs apixaban 5 mg tablet (Eliquis) 5 mg PO BID #74 tabs 08/07/25 Unknown Rx Allergy/AdvReac Type Severity Reaction Status Date / Time No Known Allergies Allergy Verified 08/07/25 16:33 Family History Father Diabetes CAD (coronary artery disease) Sister Diabetes CVA (cerebral vascular accident) Mother Melanoma Other Hypertension Surgical History History of cardiac catheterization Hx of tonsillectomy History of coronary artery stent placement (~10/20/22) History of appendectomy Social History household members: spouse housing: house Smoking Status: Former smoker alcohol intake: current alcohol intake frequency: a few times a week details: Drinks of couple drinks couple times a week substance use type: does not use ROS ROS ED ROS Narrative See HPI EXAM Physical Exam Narrative Exam Narrative: Vital signs: Reviewed General: Alert and oriented x 3. No acute distress HEENT: Head is normocephalic and atraumatic, sinuses nontender, pupils equal round and reactive. Nares are patent. Oropharynx and throat exams normal. Neck: Supple without lymphadenopathy nontender Cardiovascular: Regular rate and rhythm, no murmurs. No rubs or gallops. Normal S1 and S2 Respiratory: Clear to auscultation bilaterally. No wheezes, rales, rhonchi Abdominal: Soft and nontender. Normal bowel sounds. No guarding or rebound. Nonsurgical abdomen Extremities: Asymmetric right lower extremity swelling extending from the foot to the upper knee. No erythema, warmth or pain to palpation of the calf. DP and PT pulses are intact bilaterally. Sensation intact. Range of motion normal. Strength 5 out of 5. No tenderness. No bruising. Normal range of motion. Normal sensation. Skin: No rash or redness. Neurological: Cranial nerves II through XII are grossly intact. Normal strength and sensation. Normal cerebellar function The rest of the physical exam is unremarkable Const Vital Signs: 08/07/25 16:33 Temperature 98.7 F Temperature Source Oral Pulse Rate 68 Respiratory Rate 14 Blood Pressure 175/81 H Blood Pressure Mean 112 Pulse Ox 98 Oxygen Delivery Method Room Air MDM MDM MDM Narrative Medical decision making narrative: Patient is a 79-year-old female presenting to the emergency department for right leg swelling and a positive DVT study outpatient. Patient was seen and examined. Vitals are stable. Patient resting bed comfortably no acute distress. Ultrasound results were obtained preliminary results show distal right sided DVT. No chest pain or shortness of breath to suspect PE. No evidence of a proximal DVT that would require any intervention. CBC with no leukocytosis and hemoglobin 11.8. No evidence of thrombocytopenia. Kidney functioning within normal limits. Will start patient on Eliquis. Will give first dose here and instructed patient how to take Eliquis at home as prescribed. Patient discharged from the Emergency Department. I do not feel that the patient's evaluation reveals any acute reason for admission at this time. I instructed them to either follow-up with their primary care physician or promptly return to the Emergency Department for reevaluation should symptoms worsen or new symptoms develop. I explained what symptoms would indicate the need to return to the emergency department. Shared decision making was used. The patient voiced understanding of the treatment plan and is agreeable with it. Clinical impression Acute right sided DVT History & Record Review Discussion w/independent historian: Patient and Family Lab Data Attestation: I reviewed the patient's lab results. Labs: Laboratory Results - last 24 hr 08/07/25 18:12 WBC 10.1 RBC 3.96 L Hgb 11.8 L Hct 37.1 MCV 93.7 MCH 29.8 MCHC 31.8 L RDW Std Deviation 46.9 H RDW Coeff of Carl 13.8 Plt Count 454 H MPV 10.5 Immature Gran % (Auto) 0.600 Neut % (Auto) 78.2 H Lymph % (Auto) 13.3 L [place] % (Auto) 5.7 Eos % (Auto) 1.7 Baso % (Auto) 0.5 Absolute Neuts (auto) 7.9 H Absolute Lymphs (auto) 1.35 Nucleated RBC % 0 Sodium 141 Potassium 4.6 Chloride 105 Carbon Dioxide 27.7 Anion Gap 8 BUN 12 Creatinine 0.93 Est GFR (MDRD) Non-Af 61 BUN/Creatinine Ratio 13.2 Glucose 113 H Calcium 9.5 Discharge Plan Triage Chief Complaint: Lower Extremity Injury ED Provider: Catia Rios Dx/Rx/DC Orders Clinical Impression: DVT (deep venous thrombosis) Instructions: DVT Dc Prescriptions: New Eliquis 5 mg tablet 5 mg PO BID Qty: 74 0RF Rx Instructions: 10 mg twice a day for the first week. Then 5 mg twice a day. No Action glimepiride 1 mg tablet 1 mg PO BID carvedilol 12.5 mg tablet 12.5 mg PO BID Qty: 180 3RF Rx Instructions: must administer with a meal/food aspirin [Adult Aspirin Regimen] 81 mg tablet,delayed release (DR/EC) 81 mg PO QDAY acetaminophen 500 mg Tablet 1,000 mg PO BID diphenhydramine HCl [Benadryl Allergy] 25 mg Tablet 25 mg PO QHS PRN (Reason: ALLERGIES) pantoprazole 20 mg Tablet,Delayed Release (Dr/Ec) 20 mg PO QHS 30 Days Qty: 30 0RF acetaminophen 500 mg Tablet 1,000 mg PO Q8 Qty: 0 0RF Rx Instructions: 1000 mg every 8 hours for postoperative pain control. No more than 3000 mg in 24 hours. aspirin 81 mg Tablet,Chewable 81 mg PO BID Qty: 0 0RF Rx Instructions: Aspirin 81 mg twice daily for 4 weeks postoperatively. oxycodone 5 mg Tablet 5 - 10 mg PO Q4H PRN PRN (Reason: As needed for postoperative pain) 7 Days Qty: 42 0RF sennosides-docusate sodium [Stimulant Laxative Plus] 8.6-50 mg Tablet 2 tab PO BID 3 Days Qty: 12 0RF Rx Instructions: Take until first bowel movement and then can take as needed. oxycodone 5 mg tablet 5 mg PO Q4H PRN (Reason: pain) 5 Days Qty: 30 0RF tramadol 50 mg tablet 25 - 50 mg PO TID PRN PRN (Reason: pain) amlodipine 2.5 mg tablet 2.5 mg PO DAILY Qty: 90 3RF rosuvastatin 20 mg tablet 20 mg PO QDAY Qty: 90 3RF Primary Care Provider: ONEYDA OLIVARES Referrals: ONEYDA OLIVARES NP-C [Primary Care Provider, Internal Medicine] - As soon as possible Activity Restrictions/Additional Instructions: Take the Eliquis as prescribed. Follow-up with your primary care doctor soon as possible. Return to the emergency department with any worsening leg swelling, chest pain or shortness of breath. Your evaluation in the Emergency Department did not reveal any acute reason for admission. However, I want to emphasize that you may be early in the course of a disease process or illness even if it is not present. For this reason you should follow-up within 24 hours for reevaluation with either your primary care physician or if necessary back here in the Emergency Department. You should return to the Emergency Department immediately if your symptoms worsen or new symptoms develop. Print Language: Spanish Disposition Disposition: Home, Self Care
[2025-08-07 18:27] LABS: Hematocrit 37.1 % (37-47); Hemoglobin 11.8 g/dL (12.0-15.0); Immature Granulocytes Count 0.060 X10^3/uL (0.0-0.0); Mean Corp Hgb Conc 31.8 g/dL (32-36); Mean Corpuscular Volume 93.7 fL (81-99); Mean Platelet Vol. 10.5 fl (6.2-12.0); NRBC Flagged by Analyzer 0 % (0-5); Platelet Count 454 K/mm3 (150-450); RBC Distribution Width CV 13.8 % (11.6-14.6); RBC Distribution Width SD 46.9 fl (35.1-43.9); Red Blood Count 3.96 M/mm3 (4.2-5.4); White Blood Count 10.1 K/mm3 (4.4-11.0)
[2025-08-07 18:42] LABS: Anion Gap 8 (5-15); BUN 12 mg/dL (4-19); BUN/Creat Ratio 13.2 RATIO (10-20); Calcium,Total 9.5 mg/dL (7.6-11.0); Carbon Dioxide 27.7 mmol/L (21.0-32.0); Chloride 105 mmol/L (98-108); Glucose 113 mg/dL (70-99); Potassium 4.6 mmol/L (3.3-5.1)
[2025-08-07] MEDS: APIXABAN 5 MG TABLET 10 MG PO (18:57)
[2025-08-07 18:59] VITALS: BP 156/84; PULSE 61; RESP 14; TEMP 37.1; O2SAT 99
== END 2025-08-07 19:00 | disposition home or self-care (01) ==
PROVIDERS: Emergency Provider Student in an Organized Health Care Education/Training Program; PCP Nurse Practitioner; Visit Provider Student in an Organized Health Care Education/Training Program
DX: I82.401 Acute embolism and thrombosis of unspecified deep veins of right lower extremity (principal); E11.9 Type 2 diabetes mellitus without complications; I25.10 Atherosclerotic heart disease of native coronary artery without angina pectoris; I10 Essential (primary) hypertension; E78.00 Pure hypercholesterolemia, unspecified; I25.2 Old myocardial infarction; Z79.01 Long term (current) use of anticoagulants; Z79.82 Long term (current) use of aspirin; Z79.84 Long term (current) use of oral hypoglycemic drugs; Z79.899 Other long term (current) drug therapy; Z87.891 Personal history of nicotine dependence; Z86.718 Personal history of other venous thrombosis and embolism
CPT/HCPCS: 80048; 85025; 99282

== ENCOUNTER → 2025-08-07 | Outpatient (CLI) | payer MEDICARE, SELFPAY | END | disposition home or self-care (01) | LOC: CVS 15:39 | PROVIDERS: PCP Nurse Practitioner; Referring Provider Physician Assistant Surgical; Visit Provider Physician Assistant Surgical | DX: R60.0 Localized edema (principal) | CPT/HCPCS: 93971 ==